=== PATIENT | male | born 1950 | race Caucasian/White ===

== ENCOUNTER 2019-10-03 17:54 | Inpatient (IN) | payer MEDICARE, MEDICAID, SELFPAY ==
[2019-10-03] VITALS (9 sets, daily range): BP systolic 134–141; BP diastolic 84–85; PULSE 88–95; RESP 18–25; TEMP 36.8; O2SAT 98–100; BMI 15.7
--- NOTE | 2019-10-03 18:24 | ED_ITS ---
Entered by Meli Castro, acting as scribe for Ruben Hauser MD, [facility] [place] HPI - Chest Pain General: Chief Complaint: Chest Pain Stated Complaint: DIFFICULTY BREATHING/ CHEST PAIN Time Seen by Provider: 10/03/19 18:24 Source: patient Mode of arrival: ambulatory Limitations: no limitations History of Present Illness: HPI narrative: 69 yo Male presents to ED with c omplaint of chest pain and shortness of breath. Pt states that he was walking his dog and started having pain in his chest and radiating down his right arm. Pt states that this happened 1645 today. Pt states that he has 4 stents in his heart. Pt states that this feels like his previous heart attacks. Pt states that his lungs are killing him. Pt states that he has been couging up yellowish-green sputum. Pt states that he does use 3 liters oxygen at home for his COPD and emphysema. Pt states that he does still smoke. MD complaint: chest pain Onset (ago): week(s) (2) Onset: during exertion Pain location: substernal Pain radiation: right arm Severity: similar to previous episodes Pain scale (0-10): 9 Quality: similar to prior [facility] Relieving factors: nothing Exacerbating factors: nothing Context: recent illness Associated symptoms: Reports dyspnea Treatment prior to arrival: aspirin and nitroglycerin Risk Factors: Coronary artery disease risk factors: diabetes, smoking history, hyperlipidemia and hypertension Review of Systems General: Reports: 10 or more systems reviewed and unremarkable except in HPI and below Card: Reports: chest pain Resp: Reports: shortness of breath, productive cough and change in phlegm color (yellowish-green x 2 weeks) PFSH ED PFSH: Statuses (acute, chronic, etc) shown below reflect problem list status as previously entered and may not be historically accurate Medical History (Updated 10/03/19 @ 22:26 by Ruben Hauser MD, [facility] [place]) Anxiety (Acute) CAD (coronary artery disease) (Acute) CHF (congestive heart failure) (Acute) COPD (chronic obstructive pulmonary disease) (Acute) Diabetes (Acute) Emphysema, unspecified (Acute) GERD (gastroesophageal reflux disease) (Acute) HTN (hypertension) (Acute) Myocardial infarction (Acute) Surgical History (Updated 10/03/19 @ 18:33 by Meli Castro) History of back surgery (Acute) History of cardiac cath (Acute) History of coronary angioplasty (Acute) History of neck surgery (Acute) Social History Smoking and tobacco status: current every day smoker Physical Exam Const: COMMON NORMALS: no apparent distress, average body habitus, oriented x3, no limitations, healthy appearing, alert and well nourished HENMT: COMMON NORMALS: normocephalic, head/scalp atraumatic, hearing grossly normal bilaterally, external ears normal, EAC's normal, TM's normal bilaterally, external nose normal, nasal mucous membranes and turbinates normal, moist oral mucous membranes, oropharynx normal, dentition normal and gingiva normal HEAD & SCALP: normocephalic and atraumatic NOSE: external nose normal and nasal mucous membranes and turbinates normal EXTERNAL EAR: Yes external ears normal EXTERNAL AUDITORY CANAL: EAC's normal TYMPANIC MEMBRANE: TM's normal bilaterally Eye: COMMON NORMALS: PERRL, EOMs intact bilaterally, conjunctivae normal, no scleral icterus, no papilledema, normal visual [place] by confrontation and fundi normal bilaterally CONJUNCTIVA: Yes conjunctivae normal PUPIL: Yes PERRL DIRECT OPHTHALMOSCOPY: Yes no papilledema and Yes fundi normal bilaterally Neck/C-Spine: COMMON NORMALS: full ROM, supple, no meningeal signs, no JVD and no carotid bruits Chest: COMMONS NORMALS: inspection of chest normal and palpation of chest normal Resp: COMMON NORMALS: negative for normal respiratory effort and negative for clear to auscultation bilaterally EFFORT & INSPECTION: Yes tachypneic and Yes respiratory distress AUSCULTATION: not clear to auscultation bilaterally, wheezes throughout and diminished lung sounds bilateral Cardio: COMMON NORMALS: no JVD, regular rate, regular rhythm, S1 normal heart sound, S2 normal heart sound, no gallops, no clicks, no murmurs, no rub and peripheral pulses 2+ throughout RATE: regular rate RHYTHM: regular rhythm HEART SOUNDS: S1 normal and S2 normal PERIPHERAL PULSES: pulses 2+ throughout GI: COMMON NORMALS: normal to inspection, nondistended, normoactive bowel sounds, soft to palpation, non-tender, no hepatosplenomegaly, no masses and no bruits PALPATION: Yes soft and Yes no hepatosplenomegaly : COMMON NORMALS: Yes no CVA tenderness BLADDER/KIDNEY EXAM: Yes no CVA tenderness Back/Pelvis: COMMON NORMALS: no CVA tenderness Extremity: COMMON NORMALS: normal to inspection, full ROM, normal capillary refill, no joint enlargement, no clubbing, cyanosis or edema, no calf tenderness and no pedal edema Neuro: COMMON NORMALS: oriented x3 SENSORIUM/ORIENTATION: Yes alert MENINGEAL SIGNS: Yes no meningeal signs Skin: COMMON NORMALS: no rashes or lesions noted, no wounds, skin turgor normal, no jaundice, no petechiae and no mottling GENERAL SKIN EXAM: no rashes or lesions noted and turgor normal Course Consultations: Consultation #1: Discussed with Dr. hebert, hospitalist and she kindly accepted the patient to her service. Time: 19:20 Vital Signs: Vital signs: Vital Signs Temperature 98.2 F 10/03/19 18:03 Pulse Rate 94 10/03/19 20:21 Respiratory Rate 23 H 10/03/19 21:46 Blood Pressure 141/84 10/03/19 18:03 Pulse Oximetry 99 10/03/19 21:46 MDM - Chest Pain MDM Narrative: Medical decision making narrative: Patient with clinical features consistent with a COPD exacerbation. Patient is hypoxic requiring more oxygen than his baseline. Chest x-ray was negative for infiltrate. He is admitted for pulmonary toilet and further evaluation. Lab Data: Labs: Lab Results 10/03/19 10/03/19 10/03/19 Range/Units 19:00 19:00 19:00 WBC 9.9 (4.0-10.0) 10^3/ uL RBC 3.82 L (4.1-5.3) 10^6/u L Hgb 11.6 L (11.7-16.6) g/dL Hct 36.4 L (42.0-52.0) % MCV 95.3 H (80-94) fL MCH 30.4 (28.0-34.0) pg MCHC 31.9 (30.0-36.0) g/dL RDW 13.7 (12.1-15.1) % Plt Count 240 (130-400) 10^3/c mm MPV 9.6 (7.4-10.4) fL Neut % (Auto) 89.1 % Lymph % (Auto) 7.4 % [place] % (Auto) 2.4 % Eos % (Auto) 0.1 % Baso % (Auto) 0.2 % Neut # (Auto) 8.9 H (1.8-7.7) 10^3/u L Lymph # (Auto) 0.7 L (0.8-4.8) 10^3/u L [place] # (Auto) 0.2 (0.2-0.9) 10^3/u L Eos # (Auto) 0.0 (0.0-0.8) 10^3/u L Baso # (Auto) 0.0 (0.0-0.1) 10^3/u L Nucleated RBC % (a uto) 0 % Nucleated RBCs # 0.0 /100WBC D-Dimer <= 0.27 (0-0.59) ug/mIFE U Sodium 129 L (136-145) mmol/L Potassium 4.1 (3.5-5.1) mmol/L Chloride 91 L (98-107) mmol/L Carbon Dioxide 30 H (22-29) mmol/L Anion Gap 12.1 (5-19) BUN 8 (8-23) mg/dL Creatinine 0.6 L (0.7-1.2) mg/dL GFR Calculation 134.0 H (90-130) mL/min Glucose 88 (74-106) mg/dL Calcium 9.1 (8.8-10.2) mg/Dl Total Bilirubin 0.3 (0.15-1.2) mg/dL AST 12 (0-40) U/L ALT 9 (0-41) U/L Alkaline Phosphata se 88 (40-130) IU/L Troponin T Baselin e (0-15) ng/mL Troponin T 120 Min [place] (0-15) ng/mL Delta Troponin T (0-10) ABS# Total Protein 6.5 L (6.6-8.7) g/dL Albumin 3.9 (3.5-5.2) g/dL Globulin 2.6 (1.3-4.6) g/dL 10/03/19 10/03/19 Range/Units 19:00 20:38 WBC (4.0-10.0) 10^3/ uL RBC (4.1-5.3) 10^6/u L Hgb (11.7-16.6) g/dL Hct (42.0-52.0) % MCV (80-94) fL MCH (28.0-34.0) pg MCHC (30.0-36.0) g/dL RDW (12.1-15.1) % Plt Count (130-400) 10^3/c mm MPV (7.4-10.4) fL Neut % (Auto) % Lymph % (Auto) % [place] % (Auto) % Eos % (Auto) % Baso % (Auto) % Neut # (Auto) (1.8-7.7) 10^3/u L Lymph # (Auto) (0.8-4.8) 10^3/u L [place] # (Auto) (0.2-0.9) 10^3/u L Eos # (Auto) (0.0-0.8) 10^3/u L Baso # (Auto) (0.0-0.1) 10^3/u L Nucleated RBC % (a uto) % Nucleated RBCs # /100WBC D-Dimer (0-0.59) ug/mIFE U Sodium (136-145) mmol/L Potassium (3.5-5.1) mmol/L Chloride (98-107) mmol/L Carbon Dioxide (22-29) mmol/L Anion Gap (5-19) BUN (8-23) mg/dL Creatinine (0.7-1.2) mg/dL GFR Calculation (90-130) mL/min Glucose (74-106) mg/dL Calcium (8.8-10.2) mg/Dl Total Bilirubin (0.15-1.2) mg/dL AST (0-40) U/L ALT (0-41) U/L Alkaline Phosphata se (40-130) IU/L Troponin T Baselin e 18 H (0-15) ng/mL Troponin T 120 Min [place] 20.09 H (0-15) ng/mL Delta Troponin T 2.09 (0-10) ABS# Total Protein (6.6-8.7) g/dL Albumin (3.5-5.2) g/dL Globulin (1.3-4.6) g/dL EKG Data^: EKG 1: EKG interpretation date: 10/03/19 EKG interpretation time: 18:13 Other EKG comments: [address] [address] Electrocardiograph Report Draft Patient: Onel Low EMR#: [id number] : [id number]:[id number] Age/Sex: 69 / MADM Date: 10/03/19 Loc: ER Attending Dr: Ordering Physician: Ruben Hauser MD, [facility] Date of Service: 10/03/19 Procedure(s): ECG 12 lead EKG Accession Number(s): [id number] Report Number: [id number] Measurements Intervals [place] Rate: 89 P: 82 KS: 150 QRS: 39 QRSD: 86 T: 81 QT: 370 QTc: 452 SINUS RHYTHM POSSIBLE LEFT ATRIAL ENLARGEMENT [-0.1mV P WAVE IN V1/V2] Compared to ECG 06/01/2019 19:29:20 Ventricular premature complex(es) no longer present Myocardial infarct finding no longer present [id number] Dictated By:INTERFACE,USER Signed By:Signed Date/Time: EKG 2: EKG interpretation date: 10/03/19 EKG interpretation time: 20:52 Other EKG comments: unchanged Discharge Plan Discharge Patient Disposition: Placed in Observation Clinical Impression: Acute exacerbation of chronic obstructive pulmonary disease Condition: Stable Referrals: Jesse Jacinto MD [Family Provider] - Coding Level of Care Code ED Creative Specialist for Chg Fwd Exam Problem Focused The documentation recorded by the Matthew kimball Carmen, accurately reflects the service I personally performed and the decisions made by Analisa jimenez Adegoke I, MD, [facility] Oct 03, 2019 17:54
--- NOTE | 2019-10-03 18:43 | XR_ITS ---
WS: [id number] CHEST XRAY TECHNIQUE: Portable chest. CLINICAL INFORMATION: SOB COMPARISON: May 31, 2019 FINDINGS: Heart: Normal cardiac silhouette. Lungs: Chronic emphysematous changes. No acute pulmonary infiltrates. Fibrosis in the lung apices. Bones: Normal visualized bony structures. Cholecystectomy clips. XR/XR chest 1V portable [id number] IMPRESSION: No acute chest findings
--- NOTE | 2019-10-03 18:43 | ECG_ITS ---
Measurements Intervals [place] Rate: 89 P: 82 ME: 150 QRS: 39 QRSD: 86 T: 81 QT: 370 QTc: 452 SINUS RHYTHM POSSIBLE LEFT ATRIAL ENLARGEMENT [-0.1mV P WAVE IN V1/V2] Compared to ECG 06/01/2019 19:29:20 Ventricular premature complex(es) no longer present Myocardial infarct finding no longer present Electronically Signed On 10-04-2019 8:07:25 PROJECT MANAGER/DESIGN MANAGER by Nathanael Mcelroy M.D. [id number]
[2019-10-03 19:11] LABS: Basophils % 0.2 %; Eosinophils % 0.1 %; Hematocrit 36.4 % (42.0-52.0); Hemoglobin 11.6 g/dL (11.7-16.6); Lymphocytes # 0.7 10^3/uL (0.8-4.8); Lymphocytes % 7.4 %; Mean Corpuscular HGB Conc 31.9 g/dL (30.0-36.0); Mean Corpuscular Hemoglobin 30.4 pg (28.0-34.0); Mean Corpuscular Volume 95.3 fL (80-94); Mean Platelet Volume 9.6 fL (7.4-10.4); Monocytes # 0.2 10^3/uL (0.2-0.9); Monocytes % 2.4 %; Neutrophils # 8.9 10^3/uL (1.8-7.7); Neutrophils % 89.1 %; Nucleated Red Blood Cells % 0 %; Platelet Count 240 10^3/cmm (130-400); Red Blood Count 3.82 10^6/uL (4.1-5.3); Red Cell Distribution Width 13.7 % (12.1-15.1); White Blood Count 9.9 10^3/uL (4.0-10.0)
[2019-10-03 19:22] LABS: D Dimer <= 0.27 ug/mIFEU (0-0.59)
[2019-10-03] MEDS: morphine 4 mg/mL SDV 1 mL IVP ×5 (19:27→23:36)
[2019-10-03] MEDS: nitroglycerin 1 gm/inch oint Pkt 1 INCH TOPICAL (19:30)
[2019-10-03 19:31] LABS: Alanine Aminotransferase 9 U/L (0-41); Albumin Level 3.9 g/dL (3.5-5.2); Alkaline Phosphatase 88 IU/L (40-130); Anion Gap 12.1 (5-19); Aspartate Amino Transferase 12 U/L (0-40); Blood Urea Nitrogen 8 mg/dL (8-23); Calcium 9.1 mg/Dl (8.8-10.2); Carbon Dioxide 30 mmol/L (22-29); Chloride 91 mmol/L (98-107); Globulin 2.6 g/dL (1.3-4.6); Glucose 88 mg/dL (74-106); Potassium 4.1 mmol/L (3.5-5.1); Sodium 129 mmol/L (136-145); Total Bilirubin 0.3 mg/dL (0.15-1.2); Total Protein 6.5 g/dL (6.6-8.7)
[2019-10-03 19:37] LABS: Troponin(5th) Baseline 18 ng/mL (0-15)
[2019-10-03] MEDS: ipratropium-albuterol 3 mL Neb INHALATION (20:17)
--- NOTE | 2019-10-03 20:43 | ECG_ITS ---
Measurements Intervals [place] Rate: 89 P: 81 SC: 162 QRS: 44 QRSD: 77 T: 81 QT: 373 QTc: 456 SINUS RHYTHM POSSIBLE RIGHT ATRIAL ENLARGEMENT [0.25mV P WAVE] POSSIBLE LEFT ATRIAL ENLARGEMENT [-0.1mV P WAVE IN V1/V2] SEPTAL MYOCARDIAL INFARCTION , PROBABLY OLD [40+ ms Q WAVE IN V1/V2] Compared to ECG 06/01/2019 19:29:20 Ventricular premature complex(es) no longer present Myocardial infarct finding still present Electronically Signed On 10-04-2019 8:09:25 HEALTH SAFETY INSTRUCTOR by Nathanael Mcelroy M.D. [id number] loo
[2019-10-03 20:58] LABS: Troponin 5 2HR 20.09 ng/mL (0-15)
[2019-10-03 20:59] LABS: Troponin 5 2HR Delta 2.09 ABS# (0-10)
[2019-10-03] MEDS: azithromycin 500 MG in sodium chloride 0.9% 250 ML 250 MG IV (22:30)
--- NOTE | 2019-10-03 23:29 | P.HP_ITS ---
Providers/Chief Complaint Admitting Physician: Megan Varela MD Primary Care Provider: Jesse Jacinto Chief Complaint: DIFFICULTY BREATHING/ CHEST PAIN History of Present Illness Onel Low is a 69 year old male who presented to the emergency room with chief complaint of difficulty breathing and some chest discomfort. He has been clinically declining over the last few months. This is including getting progressively weaker, losing weight and noticing increasing dyspnea on exertion. He saw his primary care provider approximately 5 weeks ago. He is lost at least 5 pounds if not more since then. He was seen at the emergency room and [facility] a couple of weeks ago and had a course of steroids and antibiotics. For a brief period of time he felt better but says since he came off of those he is actually felt worse than he was before that. He has not had any other episodes of chest pain but this evening he was getting up and walking when he had sudden onset of chest discomfort in the center of his chest. It was a severe pain that did not radiate anywhere. It was so bad he felt like he was going to pass out. He fell to my knees and was diaphoretic. He managed to get to a chair, sat down and had a breathing treatment. He also took some nitroglycerin and baby aspirin. His symptoms improved after this, but this led to him coming in. On arrival he was very tachypneic. He is normally on 3 L of oxygen but oxygen was bumped up to 5 L. He received steroids and breathing treatments and continues to have significant wheezing. He is being admitted to observation status to monitor with initiation of care. Chest x-ray did not appear to show any opacities. Review of Systems Const: Reports: body aches, change in weight, fatigue and malaise; Denies: fever, chills or night sweats Eyes: Reports: change in vision (Cloudy, developing over the last few months) ENMT: Reports: dry mouth; Denies: throat pain Card: Reports: chest pain (Today only); Denies: swelling of feet/ankles Resp: Reports: shortness of breath, non-productive cough (Occasional) and wheezing (Almost always but gets worse at times); Denies: productive cough, pain on inspiration or coughing up blood GI: Reports: diarrhea (Intermittent, otherwise has has normal bowel movements); Denies: abdominal pain, nausea or vomiting : Reports: difficulty urinating, difficulty starting urination and change in urine stream Musc: Reports: neck pain (Chronic) and back pain (Chronic) Skin/Breast: Reports: sores (On buttocks); Denies: itching Neuro: Reports: weakness in extremities (Left leg primarily, seems to have been slowly developing over the last few months, feels related to chronic back issues) Psych: Reports: anxiety and sleeping less (Due to breathing difficulties) [place]/Lymph: Denies: easy bruising or easy bleeding Medications/Allergies Allergies Allergy/AdvReac Type Severity Reaction Status Date / Time Penicillins Allergy ALGY-Rash Verified 10/04/19 01:07 Additional Medication Information Additional Medication Information: I reviewed medications with patient based on previous medications entered. These included aspirin, Plavix, metoprolol, Lipitor, Aldactone, breathing treatments, a small white pill for his lungs, Soma, hydrocodone 10, Protonix, among others. We need to clarify dosing and strengths. PFSH Acute PFSH: Statuses (acute, chronic, etc) shown below reflect problem list status as previously entered and may not be historically accurate Medical History (Updated 10/04/19 @ 01:05 by Megan Varela MD) Anxiety (Acute) CAD (coronary artery disease) (Acute) Has stent. Last cardiac catheterization in June 2018 showed left main, circumflex, and RCA with 0% stenosis. The proximal LAD had minimal luminal irregularities with JOHN-3 flow. He had 90% restenosis of the first obtuse marginal and underwent balloon angioplasty with restenting at that time. Last echocardiogram May 2019 with ejection fraction 55%, mild hypokinesia of the apical septal segment with grade 1/4 diastolic dysfunction noted. Chronic back pain (Chronic) Related to prior back surgeries and neck surgery, on hydrocodone 10 two tabs q 4hr + soma qid COPD (chronic obstructive pulmonary disease) (Acute) Pulmonary function testing from July 2018 showed severe obstructive ventilatory defect with no significant bronchodilator response and moderately reduced diffusing capacity. GERD (gastroesophageal reflux disease) (Acute) HTN (hypertension) (Acute) Hyperlipidemia (Acute) Nicotine dependence, cigarettes, with other nicotine-induced disorders (Chronic) Surgical History (Updated 10/04/19 @ 00:56 by Megan Varela MD) History of back surgery (Acute) x4 History of neck surgery (Acute) x2 S/P appendectomy (Acute) S/P cholecystectomy (Acute) Family History (Updated 10/04/19 @ 00:25 by Megan Varela MD) Other Hypertension Social History (Updated 10/04/19 @ 01:02 by Megan Varela MD) Smoking and tobacco status: current every day smoker cigarettes Packs smoked per day: 1 Alcohol intake: former 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 Substance/Drug Use: never Household members: spouse and children Vitals/I&O/Wt Last Vital Signs Temp 98.2 F 10/03/19 18:03 Pulse 94 10/03/19 20:21 Resp 23 H 10/03/19 22:24 BP 141/84 10/03/19 18:03 Pulse Ox 99 10/03/19 22:24 Weight last 48 hrs Weight 47.083 kg Physical Exam Const: COMMON NORMALS: oriented x3 and alert GENERAL APPEARANCE: cooperative NUTRITIONAL APPEARANCE: thin OTHER: Chronic ill appearance HENMT: COMMON NORMALS: normocephalic, head/scalp atraumatic and oropharynx normal TEETH & GINGIVA: Yes dentures THROAT: no postnasal drainage Eye: COMMON NORMALS: PERRL Neck/C-Spine: COMMON NORMALS: supple Chest: COMMONS NORMALS: inspection of chest normal Resp: EFFORT & INSPECTION: Yes able to speak in complete sentences, Yes pursed lip breathing, Yes uses accessory muscles (Mild supraclavicular retractions) and Yes prolonged expiratory phase AUSCULTATION: wheezes expiratory wheezes, inspiratory wheezes and throughout Cardio: COMMON NORMALS: regular rate and regular rhythm JUGULAR VENOUS DISTENTION: no JVD GI: COMMON NORMALS: normal to inspection, nondistended, normoactive bowel sounds and soft to palpation PALPATION: Yes tender (Generalized mild, no focal areas of tenderness) RECTAL EXAM: Yes visual inspection normal Back/Pelvis: GENERAL BACK: Yes other (Pain with movement which he states is not outside of baseline) LUMBAR SPINE/LOWER BACK: Yes normal to inspection Extremity: COMMON NORMALS: no pedal edema GENERAL: Yes other findings (Clubbing noted) Neuro: SPEECH: speech normal GAIT: Yes unable to assess gait MOTOR EXAM: strength 5/5 throughout (Despite report of left lower extremity weakness. Strength is equal proximally and distally on brief examination) and No tremor Psych: COMMON NORMALS: mental status grossly normal, thought process normal and cooperative Skin: NARRATIVE SKIN EXAM: In the sacral area patient has some blanching erythema and a central midline area that is more tender to palpation. More distally it looks like the wound has closed but more proximally on this 2 cm wound there is an open area with no drainage. Some dry skin is around it. There is no fluctuance, purulence and it looks like it is healing well but slowly. A&P Assessment and plan (1) Chest pain: Has a known history of coronary artery disease with previous LAD stent requiring restenting in 2018. Initial troponins with no significant delta change. I suspect that the discomfort was probably related to respiratory issues. He reports compliance with his medications. We will need to monitor for recurrence and consider stress testing likely in the outpatient setting when his pulmonary symptoms have improved. Status: Acute Qualifiers: Chest pain type: precordial pain Qualified Code(s): R07.2 - Precordial pain Code(s): R07.9 - Chest pain, unspecified (2) Acute exacerbation of chronic obstructive pulmonary disease: This appears to be the primary presenting problem at this point in time. He does continue to smoke but says he is trying to quit. He was on a short course of steroids and antibiotics a few weeks ago prescribed from another facility. He feels worse since that time. He may need a slower steroid taper. No obvious infiltrates on chest x-ray. Requiring higher oxygen flow rate at the moment. Status: Acute Code(s): J44.1 - Chronic obstructive pulmonary disease with (acute) exacerbation (3) Weight loss: Sounds like a significant amount over the last few months. Reports that he had TSH checked here within the last 2 months but I cannot find a result even in the old system. Could be due to increased metabolic demands in the setting of worsening pulmonary and/or cardiopulmonary status. No obvious indication of malignancy at the moment but he does have risk factors for such. Status: Acute Code(s): R63.4 - Abnormal weight loss (4) Difficulty urinating: Patient reports difficulty initiating and continuing stream of urine. He thinks he has been told his prostate is enlarged in the past. He has not been on any medications for this. Reviewed with him risks and benefits of Flomax and he agreed to initiation during this stay so we can monitor response Status: Acute Code(s): R39.198 - Other difficulties with micturition (5) Chronic back pain: Has had multiple surgeries, on chronic pain medications of hydrocodone and soma Status: Chronic Qualifiers: Back pain location: low back pain Back pain laterality: bilateral Sciatica presence: with sciatica Sciatica laterality: bilateral sciatica Qualified Code(s): M54.42 - Lumbago with sciatica, left side; M54.41 - Lumbago with sciatica, right side; G89.29 - Other chronic pain Code(s): M54.9 - Dorsalgia, unspecified; G89.29 - Other chronic pain (6) Nicotine dependence, cigarettes, with other nicotine-induced disorders: Continues to smoke about a pack a day. I reviewed with him the importance of not smoking when oxygen is on as well as the importance of smoking cessation to his overall pulmonary health. Total time approximately 5 minutes. Status: Chronic Code(s): F17.218 - Nicotine dependence, cigarettes, with other nicotine-induced disorders Additional A&P Information Additional A&P Information: Observation admission for now Prednisone, would probably benefit from a bit slower taper than usual Doxycycline Breathing treatments including inhaled steroids He says he takes a small white pill for his lungs, will need to clarify and re sume Wean oxygen back to home levels as able, of note patient keeps his oxygen in his mouth chronically Continue to monitor for 6-hour troponin and repeat EKG with chest pain Would benefit from stress testing at some point in time when his acute respiratory issues have improved or sooner if clinically indicated Flomax to be started Check TSH secondary to weight loss Resume home aspirin, Plavix, statin, beta-blockade and Aldactone Continue home hydrocodone and Soma I have held PPI currently due to antibiotics Nicotine patch as needed Lovenox for DVT prophylaxis Full code as per my discussion with patient Anticipate discharge back home with his family Attestations Medical Necessity Statement*: Currently anticipated stay less than 2 midnights in a patient with COPD exacerbation he was requiring more oxygen than his baseline. Hope is that once we get some steroids on board and more aggressive p ulmonary toilet that he will improve and be able to be discharged home with continued management. Coding Level of Care Code Acute Dice Table Person for [place] Diagnoses Chest pain R07.2 Chest pain type: precordial pain Acute exacerbation of chronic obstructive pulmonary disease J44.1 Weight loss R63.4 Difficulty urinating R39.198 Chronic back pain M54.42; M54.41; G89.29 Back pain location: low back pain Back pain laterality: bilateral Sciatica presence: with sciatica Sciatica laterality: bilateral sciatica Nicotine dependence, cigarettes, with other nicotine-induced disorders F17.218
--- NOTE | 2019-10-03 23:54 | PC.NURSE ---
REPORT CALLED TO AVIS MARIE, PT ACCEPTED AND CARE TRANSFERED.
[2019-10-04] VITALS (21 sets, daily range): BP systolic 126–175; BP diastolic 78–89; PULSE 60–95; RESP 16–26; TEMP 36.4–37.2; O2SAT 97–100
--- NOTE | 2019-10-04 00:43 | ECG_ITS ---
Measurements Intervals [place] Rate: 95 P: 79 RI: 136 QRS: 73 QRSD: 92 T: 84 QT: 386 QTc: 486 SINUS RHYTHM Compared to ECG 06/01/2019 19:29:20 Ventricular premature complex(es) no longer present Myocardial infarct finding no longer present Electronically Signed On 10-04-2019 8:10:21 ATHLETICS TEACHER by Nathanael Mcelroy M.D. [id number]
[2019-10-04 01:19] LABS: Hematocrit 34.9 % (42.0-52.0); Lymphocytes # 0.3 10^3/uL (0.8-4.8); Lymphocytes % 4.2 %; Mean Corpuscular HGB Conc 31.5 g/dL (30.0-36.0); Mean Corpuscular Hemoglobin 28.9 pg (28.0-34.0); Mean Corpuscular Volume 91.8 fL (80-94); Mean Platelet Volume 10.3 fL (7.4-10.4); Monocytes # 0.1 10^3/uL (0.2-0.9); Monocytes % 0.8 %; Neutrophils # 5.7 10^3/uL (1.8-7.7); Neutrophils % 94.5 %; Nucleated Red Blood Cells % 0 %; Platelet Count 230 10^3/cmm (130-400); Red Cell Distribution Width 13.7 % (12.1-15.1)
[2019-10-04] MEDS: ipratropium-albuterol 3 mL Neb INHALATION ×7 (01:37→23:49)
[2019-10-04 01:39] LABS: Anion Gap 15.2 (5-19); Blood Urea Nitrogen 9 mg/dL (8-23); Calcium 9.3 mg/Dl (8.8-10.2); Carbon Dioxide 28 mmol/L (22-29); Chloride 94 mmol/L (98-107); Glucose 143 mg/dL (74-106); Potassium 4.2 mmol/L (3.5-5.1); Sodium 133 mmol/L (136-145); Troponin 5 6HR 13.63 ng/L (0-15)
[2019-10-04] MEDS: sodium chloride 0.9% 1,000 ML 75 ML IV (01:47)
[2019-10-04] MEDS: HYDROcodone-acetaminophen 10-325 mg Tablet 2 TAB PO ×5 (01:48→20:25)
[2019-10-04] MEDS: enoxaparin 40 mg/0.4 mL Syringe SUBCUT (01:50)
[2019-10-04] MEDS: acetaminophen 325 mg Tablet 650 MG PO (04:22)
[2019-10-04] MEDS: LORazepam 0.5 mg Tablet 0.25 MG PO (04:23)
[2019-10-04 04:47] LABS: Thyroid Stimulating Hormone 0.02 uIU/mL (0.27-4.20)
[2019-10-04 07:02] LABS: Glucose Point of Care 172 mg/dL (70-110)
[2019-10-04 07:51] LABS: Troponin 5 6HR Delta -4.37 ng/L (0-12)
[2019-10-04] MEDS: budesonide 0.5 mg/2 mL Neb INHALATION ×2 (08:19→20:06)
[2019-10-04] MEDS: metoprolol tartrate 25 mg Tablet PO ×2 (08:55→17:28)
[2019-10-04] MEDS: predniSONE 20 mg Tablet 40 MG PO (08:56)
[2019-10-04] MEDS: doxycycline 100 mg Tablet PO ×2 (08:57→17:28)
[2019-10-04] MEDS: clopidogrel 75 mg Tablet PO (08:57)
[2019-10-04] MEDS: aspirin 81 mg EC Tablet PO (08:57)
[2019-10-04 12:19] LABS: Glucose Point of Care 114 mg/dL (70-110)
[2019-10-04] MEDS: spironolactone 25 mg Tablet PO (13:11)
--- NOTE | 2019-10-04 13:33 | PM.PN ---
Subjective Subjective: Interval history: This morning, patient's in bed, saying that he is fairly anxious, his breathing has somewhat improved this morning, no chest pain, no palpitations, no lightheadedness, no dizziness, no nausea, no vomiting, patient states that he did sleep last night as he did not get his trazodone Vitals/I&O/Wt Last Vital Signs Temp 98.9 F 10/04/19 12:00 Pulse 88 10/04/19 12:36 Resp 20 H 10/04/19 12:36 BP 171/82 10/04/19 12:00 Pulse Ox 98 10/04/19 12:36 10/03/19 10/04/19 10/04/19 22:59 06:59 14:59 Intake Total 480 / 480 240 / 240 Output Total 300 / 300 90 / 90 Balance 180 / 180 150 / 150 Weight last 48 hrs Weight 51.619 kg Weight 51.029 kg Weight 48.353 kg Weight 47.083 kg Physical Exam Const: COMMON NORMALS: no apparent distress HENMT: COMMON NORMALS: normocephalic HEAD & SCALP: normocephalic Neck/C-Spine: COMMON NORMALS: no JVD Resp: COMMON NORMALS: normal respiratory effort Cardio: COMMON NORMALS: no JVD, regular rate, regular rhythm, S1 normal heart sound and S2 normal heart sound RATE: regular rate RHYTHM: regular rhythm HEART SOUNDS: S1 normal and S2 normal GI: COMMON NORMALS: normal to inspection, nondistended, normoactive bowel sounds, soft to palpation, non-tender and no hepatosplenomegaly PALPATION: Yes soft and Yes no hepatosplenomegaly A&P Assessment and plan (1) Chest pain: -Has a known history of coronary artery disease with previous LAD stent requiring restenting in 2018. -No clinically significant delta troponins -No active chest pain -Will require outpatient follow-up for possible stress test Status: Acute Qualifiers: Chest pain type: precordial pain Qualified Code(s): R07.2 - Precordial pain Code(s): R07.9 - Chest pain, unspecified (2) Acute exacerbation of chronic obstructive pulmonary disease: -Continue oxygen, Solu-Medrol, doxycycline Status: Acute Code(s): J44.1 - Chronic obstructive pulmonary disease with (acute) exacerbation (3) Weight loss: -Likely secondary to chronic COPD Status: Acute Code(s): R63.4 - Abnormal weight loss (4) Difficulty urinating: -None currently Status: Acute Code(s): R39.198 - Other difficulties with micturition (5) Chronic back pain: Has had multiple surgeries, on chronic pain medications of hydrocodone and soma Status: Chronic Qualifiers: Back pain location: low back pain Back pain laterality: bilateral Sciatica presence: with sciatica Sciatica laterality: bilateral sciatica Qualified Code(s): M54.42 - Lumbago with sciatica, left side; M54.41 - Lumbago with sciatica, right side; G89.29 - Other chronic pain Code(s): M54.9 - Dorsalgia, unspecified; G89.29 - Other chronic pain (6) Nicotine dependence, cigarettes, with other nicotine-induced disorders: Continues to smoke about a pack a day. I reviewed with him the importance of not smoking when oxygen is on as well as the importance of smoking cessation to his overall pulmonary health. Total time approximately 5 minutes. Status: Chronic Code(s): F17.218 - Nicotine dependence, cigarettes, with other nicotine-induced disorders Additional A&P Information Additional A&P Information: Will increase Solu-Medrol to 40 mg IV 3 times daily Add flutter valve, incentive spirometer Add trazodone Add hydroxyzine for anxiety Attestations Medical Necessity Statement*: Patient requires continued hospitalization for COPD exacerbation Coding Level of Care Code Acute Spectacle Truer for [facility] Fwd Diagnoses Chest pain R07.2 Chest pain type: precordial pain Acute exacerbation of chronic obstructive pulmonary disease J44.1 Weight loss R63.4 Difficulty urinating R39.198 Chronic back pain M54.42; M54.41; G89.29 Back pain location: low back pain Back pain laterality: bilateral Sciatica presence: with sciatica Sciatica laterality: bilateral sciatica Nicotine dependence, cigarettes, with other nicotine-induced disorders F17.218
--- NOTE | 2019-10-04 13:44 | PC.RESP ---
Patient given information for Pulmonary Rehab.
--- NOTE | 2019-10-04 13:48 | PC.CHAP ---
Pastoral Care Encounter/Spiritual Assessment Type of Contact [] Declined beverage host visit [] Patient/Family/Request visit [] Outpatient visit [] Follow-up visit [] Physician referral [] Code/Alert [x] Routine visit [] Staff referral [] Actively dying [] Patient sleeping [] Family support [] [] Out of room [] Palliative care [] [] Receiving care in room [] Pre-surgical visit [] Trauma [] Long length of stay [] ICU visit [] Other: Relational/Emotional Strength [] Patient feels connected with others/family/visitors/staff [] Distress [] Loneliness/isolation [] Abandonment Spirituality of Patient [x] Person of Nayeli [x] Attends Scientology of their Nayeli [x] Believes in Prayer [] Reads Bible or Taoism materials [] There are Spiritual issues to be addressed Plate And Weld Inspector Interventions [x] Prayer [x] Active listening x Non-anxious presence [x] Spiritual/emotional support [] Crisis/trauma care [] Spiritual counseling [] Bereavement support [] Provided bereavement packet [] Provided Bible/devotional materials [] Provided toy/stuffed animal, coloring book to patient or family member [x] Completed spiritual assessment [] Provided Communion [] Anointing/[place] [] Salvation [] Other: Impact on Illness or Injury [] Angry [] Fearful [] Anxious [] Often cries [] Exhaustion [] Unable to work [] Unable to attend mosque [] Unable to walk/stand [] Unable to read [] Unable to drive [] Unable to eat/drink [] Unable to sleep [] Unable to be with family [] Other: Summary ramakrishna janee cuadra visited by yandel sher Time spent with patient 6 min
--- NOTE | 2019-10-04 19:00 | PC.NURSE ---
Introduction of staff and report received, aidet.
[2019-10-04] MEDS: atorvastatin 40 mg Tablet PO (20:30)
[2019-10-04] MEDS: trazodone 150 mg Tablet PO (20:30)
[2019-10-05] VITALS (16 sets, daily range): BP systolic 111–166; BP diastolic 66–88; PULSE 76–95; RESP 16–24; TEMP 36.1–36.9; O2SAT 91–99
[2019-10-05] MEDS: HYDROcodone-acetaminophen 10-325 mg Tablet 2 TAB PO ×5 (00:58→21:21)
[2019-10-05] MEDS: LORazepam 0.5 mg Tablet 0.25 MG PO (01:32)
[2019-10-05] MEDS: enoxaparin 40 mg/0.4 mL Syringe SUBCUT (02:25)
[2019-10-05] MEDS: ipratropium-albuterol 3 mL Neb INHALATION ×5 (04:44→19:42)
[2019-10-05 06:08] LABS: Hemoglobin 11.6 g/dL (11.7-16.6); Lymphocytes # 0.3 10^3/uL (0.8-4.8); Lymphocytes % 4.5 %; Mean Corpuscular HGB Conc 31.4 g/dL (30.0-36.0); Mean Corpuscular Hemoglobin 28.6 pg (28.0-34.0); Mean Corpuscular Volume 91.4 fL (80-94); Mean Platelet Volume 10.4 fL (7.4-10.4); Monocytes # 0.2 10^3/uL (0.2-0.9); Monocytes % 3.7 %; Neutrophils # 5.7 10^3/uL (1.8-7.7); Neutrophils % 91.3 %; Nucleated Red Blood Cells % 0 %; Platelet Count 260 10^3/cmm (130-400); Red Blood Count 4.05 10^6/uL (4.1-5.3); Red Cell Distribution Width 13.8 % (12.1-15.1); White Blood Count 6.2 10^3/uL (4.0-10.0)
[2019-10-05 07:01] LABS: Alanine Aminotransferase 8 U/L (0-41); Albumin Level 4.3 g/dL (3.5-5.2); Alkaline Phosphatase 67 IU/L (40-130); Anion Gap 12.3 (5-19); Aspartate Amino Transferase 13 U/L (0-40); Blood Urea Nitrogen 13 mg/dL (8-23); Calcium 9.4 mg/Dl (8.8-10.2); Carbon Dioxide 29 mmol/L (22-29); Chloride 93 mmol/L (98-107); Globulin 1.2 g/dL (1.3-4.6); Glomerular Filtration Rate 165.4 mL/min (90-130); Glucose 162 mg/dL (74-106); Potassium 4.3 mmol/L (3.5-5.1); Sodium 130 mmol/L (136-145); Total Bilirubin 0.2 mg/dL (0.15-1.2); Total Protein 5.5 g/dL (6.6-8.7)
[2019-10-05] MEDS: budesonide 0.5 mg/2 mL Neb INHALATION ×2 (07:22→19:42)
[2019-10-05] MEDS: aspirin 81 mg EC Tablet PO (08:50)
[2019-10-05] MEDS: doxycycline 100 mg Tablet PO ×2 (08:51→17:00)
[2019-10-05] MEDS: roflumilast 500 mcg Tablet PO (08:51)
[2019-10-05] MEDS: spironolactone 25 mg Tablet PO (08:51)
[2019-10-05] MEDS: clopidogrel 75 mg Tablet PO (08:51)
[2019-10-05] MEDS: fluoxetine 20 mg Capsule 40 MG PO (08:52)
[2019-10-05] MEDS: metoprolol tartrate 25 mg Tablet PO ×2 (08:52→17:01)
--- NOTE | 2019-10-05 10:31 | PM.PN ---
Subjective Subjective: Interval history: This morning patient states that his breathing is somewhat improved, still short of breath with exertion, states that he is lost over 60 pounds in the last 6 months, cannot figure out why, is working well with physical therapy, still has some anxiety and back pain Vitals/I&O/Wt Last Vital Signs Temp 98.4 F 10/05/19 07:48 Pulse 94 10/05/19 07:48 Resp 20 H 10/05/19 07:48 BP 111/66 10/05/19 07:48 Pulse Ox 91 10/05/19 07:48 10/04/19 10/05/19 10/05/19 22:59 06:59 14:59 Intake Total 720 / 960 960 / 960 Output Total 300 / 390 Balance 420 / 570 960 / 960 Weight last 48 hrs Weight 49.396 kg Weight 48.251 kg Weight 51.619 kg Weight 51.029 kg Weight 48.353 kg Weight 47.083 kg Physical Exam Const: COMMON NORMALS: no apparent distress Neck/C-Spine: COMMON NORMALS: no JVD Resp: COMMON NORMALS: normal respiratory effort, no retractions and no use of accessory muscles EFFORT & INSPECTION: Yes audible wheezes Cardio: COMMON NORMALS: no JVD, regular rate, regular rhythm, S1 normal heart sound and S2 normal heart sound RATE: regular rate RHYTHM: regular rhythm HEART SOUNDS: S1 normal and S2 normal GI: COMMON NORMALS: normal to inspection, nondistended, normoactive bowel sounds, soft to palpation, non-tender and no hepatosplenomegaly PALPATION: Yes soft and Yes no hepatosplenomegaly Data Micro: Micro: Microbiology 10/04/19 15:26 Gram Stain - Final Sputum - Expector ated Sputum A&P Assessment and plan (1) Chest pain: -Has a known history of coronary artery disease with previous LAD stent requiring restenting in 2018. -No clinically significant delta troponins -No active chest pain -Will require outpatient follow-up for possible stress test Status: Acute Qualifiers: Chest pain type: precordial pain Qualified Code(s): R07.2 - Precordial pain Code(s): R07.9 - Chest pain, unspecified (2) Acute exacerbation of chronic obstructive pulmonary disease: -Continue oxygen, Solu-Medrol, doxycycline Status: Acute Code(s): J44.1 - Chronic obstructive pulmonary disease with (acute) exacerbation (3) Weight loss: -Likely secondary to chronic COPD Status: Acute Code(s): R63.4 - Abnormal weight loss (4) Difficulty urinating: -None currently Status: Acute Code(s): R39.198 - Other difficulties with micturition (5) Chronic back pain: Has had multiple surgeries, on chronic pain medications of hydrocodone and soma Status: Chronic Qualifiers: Back pain location: low back pain Back pain laterality: bilateral Sciatica presence: with sciatica Sciatica laterality: bilateral sciatica Qualified Code(s): M54.42 - Lumbago with sciatica, left side; M54.41 - Lumbago with sciatica, right side; G89.29 - Other chronic pain Code(s): M54.9 - Dorsalgia, unspecified; G89.29 - Other chronic pain (6) Nicotine dependence, cigarettes, with other nicotine-induced disorders: Continues to smoke about a pack a day. I reviewed with him the importance of not smoking when oxygen is on as well as the importance of smoking cessation to his overall pulmonary health. Total time approximately 5 minutes. Status: Chronic Code(s): F17.218 - Nicotine dependence, cigarettes, with other nicotine-induced disorders (7) Hyperthyroidism: -Patient's TSH on this admission was 0.02 -On previous admissions it is been as low as 0.044, 0.046 -Patient had a thyroid scan which showed Homogeneous symmetric distribution throughout the thyroid gland. No area of focal photopenia or increased uptake to suggest a hypo or hyperfunctioning nodule. Gland measures approximate 5 cm in length which is normal. Thyroid uptake at 24 hours: 33%. (Normal uptake at 24 hours 10-30%). IMPRESSION: Normal thyroid scan. Thyroid uptake is very minimally increased suggesting early hyperthyroidism. Plan: -Will obtain a T3, T3-4, thyroid antibodies Status: Acute Code(s): E05.90 - Thyrotoxicosis, unspecified without thyrotoxic crisis or storm Additional A&P Information Additional A&P Information: Will increase Solu-Medrol to 40 mg IV 3 times daily Add flutter valve, incentive spirometer Add trazodone Add hydroxyzine for anxiety Attestations Medical Necessity Statement*: Patient requires continued hospitalization due to COPD exacerbation Coding Level of Care Code Acute Cadd Technician for [facility] Fwd Diagnoses Chest pain R07.2 Chest pain type: precordial pain Acute exacerbation of chronic obstructive pulmonary disease J44.1 Weight loss R63.4 Difficulty urinating R39.198 Chronic back pain M54.42; M54.41; G89.29 Back pain location: low back pain Back pain laterality: bilateral Sciatica presence: with sciatica Sciatica laterality: bilateral sciatica Nicotine dependence, cigarettes, with other nicotine-induced disorders F17.218 Hyperthyroidism E05.90
[2019-10-05 11:28] LABS: Free T4 Free Thyroxine 1.33 ng/dL (0.82-1.77); T3 Free 2.1 PG/ML (2.0-4.4); Thyroid Stimulating Hormone 0.03 uIU/mL (0.27-4.20)
--- NOTE | 2019-10-05 14:41 | PC.CHAP ---
Pastoral Care Encounter/Spiritual Assessment Type of Contact [] Declined footwear sales leader visit [] Patient/Family/Request visit [] Outpatient visit [] Follow-up visit [] Physician referral [] Code/Alert [x] Routine visit [] Staff referral [] Actively dying [] Patient sleeping [] Family support [] [] Out of room [] Palliative care [] [] Receiving care in room [] Pre-surgical visit [] Trauma [] Long length of stay [] ICU visit [] Other: Relational/Emotional Strength [x] Patient feels connected with others/family/visitors/staff [] Distress [] Loneliness/isolation [] Abandonment Spirituality of Patient [x] Person of Nayeli [x] Attends Scientology of their Nayeli [x] Believes in Prayer [x] Reads Bibleor Alevism materials [] There are Spiritual issues to be addressed Tunnel Form Placing Supervisor Interventions [x] Prayer [x] Active listening [x] Non-anxious presence [x] Spiritual/emotional support [] Crisis/trauma care [x] Spiritual counseling [] Bereavement support [] Provided bereavement packet [] Provided Bible/devotional materials [] Provided toy/stuffed animal, coloring book to patient or family member [x] Completed spiritual assessment [] Provided Communion [] Anointing/[place] [] Salvation [] Other: Impact on Illness or Injury [] Angry [] Fearful [] Anxious [] Often cries [] Exhaustion [] Unable to work [] Unable to attend druze [] Unable to walk/stand [] Unable to read [] Unable to drive [] Unable to eat/drink [] Unable to sleep [] Unable to be with family [] Other: Summary patient knows the [employer] patients corporate giving manager came in..patient knows the [facility] footwear sales leader left for patient corporate giving manager to take over. Time spent with patient 15 min.
[2019-10-05] MEDS: atorvastatin 40 mg Tablet PO (21:22)
[2019-10-05] MEDS: trazodone 150 mg Tablet PO (21:22)
[2019-10-06] VITALS (13 sets, daily range): BP systolic 132–159; BP diastolic 71–93; PULSE 75–93; RESP 16–20; TEMP 36.5–37.1; O2SAT 90–99
[2019-10-06] MEDS: enoxaparin 40 mg/0.4 mL Syringe SUBCUT (00:29)
[2019-10-06] MEDS: HYDROcodone-acetaminophen 10-325 mg Tablet 2 TAB PO ×3 (04:31→14:08)
[2019-10-06 05:21] LABS: Basophils % 0.1 %; Hematocrit 36.6 % (42.0-52.0); Hemoglobin 11.6 g/dL (11.7-16.6); Lymphocytes # 0.3 10^3/uL (0.8-4.8); Lymphocytes % 4.1 %; Mean Corpuscular HGB Conc 31.7 g/dL (30.0-36.0); Mean Corpuscular Hemoglobin 28.5 pg (28.0-34.0); Mean Corpuscular Volume 89.9 fL (80-94); Mean Platelet Volume 10.4 fL (7.4-10.4); Monocytes # 0.3 10^3/uL (0.2-0.9); Neutrophils # 7.1 10^3/uL (1.8-7.7); Neutrophils % 91.3 %; Nucleated Red Blood Cells % 0 %; Platelet Count 270 10^3/cmm (130-400); Red Blood Count 4.07 10^6/uL (4.1-5.3); White Blood Count 7.8 10^3/uL (4.0-10.0)
[2019-10-06 05:48] LABS: Alanine Aminotransferase 10 U/L (0-41); Albumin Level 3.9 g/dL (3.5-5.2); Alkaline Phosphatase 63 IU/L (40-130); Anion Gap 11.6 (5-19); Aspartate Amino Transferase 12 U/L (0-40); Blood Urea Nitrogen 15 mg/dL (8-23); Calcium 9.7 mg/Dl (8.8-10.2); Carbon Dioxide 28 mmol/L (22-29); Chloride 98 mmol/L (98-107); Glomerular Filtration Rate 165.4 mL/min (90-130); Glucose 122 mg/dL (74-106); Potassium 4.6 mmol/L (3.5-5.1); Sodium 133 mmol/L (136-145); Total Bilirubin 0.3 mg/dL (0.15-1.2); Total Protein 5.9 g/dL (6.6-8.7)
[2019-10-06] MEDS: ipratropium-albuterol 3 mL Neb INHALATION ×3 (07:26→15:08)
[2019-10-06] MEDS: budesonide 0.5 mg/2 mL Neb INHALATION (07:26)
[2019-10-06] MEDS: doxycycline 100 mg Tablet PO (09:55)
[2019-10-06] MEDS: metoprolol tartrate 25 mg Tablet PO (09:55)
[2019-10-06] MEDS: aspirin 81 mg EC Tablet PO (09:55)
[2019-10-06] MEDS: roflumilast 500 mcg Tablet PO (09:56)
[2019-10-06] MEDS: fluoxetine 20 mg Capsule 40 MG PO (09:56)
[2019-10-06] MEDS: clopidogrel 75 mg Tablet PO (09:56)
[2019-10-06] MEDS: spironolactone 25 mg Tablet PO (09:56)
[2019-10-06] MEDS: nicotine 21 mg Patch 1 PATCH TRANSDERMA (12:48)
--- NOTE | 2019-10-06 12:51 | P.DS_ITS ---
Discharge Providers Date of Admission: 10/04/19 16:10 Date of Discharge: 10/06/19 Attending Provider at Admission: Megan Varela MD Attending Provider at Discharge: Tyrone Ruvalcaba MD Diagnoses at Discharge Discharge Diagnosis (1) Chest pain: Status: Acute Qualifiers: Chest pain type: precordial pain Qualified Code(s): R07.2 - Precordial pain (2) Acute exacerbation of chronic obstructive pulmonary disease: Status: Acute (3) Weight loss: Status: Acute (4) Difficulty urinating: Status: Acute (5) Chronic back pain: Status: Chronic Problem details: Related to prior back surgeries and neck surgery, on hydrocodone 10 two tabs q 4hr + soma qid Qualifiers: Back pain location: low back pain Back pain laterality: bilateral Sciatica presence: with sciatica Sciatica laterality: bilateral sciatica Qualified Code(s): M54.42 - Lumbago with sciatica, left side; M54.41 - Lumbago with sciatica, right side; G89.29 - Other chronic pain (6) Nicotine dependence, cigarettes, with other nicotine-induced disorders: Status: Chronic (7) Hyperthyroidism: Status: Acute Reason for Visit Reason for Visit: Reason For Visit: DIFFICULTY BREATHING/ CHEST PAIN Hospital Course Discharge Summary: This is a 69-year-old male with a past medical history of COPD, who presents to the emergency room due to cough and shortness of breath. Patient was admitted for a COPD exacerbation, received IV hydration, nebulizer treatments, Solu-Medrol, antibiotics, clinically improved. Patient was discharged on steroid taper, doxycycline, nebulizer treatments, and a close follow-up with primary care physician in 1 week. In addition patient had chest pain on admission, he does have history of LAD stent requiring restenting in 2018, he had no significant troponin elevations with no significant delta change, no chest pain throughout admission, patient is to follow-up with his primary care physician as outpatient for consideration of stress testing. Patient was advised that if he had chest pain or shortness of breath come back to the emergency room. Patient was also found to have a TSH of 0.03, free T4 of 1.33, free T3 of 2.1, had a thyroid scan a few months ago which showed very minimal increased suggesting early hyperthyroidism. Thyroid antibodies pending. Patient should follow with primary care physician for following thyroid function. Physical Exam Const: COMMON NORMALS: no apparent distress Neck/C-Spine: COMMON NORMALS: no JVD Resp: COMMON NORMALS: normal respiratory effort, no retractions, no use of accessory muscles and clear to auscultation bilaterally AUSCULTATION: clear to auscultation bilaterally Cardio: COMMON NORMALS: no JVD, regular rate, regular rhythm, S1 normal heart sound and S2 normal heart sound RATE: regular rate RHYTHM: regular rhythm HEART SOUNDS: S1 normal and S2 normal GI: COMMON NORMALS: normal to inspection, nondistended, normoactive bowel sounds, soft to palpation, non-tender and no hepatosplenomegaly PALPATION: Yes soft and Yes no hepatosplenomegaly Discharge Data Data Completed and Pending: Completed Studies During Hospitalization Category Date Time Status XR chest 1V kasey ble [id number] Urgent Exams 10/03/19 18:43 Completed Pending at discharge Category Date Time Status CBC [Complete Blo od Count w/Auto] A M LABS Lab 10/07/19 04:00 Ordered Comprehensive Met abolic Panel AM LA BS Lab 10/07/19 04:00 Ordered Sputum Culture an d Gram Stain Stat Lab 10/03/19 18:51 Results Labs from last 24 hours 10/06/19 10/06/19 04:14 04:14 WBC 7.8 RBC 4.07 L Hgb 11.6 L Hct 36.6 L MCV 89.9 MCH 28.5 MCHC 31.7 RDW 14.0 Plt Count 270 MPV 10.4 Neut % (Auto) 91.3 Lymph % (Auto) 4.1 [place] % (Auto) 4.0 Eos % (Auto) 0.0 Baso % (Auto) 0.1 Neut # (Auto) 7.1 Lymph # (Auto) 0.3 L [place] # (Auto) 0.3 Eos # (Auto) 0.0 Baso # (Auto) 0.0 Nucleated RBC % (a uto) 0 Nucleated RBCs # 0.0 Sodium 133 L Potassium 4.6 Chloride 98 Carbon Dioxide 28 Anion Gap 11.6 BUN 15 Creatinine 0.5 L GFR Calculation 165.4 H Glucose 122 H Calcium 9.7 Total Bilirubin 0.3 AST 12 ALT 10 Alkaline Phosphata se 63 Total Protein 5.9 L Albumin 3.9 Globulin 2.0 Vitals: Last Vital Signs Temp 98.7 F 10/06/19 11:00 Pulse 89 10/06/19 11:01 Resp 18 10/06/19 11:01 BP 145/83 10/06/19 11:00 Pulse Ox 98 10/06/19 11:01 Discharge Plan Discharge Patient Disposition: Home, Self-Care Condition: Stable Prescriptions: New doxycycline monohydrate 100 mg Tablet 100 mg PO BID 7 Days Qty: 14 RF: 0 prednisone 10 mg tablet 10 mg PO DIRECTED 25 Days Qty: 53 RF: 0 Continued Daliresp 500 mcg Tablet 500 mcg PO DAILY RF: 0 Soma 350 mg Tablet 350 mg PO QID RF: 0 fluoxetine 40 mg Capsule 40 mg PO DAILY RF: 0 atorvastatin 40 mg Tablet 40 mg PO QPM RF: 0 clopidogrel 75 mg Tablet 75 mg PO DAILY RF: 0 spironolactone 25 mg Tablet 25 mg PO DAILY RF: 0 pantoprazole 40 mg Tablet,Delayed Release (Dr/Ec) 40 mg PO DAILY RF: 0 metoprolol tartrate 50 mg Tablet 50 mg PO BID RF: 0 hydrocodone-acetaminophen 10-325 mg Tablet 1 tab PO Q6H PRN (Reason: Insomnia) RF: 0 trazodone 150 mg Tablet 150 mg PO BEDTIME RF: 0 Discharge Orders: Discharge Order (Routine); Ordered 10/06/19 Ordered By: Tyrone Ruvalcaba Referrals: Jesse Jacinto MD [Family Provider] - Discharge Diet: Regular Discharge Activity: Resume usual activity Activity Restrictions/Additional Instructions: -If you have chest pain or worsening shortness of breath please come back to the emergency room -Take doxycycline steroid as prescribed -For your hyperthyroidism, follow-up with primary care Discharge Attestations Time Spent in Discharge Care*: less than 30 min Quality Metrics Clinical Quality Measures During this hospital stay, did patient experience: None Coding Level of Care Code Acute [employer] for g Fwd Diagnoses Chest pain R07.2 Chest pain type: precordial pain Acute exacerbation of chronic obstructive pulmonary disease J44.1 Weight loss R63.4 Difficulty urinating R39.198 Chronic back pain M54.42; M54.41; G89.29 Back pain location: low back pain Back pain laterality: bilateral Sciatica presence: with sciatica Sciatica laterality: bilateral sciatica Nicotine dependence, cigarettes, with other nicotine-induced disorders F17.218 Hyperthyroidism E05.90
--- NOTE | 2019-10-06 13:43 | PC.PT ---
PT goals achieved ;Discharge PT
== END 2019-10-06 17:40 | disposition home or self-care (01) | DRG 192 ==
LOC: ER 22:26 → MEDSURG 22:43
PROVIDERS: Admitting Provider Hospitalist; Emergency Provider Family Medicine; Family Provider Family Medicine; Visit Provider Family Medicine
DX: J44.1 Chronic obstructive pulmonary disease with (acute) exacerbation (principal); I25.10 Atherosclerotic heart disease of native coronary artery without angina pectoris; F41.9 Anxiety disorder, unspecified; G89.29 Other chronic pain; M54.9 Dorsalgia, unspecified; F17.210 Nicotine dependence, cigarettes, uncomplicated; K21.9 Gastro-esophageal reflux disease without esophagitis; I10 Essential (primary) hypertension; E78.5 Hyperlipidemia, unspecified; R63.4 Abnormal weight loss
CPT/HCPCS: 36415; 36416; 71045; 80048; 80053; 82962; 84439; 84443; 84481; 84484; 85025; 85378; 87070; 87077; 87186; 87205; 93005; 94640; 94664; 96372; 96374; 96375; 97116; 97161; 97530; 99282; G0378; J0456; J1650; J2270; J2920; J2930; J3490; J7030; J7050; J7512; J7626

== ENCOUNTER → 2020-02-26 14:22 | Outpatient (BNVA) | payer MEDICARE, MEDICAID, SELFPAY | PROVIDERS: Family Provider Family Medicine; PCP Family Medicine; Visit Provider Family Medicine | DX: E05.90 Thyrotoxicosis, unspecified without thyrotoxic crisis or storm (principal) | CPT/HCPCS: 84439; 84443 ==

== ENCOUNTER 2020-04-07 21:44 | Emergency (ER) | payer MEDICARE, MEDICAID, SELFPAY ==
[2020-04-07 22:11] VITALS: BP 174/99; PULSE 98; RESP 20; TEMP 36.8; O2SAT 98; BMI 18.8
--- NOTE | 2020-04-07 22:22 | XR_ITS ---
WS: [id number] Portable AP upright chest, 04/07/2020 Clinical Data: chest pain Comparison: Portable chest, 10/03/2019. Findings: No nodules, masses or effusions are seen. The heart is normal. The pulmonary vascularity is not increased. No pneumonia or pneumothorax is seen. The diaphragms are flattened. Minimal atelectas is is seen at the left costophrenic angle. The aortic arch shows minimal calcification. XR/XR chest 1V portable [id number] Impression: Hyperinflation.
[2020-04-07 22:43] LABS: Basophils # 0.1 10^3/uL (0.0-0.1); Basophils % 0.6 %; Eosinophils % 0.4 %; Hematocrit 39.5 % (42.0-52.0); Hemoglobin 12.5 g/dL (11.7-16.6); Lymphocytes # 0.9 10^3/uL (0.8-4.8); Lymphocytes % 8.7 %; Mean Corpuscular HGB Conc 31.6 g/dL (30.0-36.0); Mean Corpuscular Hemoglobin 29.8 pg (28.0-34.0); Mean Corpuscular Volume 94.3 fL (80-94); Mean Platelet Volume 10.3 fL (7.4-10.4); Monocytes # 0.7 10^3/uL (0.2-0.9); Monocytes % 6.4 %; Neutrophils # 8.59 10^3/uL (1.8-7.7); Neutrophils % 83.5 %; Nucleated Red Blood Cells % 0 %; Platelet Count 277 10^3/cmm (130-400); Red Blood Count 4.19 10^6/uL (4.1-5.3); Red Cell Distribution Width 13.5 % (12.1-15.1); White Blood Count 10.3 10^3/uL (4.0-10.0)
[2020-04-07 23:03] LABS: Lactic Sepsis W/Reflex 1.4 mmol/L (0.5-2.2)
[2020-04-07 23:04] LABS: Troponin(5th) Baseline 16 ng/L (0-15)
[2020-04-07 23:18] LABS: Alanine Aminotransferase 14 U/L (0-41); Albumin Level 4.4 g/dL (3.5-5.2); Alkaline Phosphatase 92 IU/L (40-130); Anion Gap 14.8 (5-19); Aspartate Amino Transferase 16 U/L (0-40); Blood Urea Nitrogen 11 mg/dL (8-23); Calcium 9.5 mg/dL (8.5-10.5); Carbon Dioxide 30 mmol/L (22-29); Chloride 93 mmol/L (98-107); Glomerular Filtration Rate 165.4 mL/min (90-130); Glucose 85 mg/dL (65-115); NT Pro B Type Natriuretic Pept 1604 pg/mL (0-125); Osmolality Calculated 271 mOsm/kg (285-295); Potassium 4.8 mmol/L (3.5-5.1); Sodium 133 mmol/L (136-145); Total Bilirubin 0.5 mg/dL (0.15-1.2); Total Protein 7.4 g/dL (6.6-8.7)
[2020-04-07 23:23] LABS: ABG PCO2 45.8 mmHg (35-45); Arterial Blood Gas Hematocrit 39.8 % (42-52); Base Excess ABG 2.7 mmol/L (-2.0-2.0); Blood Gas Allen Test Pos; Blood Gas Sample Site Radial, left; Blood Gas Sample Type Arterial; Carboxyhemoglobin 2.4 %THgb (0.4-20.1); HCO3 ABG 28.2 mmol/L (22-26); HGB O2 Sat 94.2 % (95-100); Ionized Calcium Level - ABG 1.2 mmol/L (1.1-1.4); Methemoglobin 1.2 % (0.4-1.5); Oxygen Device NC; Oxygen Saturation ABG 97.7; Potassium Level - ABG 4.2 mmol/L (3.5-5.0)
[2020-04-07] MEDS: nitroglycerin 0.4 mg sublingual Tablet SUBLINGUAL (23:39)
--- NOTE | 2020-04-07 23:45 | W.ED.SOB ---
HPI - SOB/Dyspnea General: Chief Complaint: Shortness of Breath/Dyspnea Stated Complaint: multiple complaints Time Seen by Provider: 04/07/20 23:32 Source: patient Mode of arrival: ambulatory Limitations: no limitations History of Present Illness: HPI Narrative: Patient is a 69-year-old male with a history of COPD/emphysema, CAD, chronic neck and back pain, and hyperlipidemia here for complaints of shortness of breath. Patient tells me shortness of breath has been present over the past few days. Patient normally wears 3L O2 continuously but states today he had an O2 reading of 83% so he bumped his oxygen up to 15L for a short time. Patient tells me he is also having some chest pain that began today as well. He has known coronary artery disease requiring stenting. Patient tells me he will normally take albuterol and combivent for his COPD. Last stress test/echocardiogram is unknown. He has not had any recent travel or known covert exposure. He has not been running fevers. MD elicited complaint: shortness of breath and anxiety Associated symptoms: Reports chest pain; Deny abdominal pain, chest congestion, fever(s), hemoptysis, lightheadedness, nausea, palpitations, syncope or vomiting Review of Systems Const: Denies: fever(s), chills or body aches Eyes: Denies: change in vision, blurry vision, photophobia, floaters or seeing flashes ENMT: Denies: odynophagia Card: Reports: chest pain and dyspnea on exertion; Denies: palpitations, irregular heart rhythm, edema, swelling of feet/ankles, lightheadedness, syncope or pre-syncope Resp: Reports: dyspnea; Denies: productive cough, non-productive cough, pain on inspiration, change in phlegm color, hemoptysis or chest congestion GI: Denies: abdominal pain, nausea, vomiting, heartburn or diarrhea : Denies: flank pain, difficulty urinating, dysuria, urinary frequency, urinary urgency or urinary hesitancy Musc: Denies: neck pain, back pain or joint pain Skin/Breast: Denies: rash Neuro: Denies: headache(s), numbness in extremities, weakness in extremities or sensory changes PFS ED PFSH: Medical History (Updated 04/08/20 @ 02:10 by YAKOV Branham) Anxiety CAD (coronary artery disease) Has stent. Last cardiac catheterization in June 2018 showed left main, circumflex, and RCA with 0% stenosis. The proximal LAD had minimal luminal irregularities with JOHN-3 flow. He had 90% restenosis of the first obtuse marginal and underwent balloon angioplasty with restenting at that time. Last echocardiogram May 2019 with ejection fraction 55%, mild hypokinesia of the apical septal segment with grade 1/4 diastolic dysfunction noted. Chronic back pain Related to prior back surgeries and neck surgery, on hydrocodone 10 two tabs q 4hr + soma qid COPD (chronic obstructive pulmonary disease) Pulmonary function testing from July 2018 showed severe obstructive ventilatory defect with no significant bronchodilator response and moderately reduced diffusing capacity. 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 Household members: spouse and children Physical Exam Const: COMMON NORMALS: patient oriented x3, no limitations and alert GENERAL APPEARANCE: frail appearing NUTRITIONAL APPEARANCE: cachectic HENMT: COMMON NORMALS: normocephalic and atraumatic HEAD & SCALP: normocephalic and atraumatic Chest: COMMONS NORMALS: normal inspection of the chest OTHER: reports pain to L side of chest with palpation Resp: EFFORT & INSPECTION: Yes uses accessory muscles (mild-this appears fairly normal for patient) AUSCULTATION: diminished lung sounds (throughout) OTHER: pt is satting at 94% on his normal 3L during my examination Cardio: COMMON NORMALS: regular rate and regular rhythm RATE: regular rate RHYTHM: regular rhythm Extremity: COMMON NORMALS: no clubbing, cyanosis or edema, no calf tenderness and no pedal edema Neuro: COMMON NORMALS: patient oriented x3 SENSORIUM/ORIENTATION: Yes alert Skin: COMMON NORMALS: no rashes or lesions noted GENERAL SKIN EXAM: no rashes or lesions noted Course Vital Signs: Vital signs: Vital Signs Temperature 97.6 F 04/08/20 02:47 Pulse Rate 114 H 04/08/20 02:47 Respiratory Rate 20 H 04/08/20 02:47 Blood Pressure 120/84 04/08/20 02:47 Pulse Oximetry 96 04/08/20 02:47 MDM - SOB/Dyspnea MDM Narrative: Medical decision making narrative: Patient continues to sat at 94% on his normal 3L O2. We have not had to increase this at all throughout his stay. ABG is non-concerning/chronic. Patient CXR showing chronic emphysema without acute abnormalities. He has a mild white count at 10.3. Baseline troponin is 16 with a delta of 0.41. EKG shows no ischemic changes. Patient is completely pain-free currently. BNP is elevated at 1604. He does not complain of lower extremity swelling, abdominal distention, orthopnea, or PND. I spoke with patient regarding possible hospitalization however patient tells me he feels better and like to go home with steroids and antibiotics. Towards the end of his stay he did complain of feeling anxious and having a panic attack. Patient has a longstanding history of panic attacks and has been treated with several SSRIs and Klonopin for these previously. He was given IV Ativan which alleviated his symptoms. Lab Data: Labs: Lab Results 04/07/20 04/07/20 04/07/20 Range/Units 22:36 22:36 22:36 WBC 10.3 H (4.0-10.0) 10^3/ uL RBC 4.19 (4.1-5.3) 10^6/u L Hgb 12.5 (11.7-16.6) g/dL Hct 39.5 L (42.0-52.0) % MCV 94.3 H (80-94) fL MCH 29.8 (28.0-34.0) pg MCHC 31.6 (30.0-36.0) g/dL RDW 13.5 (12.1-15.1) % Plt Count 277 (130-400) 10^3/c mm MPV 10.3 (7.4-10.4) fL Neut % (Auto) 83.5 % Lymph % (Auto) 8.7 % [place] % (Auto) 6.4 % Eos % (Auto) 0.4 % Baso % (Auto) 0.6 % Neut # (Auto) 8.59 H (1.8-7.7) 10^3/u L Lymph # (Auto) 0.9 (0.8-4.8) 10^3/u L [place] # (Auto) 0.7 (0.2-0.9) 10^3/u L Eos # (Auto) 0.0 (0.0-0.8) 10^3/u L Baso # (Auto) 0.1 (0.0-0.1) 10^3/u L Nucleated RBC % (a uto) 0 % Nucleated RBCs # 0.0 /100WBC Specimen Type Sample Site ABG pH (7.35-7.45) ABG pCO2 (35-45) mmHg ABG pO2 (80.0-100.0) mmH g ABG HCO3 (22-26) mmol/L ABG O2 Saturation ABG Base Excess (-2.0-2.0) mmol/ L [place] Test Hematocrit (42-52) % Hgb O2 Saturation (95-100) % Carboxyhemoglobin (0.4-20.1) %THgb Methemoglobin (0.4-1.5) % Total Hemoglobin (14-18) g/dL Ionized Calcium (1.1-1.4) mmol/L O2 Delivery Device O2 Liters/Min % Education Reporter ID Sodium 133 L (136-145) mmol/L Potassium 4.8 (3.5-5.1) mmol/L Chloride 93 L (98-107) mmol/L Carbon Dioxide 30 H (22-29) mmol/L Anion Gap 14.8 (5-19) BUN 11 (8-23) mg/dL Creatinine 0.5 L (0.7-1.2) mg/dL GFR Calculation 165.4 H (90-130) mL/min Glucose 85 (65-115) mg/dL Calculated Osmolal ity 271 L (285-295) mOsm/k g Lactic Acid 1.4 (0.5-2.2) mmol/L Calcium 9.5 (8.5-10.5) mg/dL Total Bilirubin 0.5 (0.15-1.2) mg/dL AST 16 (0-40) U/L ALT 14 (0-41) U/L Alkaline Phosphata se 92 (40-130) IU/L Troponin T Baselin e (0-15) ng/L Troponin T 120 Min [place] (0-15) ng/L Delta Troponin T (0-10) ABS# NT-Pro-B Natriuret Pep 1604 H (0-125) pg/mL Total Protein 7.4 (6.6-8.7) g/dL Albumin 4.4 (3.5-5.2) g/dL Globulin 3.0 (1.3-4.6) g/dL Urine Color (Yellow) Urine Appearance (CLEAR) Urine pH (5-7) Ur Specific Gravit y (1.005-1.030) Urine Protein (Negative) Urine Glucose (UA) (Normal) Urine Ketones (Negative) Urine Blood (Negative) Urine Nitrate (Negative) Urine Bilirubin (NEGATIVE) Urine Urobilinogen (Negative) mg/dL Ur Leukocyte Concetta ase (Negative) Urine RBC (0-2) /hpf Urine WBC (0-5) /hpf Ur Squamous Epith Cells (0-5) Amorphous Sediment Urine Bacteria (NONE) Urine Mucus 04/07/20 04/07/20 04/08/20 Range/Units 22:36 23:10 00:27 WBC (4.0-10.0) 10^3/ uL RBC (4.1-5.3) 10^6/u L Hgb (11.7-16.6) g/dL Hct (42.0-52.0) % MCV (80-94) fL MCH (28.0-34.0) pg MCHC (30.0-36.0) g/dL RDW (12.1-15.1) % Plt Count (130-400) 10^3/c mm MPV (7.4-10.4) fL Neut % (Auto) % Lymph % (Auto) % [place] % (Auto) % Eos % (Auto) % Baso % (Auto) % Neut # (Auto) (1.8-7.7) 10^3/u L Lymph # (Auto) (0.8-4.8) 10^3/u L [place] # (Auto) (0.2-0.9) 10^3/u L Eos # (Auto) (0.0-0.8) 10^3/u L Baso # (Auto) (0.0-0.1) 10^3/u L Nucleated RBC % (a uto) % Nucleated RBCs # /100WBC Specimen Type Arterial Sample Site Radial, left ABG pH 7.40 (7.35-7.45) ABG pCO2 45.8 H (35-45) mmHg ABG pO2 104.0 H (80.0-100.0) mmH g ABG HCO3 28.2 H (22-26) mmol/L ABG O2 Saturation 97.7 ABG Base Excess 2.7 H (-2.0-2.0) mmol/ L [place] Test Pos Hematocrit 39.8 L (42-52) % Hgb O2 Saturation 94.2 L (95-100) % Carboxyhemoglobin 2.4 (0.4-20.1) %THgb Methemoglobin 1.2 (0.4-1.5) % Total Hemoglobin 13.0 L (14-18) g/dL Ionized Calcium 1.2 (1.1-1.4) mmol/L O2 Delivery Device Nc O2 Liters/Min 3.0 % Education Reporter ID [email or web address] Sodium 131.0 (136-145) mmol/L Potassium 4.2 (3.5-5.1) mmol/L Chloride (98-107) mmol/L Carbon Dioxide (22-29) mmol/L Anion Gap (5-19) BUN (8-23) mg/dL Creatinine (0.7-1.2) mg/dL GFR Calculation (90-130) mL/min Glucose 107.0 (65-115) mg/dL Calculated Osmolal ity (285-295) mOsm/k g Lactic Acid (0.5-2.2) mmol/L Calcium (8.5-10.5) mg/dL Total Bilirubin (0.15-1.2) mg/dL AST (0-40) U/L ALT (0-41) U/L Alkaline Phosphata se (40-130) IU/L Troponin T Baselin e 16 H (0-15) ng/L Troponin T 120 Min [place] 16.41 H (0-15) ng/L Delta Troponin T 0.41 (0-10) ABS# NT-Pro-B Natriuret Pep (0-125) pg/mL Total Protein (6.6-8.7) g/dL Albumin (3.5-5.2) g/dL Globulin (1.3-4.6) g/dL Urine Color (Yellow) Urine Appearance (CLEAR) Urine pH (5-7) Ur Specific Gravit y (1.005-1.030) Urine Protein (Negative) Urine Glucose (UA) (Normal) Urine Ketones (Negative) Urine Blood (Negative) Urine Nitrate (Negative) Urine Bilirubin (NEGATIVE) Urine Urobilinogen (Negative) mg/dL Ur Leukocyte Concetta ase (Negative) Urine RBC (0-2) /hpf Urine WBC (0-5) /hpf Ur Squamous Epith Cells (0-5) Amorphous Sediment Urine Bacteria (NONE) Urine Mucus 04/08/20 Range/Units 01:20 WBC (4.0-10.0) 10^3/ uL RBC (4.1-5.3) 10^6/u L Hgb (11.7-16.6) g/dL Hct (42.0-52.0) % MCV (80-94) fL MCH (28.0-34.0) pg MCHC (30.0-36.0) g/dL RDW (12.1-15.1) % Plt Count (130-400) 10^3/c mm MPV (7.4-10.4) fL Neut % (Auto) % Lymph % (Auto) % [place] % (Auto) % Eos % (Auto) % Baso % (Auto) % Neut # (Auto) (1.8-7.7) 10^3/u L Lymph # (Auto) (0.8-4.8) 10^3/u L [place] # (Auto) (0.2-0.9) 10^3/u L Eos # (Auto) (0.0-0.8) 10^3/u L Baso # (Auto) (0.0-0.1) 10^3/u L Nucleated RBC % (a uto) % Nucleated RBCs # /100WBC Specimen Type Sample Site ABG pH (7.35-7.45) ABG pCO2 (35-45) mmHg ABG pO2 (80.0-100.0) mmH g ABG HCO3 (22-26) mmol/L ABG O2 Saturation ABG Base Excess (-2.0-2.0) mmol/ L [place] Test Hematocrit (42-52) % Hgb O2 Saturation (95-100) % Carboxyhemoglobin (0.4-20.1) %THgb Methemoglobin (0.4-1.5) % Total Hemoglobin (14-18) g/dL Ionized Calcium (1.1-1.4) mmol/L O2 Delivery Device O2 Liters/Min % Education Reporter ID Sodium (136-145) mmol/L Potassium (3.5-5.1) mmol/L Chloride (98-107) mmol/L Carbon Dioxide (22-29) mmol/L Anion Gap (5-19) BUN (8-23) mg/dL Creatinine (0.7-1.2) mg/dL GFR Calculation (90-130) mL/min Glucose (65-115) mg/dL Calculated Osmolal ity (285-295) mOsm/k g Lactic Acid (0.5-2.2) mmol/L Calcium (8.5-10.5) mg/dL Total Bilirubin (0.15-1.2) mg/dL AST (0-40) U/L ALT (0-41) U/L Alkaline Phosphata se (40-130) IU/L Troponin T Baselin e (0-15) ng/L Troponin T 120 Min [place] (0-15) ng/L Delta Troponin T (0-10) ABS# NT-Pro-B Natriuret Pep (0-125) pg/mL Total Protein (6.6-8.7) g/dL Albumin (3.5-5.2) g/dL Globulin (1.3-4.6) g/dL Urine Color Yellow (Yellow) Urine Appearance Clear (CLEAR) Urine pH 7 (5-7) Ur Specific Gravit y 1.010 (1.005-1.030) Urine Protein Neg (Negative) Urine Glucose (UA) Norm (Normal) Urine Ketones Negative (Negative) Urine Blood 3+ H (Negative) Urine Nitrate Negative (Negative) Urine Bilirubin Neg (NEGATIVE) Urine Urobilinogen Norm (Negative) mg/dL Ur Leukocyte Concetta ase 1+ H (Negative) Urine RBC 15-25 H (0-2) /hpf Urine WBC 5-10 H (0-5) /hpf Ur Squamous Epith Cells 0-4 H (0-5) Amorphous Sediment Not Reportable Urine Bacteria Trace (NONE) Urine Mucus Trace Imaging Data^: CXR: My impression: chronic emphysema; no acute abnormalities noted: no acute changes when compared to previous films Discharge Plan Discharge Patient Disposition: Home, Self-Care Clinical Impression: COPD with acute exacerbation Condition: Stable Prescriptions: New Levaquin 500 mg tablet 500 mg PO DAILY 5 Days Qty: 5 RF: 0 prednisone 10 mg tablet 10 mg PO DAILY 7 Days Qty: 27 RF: 0 No Action aspirin 81 mg tablet,delayed release (DR/EC) 81 mg PO DAILY RF: 0 metoprolol tartrate 50 mg tablet 50 mg PO BID RF: 0 albuterol sulfate [ProAir HFA] 90 mcg/actuation HFA aerosol inhaler 2 puff INHALATION Q6H PRNRF: 0 loratadine [Claritin] 10 mg tablet 10 mg PO DAILY RF: 0 Symbicort 160-4.5 mcg/actuation HFA aerosol inhaler 2 puff INHALATION BID Qty: 10.2 RF: 1 sertraline [Zoloft] 100 mg tablet 100 mg PO DAILY Qty: 30 RF: 1 buspirone 5 mg tablet 5 mg PO TID PRN (Reason: anxiety) 30 Days Qty: 90 RF: 1 Combivent Respimat 20-100 mcg/actuation mist 1 puff INHALATION Q6H Qty: 4 RF: 1 Daliresp 500 mcg Tablet 500 mcg PO DAILY RF: 0 Soma 350 mg Tablet 350 mg PO QID RF: 0 atorvastatin 40 mg Tablet 40 mg PO QPM RF: 0 clopidogrel 75 mg Tablet 75 mg PO DAILY RF: 0 spironolactone 25 mg Tablet 25 mg PO DAILY RF: 0 pantoprazole 40 mg Tablet,Delayed Release (Dr/Ec) 40 mg PO DAILY RF: 0 hydrocodone-acetaminophen 10-325 mg Tablet 1 tab PO Q6H PRN (Reason: Insomnia) RF: 0 trazodone 150 mg Tablet 150 mg PO BEDTIME RF: 0 Discharge Orders: Discharge Order (Routine); Ordered 04/08/20 Ordered By: Nichol Amaya Referrals: Hiwot Yeung DO [Primary Care Provider] - Activity Restrictions/Additional Instructions: Please follow-up with primary care as soon as possible for reevaluation. Keep your appointment with Dr. Singh for next month. Please return to the emergency department for worsening shortness of breath, chest pain, difficulty breathing, fevers, any other concerns you may have. Discharge Date/Time: 04/08/20 02:50 Coding Level of Care Code ED Marketing Analyst for Chg Fwd Exam Detailed
[2020-04-08 00:59] VITALS: RESP 16
[2020-04-08 00:59] LABS: Troponin 5 2HR 16.41 ng/L (0-15); Troponin 5 2HR Delta 0.41 ABS# (0-10)
[2020-04-08] MEDS: morphine 4 mg/mL SDV 1 mL IVP (00:59)
[2020-04-08] MEDS: ipratropium-albuterol 3 mL Neb INHALATION (01:24)
[2020-04-08 01:25] VITALS: PULSE 99; RESP 18; O2SAT 99
[2020-04-08 01:54] LABS: Add Urine Microscopic? YES; Bilirubin Urine Neg (NEGATIVE); Blood Urine 3+ (Negative); Glucose Urine UA Norm (Normal); Ketones Urine Negative (Negative); Leukocyte Esterase Urine 1+ (Negative); Nitrate Urine Negative (Negative); Protein Urine Neg (Negative); Urine Appearance Clear (CLEAR); Urine Color Yellow (Yellow); Urobilinogen Urine Norm (Negative); pH Urine 7 (5-7)
[2020-04-08 01:55] LABS: Bacteria Urine TRACE; Mucus Urine TRACE; RBC Urine 15-25 /hpf (0-2); Squamous Epithelial Cell Urine 0-4 (0-5)
[2020-04-08 01:56] LABS: Add Urine Culture? Yes
[2020-04-08] MEDS: LORazepam 2 mg/mL INJ 1 mL 1 MG IVP (02:30)
--- NOTE | 2020-04-08 02:42 | PC.NURSE ---
i agree with this assessment
[2020-04-08 02:47] VITALS: BP 120/84; PULSE 114; RESP 20; TEMP 36.4; O2SAT 96
== END 2020-04-08 02:50 | disposition home or self-care (01) ==
PROVIDERS: Emergency Provider Physician Assistant; PCP Family Medicine
DX: J44.1 Chronic obstructive pulmonary disease with (acute) exacerbation (principal); Z79.82 Long term (current) use of aspirin; Z79.02 Long term (current) use of antithrombotics/antiplatelets; I25.10 Atherosclerotic heart disease of native coronary artery without angina pectoris; I10 Essential (primary) hypertension; E78.5 Hyperlipidemia, unspecified; F17.210 Nicotine dependence, cigarettes, uncomplicated; Z79.899 Other long term (current) drug therapy
CPT/HCPCS: 12345; 36600; 71045; 80051; 80053; 81001; 81003; 82810; 83605; 83880; 83986; 84484; 85025; 87086; 94640; 96374; 96375; 99282; 99284; J2060; J2270; J2930

== ENCOUNTER 2020-06-11 22:01 | Emergency (ER) | payer MEDICARE, MEDICAID, SELFPAY ==
[2020-06-11] VITALS (7 sets, daily range): BP systolic 114–138; BP diastolic 81–86; PULSE 73–96; RESP 16–24; TEMP 36.6; O2SAT 96–99; BMI 16.1
--- NOTE | 2020-06-11 22:08 | XR_ITS ---
WS: [id number] EXAM: AP CHEST: PORTABLE UPRIGHT DATE OF EXAM: 06/11/2020, 2230 hours COMPARISON: Chest x-ray from 10/03/2019 and 04/07/2020 HISTORY: Patient is 69 years old with shortness of breath, atraumatic chest pain, left arm rash. FINDINGS: The cardiac silhouette is normal in size. The mediastinal contours are similar. Calcified plaque i n aorta.. The pulmonary vascularity is normal. Chronic lung changes are demonstrated. Lungs are hy perinflated. Apical capping right greater than left noted. There is a small area of infiltrate within the right lung apex which has progressed over time. Most likely postinflammatory. Small area of infe ction this region not excluded. There is no effusion or pneumothorax. No acute bony abnormality is s een. On a CT of the chest from 06/01/2019 there is a large area of bleb formation this region. I quest ion if there is an acute pneumonitis associated with this area of disease lung. XR/XR chest 1V portable [id number] IMPRESSION: COPD changes with hyperinflation. Increasing soft tissue density in the right l maddison apex suggesting a possible acute pneumonitis in this region versus progress ion of chronic lung disease. Treating for a pneumonitis with follow-up imaging recommended.
--- NOTE | 2020-06-11 22:09 | ECG_ITS ---
[facility] Test Date: 2020-06-11 Pat Name: Onel Low Department: Room: Gender: Male Test Consultant: : 1950 Requested By: Christy Goel Order Number: [id number] Zach MD: Joseline Colon M.D. Measurements Intervals [place] Rate: 82 P: 83 IA: 177 QRS: 73 QRSD: 77 T: 84 QT: 378 QTc: 443 Interpretive Statements SINUS RHYTHM POSSIBLE LEFT ATRIAL ENLARGEMENT [-0.1mV P WAVE IN V1/V2] ANTEROSEPTAL MYOCARDIAL INFARCTION , OF INDETERMINATE AGE [40+ ms Q WAVE IN V1-V4] Compared to ECG 10/04/2019 02:20:58 Myocardial infarct finding now present Electronically Signed On 06-11-2020 22:32:44 CDT by Joseline Colon M.D. [id number]
--- NOTE | 2020-06-11 22:16 | ED_ITS ---
HPI - SOB/Dyspnea General: Chief Complaint: Shortness of Breath/Dyspnea Stated Complaint: SOB and rash Time Seen by Provider: 06/11/20 22:02 Source: patient Mode of arrival: ambulatory Limitations: no limitations History of Present Illness: HPI Narrative: 69-year-old male is a longtime smoker and has a history of COPD. He states that increased shortness of breath and wheezing over the last 3 to 5 days. Patient is on 3 L of oxygen at home and is currently 98% here on 3 L. He denies any fever or cough. Denies any chest pain. Patient states he also has erythema to his left arm after his kitten scratched him and bit him 3 days ago. MD elicited complaint: shortness of breath Pertinent past history: asthma Associated symptoms: Deny abdominal pain, chest pain, fever(s), nausea or vomiting Review of Systems Const: Denies: fever(s), chills, body aches or change in appetite Eyes: Denies: blurry vision or eye discomfort ENMT: Denies: throat pain or dental pain Card: Denies: chest pain Resp: Reports: dyspnea and wheezing GI: Denies: abdominal pain, nausea, vomiting or diarrhea : Denies: dysuria Musc: Denies: neck pain or back pain Skin/Breast: Denies: rash Neuro: Denies: headache(s) Psych: Denies: depression Christiano/Lymph: Denies: easy bruising All/Imm: Denies: urticaria PFSH ED PFSH: Medical History Anxiety CAD (coronary artery disease) Has stent. Last cardiac catheterization in June 2018 showed left main, circumflex, and RCA with 0% stenosis. The proximal LAD had minimal luminal irregularities with JOHN-3 flow. He had 90% restenosis of the first obtuse marginal and underwent balloon angioplasty with restenting at that time. Last echocardiogram May 2019 with ejection fraction 55%, mild hypokinesia of the apical septal segment with grade 1/4 diastolic dysfunction noted. Chronic back pain Related to prior back surgeries and neck surgery, on hydrocodone 10 two tabs q 4hr + soma qid COPD (chronic obstructive pulmonary disease) Pulmonary function testing from July 2018 showed severe obstructive ventilatory defect with no significant bronchodilator response and moderately reduced diffusing capacity. 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 Lives independently: Yes Household members: spouse and children Marital status: service: Yes Current occupational status: disabled History of recent travel: No Current gender identity: Male Physical Exam Const: COMMON NORMALS: no acute distress, patient oriented x3 and healthy appearing HENMT: COMMON NORMALS: normocephalic and atraumatic HEAD & SCALP: normocephalic and atraumatic Eye: COMMON NORMALS: Equal, round and reactive pupils present and EOMs intact bilaterally PUPIL: Yes Equal, round and reactive pupils present Neck/C-Spine: COMMON NORMALS: full ROM and supple Chest: COMMONS NORMALS: normal inspection of the chest and normal palpation of entire chest wall Resp: COMMON NORMALS: normal respiratory effort, No retractions, No use of accessory muscles and clear to auscultation bilaterally AUSCULTATION: clear to auscultation bilaterally and wheezes Cardio: COMMON NORMALS: regular rate, regular rhythm and No murmurs present (Cardio) RATE: regular rate RHYTHM: regular rhythm GI: COMMON NORMALS: Normal to inspection, nondistended, normoactive bowel sounds present, Soft to palpation, non-tender and no masses PALPATION: Yes Soft to palpation Extremity: COMMON NORMALS: normal to inspection and full ROM NARRATIVE EXTREMITY EXAM: Cat scratch noted to left forearm with erythema and warmth around the cat scratch and bite Neuro: COMMON NORMALS: patient oriented x3, moves all extremities and no focal motor deficits Psych: COMMON NORMALS: mental status grossly normal, Normal thought process present and cooperative THOUGHT PROCESS: Normal thought process present Skin: COMMON NORMALS: no rashes or lesions noted and no wounds GENERAL SKIN EXAM: no rashes or lesions noted Course Vital Signs: Vital signs: Vital Signs Temperature 97.9 F 06/11/20 22:10 Pulse Rate 96 06/11/20 23:28 Respiratory Rate 24 H 06/11/20 23:28 Blood Pressure 135/81 06/11/20 23:28 Pulse Oximetry 96 06/11/20 23:28 MDM - SOB/Dyspnea MDM Narrative: Medical decision making narrative: Patient presents here with COPD exacerbation. Patient is well-appearing here with no acute respiratory distress. Patient does not require any increased oxygen. We will place him on steroids. He does have a cellulitis to his arm and will place him on doxycycline. He is to follow-up with PCP and return if worsening. Lab Data: Labs: Lab Results 06/11/20 06/11/20 Range/Units 22:23 22:23 WBC 9.0 (4.0-10.0) 10^3/ uL RBC 4.24 (4.1-5.3) 10^6/u L Hgb 12.3 (11.7-16.6) g/dL Hct 39.0 L (42.0-52.0) % MCV 92.0 (80-94) fL MCH 29.0 (28.0-34.0) pg MCHC 31.5 (30.0-36.0) g/dL RDW 13.3 (12.1-15.1) % Plt Count 248 (130-400) 10^3/c mm MPV 9.9 (7.4-10.4) fL Neut % (Auto) 80.1 % Lymph % (Auto) 10.6 % [place] % (Auto) 7.0 % Eos % (Auto) 1.3 % Baso % (Auto) 0.7 % Neut # (Auto) 7.18 (1.8-7.7) 10^3/u L Lymph # (Auto) 1.0 (0.8-4.8) 10^3/u L [place] # (Auto) 0.6 (0.2-0.9) 10^3/u L Eos # (Auto) 0.1 (0.0-0.8) 10^3/u L Baso # (Auto) 0.1 (0.0-0.1) 10^3/u L Nucleated RBC % (a uto) 0 % Nucleated RBCs # 0.0 /100WBC Sodium 136 (136-145) mmol/L Potassium 4.1 (3.5-5.1) mmol/L Chloride 97 L (98-107) mmol/L Carbon Dioxide 29 (22-29) mmol/L Anion Gap 14.1 (5-19) BUN 7 L (8-23) mg/dL Creatinine 0.5 L (0.7-1.2) mg/dL GFR Calculation 165.4 H (90-130) mL/min Glucose 94 (65-115) mg/dL Calculated Osmolal ity 278 L (285-295) mOsm/k g Calcium 9.2 (8.5-10.5) mg/dL Total Bilirubin 0.2 (0.15-1.2) mg/dL AST 16 (0-40) U/L ALT 11 (0-41) U/L Alkaline Phosphata se 107 (40-130) IU/L NT-Pro-B Natriuret Pep 709 H (0-125) pg/mL Total Protein 7.0 (6.6-8.7) g/dL Albumin 4.2 (3.5-5.2) g/dL Globulin 2.8 (1.3-4.6) g/dL Imaging Data^: CXR: Attestation: I personally reviewed and interpreted this imaging study as follows: My impression: no acute abnormality EKG Data^: EKG 1: Attestation: I personally reviewed and interpreted this EKG as follows: EKG Interpretation Date: 06/11/20 EKG interpretation time: 22:33 Interpretation: nsr hr [address] or t wave abnormalities qrs 77 qtc 417 Discharge Plan Discharge Patient Disposition: Home Clinical Impression: Cellulitis COPD (chronic obstructive pulmonary disease) Qualifiers: COPD type: COPD with acute exacerbation Qualified Code(s): J44.1 - Chronic obstructive pulmonary disease with (acute) exacerbation Condition: Stable Prescriptions: New doxycycline hyclate 100 mg tablet 100 mg PO BID 10 Days Qty: 20 RF: 0 prednisone 50 mg tablet 50 mg PO DAILY Qty: 5 RF: 0 No Action aspirin 81 mg tablet,delayed release (DR/EC) 81 mg PO DAILY RF: 0 metoprolol tartrate 50 mg tablet 50 mg PO BID RF: 0 sertraline [Zoloft] 100 mg tablet 100 mg PO DAILY Qty: 30 RF: 0 sertraline [Zoloft] 50 mg tablet 50 mg PO DAILY Qty: 30 RF: 0 nicotine [Nicoderm CQ] 14 mg/24 hr patch 24 hour 1 patch TRANSDERMA Q24H Qty: 28 RF: 0 albuterol sulfate 2.5 mg /3 mL (0.083 %) solution for nebulization 2.5 mg INHALATION DAILY Qty: 90 RF: 3 budesonide [Pulmicort] 0.5 mg/2 mL suspension for nebulization 0.5 mg INHALATION BID 30 Days Qty: 120 RF: 3 revefenacin 175 mcg/3 mL solution for nebulization 175 mcg INHALATION DAILY 30 Days Qty: 90 RF: 3 Perforomist 20 mcg/2 mL solution for nebulization 2 ml INHALATION Q12H 30 Days Qty: 120 RF: 3 loratadine [Claritin] 10 mg tablet 10 mg PO DAILY RF: 0 clopidogrel 75 mg tablet 75 mg PO DAILY Qty: 90 RF: 0 Daliresp 500 mcg tablet 500 mcg PO DAILY Qty: 90 RF: 0 buspirone 5 mg tablet 5 mg PO TID PRN (Reason: anxiety) 30 Days Qty: 90 RF: 0 albuterol sulfate [ProAir HFA] 90 mcg/actuation HFA aerosol inhaler 2 puff INHALATION Q6H PRN (Reason: shortness of breath or wheezing) Qty: 8.5 RF: 2 Combivent Respimat 20-100 mcg/actuation mist 1 puff INHALATION Q6H Qty: 4 RF: 1 Soma 350 mg Tablet 350 mg PO QID RF: 0 atorvastatin 40 mg Tablet 40 mg PO QPM RF: 0 spironolactone 25 mg Tablet 25 mg PO DAILY RF: 0 pantoprazole 40 mg Tablet,Delayed Release (Dr/Ec) 40 mg PO DAILY RF: 0 hydrocodone-acetaminophen 10-325 mg Tablet 1 tab PO Q6H PRN (Reason: Insomnia) RF: 0 trazodone 150 mg Tablet 150 mg PO BEDTIME RF: 0 Discharge Orders: Discharge Order (Routine); Ordered 06/11/20 Ordered By: Christy Goel Referrals: Hiwot Yeung DO [Primary Care Provider] - 1-3 days Discharge Diet: Advance as tolerated Discharge Activity: Resume usual activity Patient Instructions: Cellulitis (ED), Chronic Obstructive Pulmonary Disease (ED) Discharge Date/Time: 06/11/20 23:29 Coding Level of Care Code ED Packing Shed Supervisor for Chg Fwd Exam Comprehensive
[2020-06-11] MEDS: morphine 4 mg/mL SDV 1 mL IVP (22:30)
[2020-06-11 22:36] LABS: Basophils # 0.1 10^3/uL (0.0-0.1); Basophils % 0.7 %; Eosinophils # 0.1 10^3/uL (0.0-0.8); Eosinophils % 1.3 %; Hemoglobin 12.3 g/dL (11.7-16.6); Lymphocytes % 10.6 %; Mean Corpuscular HGB Conc 31.5 g/dL (30.0-36.0); Mean Platelet Volume 9.9 fL (7.4-10.4); Monocytes # 0.6 10^3/uL (0.2-0.9); Neutrophils # 7.18 10^3/uL (1.8-7.7); Neutrophils % 80.1 %; Nucleated Red Blood Cells % 0 %; Platelet Count 248 10^3/cmm (130-400); Red Blood Count 4.24 10^6/uL (4.1-5.3); Red Cell Distribution Width 13.3 % (12.1-15.1)
[2020-06-11] MEDS: ipratropium-albuterol 3 mL Neb INHALATION (22:43)
[2020-06-11 22:58] LABS: Alanine Aminotransferase 11 U/L (0-41); Albumin Level 4.2 g/dL (3.5-5.2); Alkaline Phosphatase 107 IU/L (40-130); Anion Gap 14.1 (5-19); Aspartate Amino Transferase 16 U/L (0-40); Blood Urea Nitrogen 7 mg/dL (8-23); Calcium 9.2 mg/dL (8.5-10.5); Carbon Dioxide 29 mmol/L (22-29); Chloride 97 mmol/L (98-107); Globulin 2.8 g/dL (1.3-4.6); Glomerular Filtration Rate 165.4 mL/min (90-130); Glucose 94 mg/dL (65-115); NT Pro B Type Natriuretic Pept 709 pg/mL (0-125); Osmolality Calculated 278 mOsm/kg (285-295); Potassium 4.1 mmol/L (3.5-5.1); Sodium 136 mmol/L (136-145); Total Bilirubin 0.2 mg/dL (0.15-1.2)
== END 2020-06-11 23:29 | disposition home or self-care (01) ==
PROVIDERS: Emergency Provider Emergency Medicine; PCP Family Medicine
DX: J44.9 Chronic obstructive pulmonary disease, unspecified (principal); L03.114 Cellulitis of left upper limb; Z79.82 Long term (current) use of aspirin; Z79.02 Long term (current) use of antithrombotics/antiplatelets; I25.10 Atherosclerotic heart disease of native coronary artery without angina pectoris; I10 Essential (primary) hypertension; E78.5 Hyperlipidemia, unspecified; F17.210 Nicotine dependence, cigarettes, uncomplicated
CPT/HCPCS: 12345; 71045; 80053; 83880; 85025; 93005; 94640; 96374; 96375; 99283; 99284; J2270; J2930; J7611

== ENCOUNTER 2020-06-17 14:58 | Outpatient (CLI) | payer MEDICARE, MEDICAID, SELFPAY ==
--- NOTE | 2020-06-17 15:12 | XR_ITS ---
WS: [id number] LEFT HAND: 2 VIEW(S) TECHNIQUE: PA and lateral. HISTORY: left hand pain COMPARISON: 01/13/2017 No acute fracture or dislocation. Moderate interphalangeal joint space narrowing. No erosions or subluxation. No osteopenia. Healed fif th metacarpal fracture. XR/XR hand LT 2V [id number] IMPRESSION: Mild diffuse osteoarthritis.
--- NOTE | 2020-06-17 15:12 | XR_ITS ---
WS: [id number] RIGHT HAND: 2 VIEW(S) TECHNIQUE: PA and lateral. HISTORY: right hand pain COMPARISON: 09/13/2019 No acute fracture or dislocation. Mild diffuse interphalangeal joint space narrowing. No fractures. No subluxation. XR/XR hand RT 2V [id number] IMPRESSION: Mild osteoarthritis.
== END 2020-06-17 14:59 | disposition home or self-care (01) ==
LOC: RADWPI 15:03
PROVIDERS: PCP Family Medicine; Visit Provider Family Medicine
DX: M19.042 Primary osteoarthritis, left hand (principal); M19.041 Primary osteoarthritis, right hand
CPT/HCPCS: 73120

== ENCOUNTER 2020-07-16 19:03 | Inpatient (IN) | payer MEDICARE, MEDICAID, SELFPAY ==
[2020-07-16] VITALS (11 sets, daily range): BP systolic 116–131; BP diastolic 59–85; PULSE 93–128; RESP 17–32; TEMP 36.4–36.7; O2SAT 95–100; BMI 16.0
--- NOTE | 2020-07-16 19:16 | XRR_ITS ---
PROCEDURE INFORMATION: Exam: XR Chest, 1 View Exam date and time: 07/16/2020 8:23 PM Age: 69 years old Clinical indication: Condition or disease; Lung condition and disease; Copd; Dyspnea TECHNIQUE: Imaging protocol: XR of the chest Views: Frontal portable upright view of the chest. COMPARISON: CR XR chest 1V portable [id number] 06/11/2020 10:25 PM FINDINGS: Tubes, catheters and devices: EKG leads are present overlying the chest. Lungs: The pulmonary vasculature is normal. The lungs are otherwise peripherally clear bilaterally. Pleural space: No pleural effusion. No pneumothorax. Heart/Mediastinum: The heart is normal in size and contour. Vasculature: Moderate aortic arch atherosclerotic calcification without ectasia. Bones/joints: Stable. Other findings: Moderate, increased pulmonary hyperexpansion. XR/XR chest 1V portable [id number] IMPRESSION: Moderate, increased pulmonary hyperexpansion.
--- NOTE | 2020-07-16 19:18 | ECG_ITS ---
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 Measurements Intervals [place] Rate: 114 P: 82 [place]: 179 QRS: 43 QRSD: 88 T: 80 QT: 314 QTc: 433 Interpretive Statements SINUS TACHYCARDIA ANTEROSEPTAL MYOCARDIAL INFARCTION , OF INDETERMINATE AGE [40+ ms Q WAVE IN V1-V4] Compared to ECG 06/11/2020 22:33:34 Sinus rhythm no longer present Myocardial infarct finding still present Electronically Signed On 07-16-2020 21:09:31 CDT by Joseline Colon M.D. [email or web address]
[2020-07-16] MEDS: LORazepam 2 mg/mL INJ 1 mL 1 MG IVP (19:21)
[2020-07-16] MEDS: ipratropium-albuterol 3 mL Neb INHALATION (19:30)
[2020-07-16 19:42] LABS: ABG PCO2 53.9 mmHg (35-45); ABG PH Result 7.31 (7.35-7.45); Arterial Blood Gas Hematocrit 35.8 % (42-52); Blood Gas Allen Test Pos; Blood Gas Sample Site Radial, left; Blood Gas Sample Type Arterial; Oxygen Device BIPAP
[2020-07-16 19:47] LABS: Basophils # 0.1 10^3/uL (0.0-0.1); Basophils % 0.6 %; Eosinophils # 0.1 10^3/uL (0.0-0.8); Eosinophils % 0.6 %; Hematocrit 35.8 % (42.0-52.0); Hemoglobin 11.2 g/dL (11.7-16.6); Lymphocytes # 1.1 10^3/uL (0.8-4.8); Mean Corpuscular HGB Conc 31.3 g/dL (30.0-36.0); Mean Corpuscular Hemoglobin 29.1 pg (28.0-34.0); Mean Platelet Volume 10.1 fL (7.4-10.4); Monocytes # 0.8 10^3/uL (0.2-0.9); Monocytes % 5.9 %; Neutrophils # 12.07 10^3/uL (1.8-7.7); Neutrophils % 84.3 %; Nucleated Red Blood Cells % 0 %; Platelet Count 304 10^3/cmm (130-400); Red Blood Count 3.85 10^6/uL (4.1-5.3); Red Cell Distribution Width 13.2 % (12.1-15.1); White Blood Count 14.3 10^3/uL (4.0-10.0)
[2020-07-16] MEDS: ondansetron 2 mg/ML SDV 2 mL 4 MG IVP (19:57)
[2020-07-16] MEDS: morphine 4 mg/mL SDV 1 mL IVP ×2 (19:57→22:42)
[2020-07-16 20:17] LABS: Troponin(5th) Baseline 36 ng/L (0-15)
--- NOTE | 2020-07-16 20:28 | W.ED.SOB ---
HPI - SOB/Dyspnea General: Chief Complaint: Shortness of Breath/Dyspnea Stated Complaint: SOB/COPD Time Seen by Provider: 07/16/20 19:09 History of Present Illness: HPI Narrative: This patient is a 69-year-old male who comes in in severe respiratory distress. He has a history of COPD and heart disease. He said he has had shortness of breath for a long time but it got just this bad today. He refused CPAP in the ambulance but said he would let us do BiPAP here. He asked for something to help his nerves. He denies fever. He has a chronic cough. He has had chest pain. MD elicited complaint: shortness of breath Pertinent past history: COPD, congestive heart failure and other (Ischemic cardiomyopathy) Onset (ago): day(s) (1) Timing: constant and progressively worsening Severity: severe Exacerbating factors: lying flat, exertion, movement, coughing and inspiration Associated symptoms: Reports chest pain and cough; Deny abdominal pain, fever(s), nausea or vomiting Review of Systems General: Reports: 10 or more systems reviewed and unremarkable except in HPI and below Const: Reports: fatigue and malaise; Denies: fever(s) or chills Eyes: Denies: change in vision ENMT: Denies: odynophagia Card: Reports: chest pain; Denies: swelling of feet/ankles Resp: Reports: dyspnea, productive cough and wheezing; Denies: non-productive cough GI: Denies: abdominal pain, nausea or vomiting : Denies: flank pain Musc: Denies: neck pain or back pain Skin/Breast: Denies: rash Neuro: Denies: headache(s), numbness in extremities or weakness in extremities Christiano/Lymph: Denies: easy bruising or easy bleeding [facility] ED PFSH: Medical History Anxiety CAD (coronary artery disease) Has stent. Last cardiac catheterization in June 2018 showed left main, circumflex, and RCA with 0% stenosis. The proximal LAD had minimal luminal irregularities with JOHN-3 flow. He had 90% restenosis of the first obtuse marginal and underwent balloon angioplasty with restenting at that time. Last echocardiogram May 2019 with ejection fraction 55%, mild hypokinesia of the apical septal segment with grade 1/4 diastolic dysfunction noted. Chronic back pain Related to prior back surgeries and neck surgery, on hydrocodone 10 two tabs q 4hr + soma qid COPD (chronic obstructive pulmonary disease) Pulmonary function testing from July 2018 showed severe obstructive ventilatory defect with no significant bronchodilator response and moderately reduced diffusing capacity. 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 Lives independently: Yes Household members: spouse and children Marital status: service: Yes Current occupational status: disabled History of recent travel: No Current gender identity: Male Physical Exam Const: COMMON NORMALS: patient oriented x3 and alert GENERAL APPEARANCE: cooperative, in distress, anxious and frail appearing NUTRITIONAL APPEARANCE: underweight HENMT: HEAD & SCALP: normal to inspection FACE & SINUS: normal facial exam Eye: GENERAL EYE: appearance normal, both eyes and all related structures Neck/C-Spine: COMMON NORMALS: supple, no meningeal signs and no JVD Chest: COMMONS NORMALS: normal inspection of the chest Resp: EFFORT & INSPECTION: Yes tachypneic, Yes respiratory distress, Yes labored, Yes retractions and Yes uses accessory muscles AUSCULTATION: rhonchi and wheezes Cardio: COMMON NORMALS: no JVD, regular rhythm and No murmurs present (Cardio) RATE: tachycardic RHYTHM: regular rhythm GI: COMMON NORMALS: Normal to inspection, nondistended, normoactive bowel sounds present, Soft to palpation and non-tender INSPECTION: Yes normal to inspection AUSCULTATION: Yes normoactive bowel sounds PALPATION: Yes Soft to palpation Back/Pelvis: COMMON NORMALS: thoracic and lumbar spine normal to inspection Extremity: COMMON NORMALS: normal to inspection Neuro: COMMON NORMALS: patient oriented x3, moves all extremities, no focal motor deficits and no sensory deficits noted SENSORIUM/ORIENTATION: Yes alert MENINGEAL SIGNS: Yes no meningeal signs Psych: COMMON NORMALS: mental status grossly normal, cooperative and normal affect Skin: COMMON NORMALS: no rashes or lesions noted and turgor normal GENERAL SKIN EXAM: no rashes or lesions noted and turgor normal Course ED course: Patient was started on BiPAP. He was given Ativan and morphine and Zofran. He was able to tolerate the BiPAP and did quite well on it. On 35% with 16/8 he is now 97%. He remained tachycardic but felt much better. Vital Signs: Vital signs: Vital Signs Temperature 97.5 F L 07/16/20 19:12 Pulse Rate 105 H 07/16/20 21:09 Respiratory Rate 17 07/16/20 21:09 Blood Pressure 126/81 07/16/20 21:09 Pulse Oximetry 97 07/16/20 21:09 MDM - SOB/Dyspnea Lab Data: Labs: Lab Results 07/16/20 07/16/20 07/16/20 Range/Units 19:25 19:35 19:35 WBC 14.3 H (4.0-10.0) 10^3/ uL RBC 3.85 L (4.1-5.3) 10^6/u L Hgb 11.2 L (11.7-16.6) g/dL Hct 35.8 L (42.0-52.0) % MCV 93.0 (80-94) fL MCH 29.1 (28.0-34.0) pg MCHC 31.3 (30.0-36.0) g/dL RDW 13.2 (12.1-15.1) % Plt Count 304 (130-400) 10^3/c mm MPV 10.1 (7.4-10.4) fL Neut % (Auto) 84.3 % Lymph % (Auto) 8.0 % [place] % (Auto) 5.9 % Eos % (Auto) 0.6 % Baso % (Auto) 0.6 % Neut # (Auto) 12.07 H (1.8-7.7) 10^3/u L Lymph # (Auto) 1.1 (0.8-4.8) 10^3/u L [place] # (Auto) 0.8 (0.2-0.9) 10^3/u L Eos # (Auto) 0.1 (0.0-0.8) 10^3/u L Baso # (Auto) 0.1 (0.0-0.1) 10^3/u L Nucleated RBC % (a uto) 0 % Nucleated RBCs # 0.0 /100WBC D-Dimer <= 0.27 (0-0.59) ug/mIFE U Specimen Type Arterial Sample Site Radial, left ABG pH 7.31 L (7.35-7.45) ABG pCO2 53.9 H (35-45) mmHg ABG pO2 140.0 H (80.0-100.0) mmH g ABG HCO3 27.0 H (22-26) mmol/L ABG Base Excess 0.0 (-2.0-2.0) mmol/ L [place] Test Pos Hematocrit 35.8 L (42-52) % O2 Delivery Device Bipap FiO2 40.0 % Doctor Of Dental Surgery ID [email or web address] Sodium (136-145) mmol/L Potassium (3.5-5.1) mmol/L Chloride (98-107) mmol/L Carbon Dioxide (22-29) mmol/L Anion Gap (5-19) BUN (8-23) mg/dL Creatinine (0.7-1.2) mg/dL GFR Calculation (90-130) mL/min Glucose (65-115) mg/dL Calculated Osmolal ity (285-295) mOsm/k g Lactic Acid (0.5-2.2) mmol/L Calcium (8.5-10.5) mg/dL Total Bilirubin (0.15-1.2) mg/dL AST (0-40) U/L ALT (0-41) U/L Alkaline Phosphata se (40-130) IU/L Troponin T Baselin e (0-15) ng/L Troponin T 120 Min [place] (0-15) ng/L Delta Troponin T (0-10) ABS# Total Protein (6.6-8.7) g/dL Albumin (3.5-5.2) g/dL Globulin (1.3-4.6) g/dL Urine Color (Yellow) Urine Appearance (CLEAR) Urine pH (5-7) Ur Specific Gravit y (1.005-1.030) Urine Protein (Negative) Urine Glucose (UA) (Normal) Urine Ketones (Negative) Urine Blood (Negative) Urine Nitrate (Negative) Urine Bilirubin (Negative) Urine Urobilinogen (Negative) mg/dL Ur Leukocyte Concetta ase (Negative) Urine RBC (0-2) /hpf Urine WBC (0-5) /hpf Ur Squamous Epith Cells (0-5) /hpf Amorphous Sediment Urine Bacteria (NONE) /hpf 07/16/20 07/16/20 07/16/20 Range/Units 19:35 19:35 19:50 WBC (4.0-10.0) 10^3/ uL RBC (4.1-5.3) 10^6/u L Hgb (11.7-16.6) g/dL Hct (42.0-52.0) % MCV (80-94) fL MCH (28.0-34.0) pg MCHC (30.0-36.0) g/dL RDW (12.1-15.1) % Plt Count (130-400) 10^3/c mm MPV (7.4-10.4) fL Neut % (Auto) % Lymph % (Auto) % [place] % (Auto) % Eos % (Auto) % Baso % (Auto) % Neut # (Auto) (1.8-7.7) 10^3/u L Lymph # (Auto) (0.8-4.8) 10^3/u L [place] # (Auto) (0.2-0.9) 10^3/u L Eos # (Auto) (0.0-0.8) 10^3/u L Baso # (Auto) (0.0-0.1) 10^3/u L Nucleated RBC % (a uto) % Nucleated RBCs # /100WBC D-Dimer (0-0.59) ug/mIFE U Specimen Type Sample Site ABG pH (7.35-7.45) ABG pCO2 (35-45) mmHg ABG pO2 (80.0-100.0) mmH g ABG HCO3 (22-26) mmol/L ABG Base Excess (-2.0-2.0) mmol/ L [place] Test Hematocrit (42-52) % O2 Delivery Device FiO2 % Doctor Of Dental Surgery ID Sodium 129 L (136-145) mmol/L Potassium 4.6 (3.5-5.1) mmol/L Chloride 92 L (98-107) mmol/L Carbon Dioxide 26 (22-29) mmol/L Anion Gap 15.6 (5-19) BUN 7 L (8-23) mg/dL Creatinine 0.5 L (0.7-1.2) mg/dL GFR Calculation 165.4 H (90-130) mL/min Glucose 113 (65-115) mg/dL Calculated Osmolal ity 267 L (285-295) mOsm/k g Lactic Acid 1.3 (0.5-2.2) mmol/L Calcium 8.4 L (8.5-10.5) mg/dL Total Bilirubin 0.2 (0.15-1.2) mg/dL AST 21 (0-40) U/L ALT 12 (0-41) U/L Alkaline Phosphata se 99 (40-130) IU/L Troponin T Baselin e 36 H (0-15) ng/L Troponin T 120 Min [place] (0-15) ng/L Delta Troponin T (0-10) ABS# Total Protein 6.0 L (6.6-8.7) g/dL Albumin 4.1 (3.5-5.2) g/dL Globulin 1.9 (1.3-4.6) g/dL Urine Color (Yellow) Urine Appearance (CLEAR) Urine pH (5-7) Ur Specific Gravit y (1.005-1.030) Urine Protein (Negative) Urine Glucose (UA) (Normal) Urine Ketones (Negative) Urine Blood (Negative) Urine Nitrate (Negative) Urine Bilirubin (Negative) Urine Urobilinogen (Negative) mg/dL Ur Leukocyte Concetta ase (Negative) Urine RBC (0-2) /hpf Urine WBC (0-5) /hpf Ur Squamous Epith Cells (0-5) /hpf Amorphous Sediment Urine Bacteria (NONE) /hpf 07/16/20 07/16/20 Range/Units 21:28 21:29 WBC (4.0-10.0) 10^3/ uL RBC (4.1-5.3) 10^6/u L Hgb (11.7-16.6) g/dL Hct (42.0-52.0) % MCV (80-94) fL MCH (28.0-34.0) pg MCHC (30.0-36.0) g/dL RDW (12.1-15.1) % Plt Count (130-400) 10^3/c mm MPV (7.4-10.4) fL Neut % (Auto) % Lymph % (Auto) % [place] % (Auto) % Eos % (Auto) % Baso % (Auto) % Neut # (Auto) (1.8-7.7) 10^3/u L Lymph # (Auto) (0.8-4.8) 10^3/u L [place] # (Auto) (0.2-0.9) 10^3/u L Eos # (Auto) (0.0-0.8) 10^3/u L Baso # (Auto) (0.0-0.1) 10^3/u L Nucleated RBC % (a uto) % Nucleated RBCs # /100WBC D-Dimer (0-0.59) ug/mIFE U Specimen Type Sample Site ABG pH (7.35-7.45) ABG pCO2 (35-45) mmHg ABG pO2 (80.0-100.0) mmH g ABG HCO3 (22-26) mmol/L ABG Base Excess (-2.0-2.0) mmol/ L [place] Test Hematocrit (42-52) % O2 Delivery Device FiO2 % Doctor Of Dental Surgery ID Sodium (136-145) mmol/L Potassium (3.5-5.1) mmol/L Chloride (98-107) mmol/L Carbon Dioxide (22-29) mmol/L Anion Gap (5-19) BUN (8-23) mg/dL Creatinine (0.7-1.2) mg/dL GFR Calculation (90-130) mL/min Glucose (65-115) mg/dL Calculated Osmolal ity (285-295) mOsm/k g Lactic Acid (0.5-2.2) mmol/L Calcium (8.5-10.5) mg/dL Total Bilirubin (0.15-1.2) mg/dL AST (0-40) U/L ALT (0-41) U/L Alkaline Phosphata se (40-130) IU/L Troponin T Baselin e (0-15) ng/L Troponin T 120 Min [place] 67.59 H (0-15) ng/L Delta Troponin T 31.59 H* (0-10) ABS# Total Protein (6.6-8.7) g/dL Albumin (3.5-5.2) g/dL Globulin (1.3-4.6) g/dL Urine Color Yellow (Yellow) Urine Appearance Clear (CLEAR) Urine pH 5.0 (5-7) Ur Specific Gravit y 1.020 (1.005-1.030) Urine Protein 1+ H (Negative) Urine Glucose (UA) Norm (Normal) Urine Ketones Negative (Negative) Urine Blood 3+ H (Negative) Urine Nitrate Negative (Negative) Urine Bilirubin Neg (Negative) Urine Urobilinogen Norm (Negative) mg/dL Ur Leukocyte Concetta ase 1+ H (Negative) Urine RBC 5-10 H (0-2) /hpf Urine WBC 10-15 H (0-5) /hpf Ur Squamous Epith Cells 0-4 H (0-5) /hpf Amorphous Sediment Not Reportable Urine Bacteria 1+ H (NONE) /hpf Discharge Plan Discharge Admit Provider: Marlee Garcia Coding Level of Care Code ED Dividend Deposit Entry Clerk for g Fwd Exam Comprehensive
[2020-07-16 20:36] LABS: Lactic Sepsis W/Reflex 1.3 mmol/L (0.5-2.2)
[2020-07-16] MEDS: magnesium sulfate premix 2 GM/50 ML PIGGYBACK IV (20:52)
[2020-07-16 21:10] LABS: Alanine Aminotransferase 12 U/L (0-41); Albumin Level 4.1 g/dL (3.5-5.2); Alkaline Phosphatase 99 IU/L (40-130); Anion Gap 15.6 (5-19); Aspartate Amino Transferase 21 U/L (0-40); Blood Urea Nitrogen 7 mg/dL (8-23); Calcium 8.4 mg/dL (8.5-10.5); Carbon Dioxide 26 mmol/L (22-29); Chloride 92 mmol/L (98-107); Creatinine Clr Calc Pharmacy 59.5338; Globulin 1.9 g/dL (1.3-4.6); Glomerular Filtration Rate 165.4 mL/min (90-130); Glucose 113 mg/dL (65-115); Osmolality Calculated 267 mOsm/kg (285-295); Potassium 4.6 mmol/L (3.5-5.1); Sodium 129 mmol/L (136-145); Total Bilirubin 0.2 mg/dL (0.15-1.2)
--- NOTE | 2020-07-16 21:11 | PC.NURSE ---
during pt rounding, pt requesting additional pain meds. notified. Physician waiting for ECG prior to ordering additional meds
[2020-07-16 21:50] LABS: Bilirubin Urine Neg (Negative); Blood Urine 3+ (Negative); Glucose Urine UA Norm (Normal); Ketones Urine Negative (Negative); Nitrate Urine Negative (Negative); Protein Urine 1+ (Negative); Urine Appearance Clear (CLEAR); Urine Color Yellow (Yellow); Urobilinogen Urine Norm (Negative)
[2020-07-16 21:51] LABS: Add Urine Microscopic? YES; Bacteria Urine 1+ /hpf; Leukocyte Esterase Urine 1+ (Negative); Squamous Epithelial Cell Urine 0-4 /hpf (0-5)
[2020-07-16 21:52] LABS: Add Urine Culture? Yes
--- NOTE | 2020-07-16 21:57 | PM.HP ---
Providers/Chief Complaint Primary Care Provider: Hiwot Yeung DO Chief Complaint: SOB/COPD History of Present Illness Onel Low is a 69 year old male has diagnosis severe COPD, does not want to use CPAP or BiPAP, follows up with Dr. Singh, failed revefenacin, formoterol and budesonide therapy secondary to tachycardia, he was recently started on high-dose Symbicort along Spiriva, came in today for worsening shortness of breath. Patient has chronic hypoxia, hypercarbic respiratory failure, uses 3 to 5 L of oxygen [id number], unfortunately continues to smoke. Patient called his today(after his panic attack) because of his worsening shortness of breath, increased his oxygen requirement to 10 L, by the time saw him he was saturating in 90s(earlier he was in low 80s), patient titrated his oxygen back to 3 L, and came to the hospital. He did not experience any diaphoresis, nausea, vomiting, chest pain. He has been losing weight, he is denying fever, night sweats. Productive cough, bringing white sputum. Diagnosis in the ER revealed acute on chronic hypercarbic hypoxic respiratory failure, he did well on BiPAP, chronic hyponatremia, D-dimer negative, CT was not pursued. Patient is not septic, his tachypnea is due to COPD exacerbation and leukocytosis most likely secondary to steroid use, no active source of infection,. Review of Systems Const: Reports: chills, body aches, change in appetite, change in weight, fatigue and malaise; Denies: fever(s) or night sweats Eyes: Denies: change in vision ENMT: Denies: throat pain Card: Reports: palpitations and dyspnea on exertion; Denies: chest pain or orthopnea Resp: Reports: dyspnea and productive cough; Denies: pain on inspiration or change in phlegm color GI: Denies: abdominal pain : Denies: flank pain Musc: Reports: decrease in muscle mass Skin/Breast: Denies: rash Neuro: Denies: headache(s) Psych: Reports: anxiety Endo: Denies: polyuria Christiano/Lymph: Denies: easy bruising All/Imm: Denies: urticaria Medications/Allergies Home Medications Medication Instructions Recorded Confirmed Last Taken Type Soma 350 mg PO QID 10/04/19 07/15/20 Unknown History atorvastatin 40 mg PO QPM 10/04/19 07/15/20 Unknown History hydrocodone-acetaminophen 1 tab PO Q6H PRN 10/04/19 07/15/20 Unknown History pantoprazole 40 mg PO DAILY 10/04/19 07/15/20 Unknown History spironolactone 25 mg PO DAILY 10/04/19 07/15/20 Unknown History trazodone 150 mg PO BEDTIME 10/04/19 07/15/20 Unknown History aspirin 81 mg tablet,delayed 81 mg PO DAILY 12/11/19 07/15/20 Unknown History release loratadine 10 mg tablet 10 mg PO DAILY 02/26/20 07/15/20 Unknown History clopidogrel 75 mg tablet 75 mg PO DAILY #90 tab 05/20/20 07/15/20 Unknown Rx roflumilast 500 mcg tablet 500 mcg PO DAILY #90 tab 05/20/20 07/15/20 Unknown Rx sertraline 100 mg tablet 100 mg PO DAILY #30 tab 05/27/20 07/15/20 Unknown Rx sertraline 50 mg tablet 50 mg PO DAILY #30 tab 05/27/20 07/15/20 Unknown Rx albuterol sulfate 2.5 mg INHALATION DAILY #90 ml 05/28/20 07/15/20 Unknown Rx ipratropium 20 mcg-albuterol 100 1 puff INHALATION Q6H #4 gm 06/06/20 07/15/20 Unknown Rx mcg/actuation mist for inhalation diclofenac sodium 1 % topical gel 1 gm TOPICAL TID #100 gm 06/19/20 07/15/20 Unknown Rx buspirone 5 mg tablet 5 mg PO TID PRN 30 Days #90 tab 06/21/20 07/15/20 Unknown Rx albuterol sulfate 90 mcg/actuation 2 puff INHALATION Q6H PRN #8.5 gm 07/03/20 07/15/20 Unknown Rx aerosol inhaler nicotine 14 mg/24 hr daily 1 patch TRANSDERMA Q24H #28 each 07/08/20 07/15/20 Unknown Rx transdermal patch sulfamethoxazole 800 1 tab PO BID #14 tab 07/08/20 07/15/20 Unknown Rx mg-trimethoprim 160 mg tablet metoprolol tartrate 50 mg tablet 50 mg PO BID #60 tab 07/12/20 07/15/20 Unknown Rx budesonide-formoterol HFA 160 2 puff INHALATION Q12H 30 Days 07/15/20 07/15/20 Unknown Rx mcg-4.5 mcg/actuation aerosol #10.2 gm inhaler tiotropium bromide 18 mcg capsule 1 cap INHALATION DAILY 30 Days #60 07/15/20 07/15/20 Unknown Rx with inhalation device inh Allergies Allergy/AdvReac Type Severity Reaction Status Date / Time Penicillins Allergy ALGY-Rash Verified 07/15/20 13:36 PFSH Acute PFSH: Medical History Anxiety CAD (coronary artery disease) Has stent. Last cardiac catheterization in June 2018 showed left main, circumflex, and RCA with 0% stenosis. The proximal LAD had minimal luminal irregularities with JOHN-3 flow. He had 90% restenosis of the first obtuse marginal and underwent balloon angioplasty with restenting at that time. Last echocardiogram May 2019 with ejection fraction 55%, mild hypokinesia of the apical septal segment with grade 1/4 diastolic dysfunction noted. Chronic back pain Related to prior back surgeries and neck surgery, on hydrocodone 10 two tabs q 4hr + soma qid COPD (chronic obstructive pulmonary disease) Pulmonary function testing from July 2018 showed severe obstructive ventilatory defect with no significant bronchodilator response and moderately reduced diffusing capacity. 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 Lives independently: Yes Household members: spouse and children Marital status: service: Yes Current occupational status: disabled History of recent travel: No Current gender identity: Male Vitals/I&O/Wt Last Vital Signs Temp 97.5 F L 07/16/20 19:12 Pulse 105 H 07/16/20 21:09 Resp 17 07/16/20 21:09 BP 126/81 07/16/20 21:09 Pulse Ox 97 07/16/20 21:09 Weight last 48 hrs Weight 47.627 kg Physical Exam Narrative: EXAM NARRATIVE: Cachectic elderly male Looks dehydrated and emaciated Work of breathing has decreased with use of BiPAP currently BiPAP setting 12/05, FiO2 30%, saturating well above 90% Patient oxygen level dropped quickly when he took off BiPAP, BiPAP facemask has been changed by the respiratory therapist according to his needs S1, S2 sinus tachycardia Does not look fluid overloaded, Abdomen soft nontender bowel sound present Muscle mass loss, sarcopenia Lower extremity no edema gangrene ulcer Neurologically nonfocal exam Appears anxious and irritable at the bedside Data : 07/16/20 19:35 07/16/20 19:35 A&P Assessment and plan (1) COPD exacerbation: Status: Acute (2) Acute on chronic respiratory failure with hypoxia and hypercapnia: Status: Acute (3) End stage COPD: Status: Acute (4) Cachexia: Status: Acute (5) Nicotine dependence: Status: Acute Additional A&P Information Acute on chronic hypoxic hypercarbic respiratory failure due to active smoking Recently has seen Dr. Singh, patient is currently on Spiriva and Symbicort high doses He does not want to use CPAP or BiPAP, continues to smoke, currently smoking half a pack a day Uses 3 L of oxygen [id number] No active pneumonia on chest x-ray, D-dimer unremarkable, most likely etiology is active smoking with end-stage severe COPD with emaciation and weight loss High risk for intubation, currently doing well on BiPAP I would use a azithromycin for anti-inflammatory effect along DuoNeb treatment, has tendency to go into tachyarrhythmia with treatment Cachexia: Previously TSH was low, however free T4 level normal: Subclinical hyperthyroidism, most likely cachexia is due to increased rectal bleeding from severe COPD BPH: Continue Flomax DVT prophylaxis: Lovenox Full code goals of care discussed with the patient and his , Needs pulmonary rehab and dietary supplementation High risk of morbidity and mortality Would recommend AVAPs to discharge to avoid readmissions and decreased work of breathing Attestations Medical Necessity Statement*: Anticipating discharge in less than 48 hours currently doing well on BiPAP no active pneumonia or PE, I do believe patient will require AVAPs to decrease readmissions Time Spent in Patient Care: (>than 50% of time spent in counselling and/or direct pt care on unit). 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
[2020-07-16 22:11] LABS: Troponin 5 2HR 67.59 ng/L (0-15)
[2020-07-16 22:15] LABS: D Dimer <= 0.27 ug/mIFEU (0-0.59)
[2020-07-16 22:20] LABS: Troponin 5 2HR Delta 31.59 ABS# (0-10)
--- NOTE | 2020-07-16 23:26 | PC.NURSE ---
agree with this assessment
[2020-07-16] MEDS: azithromycin 250 mg Tablet PO (23:31)
[2020-07-16] MEDS: enoxaparin 40 mg/0.4 mL Syringe SUBCUT (23:31)
[2020-07-16] MEDS: BuSPIRONE 5 mg Tablet PO (23:31)
[2020-07-17] VITALS (22 sets, daily range): BP systolic 115–140; BP diastolic 58–79; PULSE 77–102; RESP 12–28; TEMP 36.1–36.7; O2SAT 95–100
[2020-07-17] MEDS: HYDROmorphone 1 mg/mL INJ 1 mL IVP ×6 (00:59→22:34)
--- NOTE | 2020-07-17 02:15 | PC.NURSE ---
Dr. Garcia called. Patient complaint of he is so nervous he is shaking on the inside. . Patient Respiration 14 and oxygen is 98% on bipap. Provider will place orders.
[2020-07-17] MEDS: LORazepam 2 mg/mL INJ 1 mL IVP (02:28)
[2020-07-17] MEDS: ipratropium-albuterol 3 mL Neb INHALATION ×4 (02:39→20:32)
[2020-07-17 05:20] LABS: Hematocrit 34.3 % (42.0-52.0); Hemoglobin 10.7 g/dL (11.7-16.6); Lymphocytes # 0.4 10^3/uL (0.8-4.8); Lymphocytes % 7.9 %; Mean Corpuscular HGB Conc 31.2 g/dL (30.0-36.0); Mean Platelet Volume 10.4 fL (7.4-10.4); Monocytes # 0.1 10^3/uL (0.2-0.9); Monocytes % 1.6 %; Neutrophils # 4.41 10^3/uL (1.8-7.7); Neutrophils % 89.9 %; Nucleated Red Blood Cells % 0 %; Platelet Count 211 10^3/cmm (130-400); Red Blood Count 3.69 10^6/uL (4.1-5.3); Red Cell Distribution Width 13.2 % (12.1-15.1); White Blood Count 4.9 10^3/uL (4.0-10.0)
--- NOTE | 2020-07-17 05:47 | PC.NURSE ---
Patient requesting his home muscle relaxer. Dr. Garcia called about patient request. Will await orders.
[2020-07-17 06:00] LABS: Anion Gap 10.1 (5-19); Blood Urea Nitrogen 8 mg/dL (8-23); Calcium 8.9 mg/dL (8.5-10.5); Carbon Dioxide 29 mmol/L (22-29); Chloride 93 mmol/L (98-107); Creatinine Clr Calc Pharmacy 59.5338; Glomerular Filtration Rate 165.4 mL/min (90-130); Glucose 137 mg/dL (65-115); Osmolality Calculated 264 mOsm/kg (285-295); Potassium 5.1 mmol/L (3.5-5.1); Sodium 127 mmol/L (136-145)
[2020-07-17 08:59] LABS: ABG PCO2 48.4 mmHg (35-45); ABG PH Result 7.39 (7.35-7.45); Arterial Blood Gas Hematocrit 35.3 % (42-52); Base Excess ABG 3.9 mmol/L (-2.0-2.0); Blood Gas Allen Test Pos; Blood Gas Operator Identificat GD; Blood Gas Sample Site Radial, left; Blood Gas Sample Type Arterial; HCO3 ABG 29.6 mmol/L (22-26); Oxygen Device BIPAP
--- NOTE | 2020-07-17 09:14 | PC.RESP ---
SMOKING CESSATION AND PULMONARY REHAB INFORMATION SENT TO PATIENT.
[2020-07-17] MEDS: roflumilast 500 mcg Tablet PO (09:34)
[2020-07-17] MEDS: pantoprazole DR 40 mg Tablet PO (09:34)
[2020-07-17] MEDS: aspirin 81 mg EC Tablet PO (09:34)
[2020-07-17] MEDS: sertraline 100 mg Tablet PO (09:34)
[2020-07-17] MEDS: metoprolol tartrate 50 mg Tablet PO ×2 (09:34→17:34)
[2020-07-17] MEDS: sennosides-docusate Tablet 1 TAB PO (09:34)
--- NOTE | 2020-07-17 10:27 | P.PN_ITS ---
Subjective Subjective: Interval history: Patient is doing well on BiPAP. He was complaining of generalized body pain: He is on Dilaudid. AM ABG: Ph: 7.39, PCO2: 48, PO2: 125, FiO2: 35%. Vitals and labs have been reviewed. Medications: Reviewed: Yes Vitals/I&O/Wt Last Vital Signs Temp 96.9 F L 07/17/20 10:15 Pulse 98 07/17/20 10:15 Resp 16 07/17/20 10:15 BP 135/78 07/17/20 10:15 Pulse Ox 95 07/17/20 10:15 07/16/20 07/17/20 07/17/20 22:59 06:59 14:59 Intake Total 300 / 300 Output Total 675 / 675 Balance -375 / -375 Weight last 48 hrs Weight 47.627 kg Physical Exam Const: COMMON NORMALS: patient oriented x3 HENMT: COMMON NORMALS: normocephalic, atraumatic, hearing grossly normal bilaterally and external ears normal HEAD & SCALP: normocephalic and atraumatic EXTERNAL EAR: Yes external ears normal Eye: COMMON NORMALS: no scleral icterus GENERAL EYE: appearance normal, both eyes and all related structures Chest: COMMONS NORMALS: normal inspection of the chest and normal palpation of entire chest wall CHEST: Yes Symmetrical chest wall rise Resp: EFFORT & INSPECTION: Yes able to speak in complete sentences, Yes symme tric chest movement, Yes respiratory distress, Yes retractions and Yes uses accessory muscles OTHER: Decreased air entry bilaterally, minimal expiratory wheeze, no rhonchi and no rales. Cardio: COMMON NORMALS: regular rate, regular rhythm, S1 normal heart sound present, S2 normal heart sound present, No gallops present (Cardio), No murmurs present (Cardio), No rub (Cardio) and Peripheral pulses 2+ throughout RATE: regular rate RHYTHM: regular rhythm HEART SOUNDS: S1 normal heart sound present and S2 normal heart sound present PERIPHERAL PULSES: Peripheral pulses 2+ throughout GI: COMMON NORMALS: Normal to inspection, nondistended, normoactive bowel sounds present, Soft to palpation, non-tender, No hepatosplenomegaly present and no masses AUSCULTATION: Yes normoactive bowel sounds PALPATION: Yes Soft to palpation and Yes No hepatosplenomegaly present RECTAL EXAM: Yes deferred Extremity: COMMON NORMALS: no clubbing, cyanosis or edema and no pedal edema Neuro: COMMON NORMALS: patient oriented x3 Data : 07/17/20 04:35 07/17/20 04:35 A&P Assessment and plan (1) COPD exacerbation: Status: Acute (2) Acute on chronic respiratory failure with hypoxia and hypercapnia: Status: Acute (3) End stage COPD: Status: Acute (4) Cachexia: Status: Acute (5) Nicotine dependence: Status: Acute Additional A&P Information #Acute on chronic hypercarbic respiratory failure due to COPD exacerbation: Currently on BiPAP support: A.m. ABG:Ph: 7.39, PCO2: 48, PO2: 125, FiO2: 35%. Continue with dual nebs Continue Solu-Medrol 40 twice daily Continue azithromycin 250 mg i.v daily Uses 3 L of oxygen [id number]. Follows Dr. Singh as an outpatient. #COPD exacerbation: Plan as above. #Normocytic anemia: Currently H&H is stable. Continue to monitor CBC. #Hypovolemic Hyponatremia: We will continue to monitor BMP. Will encourage p.o. intake. #Elevated troponin: 2-hour delta troponin: Is: 31.59 (baseline troponin: 36, 2- hour troponin: 67. We will follow 6 hours troponin. EKG:SINUS TACHYCARDIA. Patient is currently not complaining of any chest. On aspirin 81 mg oral daily. On metoprolol tartrate 50 mg every 12h BPH: Continue Flomax DVT prophylaxis: Lovenox Full code goals of care discussed with the patient and his , Needs pulmonary rehab and dietary supplementation High risk of morbidity and mortality Would recommend AVAPs to discharge to avoid readmissions and decreased work of breathing Attestations Medical Necessity Statement*: He needs to be in hospital for management of respiratory failure. 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
[2020-07-17] MEDS: BuSPIRONE 5 mg Tablet PO (12:05)
[2020-07-17 13:22] LABS: Troponin T (5th) Once 35 ng/L (0-15)
[2020-07-17] MEDS: atorvastatin 40 mg Tablet PO (17:33)
--- NOTE | 2020-07-17 20:30 | PC.NURSE ---
Patient requesting a Nicotine Patch and 150mg Trazodone PO to sleep. Dr. Garcia called for orders. Provider to place nicotine patch order and got verbal order for TRazodone 150mg PO. Read back verbal order.
[2020-07-17] MEDS: trazodone 150 mg Tablet PO (21:20)
[2020-07-17] MEDS: nicotine 21 mg Patch 1 PATCH TRANSDERMA (21:46)
[2020-07-17] MEDS: enoxaparin 40 mg/0.4 mL Syringe SUBCUT (22:35)
--- NOTE | 2020-07-17 22:51 | PC.NURSE ---
called Dr. Garcia regarding giving Soma at 2119 and patient requesting his Dilaudid 1mg IVP for pain NOW. Patient in 9 back pain. I had explained to the patient what it can do to his respiratory drive patient stated he has been on soma 15 years and it would be fine. Dr. Garcia was told patients vitals and it would be ok to administer Dilaudid IVP.
--- NOTE | 2020-07-17 23:39 | PC.NURSE ---
Patient had this nurse take off his nicotine patch. He he states he wants a different dose in the morning.
[2020-07-18] VITALS (9 sets, daily range): BP systolic 126–139; BP diastolic 55–78; PULSE 77–94; RESP 17–22; TEMP 36.4–36.5; O2SAT 97–100
[2020-07-18] MEDS: HYDROmorphone 1 mg/mL INJ 1 mL IVP ×2 (02:35→09:25)
[2020-07-18] MEDS: ipratropium-albuterol 3 mL Neb INHALATION (03:59)
--- NOTE | 2020-07-18 06:23 | PC.NURSE ---
End of shift: PAtient has had a uneventful shift. Patient has slept roughly 5hours. Patient was on nasal cannula all shift with saturations 98 to 99%.
[2020-07-18] MEDS: sertraline 100 mg Tablet PO (08:00)
[2020-07-18] MEDS: BuSPIRONE 5 mg Tablet PO (08:00)
[2020-07-18] MEDS: aspirin 81 mg EC Tablet PO (08:00)
[2020-07-18] MEDS: metoprolol tartrate 50 mg Tablet PO (08:00)
[2020-07-18] MEDS: sennosides-docusate Tablet 1 TAB PO (08:00)
[2020-07-18] MEDS: roflumilast 500 mcg Tablet PO (08:00)
[2020-07-18] MEDS: pantoprazole DR 40 mg Tablet PO (08:01)
--- NOTE | 2020-07-18 09:19 | PC.NURSE ---
DR. BROWN ORDERED TO GIVE BENITO AND SOMA TOGETHER.
--- NOTE | 2020-07-18 09:52 | PM.DCS ---
Discharge Providers Date of Admission: 07/17/20 12:52 Date of Discharge: July 18, 2020 Attending Provider at Admission: Marlee Garcia MD Attending Provider at Discharge: Akil Stearns MD Primary Care Provider: Hiwot Yeung DO Diagnoses at Discharge Discharge Diagnosis (1) COPD exacerbation: Status: Resolved (2) Acute on chronic respiratory failure with hypoxia and hypercapnia: Status: Chronic (3) End stage COPD: Status: Chronic (4) Cachexia: Status: Chronic (5) Nicotine dependence: Status: Chronic Reason for Visit Reason for Visit: SOB/COPD Hospital Course Hospital Course: 69-year-old male with past medical history of end stage COPD on on 3-5 l oxgen via nc at home,CAD s/p Stent ( Last cardiac catheterization in June 2018 showed left main, circumflex, and RCA with 0% stenosis. The proximal LAD had minimal luminal irregularities with JOHN-3 flow. He had 90% restenosis of the first obtuse marginal and underwent balloon angioplasty with restenting at that time. Last echocardiogram May 2019 with ejection fraction 55%, mild hypokinesia of the apical septal segment with grade 1/4 diastolic dysfunction noted.) HTN, Chronic back pain, Ischemic cardiomyopathy, came in with c/o worseing SOB and increasing oxygen requirement at home.Patient was managed for COPD exacerbation intially he required BIPAP support,later he was transitioned to nasal canula, currently his suplemental oxygen requirement is at baseline.He also received steroids while inpatient. 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 Physical Exam Narrative: EXAM NARRATIVE: Const COMMON NORMALS: patient oriented x3 [facility] COMMON NORMALS: normocephalic, atraumatic, hearing grossly normal bilaterally and external ears normal HEAD & SCALP: normocephalic and atraumatic EXTERNAL EAR: Yes external ears normal Eye COMMON NORMALS: no scleral icterus GENERAL EYE: appearance normal, both eyes and all related structures Chest COMMONS NORMALS: normal inspection of the chest and normal palpation of entire chest wall CHEST: Yes Symmetrical chest wall rise Resp EFFORT & INSPECTION: Yes able to speak in complete sentences, Yes symmetric chest movement, Yes respiratory distress, Yes retractions and Yes uses accessory muscles OTHER: Decreased air entry bilaterally, minimal expiratory wheeze, no rhonchi and no rales. Cardio COMMON NORMALS: regular rate, regular rhythm, S1 normal heart sound present, S2 normal heart sound present, No gallops present (Cardio), No murmurs present (Cardio), No rub (Cardio) and Peripheral pulses 2+ throughout RATE: regular rate RHYTHM: regular rhythm HEART SOUNDS: S1 normal heart sound present and S2 normal heart sound present PERIPHERAL PULSES: Peripheral pulses 2+ throughout GI COMMON NORMALS: Normal to inspection, nondistended, normoactive bowel sounds present, Soft to palpation, non-tender, No hepatosplenomegaly present and no masses AUSCULTATION: Yes normoactive bowel sounds PALPATION: Yes Soft to palpation and Yes No hepatosplenomegaly present RECTAL EXAM: Yes deferred Extremity COMMON NORMALS: no clubbing, cyanosis or edema and no pedal edema Neuro COMMON NORMALS: patient oriented x3 Discharge Data Data Completed and Pending: Completed Studies During Hospitalization Category Date Time Status XR chest 1V kasey ble [id number] Stat Exams 07/16/20 19:16 Completed Pending at discharge Category Date Time Status Arterial Blood Ga s W/O Coox Routine Lab 07/17/20 07:00 Ordered Urine Culture Sta t Lab 07/16/20 21:28 Received Labs from last 24 hours 07/17/20 12:28 Troponin T Gen 5 n g/L 35 H Vitals: Last Vital Signs Temp 97.7 F 07/18/20 07:43 Pulse 94 07/18/20 08:54 Resp 18 07/18/20 09:25 BP 129/78 07/18/20 07:43 Pulse Ox 100 07/18/20 08:54 Discharge Plan Discharge Patient Disposition: Home Condition: Stable Prescriptions: New Medrol (Daniel) 4 mg tablets,dose pack See Rx Instructions .ROUTE .COMPLEX Qty: 21 RF: 0 Continued aspirin 81 mg tablet,delayed release (DR/EC) 81 mg PO DAILY RF: 0 albuterol sulfate 2.5 mg /3 mL (0.083 %) solution for nebulization 2.5 mg INHALATION DAILY Qty: 90 RF: 3 budesonide-formoterol [Symbicort] 160-4.5 mcg/actuation HFA aerosol inhaler 2 puff INHALATION Q12H 30 Days Qty: 10.2 RF: 3 Spiriva with HandiHaler 18 mcg capsule, w/inhalation device 1 cap INHALATION DAILY 30 Days Qty: 60 RF: 3 loratadine [Claritin] 10 mg tablet 10 mg PO DAILY RF: 0 nicotine [Nicoderm CQ] 14 mg/24 hr patch 24 hour 1 patch TRANSDERMA Q24H Qty: 28 RF: 0 clopidogrel 75 mg tablet 75 mg PO DAILY Qty: 90 RF: 0 Daliresp 500 mcg tablet 500 mcg PO DAILY Qty: 90 RF: 0 Combivent Respimat 20-100 mcg/actuation mist 1 puff INHALATION Q6H Qty: 4 RF: 1 diclofenac sodium [Voltaren] 1 % gel 1 gm TOPICAL TID Qty: 100 RF: 0 buspirone 5 mg tablet 5 mg PO TID PRN (Reason: anxiety) 30 Days Qty: 90 RF: 0 albuterol sulfate [ProAir HFA] 90 mcg/actuation HFA aerosol inhaler 2 puff INHALATION Q6H PRN (Reason: shortness of breath or wheezing) Qty: 8.5 RF: 2 metoprolol tartrate 50 mg tablet 50 mg PO BID Qty: 60 RF: 0 nitroglycerin 0.4 mg tablet, sublingual 0.4 mg sublingual PRN RF: 0 carisoprodol [Soma] 350 mg Tablet 350 mg PO QID RF: 0 atorvastatin 40 mg Tablet 40 mg PO QPM RF: 0 spironolactone 25 mg Tablet 25 mg PO DAILY RF: 0 pantoprazole 40 mg Tablet,Delayed Release (Dr/Ec) 40 mg PO DAILY RF: 0 hydrocodone-acetaminophen 10-325 mg Tablet 1 - 2 tab PO Q4H PRN (Reason: Pain) RF: 0 trazodone 150 mg Tablet 150 mg PO BEDTIME RF: 0 Discharge Orders: Discharge Order (Routine); Ordered 07/18/20 Ordered By: Akil Stearns Referrals: Star Pacheco M.D [Physician] - 08/12/20 4:00 pm (You have a followup with Dr. Pacheco on 08/12/20 at 4:00pm) Hiwot Yeung DO [Primary Care Provider] - 09/09/20 3:00 pm (You have a followup with Dr. Yeung on 09/09/20 at 3:00pm) Haider Singh MD [Physician] - 10/14/20 2:00 pm (You have a pulmonology followup with Dr. Singh on 10/14/20 at 2:00pm) Discharge Diet: Regular Patient Instructions: COPD, Methylprednisolone (By mouth) Discharge Attestations Time Spent in Discharge Care*: greater than 30 min Specific Discharge Activities: Specific discharge activities: educating patient, educating and/or supporting family/caregiver, discussing with pcp/other providers, discussing with comp field case manager/social workers/dc planners, documenting/other paperwork and evaluating patient/reviewing data Status at Discharge: Cognitive status at discharge: cognitively intact, Behavioral status at discharge: cooperative, Functional status at discharge: independent ambulation Overall status at discharge: patient is back to baseline Quality Metrics Clinical Quality Measures During this hospital stay, did patient experience: None Coding Level of Care Code Acute 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
== END 2020-07-18 12:45 | disposition home or self-care (01) | DRG 189 ==
LOC: ER 19:31 → CSU 23:19
PROVIDERS: Emergency Medicine; Admitting Provider Internal Medicine; PCP Family Medicine; Visit Provider Internal Medicine
DX: J96.21 Acute and chronic respiratory failure with hypoxia (principal); J44.1 Chronic obstructive pulmonary disease with (acute) exacerbation; E87.1 Hypo-osmolality and hyponatremia; R64 Cachexia; Z68.1 Body mass index [BMI] 19.9 or less, adult; J96.22 Acute and chronic respiratory failure with hypercapnia; Z99.81 Dependence on supplemental oxygen; F17.210 Nicotine dependence, cigarettes, uncomplicated; F41.0 Panic disorder [episodic paroxysmal anxiety]; I25.10 Atherosclerotic heart disease of native coronary artery without angina pectoris; Z95.5 Presence of coronary angioplasty implant and graft; G89.29 Other chronic pain; M54.9 Dorsalgia, unspecified; K21.9 Gastro-esophageal reflux disease without esophagitis; I10 Essential (primary) hypertension; E78.5 Hyperlipidemia, unspecified; I25.5 Ischemic cardiomyopathy; Z79.891 Long term (current) use of opiate analgesic; Z79.51 Long term (current) use of inhaled steroids; Z79.82 Long term (current) use of aspirin; D64.9 Anemia, unspecified; E05.90 Thyrotoxicosis, unspecified without thyrotoxic crisis or storm
CPT/HCPCS: 12345; 36415; 36600; 71045; 80048; 80053; 81001; 82803; 83605; 84484; 85025; 85378; 87086; 90686; 93005; 94640; 94660; 96372; 96375; 99283; G0378; J1170; J1650; J2060; J2270; J2405; J2920; J2930; J3475; Q0144

== ENCOUNTER 2020-08-26 21:13 | Emergency (ER) | payer MEDICARE, MEDICAID, SELFPAY ==
[2020-08-26 21:20] VITALS: BP 164/104; PULSE 95; RESP 28; TEMP 36.9; O2SAT 97; BMI 16.4
--- NOTE | 2020-08-26 21:36 | XRR_ITS ---
PROCEDURE INFORMATION: Exam: XR Chest, 1 View Exam date and time: 08/26/2020 9:44 PM Age: 70 years old Clinical indication: Dyspnea TECHNIQUE: Imaging protocol: XR of the chest Views: 1 view. COMPARISON: CR XR chest 1V portable [id number] 07/16/2020 8:11 PM FINDINGS: Lungs: The lungs are hyperinflated and hyperlucent compatible with COPD. Chronic appearing biapical pleuroparenchymal scarring. No pulmonary vascular congestion, pulmonary edema, or pneumonia. Pleural space: No pleural effusion or pneumothorax. No pleural effusion or pneumothorax. Heart/Mediastinum: The heart is not enlarged. Vasculature: Prior coronary artery stenting. Bones/joints: No acute osseous abnormality. XR/XR chest 1V portable [id number] IMPRESSION: COPD.
[2020-08-26] MEDS: magnesium sulfate premix 2 GM/50 ML PIGGYBACK IV (21:42)
[2020-08-26 21:52] LABS: Basophils # 0.1 10^3/uL (0.0-0.1); Basophils % 0.5 %; Eosinophils % 0.1 %; Hematocrit 36.7 % (42.0-52.0); Hemoglobin 11.4 g/dL (11.7-16.6); Lymphocytes # 1.2 10^3/uL (0.8-4.8); Lymphocytes % 7.7 %; Mean Corpuscular HGB Conc 31.1 g/dL (30.0-36.0); Mean Corpuscular Hemoglobin 28.4 pg (28.0-34.0); Mean Corpuscular Volume 91.3 fL (80-94); Mean Platelet Volume 9.6 fL (7.4-10.4); Monocytes # 0.9 10^3/uL (0.2-0.9); Monocytes % 5.4 %; Neutrophils # 13.65 10^3/uL (1.8-7.7); Neutrophils % 85.9 %; Nucleated Red Blood Cells % 0 %; Platelet Count 377 10^3/cmm (130-400); Red Blood Count 4.02 10^6/uL (4.1-5.3); Red Cell Distribution Width 12.9 % (12.1-15.1); White Blood Count 15.9 10^3/uL (4.0-10.0)
[2020-08-26 22:10] LABS: Lactic Sepsis W/Reflex 0.7 mmol/L (0.5-2.2)
[2020-08-26 22:15] LABS: Alanine Aminotransferase 13 U/L (0-41); Albumin Level 4.3 g/dL (3.5-5.2); Alkaline Phosphatase 103 IU/L (40-130); Aspartate Amino Transferase 17 U/L (0-40); Blood Urea Nitrogen 6 mg/dL (8-23); Calcium 9.5 mg/dL (8.5-10.5); Carbon Dioxide 30 mmol/L (22-29); Chloride 90 mmol/L (98-107); Globulin 2.7 g/dL (1.3-4.6); Glomerular Filtration Rate 213.3 mL/min (90-130); Glucose 92 mg/dL (65-115); Magnesium 1.9 mg/dL (1.7-2.3); NT Pro B Type Natriuretic Pept 744 pg/mL (0-125); Osmolality Calculated 265 mOsm/kg (285-295); Sodium 129 mmol/L (136-145); Total Bilirubin 0.3 mg/dL (0.15-1.2)
[2020-08-26 22:21] VITALS: RESP 28; O2SAT 97
[2020-08-26] MEDS: morphine 4 mg/mL SDV 1 mL IVP (22:21)
[2020-08-26] MEDS: LORazepam 2 mg/mL INJ 1 mL 1 MG IVP (22:21)
[2020-08-26] MEDS: ondansetron 2 mg/ML SDV 2 mL 4 MG IVP (22:22)
[2020-08-26 22:28] VITALS: BP 128/89; PULSE 91; RESP 20; O2SAT 97
[2020-08-26 22:29] VITALS: PULSE 88; RESP 20; O2SAT 95
[2020-08-26] MEDS: ipratropium-albuterol 3 mL Neb INHALATION (22:29)
[2020-08-26 22:34] VITALS: PULSE 85
--- NOTE | 2020-08-26 22:34 | ED_ITS ---
HPI - SOB/Dyspnea General: Chief Complaint: Shortness of Breath/Dyspnea Stated Complaint: SOB Time Seen by Provider: 08/26/20 21:24 History of Present Illness: HPI Narrative: This patient is a 70-year-old gentleman who presents today with shortness of breath. He has a history of end- stage COPD. He uses oxygen at home. He also has panic attacks. He said this is been progressively getting worse over the past 6 months. He also has a cardiac history but denies chest pain with this. He has been using his normal inhalers at home. He called the ambulance because he felt like they were not helping. He is complaining of pain in his back where he has metal rods. He tells me he has not been on steroids recently but was admitted to the hospital in June and discharged on them. Same with antibiotics. MD elicited complaint: shortness of breath, cough and anxiety Pertinent past history: COPD and pneumonia Onset (ago): month(s) Context: anxiety Timing: constant and progressively worsening Severity: severe Exacerbating factors: exertion and talking Relieving factors: nothing Known history of: COPD and recurrent pneumonia Associated symptoms: Reports chest congestion and cough; Deny abdominal pain, chest pain, fever(s), myalgias, nausea or vomiting Review of Systems General: Reports: 10 or more systems reviewed and unremarkable except in HPI and below Const: Denies: fever(s) Eyes: Denies: change in vision ENMT: Denies: odynophagia Card: Denies: chest pain or swelling of feet/ankles Resp: Reports: chest congestion GI: Denies: abdominal pain, nausea or vomiting : Denies: flank pain Musc: Denies: neck pain or back pain Skin/Breast: Denies: rash Neuro: Denies: headache(s), numbness in extremities or weakness in extremities Christiano/Lymph: Denies: easy bruising or easy bleeding PFS ED PFSH: Medical History Acute on chronic respiratory failure with hypoxia and hypercapnia Anxiety Cachexia CAD (coronary artery disease) Has stent. Last cardiac catheterization in June 2018 showed left main, circumflex, and RCA with 0% stenosis. The proximal LAD had minimal luminal irregularities with JOHN-3 flow. He had 90% restenosis of the first obtuse marginal and underwent balloon angioplasty with restenting at that time. Last echocardiogram May 2019 with ejection fraction 55%, mild hypokinesia of the apical septal segment with grade 1/4 diastolic dysfunction noted. Chronic back pain Related to prior back surgeries and neck surgery, on hydrocodone 10 two tabs q 4hr + soma qid COPD (chronic obstructive pulmonary disease) Pulmonary function testing from July 2018 showed severe obstructive ventilatory defect with no significant bronchodilator response and moderately reduced diffusing capacity. 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 Lives independently: Yes Household members: spouse and children Marital status: service: Yes Current occupational status: disabled History of recent travel: No Current gender identity: Male Physical Exam Const: COMMON NORMALS: patient oriented x3, no limitations and alert NUTRITIONAL APPEARANCE: cachectic HENMT: HEAD & SCALP: normal to inspection FACE & SINUS: normal facial exam Eye: GENERAL EYE: appearance normal, both eyes and all related structures Neck/C-Spine: COMMON NORMALS: supple, no meningeal signs and no JVD Chest: COMMONS NORMALS: normal inspection of the chest Resp: COMMON NORMALS: normal respiratory effort EFFORT & INSPECTION: Yes tachypneic and Yes respiratory distress AUSCULTATION: wheezes (severe) Cardio: COMMON NORMALS: no JVD, regular rate, regular rhythm and No murmurs present (Cardio) RATE: regular rate RHYTHM: regular rhythm GI: COMMON NORMALS: Normal to inspection, nondistended, normoactive bowel sounds present, Soft to palpation and non-tender INSPECTION: Yes normal to inspection AUSCULTATION: Yes normoactive bowel sounds PALPATION: Yes Soft to palpation Back/Pelvis: COMMON NORMALS: thoracic and lumbar spine normal to inspection Extremity: COMMON NORMALS: normal to inspection Neuro: COMMON NORMALS: patient oriented x3, moves all extremities, no focal m otor deficits and no sensory deficits noted SENSORIUM/ORIENTATION: Yes alert MENINGEAL SIGNS: Yes no meningeal signs Psych: COMMON NORMALS: mental status grossly normal, cooperative and normal affect Skin: COMMON NORMALS: no rashes or lesions noted and turgor normal GENERAL SKIN EXAM: no rashes or lesions noted and turgor normal Course ED course: This patient is at his baseline with his COPD. His PaCO2 on his ABG was at baseline. His saturations are good on oxygen. He has no findings on his chest x-ray. His labs are similar to prior evaluations. I think a lot of this is anxiety and he agrees with that assessment. After some Ativan and pain medication he is feeling better and will be discharged home. He has excellent follow-up in place with his multiple specialists. Vital Signs: Vital signs: Vital Signs Temperature 98.4 F 08/26/20 21:20 Pulse Rate 85 08/26/20 22:34 Respiratory Rate 20 H 08/26/20 22:29 Blood Pressure 128/89 08/26/20 22:28 Pulse Oximetry 95 08/26/20 22:29 MDM - SOB/Dyspnea Lab Data: Labs: Lab Results 08/26/20 08/26/20 08/26/20 Range/Units 20:44 20:44 21:50 WBC 15.9 H (4.0-10.0) 10^3/ uL RBC 4.02 L (4.1-5.3) 10^6/u L Hgb 11.4 L (11.7-16.6) g/dL Hct 36.7 L (42.0-52.0) % MCV 91.3 (80-94) fL MCH 28.4 (28.0-34.0) pg MCHC 31.1 (30.0-36.0) g/dL RDW 12.9 (12.1-15.1) % Plt Count 377 (130-400) 10^3/c mm MPV 9.6 (7.4-10.4) fL Neut % (Auto) 85.9 % Lymph % (Auto) 7.7 % Cascade % (Auto) 5.4 % Eos % (Auto) 0.1 % Baso % (Auto) 0.5 % Neut # (Auto) 13.65 H (1.8-7.7) 10^3/u L Lymph # (Auto) 1.2 (0.8-4.8) 10^3/u L Cascade # (Auto) 0.9 (0.2-0.9) 10^3/u L Eos # (Auto) 0.0 (0.0-0.8) 10^3/u L Baso # (Auto) 0.1 (0.0-0.1) 10^3/u L Nucleated RBC % (a uto) 0 % Nucleated RBCs # 0.0 /100WBC Specimen Type Sample Site ABG pH (7.35-7.45) ABG pCO2 (35-45) mmHg ABG pO2 (80.0-100.0) mmH g ABG HCO3 (22-26) mmol/L ABG Base Excess (-2.0-2.0) mmol/ L [place] Test Hematocrit (42-52) % O2 Delivery Device O2 Liters/Min % Change Of Address Clerk ID Sodium 129 L (136-145) mmol/L Potassium 5.0 (3.5-5.1) mmol/L Chloride 90 L (98-107) mmol/L Carbon Dioxide 30 H (22-29) mmol/L Anion Gap 14.0 (5-19) BUN 6 L (8-23) mg/dL Creatinine 0.4 L (0.7-1.2) mg/dL GFR Calculation 213.3 H (90-130) mL/min Glucose 92 (65-115) mg/dL Calculated Osmolal ity 265 L (285-295) mOsm/k g Lactic Acid 0.7 (0.5-2.2) mmol/L Calcium 9.5 (8.5-10.5) mg/dL Magnesium 1.9 (1.7-2.3) mg/dL Total Bilirubin 0.3 (0.15-1.2) mg/dL AST 17 (0-40) U/L ALT 13 (0-41) U/L Alkaline Phosphata se 103 (40-130) IU/L NT-Pro-B Natriuret Pep 744 H (0-125) pg/mL Total Protein 7.0 (6.6-8.7) g/dL Albumin 4.3 (3.5-5.2) g/dL Globulin 2.7 (1.3-4.6) g/dL 08/26/ Range/Units 23:15 WBC (4.0-10.0) 10^3/ uL RBC (4.1-5.3) 10^6/u L Hgb (11.7-16.6) g/dL Hct (42.0-52.0) % MCV (80-94) fL MCH (28.0-34.0) pg MCHC (30.0-36.0) g/dL RDW (12.1-15.1) % Plt Count (130-400) 10^3/c mm MPV (7.4-10.4) fL Neut % (Auto) % Lymph % (Auto) % Cascade % (Auto) % Eos % (Auto) % Baso % (Auto) % Neut # (Auto) (1.8-7.7) 10^3/u L Lymph # (Auto) (0.8-4.8) 10^3/u L Cascade # (Auto) (0.2-0.9) 10^3/u L Eos # (Auto) (0.0-0.8) 10^3/u L Baso # (Auto) (0.0-0.1) 10^3/u L Nucleated RBC % (a uto) % Nucleated RBCs # /100WBC Specimen Type Arterial Sample Site Radial, left ABG pH 7.37 (7.35-7.45) ABG pCO2 49.7 H (35-45) mmHg ABG pO2 93.9 (80.0-100.0) mmH g ABG HCO3 28.5 H (22-26) mmol/L ABG Base Excess 2.4 H (-2.0-2.0) mmol/ L [facility] Test Pos Hematocrit 37.3 L (42-52) % O2 Delivery Device Nc O2 Liters/Min 4.0 % Change Of Address Clerk ID [email or web address] Sodium (136-145) mmol/L Potassium (3.5-5.1) mmol/L Chloride (98-107) mmol/L Carbon Dioxide (22-29) mmol/L Anion Gap (5-19) BUN (8-23) mg/dL Creatinine (0.7-1.2) mg/dL GFR Calculation (90-130) mL/min Glucose (65-115) mg/dL Calculated Osmolal ity (285-295) mOsm/k g Lactic Acid (0.5-2.2) mmol/L Calcium (8.5-10.5) mg/dL Magnesium (1.7-2.3) mg/dL Total Bilirubin (0.15-1.2) mg/dL AST (0-40) U/L ALT (0-41) U/L Alkaline Phosphata se (40-130) IU/L NT-Pro-B Natriuret Pep (0-125) pg/mL Total Protein (6.6-8.7) g/dL Albumin (3.5-5.2) g/dL Globulin (1.3-4.6) g/dL Discharge Plan Discharge Patient Disposition: Home Clinical Impression: Anxiety, COPD (chronic obstructive pulmonary disease) Condition: Stable Prescriptions: No Action aspirin 81 mg tablet,delayed release (DR/EC) 81 mg PO DAILY RF: 0 albuterol sulfate 2.5 mg /3 mL (0.083 %) solution for nebulization 2.5 mg INHALATION DAILY Qty: 90 RF: 3 budesonide-formoterol [Symbicort] 160-4.5 mcg/actuation HFA aerosol inhaler 2 puff INHALATION Q12H 30 Days Qty: 10.2 RF: 3 Spiriva with HandiHaler 18 mcg capsule, w/inhalation device 1 cap INHALATION DAILY 30 Days Qty: 60 RF: 3 loratadine [Claritin] 10 mg tablet 10 mg PO DAILY RF: 0 nicotine [Nicoderm CQ] 14 mg/24 hr patch 24 hour 1 patch TRANSDERMA Q24H Qty: 28 RF: 0 diclofenac sodium [Voltaren] 1 % gel 1 gm TOPICAL TID Qty: 100 RF: 0 pantoprazole 40 mg tablet,delayed release (DR/EC) 40 mg PO DAILY Qty: 90 RF: 0 sertraline [Zoloft] 100 mg tablet 100 mg PO DAILY Qty: 30 RF: 0 sertraline [Zoloft] 50 mg tablet 50 mg PO DAILY Qty: 30 RF: 0 Combivent Respimat 20-100 mcg/actuation mist 1 puff INHALATION Q6H Qty: 4 RF: 1 atorvastatin 40 mg tablet 40 mg PO QPM Qty: 30 RF: 0 metoprolol tartrate 50 mg tablet 50 mg PO BID Qty: 60 RF: 0 albuterol sulfate [ProAir HFA] 90 mcg/actuation HFA aerosol inhaler 2 puff INHALATION Q6H PRN (Reason: shortness of breath or wheezing) Qty: 8.5 RF: 0 buspirone 5 mg tablet 5 mg PO TID PRN (Reason: anxiety) 30 Days Qty: 90 RF: 0 clopidogrel 75 mg tablet 75 mg PO DAILY Qty: 30 RF: 0 Daliresp 500 mcg tablet 500 mcg PO DAILY Qty: 30 RF: 0 nitroglycerin 0.4 mg tablet, sublingual 0.4 mg sublingual PRN RF: 0 Medrol (Daniel) 4 mg tablets,dose pack See Rx Instructions .ROUTE .COMPLEX Qty: 21 RF: 0 carisoprodol [Soma] 350 mg Tablet 350 mg PO QID RF: 0 spironolactone 25 mg Tablet 25 mg PO DAILY RF: 0 hydrocodone-acetaminophen 10-325 mg Tablet 1 - 2 tab PO Q4H PRN (Reason: Pain) RF: 0 trazodone 150 mg Tablet 150 mg PO BEDTIME RF: 0 Discharge Orders: Discharge Order (Routine); Ordered 08/26/20 Ordered By: Jesi Starkey Referrals: Hiwot Yeung DO [Primary Care Provider] - Discharge Diet: Advance as tolerated Discharge Activity: Resume usual activity Patient Instructions: Chronic Obstructive Pulmonary Disease (ED), Anxiety (ED) Activity Restrictions/Additional Instructions: Continue to take your regular medications at home. Your test results today are all good. Continue follow-up with your cigarette filter inspector to try to help get better control of your COPD. Coding Level of Care Code ED Dielectric Press Operator for Sanchez Fwd Exam Comprehensive
[2020-08-26 23:24] LABS: ABG PCO2 49.7 mmHg (35-45); ABG PH Result 7.37 (7.35-7.45); Arterial Blood Gas Hematocrit 37.3 % (42-52); Base Excess ABG 2.4 mmol/L (-2.0-2.0); Blood Gas Allen Test Pos; Blood Gas Sample Site Radial, left; Blood Gas Sample Type Arterial; HCO3 ABG 28.5 mmol/L (22-26); Oxygen Device NC; PO2 ABG 93.9 mmHg (80.0-100.0)
[2020-08-27] VITALS: BP 121/59; PULSE 96; RESP 19; O2SAT 98
[2020-08-27 00:43] VITALS: BP 130/86; PULSE 106; RESP 20; O2SAT 100
== END 2020-08-27 00:43 | disposition home or self-care (01) ==
PROVIDERS: Emergency Provider Emergency Medicine; PCP Family Medicine
DX: J44.9 Chronic obstructive pulmonary disease, unspecified (principal); F41.9 Anxiety disorder, unspecified; Z79.82 Long term (current) use of aspirin; I25.10 Atherosclerotic heart disease of native coronary artery without angina pectoris; I10 Essential (primary) hypertension; E78.5 Hyperlipidemia, unspecified; F17.210 Nicotine dependence, cigarettes, uncomplicated
CPT/HCPCS: 12345; 36600; 71045; 80053; 82803; 83605; 83735; 83880; 85025; 94640; 96365; 96375; 99283; 99284; J2060; J2270; J2405; J2930; J3475

== ENCOUNTER 2020-09-11 05:03 | Emergency (ER) | payer MEDICARE, MEDICAID, SELFPAY ==
[2020-09-11] VITALS (15 sets, daily range): BP systolic 102–153; BP diastolic 68–113; PULSE 92–130; RESP 14–26; TEMP 36.7; O2SAT 96–100; BMI 16.4
--- NOTE | 2020-09-11 05:00 | XR_ITS ---
WS: [id number] XR chest 1V portable [id number] REASON FOR EXAM: Dyspnea FINDINGS: The chest is unchanged compared to 08/26/2020. Calcification in the thoracic aorta without aneurysmal dilatation. Coronary artery stents. Flattening of the hemidiaphragms and increased lucency of the lungs with coarse reticular interstitia l pattern and cystic change. This is most prominent in the right upper lobe and in the right midlung. Calcified granulomatous changes in the hilar regions and in the right lung apex. No definite active pulmonary parenchymal or pleural disease is noted. Bony thorax is intact. XR/XR chest 1V portable [id number] IMPRESSION: Findings of severe obstructive lung disease. No acute lung abnormality identifi ed.
--- NOTE | 2020-09-11 05:01 | ECG_ITS ---
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 Measurements Intervals [place] Rate: 99 P: 75 MO: 176 QRS: 60 QRSD: 74 T: 85 QT: 335 QTc: 430 Interpretive Statements SINUS RHYTHM SEPTAL MYOCARDIAL INFARCTION [40+ ms Q WAVE IN V1/V2], PROBABLY OLD Compared to ECG 07/16/2020 20:55:40 Sinus tachycardia no longer present Myocardial infarct finding still present Electronically Signed On 09-11-2020 9:41:57 HEAD STOCK OPERATOR by Johnathan Mccarthy M.D. [email or web address]
--- NOTE | 2020-09-11 05:01 | W.ED.CHESTPA ---
Documented by User: Dina Gallardo 09/11/20 05:39 HPI - Chest Pain General: Chief Complaint: Chest Pain Stated Complaint: CP, SOB Time Seen by Provider: 09/11/20 06:14 Source: patient and EMS Mode of arrival: EMS Limitations: physical limitation (Respiratory distress) History of Present Illness: HPI narrative: Onel is a 70-year-old male who arrives here via EMS in respiratory distress. Patient has relate that he has been short of breath and having chest pain for the past 2 days. Patient is only able to verbalize 1 or 2 word answers to questions. EMS reports that the patient was 80% on 2 L nasal cannula oxygen at home. Patient also wears oxygen in his mouth. Patient was given 5 mg of morphine, aspirin, sublingual and Nitropaste as well as a DuoNeb and 0.4 mg of terbutaline by EMS in route. Patient states he is moderately improved. Patient is then cachectic but still has signs of respiratory distress. Review of Systems General: Reports: ROS unobtainable due to medical condition PFSH ED PFSH: Medical History Acute on chronic respiratory failure with hypoxia and hypercapnia Anxiety Cachexia CAD (coronary artery disease) Has stent. Last cardiac catheterization in June 2018 showed left main, circumflex, and RCA with 0% stenosis. The proximal LAD had minimal luminal irregularities with JOHN-3 flow. He had 90% restenosis of the first obtuse marginal and underwent balloon angioplasty with restenting at that time. Last echocardiogram May 2019 with ejection fraction 55%, mild hypokinesia of the apical septal segment with grade 1/4 diastolic dysfunction noted. Chronic back pain Related to prior back surgeries and neck surgery, on hydrocodone 10 two tabs q 4hr + soma qid COPD (chronic obstructive pulmonary disease) Pulmonary function testing from July 2018 showed severe obstructive ventilatory defect with no significant bronchodilator response and moderately reduced diffusing capacity. 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 Lives independently: Yes Household members: spouse and children Marital status: service: Yes Current occupational status: disabled History of recent travel: No Current gender identity: Male Physical Exam Const: COMMON NORMALS: no acute distress, patient oriented x3, no limitations and alert GENERAL APPEARANCE: cooperative, in distress, anxious, ill appearing and frail appearing HENMT: COMMON NORMALS: normocephalic, atraumatic, external ears normal, EAC's normal and Normal external nose present HEAD & SCALP: normal to inspection, normocephalic and atraumatic FACE & SINUS: normal facial exam and face symmetric NOSE: Normal external nose present and Normal nares present EXTERNAL EAR: Yes external ears normal EXTERNAL AUDITORY CANAL: EAC's normal MOUTH: Normal oral and palatal mucosa present, lip normal and tongue normal Eye: COMMON NORMALS: Equal, round and reactive pupils present and conjunctivae normal GENERAL EYE: appearance normal, both eyes and all related structures ALIGNMENT: Yes alignment normal PERIORBITAL: periorbital findings normal EYELID: eyelids normal CONJUNCTIVA: Yes conjunctivae normal SCLERA: sclerae normal PUPIL: Yes Equal, round and reactive pupils present Neck/C-Spine: COMMON NORMALS: full ROM, no lymphadenopathy, supple, no meningeal signs and no JVD GENERAL: Yes normal visual inspection and Yes trachea midline Chest: COMMONS NORMALS: normal inspection of the chest and normal palpation of entire chest wall Resp: EFFORT & INSPECTION: Yes tachypneic, Yes labored, Yes Actively coughing and Yes retractions AUSCULTATION: rhonchi and wheezes Cardio: COMMON NORMALS: no JVD, regular rhythm, S1 normal heart sound present and S2 normal heart sound present RATE: tachycardic RHYTHM: regular rhythm HEART SOUNDS: S1 normal heart sound present, S2 normal heart sound present, no click, no gallops, no murmurs and no rubs GI: COMMON NORMALS: Soft to palpation and No hepatosplenomegaly present PALPATION: Yes Soft to palpation, No Tenderness to palpation present (GI), No Guarding due to palpation present (GI), No Rigid due to palpation, Yes No hepatosplenomegaly present, No Hernia present, No Palpable mass present and No Pulsatile mass present : COMMON NORMALS: Yes no CVA tenderness BLADDER/KIDNEY EXAM: Yes no CVA tenderness Back/Pelvis: COMMON NORMALS: no CVA tenderness, thoracic and lumbar spine normal to inspection, no thoracic nor lumbar tenderness and thoraco-lumbar ROM normal Extremity: COMMON NORMALS: normal to inspection, full ROM, capillary refill normal, no joint enlargement, no clubbing, cyanosis or edema and no calf tenderness Neuro: COMMON NORMALS: patient oriented x3, CN's II-XII intact bilaterally, moves all extremities, no focal motor deficits and no sensory deficits noted SENSORIUM/ORIENTATION: Yes alert MENINGEAL SIGNS: Yes no meningeal signs SPEECH: speech normal Psych: COMMON NORMALS: mental status grossly normal, Normal thought process present, cooperative, normal affect, speech normal and activity/motor behavior normal SPEECH: Yes normal speech THOUGHT PROCESS: Normal thought process present Skin: COMMON NORMALS: no rashes or lesions noted, turgor normal, no jaundice, no petechiae and no mottling GENERAL SKIN EXAM: no rashes or lesions noted and turgor normal Course Vital Signs: Vital signs: Vital Signs Temperature 98.1 F 09/11/20 05:00 Pulse Rate 121 H 09/11/20 10:29 Respiratory Rate 19 H 09/11/20 10:29 Blood Pressure 144/101 09/11/20 10:29 Pulse Oximetry 96 09/11/20 10:29 MDM - Chest Pain Lab Data: Labs: Lab Results 09/11/20 09/11/20 09/11/20 Range/Units 04:55 05:05 05:05 WBC 11.5 H (4.0-10.0) 10^3/ uL RBC 4.08 L (4.1-5.3) 10^6/u L Hgb 11.6 L (11.7-16.6) g/dL Hct 37.4 L (42.0-52.0) % MCV 91.7 (80-94) fL MCH 28.4 (28.0-34.0) pg MCHC 31.0 (30.0-36.0) g/dL RDW 13.5 (12.1-15.1) % Plt Count 312 (130-400) 10^3/c mm MPV 10.0 (7.4-10.4) fL Neut % (Auto) 80.9 % Lymph % (Auto) 10.4 % [place] % (Auto) 6.9 % Eos % (Auto) 1.0 % Baso % (Auto) 0.4 % Neut # (Auto) 9.30 H (1.8-7.7) 10^3/u L Lymph # (Auto) 1.2 (0.8-4.8) 10^3/u L [place] # (Auto) 0.8 (0.2-0.9) 10^3/u L Eos # (Auto) 0.1 (0.0-0.8) 10^3/u L Baso # (Auto) 0.1 (0.0-0.1) 10^3/u L Nucleated RBC % (a uto) 0 % Nucleated RBCs # 0.0 /100WBC PT 13.20 (12.1-14.9) SECO NDS INR 0.97 (0.8-1.2) Specimen Type Arterial Sample Site Brachial, right ABG pH 7.36 (7.35-7.45) ABG pCO2 49.7 H (35-45) mmHg ABG pO2 177.0 H (80.0-100.0) mmH g ABG HCO3 28.3 H (22-26) mmol/L ABG Base Excess 2.2 H (-2.0-2.0) mmol/ L [place] Test N/a Hematocrit 36.0 L (42-52) % O2 Delivery Device Nc O2 Liters/Min 6.0 % Architect Internship ID [id number] Sodium (136-145) mmol/L Potassium (3.5-5.1) mmol/L Chloride (98-107) mmol/L Carbon Dioxide (22-29) mmol/L Anion Gap (5-19) BUN (8-23) mg/dL Creatinine (0.7-1.2) mg/dL GFR Calculation (90-130) mL/min Glucose (65-115) mg/dL Calculated Osmolal ity (285-295) mOsm/k g Lactic Acid (0.5-2.2) mmol/L Calcium (8.5-10.5) mg/dL Magnesium (1.7-2.3) mg/dL Total Bilirubin (0.15-1.2) mg/dL AST (0-40) U/L ALT (0-41) U/L Alkaline Phosphata se (40-130) IU/L Troponin T Baselin e (0-15) ng/L Troponin T 120 Min [place] (0-15) ng/L Delta Troponin T (0-10) ABS# NT-Pro-B Natriuret Pep (0-125) pg/mL Total Protein (6.6-8.7) g/dL Albumin (3.5-5.2) g/dL Globulin (1.3-4.6) g/dL Influenza Type A A g (Negative) Influenza Type B A g (Negative) SARS-CoV-2 Ag (Rap id) (Negative) 09/11/20 09/11/20 09/11/20 Range/Units 05:05 05:05 05:05 WBC (4.0-10.0) 10^3/ uL RBC (4.1-5.3) 10^6/u L Hgb (11.7-16.6) g/dL Hct (42.0-52.0) % MCV (80-94) fL MCH (28.0-34.0) pg MCHC (30.0-36.0) g/dL RDW (12.1-15.1) % Plt Count (130-400) 10^3/c mm MPV (7.4-10.4) fL Neut % (Auto) % Lymph % (Auto) % [place] % (Auto) % Eos % (Auto) % Baso % (Auto) % Neut # (Auto) (1.8-7.7) 10^3/u L Lymph # (Auto) (0.8-4.8) 10^3/u L [place] # (Auto) (0.2-0.9) 10^3/u L Eos # (Auto) (0.0-0.8) 10^3/u L Baso # (Auto) (0.0-0.1) 10^3/u L Nucleated RBC % (a uto) % Nucleated RBCs # /100WBC PT (12.1-14.9) SECO NDS INR (0.8-1.2) Specimen Type Sample Site ABG pH (7.35-7.45) ABG pCO2 (35-45) mmHg ABG pO2 (80.0-100.0) mmH g ABG HCO3 (22-26) mmol/L ABG Base Excess (-2.0-2.0) mmol/ L [place] Test Hematocrit (42-52) % O2 Delivery Device O2 Liters/Min % Architect Internship ID Sodium 133 L (136-145) mmol/L Potassium 3.6 (3.5-5.1) mmol/L Chloride 94 L (98-107) mmol/L Carbon Dioxide 28 (22-29) mmol/L Anion Gap 14.6 (5-19) BUN 8 (8-23) mg/dL Creatinine 0.4 L (0.7-1.2) mg/dL GFR Calculation 213.3 H (90-130) mL/min Glucose 102 (65-115) mg/dL Calculated Osmolal ity 275 L (285-295) mOsm/k g Lactic Acid 1.9 (0.5-2.2) mmol/L Calcium 9.3 (8.5-10.5) mg/dL Magnesium 2.0 (1.7-2.3) mg/dL Total Bilirubin 0.2 (0.15-1.2) mg/dL AST 15 (0-40) U/L ALT 11 (0-41) U/L Alkaline Phosphata se 105 (40-130) IU/L Troponin T Baselin e 11 (0-15) ng/L Troponin T 120 Min [place] (0-15) ng/L Delta Troponin T (0-10) ABS# NT-Pro-B Natriuret Pep 484 H (0-125) pg/mL Total Protein 7.0 (6.6-8.7) g/dL Albumin 4.2 (3.5-5.2) g/dL Globulin 2.8 (1.3-4.6) g/dL Influenza Type A A g (Negative) Influenza Type B A g (Negative) SARS-CoV-2 Ag (Rap id) (Negative) 09/11/20 09/11/20 09/11/20 Range/Units 05:17 05:17 08:44 WBC (4.0-10.0) 10^3/ uL RBC (4.1-5.3) 10^6/u L Hgb (11.7-16.6) g/dL Hct (42.0-52.0) % MCV (80-94) fL MCH (28.0-34.0) pg MCHC (30.0-36.0) g/dL RDW (12.1-15.1) % Plt Count (130-400) 10^3/c mm MPV (7.4-10.4) fL Neut % (Auto) % Lymph % (Auto) % [place] % (Auto) % Eos % (Auto) % Baso % (Auto) % Neut # (Auto) (1.8-7.7) 10^3/u L Lymph # (Auto) (0.8-4.8) 10^3/u L [place] # (Auto) (0.2-0.9) 10^3/u L Eos # (Auto) (0.0-0.8) 10^3/u L Baso # (Auto) (0.0-0.1) 10^3/u L Nucleated RBC % (a uto) % Nucleated RBCs # /100WBC PT (12.1-14.9) SECO NDS INR (0.8-1.2) Specimen Type Sample Site ABG pH (7.35-7.45) ABG pCO2 (35-45) mmHg ABG pO2 (80.0-100.0) mmH g ABG HCO3 (22-26) mmol/L ABG Base Excess (-2.0-2.0) mmol/ L [place] Test Hematocrit (42-52) % O2 Delivery Device O2 Liters/Min % Architect Internship ID Sodium (136-145) mmol/L Potassium (3.5-5.1) mmol/L Chloride (98-107) mmol/L Carbon Dioxide (22-29) mmol/L Anion Gap (5-19) BUN (8-23) mg/dL Creatinine (0.7-1.2) mg/dL GFR Calculation (90-130) mL/min Glucose (65-115) mg/dL Calculated Osmolal ity (285-295) mOsm/k g Lactic Acid (0.5-2.2) mmol/L Calcium (8.5-10.5) mg/dL Magnesium (1.7-2.3) mg/dL Total Bilirubin (0.15-1.2) mg/dL AST (0-40) U/L ALT (0-41) U/L Alkaline Phosphata se (40-130) IU/L Troponin T Baselin e (0-15) ng/L Troponin T 120 Min [place] 11.11 (0-15) ng/L Delta Troponin T 0.11 (0-10) ABS# NT-Pro-B Natriuret Pep (0-125) pg/mL Total Protein (6.6-8.7) g/dL Albumin (3.5-5.2) g/dL Globulin (1.3-4.6) g/dL Influenza Type A A g Negative (Negative) Influenza Type B A g Negative (Negative) SARS-CoV-2 Ag (Rap id) Negative (Negative) Imaging Data^: CXR: Attestation: I personally reviewed and interpreted this imaging study as follows: My impression: No acute cardiopulmonary findings. Findings consistent with COPD and emphysema changes. EKG Data^: EKG 1: Attestation: I personally reviewed and interpreted this EKG as follows: EKG interpretation date: 09/11/20 EKG interpretation time: 05:06 Interpretation: Sinus tachycardia at 127 beats a minute, short MT interval, normal QTC, normal axis, nonspecific ST and T wave changes. Discharge Plan Discharge Patient Disposition: Home Clinical Impression: Acute exacerbation of chronic obstructive pulmonary disease Condition: Stable Prescriptions: New Medrol (Daniel) 4 mg tablets,dose pack See Rx Instructions .ROUTE .COMPLEX Qty: 21 RF: 0 albuterol sulfate 90 mcg/actuation HFA aerosol inhaler 2 inh INHALATION Q4H PRN (Reason: shortness of breath or wheezing) Qty: 18 RF: 0 doxycycline hyclate 100 mg capsule 100 mg PO BID 10 Days Qty: 20 RF: 0 No Action aspirin 81 mg tablet,delayed release (DR/EC) 81 mg PO DAILY RF: 0 albuterol sulfate 2.5 mg /3 mL (0.083 %) solution for nebulization 2.5 mg INHALATION DAILY Qty: 90 RF: 3 budesonide-formoterol [Symbicort] 160-4.5 mcg/actuation HFA aerosol inhaler 2 puff INHALATION Q12H 30 Days Qty: 10.2 RF: 3 Spiriva with HandiHaler 18 mcg capsule, w/inhalation device 1 cap INHALATION DAILY 30 Days Qty: 60 RF: 3 loratadine [Claritin] 10 mg tablet 10 mg PO DAILY RF: 0 nicotine [Nicoderm CQ] 14 mg/24 hr patch 24 hour 1 patch TRANSDERMA Q24H Qty: 28 RF: 0 diclofenac sodium [Voltaren] 1 % gel 1 gm TOPICAL TID Qty: 100 RF: 0 pantoprazole 40 mg tablet,delayed release (DR/EC) 40 mg PO DAILY Qty: 90 RF: 0 sertraline [Zoloft] 100 mg tablet 100 mg PO DAILY Qty: 30 RF: 0 sertraline [Zoloft] 50 mg tablet 50 mg PO DAILY Qty: 30 RF: 0 Combivent Respimat 20-100 mcg/actuation mist 1 puff INHALATION Q6H Qty: 4 RF: 1 metoprolol tartrate 50 mg tablet 50 mg PO BID Qty: 60 RF: 0 buspirone 5 mg tablet 5 mg PO TID PRN (Reason: anxiety) 30 Days Qty: 90 RF: 0 clopidogrel 75 mg tablet 75 mg PO DAILY Qty: 30 RF: 0 Daliresp 500 mcg tablet 500 mcg PO DAILY Qty: 30 RF: 0 atorvastatin 40 mg tablet 40 mg PO QPM Qty: 30 RF: 0 albuterol sulfate [ProAir HFA] 90 mcg/actuation HFA aerosol inhaler 2 puff INHALATION Q6H PRN (Reason: shortness of breath or wheezing) Qty: 8.5 RF: 3 nitroglycerin 0.4 mg tablet, sublingual 0.4 mg sublingual PRN RF: 0 Medrol (Daniel) 4 mg tablets,dose pack See Rx Instructions .ROUTE .COMPLEX Qty: 21 RF: 0 carisoprodol [Soma] 350 mg Tablet 350 mg PO QID RF: 0 spironolactone 25 mg Tablet 25 mg PO DAILY RF: 0 hydrocodone-acetaminophen 10-325 mg Tablet 1 - 2 tab PO Q4H PRN (Reason: Pain) RF: 0 trazodone 150 mg Tablet 150 mg PO BEDTIME RF: 0 Discharge Orders: Discharge ED (Routine); Ordered 09/11/20 Ordered By: Oj Figueroa Referrals: Hiwot Yeung DO [Primary Care Provider] - Sign Out Sign Out Data: Patient Sign Out occurred on 09/11/20 at 06:14. Patient's care was discussed, and care was transferred from to Oj Figueroa DO. Coding Level of Care Code ED Fisheries Inspector for Chg Fwd Exam Comprehensive Documented by User: Oj Figueroa DO 09/11/20 12:35 HPI - Chest Pain General: Chief Complaint: Chest Pain Stated Complaint: CP, SOB Time Seen by Provider: 09/11/20 06:14 PFSH ED PFSH: Medical History Acute on chronic respiratory failure with hypoxia and hypercapnia Anxiety Cachexia CAD (coronary artery disease) Has stent. Last cardiac catheterization in June 2018 showed left main, circumflex, and RCA with 0% stenosis. The proximal LAD had minimal luminal irregularities with JOHN-3 flow. He had 90% restenosis of the first obtuse marginal and underwent balloon angioplasty with restenting at that time. Last echocardiogram May 2019 with ejection fraction 55%, mild hypokinesia of the apical septal segment with grade 1/4 diastolic dysfunction noted. Chronic back pain Related to prior back surgeries and neck surgery, on hydrocodone 10 two tabs q 4hr + soma qid COPD (chronic obstructive pulmonary disease) Pulmonary function testing from July 2018 showed severe obstructive ventilatory defect with no significant bronchodilator response and moderately reduced diffusing capacity. 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 Swift at change of shift. Second troponin essentially unchanged. He is only requiring 1 to 2 L oxygen by nasal cannula will discharge home on doxycycline steroid taper and albuterol as needed follow-up with his primary care doctor within the week. He can return if has further problems. Lab Data: Labs: Lab Results 09/11/20 09/11/20 09/11/20 Range/Units 04:55 05:05 05:05 WBC 11.5 H (4.0-10.0) 10^3/ uL RBC 4.08 L (4.1-5.3) 10^6/u L Hgb 11.6 L (11.7-16.6) g/dL Hct 37.4 L (42.0-52.0) % MCV 91.7 (80-94) fL MCH 28.4 (28.0-34.0) pg MCHC 31.0 (30.0-36.0) g/dL RDW 13.5 (12.1-15.1) % Plt Count 312 (130-400) 10^3/c mm MPV 10.0 (7.4-10.4) fL Neut % (Auto) 80.9 % Lymph % (Auto) 10.4 % [place] % (Auto) 6.9 % Eos % (Auto) 1.0 % Baso % (Auto) 0.4 % Neut # (Auto) 9.30 H (1.8-7.7) 10^3/u L Lymph # (Auto) 1.2 (0.8-4.8) 10^3/u L [place] # (Auto) 0.8 (0.2-0.9) 10^3/u L Eos # (Auto) 0.1 (0.0-0.8) 10^3/u L Baso # (Auto) 0.1 (0.0-0.1) 10^3/u L Nucleated RBC % (a uto) 0 % Nucleated RBCs # 0.0 /100WBC PT 13.20 (12.1-14.9) SECO NDS INR 0.97 (0.8-1.2) Specimen Type Arterial Sample Site Brachial, right ABG pH 7.36 (7.35-7.45) ABG pCO2 49.7 H (35-45) mmHg ABG pO2 177.0 H (80.0-100.0) mmH g ABG HCO3 28.3 H (22-26) mmol/L ABG Base Excess 2.2 H (-2.0-2.0) mmol/ L [place] Test N/a Hematocrit 36.0 L (42-52) % O2 Delivery Device Nc O2 Liters/Min 6.0 % Architect Internship ID [id number] Sodium (136-145) mmol/L Potassium (3.5-5.1) mmol/L Chloride (98-107) mmol/L Carbon Dioxide (22-29) mmol/L Anion Gap (5-19) BUN (8-23) mg/dL Creatinine (0.7-1.2) mg/dL GFR Calculation (90-130) mL/min Glucose (65-115) mg/dL Calculated Osmolal ity (285-295) mOsm/k g Lactic Acid (0.5-2.2) mmol/L Calcium (8.5-10.5) mg/dL Magnesium (1.7-2.3) mg/dL Total Bilirubin (0.15-1.2) mg/dL AST (0-40) U/L ALT (0-41) U/L Alkaline Phosphata se (40-130) IU/L Troponin T Baselin e (0-15) ng/L Troponin T 120 Min [place] (0-15) ng/L Delta Troponin T (0-10) ABS# NT-Pro-B Natriuret Pep (0-125) pg/mL Total Protein (6.6-8.7) g/dL Albumin (3.5-5.2) g/dL Globulin (1.3-4.6) g/dL Influenza Type A A g (Negative) Influenza Type B A g (Negative) SARS-CoV-2 Ag (Rap id) (Negative) 09/11/20 09/11/20 09/11/20 Range/Units 05:05 05:05 05:05 WBC (4.0-10.0) 10^3/ uL RBC (4.1-5.3) 10^6/u L Hgb (11.7-16.6) g/dL Hct (42.0-52.0) % MCV (80-94) fL MCH (28.0-34.0) pg MCHC (30.0-36.0) g/dL RDW (12.1-15.1) % Plt Count (130-400) 10^3/c mm MPV (7.4-10.4) fL Neut % (Auto) % Lymph % (Auto) % [place] % (Auto) % Eos % (Auto) % Baso % (Auto) % Neut # (Auto) (1.8-7.7) 10^3/u L Lymph # (Auto) (0.8-4.8) 10^3/u L [place] # (Auto) (0.2-0.9) 10^3/u L Eos # (Auto) (0.0-0.8) 10^3/u L Baso # (Auto) (0.0-0.1) 10^3/u L Nucleated RBC % (a uto) % Nucleated RBCs # /100WBC PT (12.1-14.9) SECO NDS INR (0.8-1.2) Specimen Type Sample Site ABG pH (7.35-7.45) ABG pCO2 (35-45) mmHg ABG pO2 (80.0-100.0) mmH g ABG HCO3 (22-26) mmol/L ABG Base Excess (-2.0-2.0) mmol/ L [place] Test Hematocrit (42-52) % O2 Delivery Device O2 Liters/Min % Architect Internship ID Sodium 133 L (136-145) mmol/L Potassium 3.6 (3.5-5.1) mmol/L Chloride 94 L (98-107) mmol/L Carbon Dioxide 28 (22-29) mmol/L Anion Gap 14.6 (5-19) BUN 8 (8-23) mg/dL Creatinine 0.4 L (0.7-1.2) mg/dL GFR Calculation 213.3 H (90-130) mL/min Glucose 102 (65-115) mg/dL Calculated Osmolal ity 275 L (285-295) mOsm/k g Lactic Acid 1.9 (0.5-2.2) mmol/L Calcium 9.3 (8.5-10.5) mg/dL Magnesium 2.0 (1.7-2.3) mg/dL Total Bilirubin 0.2 (0.15-1.2) mg/dL AST 15 (0-40) U/L ALT 11 (0-41) U/L Alkaline Phosphata se 105 (40-130) IU/L Troponin T Baselin e 11 (0-15) ng/L Troponin T 120 Min [place] (0-15) ng/L Delta Troponin T (0-10) ABS# NT-Pro-B Natriuret Pep 484 H (0-125) pg/mL Total Protein 7.0 (6.6-8.7) g/dL Albumin 4.2 (3.5-5.2) g/dL Globulin 2.8 (1.3-4.6) g/dL Influenza Type A A g (Negative) Influenza Type B A g (Negative) SARS-CoV-2 Ag (Rap id) (Negative) 09/11/20 09/11/20 09/11/20 Range/Units 05:17 05:17 08:44 WBC (4.0-10.0) 10^3/ uL RBC (4.1-5.3) 10^6/u L Hgb (11.7-16.6) g/dL Hct (42.0-52.0) % MCV (80-94) fL MCH (28.0-34.0) pg MCHC (30.0-36.0) g/dL RDW (12.1-15.1) % Plt Count (130-400) 10^3/c mm MPV (7.4-10.4) fL Neut % (Auto) % Lymph % (Auto) % [place] % (Auto) % Eos % (Auto) % Baso % (Auto) % Neut # (Auto) (1.8-7.7) 10^3/u L Lymph # (Auto) (0.8-4.8) 10^3/u L [place] # (Auto) (0.2-0.9) 10^3/u L Eos # (Auto) (0.0-0.8) 10^3/u L Baso # (Auto) (0.0-0.1) 10^3/u L Nucleated RBC % (a uto) % Nucleated RBCs # /100WBC PT (12.1-14.9) SECO NDS INR (0.8-1.2) Specimen Type Sample Site ABG pH (7.35-7.45) ABG pCO2 (35-45) mmHg ABG pO2 (80.0-100.0) mmH g ABG HCO3 (22-26) mmol/L ABG Base Excess (-2.0-2.0) mmol/ L [place] Test Hematocrit (42-52) % O2 Delivery Device O2 Liters/Min % Architect Internship ID Sodium (136-145) mmol/L Potassium (3.5-5.1) mmol/L Chloride (98-107) mmol/L Carbon Dioxide (22-29) mmol/L Anion Gap (5-19) BUN (8-23) mg/dL Creatinine (0.7-1.2) mg/dL GFR Calculation (90-130) mL/min Glucose (65-115) mg/dL Calculated Osmolal ity (285-295) mOsm/k g Lactic Acid (0.5-2.2) mmol/L Calcium (8.5-10.5) mg/dL Magnesium (1.7-2.3) mg/dL Total Bilirubin (0.15-1.2) mg/dL AST (0-40) U/L ALT (0-41) U/L Alkaline Phosphata se (40-130) IU/L Troponin T Baselin e (0-15) ng/L Troponin T 120 Min [place] 11.11 (0-15) ng/L Delta Troponin T 0.11 (0-10) ABS# NT-Pro-B Natriuret Pep (0-125) pg/mL Total Protein (6.6-8.7) g/dL Albumin (3.5-5.2) g/dL Globulin (1.3-4.6) g/dL Influenza Type A A g Negative (Negative) Influenza Type B A g Negative (Negative) SARS-CoV-2 Ag (Rap id) Negative (Negative) Discharge Plan Discharge Patient Disposition: Home Clinical Impression: Acute exacerbation of chronic obstructive pulmonary disease Condition: Stable Prescriptions: New Medrol (Daniel) 4 mg tablets,dose pack See Rx Instructions .ROUTE .COMPLEX Qty: 21 RF: 0 albuterol sulfate 90 mcg/actuation HFA aerosol inhaler 2 inh INHALATION Q4H PRN (Reason: shortness of breath or wheezing) Qty: 18 RF: 0 doxycycline hyclate 100 mg capsule 100 mg PO BID 10 Days Qty: 20 RF: 0 No Action aspirin 81 mg tablet,delayed release (DR/EC) 81 mg PO DAILY RF: 0 albuterol sulfate 2.5 mg /3 mL (0.083 %) solution for nebulization 2.5 mg INHALATION DAILY Qty: 90 RF: 3 budesonide-formoterol [Symbicort] 160-4.5 mcg/actuation HFA aerosol inhaler 2 puff INHALATION Q12H 30 Days Qty: 10.2 RF: 3 Spiriva with HandiHaler 18 mcg capsule, w/inhalation device 1 cap INHALATION DAILY 30 Days Qty: 60 RF: 3 loratadine [Claritin] 10 mg tablet 10 mg PO DAILY RF: 0 nicotine [Nicoderm CQ] 14 mg/24 hr patch 24 hour 1 patch TRANSDERMA Q24H Qty: 28 RF: 0 diclofenac sodium [Voltaren] 1 % gel 1 gm TOPICAL TID Qty: 100 RF: 0 pantoprazole 40 mg tablet,delayed release (DR/EC) 40 mg PO DAILY Qty: 90 RF: 0 sertraline [Zoloft] 100 mg tablet 100 mg PO DAILY Qty: 30 RF: 0 sertraline [Zoloft] 50 mg tablet 50 mg PO DAILY Qty: 30 RF: 0 Combivent Respimat 20-100 mcg/actuation mist 1 puff INHALATION Q6H Qty: 4 RF: 1 metoprolol tartrate 50 mg tablet 50 mg PO BID Qty: 60 RF: 0 buspirone 5 mg tablet 5 mg PO TID PRN (Reason: anxiety) 30 Days Qty: 90 RF: 0 clopidogrel 75 mg tablet 75 mg PO DAILY Qty: 30 RF: 0 Daliresp 500 mcg tablet 500 mcg PO DAILY Qty: 30 RF: 0 atorvastatin 40 mg tablet 40 mg PO QPM Qty: 30 RF: 0 albuterol sulfate [ProAir HFA] 90 mcg/actuation HFA aerosol inhaler 2 puff INHALATION Q6H PRN (Reason: shortness of breath or wheezing) Qty: 8.5 RF: 3 nitroglycerin 0.4 mg tablet, sublingual 0.4 mg sublingual PRN RF: 0 Medrol (Daniel) 4 mg tablets,dose pack See Rx Instructions .ROUTE .COMPLEX Qty: 21 RF: 0 carisoprodol [Soma] 350 mg Tablet 350 mg PO QID RF: 0 spironolactone 25 mg Tablet 25 mg PO DAILY RF: 0 hydrocodone-acetaminophen 10-325 mg Tablet 1 - 2 tab PO Q4H PRN (Reason: Pain) RF: 0 trazodone 150 mg Tablet 150 mg PO BEDTIME RF: 0 Discharge Orders: Discharge ED (Routine); Ordered 09/11/20 Ordered By: Oj Figueroa Referrals: Hiwot Yeung DO [Primary Care Provider] - Sign Out Sign Out Data: Patient Sign Out occurred on 09/11/20 at 06:14. Patient's care was discussed, and care was transferred from to Oj Figueroa DO. Coding Level of Care Code ED [employer] for [employer] Fwd Exam Comprehensive
[2020-09-11 05:07] LABS: ABG PCO2 49.7 mmHg (35-45); ABG PH Result 7.36 (7.35-7.45); Base Excess ABG 2.2 mmol/L (-2.0-2.0); Blood Gas Sample Site Brachial, right; Blood Gas Sample Type Arterial; HCO3 ABG 28.3 mmol/L (22-26); Oxygen Device NC
[2020-09-11 05:18] LABS: Basophils # 0.1 10^3/uL (0.0-0.1); Basophils % 0.4 %; Eosinophils # 0.1 10^3/uL (0.0-0.8); Hematocrit 37.4 % (42.0-52.0); Hemoglobin 11.6 g/dL (11.7-16.6); Lymphocytes # 1.2 10^3/uL (0.8-4.8); Lymphocytes % 10.4 %; Mean Corpuscular Hemoglobin 28.4 pg (28.0-34.0); Mean Corpuscular Volume 91.7 fL (80-94); Monocytes # 0.8 10^3/uL (0.2-0.9); Monocytes % 6.9 %; Neutrophils % 80.9 %; Nucleated Red Blood Cells % 0 %; Platelet Count 312 10^3/cmm (130-400); Red Blood Count 4.08 10^6/uL (4.1-5.3); Red Cell Distribution Width 13.5 % (12.1-15.1); White Blood Count 11.5 10^3/uL (4.0-10.0)
[2020-09-11] MEDS: ondansetron 2 mg/ML SDV 2 mL 4 MG IVP (05:22)
[2020-09-11] MEDS: dexamethasone 4 mg/mL INJ 10 MG IVP (05:22)
[2020-09-11] MEDS: morphine 4 mg/mL SDV 1 mL IVP (05:26)
[2020-09-11 05:35] LABS: Lactic Sepsis W/Reflex 1.9 mmol/L (0.5-2.2)
[2020-09-11 05:39] LABS: Troponin(5th) Baseline 11 ng/L (0-15)
[2020-09-11 05:39] LABS: Influenza A by IFA Negative (Negative); Influenza B by IFA Negative (Negative); SARS Covid-2 Antigen Negative (Negative)
[2020-09-11 05:44] LABS: INR 0.97 (0.8-1.2)
[2020-09-11 05:47] LABS: Alanine Aminotransferase 11 U/L (0-41); Albumin Level 4.2 g/dL (3.5-5.2); Alkaline Phosphatase 105 IU/L (40-130); Anion Gap 14.6 (5-19); Aspartate Amino Transferase 15 U/L (0-40); Blood Urea Nitrogen 8 mg/dL (8-23); Calcium 9.3 mg/dL (8.5-10.5); Carbon Dioxide 28 mmol/L (22-29); Chloride 94 mmol/L (98-107); Globulin 2.8 g/dL (1.3-4.6); Glomerular Filtration Rate 213.3 mL/min (90-130); Glucose 102 mg/dL (65-115); NT Pro B Type Natriuretic Pept 484 pg/mL (0-125); Osmolality Calculated 275 mOsm/kg (285-295); Potassium 3.6 mmol/L (3.5-5.1); Sodium 133 mmol/L (136-145); Total Bilirubin 0.2 mg/dL (0.15-1.2)
[2020-09-11] MEDS: ipratropium-albuterol 3 mL Neb 6 ML INHALATION (06:14)
[2020-09-11] MEDS: albuterol 8 gm MDI 2 PUFF INHALATION (06:45)
--- NOTE | 2020-09-11 07:01 | ECG_ITS ---
[facility] Test Date: 2020-09-11 Pat Name: Onel Low Department: Room: Gender: Male [employer]: : [id number] Requested By: Dina Lopez Order Number: [id number] Zach MD: Johnathan Mccarthy M.D. Measurements Intervals [place] Rate: 99 P: 76 MI: 175 QRS: 61 QRSD: 74 T: 86 QT: 338 QTc: 435 Interpretive Statements SINUS RHYTHM WITH OCCASIONAL VENTRICULAR PREMATURE COMPLEXES SEPTAL MYOCARDIAL INFARCTION [40+ ms Q WAVE IN V1/V2], PROBABLY OLD Compared to ECG 07/16/2020 20:55:40 Ventricular premature complex(es) now present Sinus tachycardia no longer present Myocardial infarct finding still present Electronically Signed On 09-11-2020 9:56:53 [employer] by Johnathan Mccarthy M.D. [id number]
--- NOTE | 2020-09-11 07:15 | PC.NURSE ---
Patient is resting in bed asleep with respirations. No distress noted at this time. Will continue to monitor patient.
[2020-09-11 09:10] LABS: Troponin 5 2HR 11.11 ng/L (0-15); Troponin 5 2HR Delta 0.11 ABS# (0-10)
--- NOTE | 2020-09-11 09:40 | PC.NURSE ---
RT at bedside to ambulate patient and see how the patients oxygen saturation does while walking.
--- NOTE | 2020-09-11 10:00 | PC.NURSE ---
Waiting on PT to come and evaluate the patient for possible need for a walker.
== END 2020-09-11 10:29 | disposition home or self-care (01) ==
PROVIDERS: Emergency Medicine; Emergency Provider Family Medicine; PCP Family Medicine
DX: J44.1 Chronic obstructive pulmonary disease with (acute) exacerbation (principal); Z79.82 Long term (current) use of aspirin; Z79.02 Long term (current) use of antithrombotics/antiplatelets; I25.10 Atherosclerotic heart disease of native coronary artery without angina pectoris; I10 Essential (primary) hypertension; E78.5 Hyperlipidemia, unspecified; F17.210 Nicotine dependence, cigarettes, uncomplicated
CPT/HCPCS: 12345; 36600; 71045; 80053; 82803; 83605; 83735; 83880; 84484; 85025; 85610; 87040; 87205; 87426; 87804; 93005; 94640; 94660; 96374; 96375; 99283; 99284; J1100; J2270; J2405; J3535

== ENCOUNTER 2020-11-25 13:52 | Outpatient (CLI) | payer MEDICARE, MEDICAID, SELFPAY ==
--- NOTE | 2020-11-25 14:06 | CT_ITS ---
WS: [id number] LDCT LUNG CANCER SCREENING HISTORY: NICOTINE DEPENDENCE, CIGARETTES TECHNIQUE: Axial imaging performed from the apices to 1 cm below the costophrenic angles. Coronal and sagittal reformats are submitted with axial MIP series. All CT scans at [facility] use at least one of these dose optimization techniques: automated exposure control; mA and/or kV adjustment per patient size (includes targeted exams where dose is matched to clinical indication); or iterativ e reconstruction. DLP: 62.5 mGy.cm DIvol: 1.58 mGy COMPARISON: 06/01/2019, 06/15/2018 Diagnostic quality: Satisfactory Lung Nodules: Biapical fibrosis and pleural thickening similar to prior study dating 06/15/2018. LEFT apical nodule measures 7 mm without increase in size. Smaller 4 mm nodule at the RIGHT apex. Subsolid 15 mm nodule, RIGHT upper lobe, image 47 of series 3. Lungs: Severe chronic emphysema. No endobronchial lesions. Heart: Moderate cardiomegaly. Extensive coronary artery calcifications. Other findings: Moderate atherosclerosis aorta. Pulmonary hypertension. CT/CT lung screening [id number] IMPRESSION: LUNG-RADS: 4A-Probably Suspicious FOLLOW UP: 3 Month LDCT OTHER FINDINGS (S MODIFIER): None.
== END 2020-11-25 13:53 | disposition home or self-care (01) ==
LOC: CT 13:58
PROVIDERS: PCP Family Medicine; Visit Provider Internal Medicine Critical Care Medicine
DX: Z12.2 Encounter for screening for malignant neoplasm of respiratory organs (principal); F17.210 Nicotine dependence, cigarettes, uncomplicated; I70.0 Atherosclerosis of aorta; I27.20 Pulmonary hypertension, unspecified
CPT/HCPCS: 71271

== ENCOUNTER → 2021-02-03 15:25 | Outpatient (BNVA) | payer MEDICARE, MEDICAID, SELFPAY | PROVIDERS: PCP Family Medicine; Visit Provider Family Medicine | DX: R39.11 Hesitancy of micturition (principal); Z12.5 Encounter for screening for malignant neoplasm of prostate | CPT/HCPCS: 81000; 87086; 87106; G0103 ==

== ENCOUNTER 2021-02-26 15:09 | Outpatient (CLI) | payer MEDICARE, MEDICAID, SELFPAY ==
--- NOTE | 2021-02-26 15:30 | CT_ITS ---
WS: [id number] CT CHEST WITHOUT INTRAVENOUS CONTRAST HISTORY: Lung Nodule TECHNIQUE: Contiguous 5 mm axial imaging performed on the thorax. Coronal and sagittal reformats are submitted. All CT scans at [facility] use at least one of these dose optimization techniq ues: automated exposure control; mA and/or kV adjustment per patient size (includes targeted exams wh ere dose is matched to clinical indication); or iterative reconstruction. CONTRAST: None DLP: 596.18 mGycm COMPARISON: 11/25/2020 and 06/01/2019 Lungs and central airway: Severe chronic emphysema. Spiculated nodule measuring 9 mm at the LEFT apex is stable. The nodule seen at the RIGHT apex is not evident. There is a moderate amount of fibrosis at the lung apices. Again noted is the mixed solid nodule measuring 12 x 10 mm in the RIGHT upper lob e, image 12 of series 3 which is unchanged. Pleura: Normal. No pleural effusion. Heart and pericardium: Normal size heart with no pericardial effusion. Mediastinum and smith: No mediastinum or hilar adenopathy. Vessels: Extensive atherosclerosis aorta with no aneurysm. Coronary artery calcification and stents. Pulmonary artery size is not significantly enlarged. Chest wall and lower neck: No soft tissue masses. Upper abdomen: Prior cholecystectomy. Nonobstructing 3 mm calcification in the LEFT renal pelvis is s imilar to the prior study. Suprarenal aortic calcifications. Osseous structures: No destructive process. CT/CT chest wo con [id number] IMPRESSION: 1. No change in size or appearance of the subsolid nodule in the RIGHT upper l obe measuring 12 x 10 mm since 11/25/2020. 2. Spiculated nodule at the LEFT apex is stable at 9 mm. 3. Severe chronic emphysema. 4. Recommendation: Follow-up chest CT 6 months.
== END 2021-02-26 15:10 | disposition home or self-care (01) ==
LOC: RADWPI 15:17
PROVIDERS: PCP Family Medicine; Visit Provider Internal Medicine Critical Care Medicine
DX: R91.1 Solitary pulmonary nodule (principal); J43.9 Emphysema, unspecified
CPT/HCPCS: 71250

== ENCOUNTER 2021-07-26 21:57 | Inpatient (IN) | payer MEDICARE, MEDICAID, SELFPAY ==
--- NOTE | 2021-07-26 21:55 | ED_ITS ---
Documented by User: Tyree Clark MD 07/30/21 20:32 HPI - Chest Pain General: Chief Complaint: Chest Pain Stated Complaint: sob/cp Time Seen by Provider: 07/27/21 00:33 History of Present Illness: HPI narrative: Mr. Sweet is a 71-year-old gentleman with a challenging past medical history including COPD with chronic hypoxic respiratory failure at 2 to 3 L at baseline who presents emergency department due to chest discomfort and shortness of breath. Symptom onset were gradual within the past few days. Symptoms have been progressively worsening. He notes productive cough which is worse than baseline. And chronic chest dis comfort which is pressure throughout his chest and significant not significantly changed. Intensity is now moderate to severe. Symptoms are worse with exertion. No other specific exacerbating relieving factors identified. He reports compliance with his home medication regimen without significant relief of symptoms. Review of Systems General: Reports: 10 or more systems reviewed and unremarkable except in HPI and below PFSH ED PFSH: Medical History (Updated 07/27/21 @ 07:35 by Megan Varela MD) Anxiety Cachexia CAD (coronary artery disease) Has stent. Last cardiac catheterization in June 2018 showed left main, circumflex, and RCA with 0% stenosis. The proximal LAD had minimal luminal irregularities with JOHN-3 flow. He had 90% restenosis of the first obtuse marginal and underwent balloon angioplasty with restenting at that time. Last echocardiogram May 2019 with ejection fraction 55%, mild hypokinesia of the apical septal segment with grade 1/4 diastolic dysfunction noted. Chronic back pain Chronic respiratory failure with hypoxia and hypercapnia COPD (chronic obstructive pulmonary disease) COVID-19 vaccine administered GERD (gastroesophageal reflux disease) History of PFTs July 2018, FEV1/FVC ratio 45% with FEV1 1.96 L (30% predicted), forced vital capacity of 2.13 L (50% predicted). DLCO was moderately reduced at 60%. 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 Temporal wasting, cachectic. Increased respiratory effort with tachycardia. Eyes - PERRL, no conjunctival injection ENMT - Atraumatic external nose and ears. Dry mucous membranes NECK - supple. trachea midline CARDIOVASCULAR -tachycardic rate and regular rhythm. RESPIRATORY -diminished to auscultation bilaterally. Increased respiratory effort with accessory muscle use ABDOMEN/GI - Nontender/Nondistended. MSK - Extremities without obvious deformity or tenderness to palpation SKIN - Warm, Dry NEURO - alert and appropriately oriented. Moves all extremities equally. Course ED course: - Patient was seen and evaluated by me at bedside - Patient placed on cardiac monitors, IV access obtained - Initial evaluation notable for ill appearance as noted above, respiratory distress - COPD exacerbation treatment ordered. Given patient's increased respiratory effort BiPAP ordered after interpretation of ABG. - Labs notable for minimal leukocytosis, near baseline macrocytic anemia. Metabolic panel without significant abnormality to explain patient's symptoms. CRP elevated with negative procalcitonin. - Imaging notable for no lobar consolidation. - Upon serial reexamination after treatment the patient was mildly improved with BiPAP and inhalers - Patient care handoff to overnight physician Dr. Luu pending reassessment of blood gas and patient condition. Plan to admit. Vital Signs: Vital signs: Vital Signs Temperature 98.0 F 07/30/21 16:00 Pulse Rate 88 07/30/21 20:08 Respiratory Rate 18 07/30/21 20:04 Blood Pressure 156/76 07/30/21 16:00 Pulse Oximetry 92 07/30/21 20:04 MDM - Chest Pain Medical Records: Attestation: I reviewed the patient's medical records. Lab Data: Attestation: I reviewed the patient's lab results. Labs: Lab Results 07/26/21 07/26/21 07/26/21 21:30 21:30 21:30 WBC 11.1 10^3/uL H 10 ^3/uL (4.0-10.0) RBC 3.64 10^6/uL L 10 ^6/uL (4.1-5.3) Hgb 10.9 g/dL L g/dL (11.7-16.6) Hct 36.6 % L % (42.0-52.0) MCV 100.5 fl H fl (80-94) MCH 29.9 pg pg (28.0-34.0) MCHC 29.8 g/dL L g/dL (30.0-36.0) RDW 12.8 % % (12.1-15.1) Plt Count 238 10^3/cmm 10^3 /cmm (130-400) MPV 10.7 fL H fL (7.4-10.4) Neut % (Auto) 86.0 % % Lymph % (Auto) 5.5 % % [place] % (Auto) 7.8 % % Eos % (Auto) 0.1 % % Baso % (Auto) 0.3 % % Neut # (Auto) 9.54 10^3/uL H 10 ^3/uL (1.8-7.7) Lymph # (Auto) 0.6 10^3/uL L 10^ 3/uL (0.8-4.8) [place] # (Auto) 0.9 10^3/uL 10^3/ uL (0.2-0.9) Eos # (Auto) 0.0 10^3/uL 10^3/ uL (0.0-0.8) Baso # (Auto) 0.0 10^3/uL 10^3/ uL (0.0-0.1) Nucleated RBC % (a uto) 0 % % Nucleated RBCs # 0.0 /100WBC /100W BC Specimen Type Sample Site ABG pH ABG pCO2 ABG pO2 ABG HCO3 ABG Base Excess [place] Test Hematocrit Hgb O2 Saturation Carboxyhemoglobin Methemoglobin Total Hemoglobin O2 Delivery Device O2 Liters/Min FiO2 Dial Mounter ID Sodium 135 mmol/L L mmol /L (136-145) Potassium 4.0 mmol/L mmol/L (3.5-5.1) Chloride 92 mmol/L L mmol/ L (98-107) Carbon Dioxide 33 mmol/L H mmol/ L (22-29) Anion Gap 14.0 (5-19) BUN 9 mg/dL mg/dL (8-23) Creatinine 0.3 mg/dL L mg/dL (0.7-1.2) GFR Calculation 296.4 mL/min H mL /min (90-130) Glucose 118 mg/dL H mg/dL (65-115) Calculated Osmolal ity 280 mOsm/kg L mOs m/kg (285-295) Lactic Acid Calcium 9.1 mg/dL mg/dL (8.5-10.5) Phosphorus Magnesium 1.7 mg/dL mg/dL (1.7-2.3) Total Bilirubin 0.2 mg/dL mg/dL (0.15-1.2) AST 12 U/L U/L (0-40) ALT 10 U/L U/L (0-41) Alkaline Phosphata se 76 IU/L IU/L (40-130) Troponin T Baselin e 13 ng/L ng/L (0-15) Troponin T 120 Min pala Delta Troponin T Troponin T Hi Sens 6Hr Troponin T Hi Sens 6Hr Delta C-Reactive Protein 123.4 mg/L H mg/L (0.0-4.9) NT-Pro-B Natriuret Pep 304 pg/mL H pg/mL (0-125) Total Protein 5.8 g/dL L g/dL (6.6-8.7) Albumin 3.9 g/dL g/dL (3.5-5.2) Globulin 1.9 g/dL g/dL (1.3-4.6) Vitamin B12 Folate Procalcitonin 0.03 ng/mL ng/mL (0-0.5) TSH Free T4 Thyroxine (T4) Free T3 Total T3 07/26/21 07/26/21 07/26/21 22:12 22:29 23:46 WBC RBC Hgb Hct MCV MCH MCHC RDW Plt Count MPV Neut % (Auto) Lymph % (Auto) [place] % (Auto) Eos % (Auto) Baso % (Auto) Neut # (Auto) Lymph # (Auto) [place] # (Auto) Eos # (Auto) Baso # (Auto) Nucleated RBC % (a uto) Nucleated RBCs # Specimen Type Arterial Arterial Sample Site Radial, left Radial, left ABG pH 7.38 7.38 (7.35-7.45) (7.35-7.45) ABG pCO2 62.2 mmHg H* mmHg 59.9 mmHg H mmHg (35-45) (35-45) ABG pO2 113.0 mmHg H mmHg 80.9 mmHg mmHg (80.0-100.0) (80.0-100.0) ABG HCO3 36.9 mmol/L H mmo l/L 35.1 mmol/L H mmo l/L (22-26) (22-26) ABG Base Excess 9.9 mmol/L H mmol /L 8.3 mmol/L H mmol /L (-2.0-2.0) (-2.0-2.0) [place] Test Pos Pos Hematocrit 32.9 % L % 32.0 % L % (42-52) (42-52) Hgb O2 Saturation 95.6 % % (95-100) Carboxyhemoglobin 3.1 %THgb %THgb (0.4-20.1) Methemoglobin 0.6 % % (0.4-1.5) Total Hemoglobin 10.7 g/dL L g/dL (14-18) O2 Delivery Device Nc Bipap O2 Liters/Min 3.0 % % FiO2 32.0 % % Dial Mounter ID Buttr Buttr Sodium Potassium Chloride Carbon Dioxide Anion Gap BUN Creatinine GFR Calculation Glucose Calculated Osmolal ity Lactic Acid 1.6 mmol/L mmol/L (0.5-2.2) Calcium Phosphorus Magnesium Total Bilirubin AST ALT Alkaline Phosphata se Troponin T Baselin e Troponin T 120 Min pala Delta Troponin T Troponin T Hi Sens 6Hr Troponin T Hi Sens 6Hr Delta C-Reactive Protein NT-Pro-B Natriuret Pep Total Protein Albumin Globulin Vitamin B12 Folate Procalcitonin TSH Free T4 Thyroxine (T4) Free T3 Total T3 07/27/21 07/27/21 07/27/21 00:12 06:53 06:53 WBC RBC Hgb Hct MCV MCH MCHC RDW Plt Count MPV Neut % (Auto) Lymph % (Auto) [place] % (Auto) Eos % (Auto) Baso % (Auto) Neut # (Auto) Lymph # (Auto) [place] # (Auto) Eos # (Auto) Baso # (Auto) Nucleated RBC % (a uto) Nucleated RBCs # Specimen Type Sample Site ABG pH ABG pCO2 ABG pO2 ABG HCO3 ABG Base Excess [place] Test Hematocrit Hgb O2 Saturation Carboxyhemoglobin Methemoglobin Total Hemoglobin O2 Delivery Device O2 Liters/Min FiO2 Dial Mounter ID Sodium Potassium Chloride Carbon Dioxide Anion Gap BUN Creatinine GFR Calculation Glucose Calculated Osmolal ity Lactic Acid Calcium Phosphorus Magnesium Total Bilirubin AST ALT Alkaline Phosphata se Troponin T Baselin e Troponin T 120 Min pala 14.47 ng/L ng/L (0-15) Delta Troponin T 1.47 ABS# ABS# (0-10) Troponin T Hi Sens 6Hr 14.29 ng/L ng/L (0-15) Troponin T Hi Sens 6Hr Delta TNP C-Reactive Protein NT-Pro-B Natriuret Pep Total Protein Albumin Globulin Vitamin B12 Folate Procalcitonin TSH 0.02 uIU/mL L uIU /mL (0.27-4.20) Free T4 Thyroxine (T4) Free T3 Total T3 07/28/21 07/28/21 07/28/21 05:18 05:18 05:18 WBC 12.7 10^3/uL H 10 ^3/uL (4.0-10.0) RBC 3.87 10^6/uL L 10 ^6/uL (4.1-5.3) Hgb 11.5 g/dL L g/dL (11.7-16.6) Hct 37.2 % L % (42.0-52.0) MCV 96.1 fl H fl (80-94) MCH 29.7 pg pg (28.0-34.0) MCHC 30.9 g/dL g/dL (30.0-36.0) RDW 13.0 % % (12.1-15.1) Plt Count 280 10^3/cmm 10^3 /cmm (130-400) MPV 10.4 fL fL (7.4-10.4) Neut % (Auto) 92.6 % % Lymph % (Auto) 2.4 % % [place] % (Auto) 4.3 % % Eos % (Auto) 0.0 % % Baso % (Auto) 0.1 % % Neut # (Auto) 11.76 10^3/uL H 1 0^3/uL (1.8-7.7) Lymph # (Auto) 0.3 10^3/uL L 10^ 3/uL (0.8-4.8) [place] # (Auto) 0.5 10^3/uL 10^3/ uL (0.2-0.9) Eos # (Auto) 0.0 10^3/uL 10^3/ uL (0.0-0.8) Baso # (Auto) 0.0 10^3/uL 10^3/ uL (0.0-0.1) Nucleated RBC % (a uto) 0 % % Nucleated RBCs # 0.0 /100WBC /100W BC Specimen Type Sample Site ABG pH ABG pCO2 ABG pO2 ABG HCO3 ABG Base Excess [place] Test Hematocrit Hgb O2 Saturation Carboxyhemoglobin Methemoglobin Total Hemoglobin O2 Delivery Device O2 Liters/Min FiO2 Dial Mounter ID Sodium 138 mmol/L mmol/L (136-145) Potassium 4.2 mmol/L mmol/L (3.5-5.1) Chloride 98 mmol/L mmol/L (98-107) Carbon Dioxide 36 mmol/L H mmol/ L (22-29) Anion Gap 8.2 (5-19) BUN 14 mg/dL mg/dL (8-23) Creatinine 0.3 mg/dL L mg/dL (0.7-1.2) GFR Calculation 296.4 mL/min H mL /min (90-130) Glucose 111 mg/dL mg/dL (65-115) Calculated Osmolal ity 287 mOsm/kg mOsm/ kg (285-295) Lactic Acid Calcium 9.1 mg/dL mg/dL (8.5-10.5) Phosphorus 2.8 mg/dL mg/dL (2.5-4.5) Magnesium 1.9 mg/dL mg/dL (1.7-2.3) Total Bilirubin AST ALT Alkaline Phosphata se Troponin T Baselin e Troponin T 120 Min pala Delta Troponin T Troponin T Hi Sens 6Hr Troponin T Hi Sens 6Hr Delta C-Reactive Protein NT-Pro-B Natriuret Pep Total Protein Albumin Globulin Vitamin B12 Folate 8.5 ng/mL ng/mL (4.5-32.2) Procalcitonin TSH Free T4 Thyroxine (T4) Free T3 Total T3 07/28/21 07/28/21 07/28/21 05:18 05:18 05:18 WBC RBC Hgb Hct MCV MCH MCHC RDW Plt Count MPV Neut % (Auto) Lymph % (Auto) [place] % (Auto) Eos % (Auto) Baso % (Auto) Neut # (Auto) Lymph # (Auto) [place] # (Auto) Eos # (Auto) Baso # (Auto) Nucleated RBC % (a uto) Nucleated RBCs # Specimen Type Sample Site ABG pH ABG pCO2 ABG pO2 ABG HCO3 ABG Base Excess [place] Test Hematocrit Hgb O2 Saturation Carboxyhemoglobin Methemoglobin Total Hemoglobin O2 Delivery Device O2 Liters/Min FiO2 Dial Mounter ID Sodium Potassium Chloride Carbon Dioxide Anion Gap BUN Creatinine GFR Calculation Glucose Calculated Osmolal ity Lactic Acid Calcium Phosphorus Magnesium Total Bilirubin AST ALT Alkaline Phosphata se Troponin T Baselin e Troponin T 120 Min pala Delta Troponin T Troponin T Hi Sens 6Hr Troponin T Hi Sens 6Hr Delta C-Reactive Protein NT-Pro-B Natriuret Pep Total Protein Albumin Globulin Vitamin B12 509 pg/mL pg/mL (232-1245) Folate Procalcitonin TSH 0.02 uIU/mL L uIU /mL (0.27-4.20) Free T4 1.63 ng/dL ng/dL 1.60 ng/dL ng/dL (0.82-1.77) (0.82-1.77) Thyroxine (T4) Free T3 2.0 PG/ML PG/ML (2.0-4.4) Total T3 96 ng/dL ng/dL (76-181) 07/28/21 05:18 WBC RBC Hgb Hct MCV MCH MCHC RDW Plt Count MPV Neut % (Auto) Lymph % (Auto) [place] % (Auto) Eos % (Auto) Baso % (Auto) Neut # (Auto) Lymph # (Auto) [place] # (Auto) Eos # (Auto) Baso # (Auto) Nucleated RBC % (a uto) Nucleated RBCs # Specimen Type Sample Site ABG pH ABG pCO2 ABG pO2 ABG HCO3 ABG Base Excess [place] Test Hematocrit Hgb O2 Saturation Carboxyhemoglobin Methemoglobin Total Hemoglobin O2 Delivery Device O2 Liters/Min FiO2 Dial Mounter ID Sodium Potassium Chloride Carbon Dioxide Anion Gap BUN Creatinine GFR Calculation Glucose Calculated Osmolal ity Lactic Acid Calcium Phosphorus Magnesium Total Bilirubin AST ALT Alkaline Phosphata se Troponin T Baselin e Troponin T 120 Min pala Delta Troponin T Troponin T Hi Sens 6Hr Troponin T Hi Sens 6Hr Delta C-Reactive Protein NT-Pro-B Natriuret Pep Total Protein Albumin Globulin Vitamin B12 Folate Procalcitonin TSH Free T4 Thyroxine (T4) 8.1 mcg/dL mcg/dL (4.9-10.5) Free T3 Total T3 EKG Data^: EKG 1: Attestation: I personally reviewed and interpreted this EKG as follows: EKG interpretation date: 07/26/21 EKG interpretation time: 22:10 Interpretation: Twelve-lead EKG shows a regular rhythm at a rate of 133. IA interval 146, QRS duration 86, QTc 375. Normal axis. Interpretation: Sinus tachycardia. Critical Care Time Critical Care Time: Critical Care Time: Yes Total Critical Care Time: 35 Attestation: This case had a high probability of a clinically significant, sudden, or life threatening deterioration of this patient's condition which required my full and direct attention, intervention and personal management. Discharge Plan Discharge Patient Disposition: Placed in Observation Admit Provider: Megan Varela Clinical Impression: Acute exacerbation of chronic obstructive pulmonary disease Coding Level of Care Code ED Program Arranger for Chg Fwd Documented by User: Robert Luu DO 07/27/21 03:44 HPI - Chest Pain General: Chief Complaint: Chest Pain Stated Complaint: sob/cp Time Seen by Provider: 07/27/21 00:33 [facility] ED PFSH: Medical History (Updated 07/27/21 @ 07:35 by Megan Varela MD) Anxiety Cachexia CAD (coronary artery disease) Has stent. Last cardiac catheterization in June 2018 showed left main, circumflex, and RCA with 0% stenosis. The proximal LAD had minimal luminal irregularities with JOHN-3 flow. He had 90% restenosis of the first obtuse marginal and underwent balloon angioplasty with restenting at that time. Last echocardiogram May 2019 with ejection fraction 55%, mild hypokinesia of the apical septal segment with grade 1/4 diastolic dysfunction noted. Chronic back pain Chronic respiratory failure with hypoxia and hypercapnia COPD (chronic obstructive pulmonary disease) COVID-19 vaccine administered GERD (gastroesophageal reflux disease) History of PFTs July 2018, FEV1/FVC ratio 45% with FEV1 1.96 L (30% predicted), forced vital capacity of 2.13 L (50% predicted). DLCO was moderately reduced at 60%. 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 He has a white blood cell count of 11.1, hemoglobin of 11. Blood gas was mildly improved after 1.5 hours of BiPAP. The patient demanded it be removed. Currently saturations are 95% on 4 to 5 L of nasal cannula O2. His baseline is 3 to 4 L. His heart rate is 100, blood pressure 113/66. He is not in respiratory distress anymore CTA shows no pulmonary embolism and no distinct infiltrate or consolidation, but does show bronchiectasis and severe emphysema. He will be observed, treated as a COPD exacerbation. Lab Data: Labs: Lab Results 07/26/21 07/26/21 07/26/21 21:30 21:30 21:30 WBC 11.1 10^3/uL H 10 ^3/uL (4.0-10.0) RBC 3.64 10^6/uL L 10 ^6/uL (4.1-5.3) Hgb 10.9 g/dL L g/dL (11.7-16.6) Hct 36.6 % L % (42.0-52.0) MCV 100.5 fl H fl (80-94) MCH 29.9 pg pg (28.0-34.0) MCHC 29.8 g/dL L g/dL (30.0-36.0) RDW 12.8 % % (12.1-15.1) Plt Count 238 10^3/cmm 10^3 /cmm (130-400) MPV 10.7 fL H fL (7.4-10.4) Neut % (Auto) 86.0 % % Lymph % (Auto) 5.5 % % [place] % (Auto) 7.8 % % Eos % (Auto) 0.1 % % Baso % (Auto) 0.3 % % Neut # (Auto) 9.54 10^3/uL H 10 ^3/uL (1.8-7.7) Lymph # (Auto) 0.6 10^3/uL L 10^ 3/uL (0.8-4.8) [place] # (Auto) 0.9 10^3/uL 10^3/ uL (0.2-0.9) Eos # (Auto) 0.0 10^3/uL 10^3/ uL (0.0-0.8) Baso # (Auto) 0.0 10^3/uL 10^3/ uL (0.0-0.1) Nucleated RBC % (a uto) 0 % % Nucleated RBCs # 0.0 /100WBC /100W BC Specimen Type Sample Site ABG pH ABG pCO2 ABG pO2 ABG HCO3 ABG Base Excess [place] Test Hematocrit Hgb O2 Saturation Carboxyhemoglobin Methemoglobin Total Hemoglobin O2 Delivery Device O2 Liters/Min FiO2 Dial Mounter ID Sodium 135 mmol/L L mmol /L (136-145) Potassium 4.0 mmol/L mmol/L (3.5-5.1) Chloride 92 mmol/L L mmol/ L (98-107) Carbon Dioxide 33 mmol/L H mmol/ L (22-29) Anion Gap 14.0 (5-19) BUN 9 mg/dL mg/dL (8-23) Creatinine 0.3 mg/dL L mg/dL (0.7-1.2) GFR Calculation 296.4 mL/min H mL /min (90-130) Glucose 118 mg/dL H mg/dL (65-115) Calculated Osmolal ity 280 mOsm/kg L mOs m/kg (285-295) Lactic Acid Calcium 9.1 mg/dL mg/dL (8.5-10.5) Phosphorus Magnesium 1.7 mg/dL mg/dL (1.7-2.3) Total Bilirubin 0.2 mg/dL mg/dL (0.15-1.2) AST 12 U/L U/L (0-40) ALT 10 U/L U/L (0-41) Alkaline Phosphata se 76 IU/L IU/L (40-130) Troponin T Baselin e 13 ng/L ng/L (0-15) Troponin T 120 Min pala Delta Troponin T Troponin T Hi Sens 6Hr Troponin T Hi Sens 6Hr Delta C-Reactive Protein 123.4 mg/L H mg/L (0.0-4.9) NT-Pro-B Natriuret Pep 304 pg/mL H pg/mL (0-125) Total Protein 5.8 g/dL L g/dL (6.6-8.7) Albumin 3.9 g/dL g/dL (3.5-5.2) Globulin 1.9 g/dL g/dL (1.3-4.6) Vitamin B12 Folate Procalcitonin 0.03 ng/mL ng/mL (0-0.5) TSH Free T4 Thyroxine (T4) Free T3 Total T3 07/26/21 07/26/21 07/26/21 22:12 22:29 23:46 WBC RBC Hgb Hct MCV MCH MCHC RDW Plt Count MPV Neut % (Auto) Lymph % (Auto) [place] % (Auto) Eos % (Auto) Baso % (Auto) Neut # (Auto) Lymph # (Auto) [place] # (Auto) Eos # (Auto) Baso # (Auto) Nucleated RBC % (a uto) Nucleated RBCs # Specimen Type Arterial Arterial Sample Site Radial, left Radial, left ABG pH 7.38 7.38 (7.35-7.45) (7.35-7.45) ABG pCO2 62.2 mmHg H* mmHg 59.9 mmHg H mmHg (35-45) (35-45) ABG pO2 113.0 mmHg H mmHg 80.9 mmHg mmHg (80.0-100.0) (80.0-100.0) ABG HCO3 36.9 mmol/L H mmo l/L 35.1 mmol/L H mmo l/L (22-26) (22-26) ABG Base Excess 9.9 mmol/L H mmol /L 8.3 mmol/L H mmol /L (-2.0-2.0) (-2.0-2.0) Skeou Test Pos Pos Hematocrit 32.9 % L % 32.0 % L % (42-52) (42-52) Hgb O2 Saturation 95.6 % % (95-100) Carboxyhemoglobin 3.1 %THgb %THgb (0.4-20.1) Methemoglobin 0.6 % % (0.4-1.5) Total Hemoglobin 10.7 g/dL L g/dL (14-18) O2 Delivery Device Nc Bipap O2 Liters/Min 3.0 % % FiO2 32.0 % % Dial Mounter ID Buttr Buttr Sodium Potassium Chloride Carbon Dioxide Anion Gap BUN Creatinine GFR Calculation Glucose Calculated Osmolal ity Lactic Acid 1.6 mmol/L mmol/L (0.5-2.2) Calcium Phosphorus Magnesium Total Bilirubin AST ALT Alkaline Phosphata se Troponin T Baselin e Troponin T 120 Min pala Delta Troponin T Troponin T Hi Sens 6Hr Troponin T Hi Sens 6Hr Delta C-Reactive Protein NT-Pro-B Natriuret Pep Total Protein Albumin Globulin Vitamin B12 Folate Procalcitonin TSH Free T4 Thyroxine (T4) Free T3 Total T3 07/27/21 07/27/21 07/27/21 00:12 06:53 06:53 WBC RBC Hgb Hct MCV MCH MCHC RDW Plt Count MPV Neut % (Auto) Lymph % (Auto) [place] % (Auto) Eos % (Auto) Baso % (Auto) Neut # (Auto) Lymph # (Auto) [place] # (Auto) Eos # (Auto) Baso # (Auto) Nucleated RBC % (a uto) Nucleated RBCs # Specimen Type Sample Site ABG pH ABG pCO2 ABG pO2 ABG HCO3 ABG Base Excess [place] Test Hematocrit Hgb O2 Saturation Carboxyhemoglobin Methemoglobin Total Hemoglobin O2 Delivery Device O2 Liters/Min FiO2 Dial Mounter ID Sodium Potassium Chloride Carbon Dioxide Anion Gap BUN Creatinine GFR Calculation Glucose Calculated Osmolal ity Lactic Acid Calcium Phosphorus Magnesium Total Bilirubin AST ALT Alkaline Phosphata se Troponin T Baselin e Troponin T 120 Min pala 14.47 ng/L ng/L (0-15) Delta Troponin T 1.47 ABS# ABS# (0-10) Troponin T Hi Sens 6Hr 14.29 ng/L ng/L (0-15) Troponin T Hi Sens 6Hr Delta TNP C-Reactive Protein NT-Pro-B Natriuret Pep Total Protein Albumin Globulin Vitamin B12 Folate Procalcitonin TSH 0.02 uIU/mL L uIU /mL (0.27-4.20) Free T4 Thyroxine (T4) Free T3 Total T3 07/28/21 07/28/21 07/28/21 05:18 05:18 05:18 WBC 12.7 10^3/uL H 10 ^3/uL (4.0-10.0) RBC 3.87 10^6/uL L 10 ^6/uL (4.1-5.3) Hgb 11.5 g/dL L g/dL (11.7-16.6) Hct 37.2 % L % (42.0-52.0) MCV 96.1 fl H fl (80-94) MCH 29.7 pg pg (28.0-34.0) MCHC 30.9 g/dL g/dL (30.0-36.0) RDW 13.0 % % (12.1-15.1) Plt Count 280 10^3/cmm 10^3 /cmm (130-400) MPV 10.4 fL fL (7.4-10.4) Neut % (Auto) 92.6 % % Lymph % (Auto) 2.4 % % [place] % (Auto) 4.3 % % Eos % (Auto) 0.0 % % Baso % (Auto) 0.1 % % Neut # (Auto) 11.76 10^3/uL H 1 0^3/uL (1.8-7.7) Lymph # (Auto) 0.3 10^3/uL L 10^ 3/uL (0.8-4.8) [place] # (Auto) 0.5 10^3/uL 10^3/ uL (0.2-0.9) Eos # (Auto) 0.0 10^3/uL 10^3/ uL (0.0-0.8) Baso # (Auto) 0.0 10^3/uL 10^3/ uL (0.0-0.1) Nucleated RBC % (a uto) 0 % % Nucleated RBCs # 0.0 /100WBC /100W BC Specimen Type Sample Site ABG pH ABG pCO2 ABG pO2 ABG HCO3 ABG Base Excess [place] Test Hematocrit Hgb O2 Saturation Carboxyhemoglobin Methemoglobin Total Hemoglobin O2 Delivery Device O2 Liters/Min FiO2 Dial Mounter ID Sodium 138 mmol/L mmol/L (136-145) Potassium 4.2 mmol/L mmol/L (3.5-5.1) Chloride 98 mmol/L mmol/L (98-107) Carbon Dioxide 36 mmol/L H mmol/ L (22-29) Anion Gap 8.2 (5-19) BUN 14 mg/dL mg/dL (8-23) Creatinine 0.3 mg/dL L mg/dL (0.7-1.2) GFR Calculation 296.4 mL/min H mL /min (90-130) Glucose 111 mg/dL mg/dL (65-115) Calculated Osmolal ity 287 mOsm/kg mOsm/ kg (285-295) Lactic Acid Calcium 9.1 mg/dL mg/dL (8.5-10.5) Phosphorus 2.8 mg/dL mg/dL (2.5-4.5) Magnesium 1.9 mg/dL mg/dL (1.7-2.3) Total Bilirubin AST ALT Alkaline Phosphata se Troponin T Baselin e Troponin T 120 Min [place] Delta Troponin T Troponin T Hi Sens 6Hr Troponin T Hi Sens 6Hr Delta C-Reactive Protein NT-Pro-B Natriuret Pep Total Protein Albumin Globulin Vitamin B12 Folate 8.5 ng/mL ng/mL (4.5-32.2) Procalcitonin TSH Free T4 Thyroxine (T4) Free T3 Total T3 07/28/21 07/28/21 07/28/21 05:18 05:18 05:18 WBC RBC Hgb Hct MCV MCH MCHC RDW Plt Count MPV Neut % (Auto) Lymph % (Auto) [place] % (Auto) Eos % (Auto) Baso % (Auto) Neut # (Auto) Lymph # (Auto) [place] # (Auto) Eos # (Auto) Baso # (Auto) Nucleated RBC % (a uto) Nucleated RBCs # Specimen Type Sample Site ABG pH ABG pCO2 ABG pO2 ABG HCO3 ABG Base Excess [place] Test Hematocrit Hgb O2 Saturation Carboxyhemoglobin Methemoglobin Total Hemoglobin O2 Delivery Device O2 Liters/Min FiO2 Dial Mounter ID Sodium Potassium Chloride Carbon Dioxide Anion Gap BUN Creatinine GFR Calculation Glucose Calculated Osmolal ity Lactic Acid Calcium Phosphorus Magnesium Total Bilirubin AST ALT Alkaline Phosphata se Troponin T Baselin e Troponin T 120 Min [place] Delta Troponin T Troponin T Hi Sens 6Hr Troponin T Hi Sens 6Hr Delta C-Reactive Protein NT-Pro-B Natriuret Pep Total Protein Albumin Globulin Vitamin B12 509 pg/mL pg/mL (232-1245) Folate Procalcitonin TSH 0.02 uIU/mL L uIU /mL (0.27-4.20) Free T4 1.63 ng/dL ng/dL 1.60 ng/dL ng/dL (0.82-1.77) (0.82-1.77) Thyroxine (T4) Free T3 2.0 PG/ML PG/ML (2.0-4.4) Total T3 96 ng/dL ng/dL (76-181) 07/28/21 05:18 WBC RBC Hgb Hct MCV MCH MCHC RDW Plt Count MPV Neut % (Auto) Lymph % (Auto) [place] % (Auto) Eos % (Auto) Baso % (Auto) Neut # (Auto) Lymph # (Auto) [place] # (Auto) Eos # (Auto) Baso # (Auto) Nucleated RBC % (a uto) Nucleated RBCs # Specimen Type Sample Site ABG pH ABG pCO2 ABG pO2 ABG HCO3 ABG Base Excess [place] Test Hematocrit Hgb O2 Saturation Carboxyhemoglobin Methemoglobin Total Hemoglobin O2 Delivery Device O2 Liters/Min FiO2 Dial Mounter ID Sodium Potassium Chloride Carbon Dioxide Anion Gap BUN Creatinine GFR Calculation Glucose Calculated Osmolal ity Lactic Acid Calcium Phosphorus Magnesium Total Bilirubin AST ALT Alkaline Phosphata se Troponin T Baselin e Troponin T 120 Min pala Delta Troponin T Troponin T Hi Sens 6Hr Troponin T Hi Sens 6Hr Delta C-Reactive Protein NT-Pro-B Natriuret Pep Total Protein Albumin Globulin Vitamin B12 Folate Procalcitonin TSH Free T4 Thyroxine (T4) 8.1 mcg/dL mcg/dL (4.9-10.5) Free T3 Total T3 Discharge Plan Discharge Patient Disposition: Placed in Observation Admit Provider: Megan Varela Clinical Impression: Acute exacerbation of chronic obstructive pulmonary disease Coding Level of Care Code ED Program Arranger for [place] Rios
[2021-07-26 22:01] VITALS: BP 125/65; PULSE 137; RESP 26; TEMP 37; O2SAT 98; BMI 16.1
--- NOTE | 2021-07-26 22:04 | XRR_ITS ---
PROCEDURE INFORMATION: Exam: XR Chest Exam date and time: 07/26/2021 10:04 PM Age: 71 years old Clinical indication: Dyspnea; Additional info: SOB TECHNIQUE: Imaging protocol: XR of the chest. Views: 1 view. Total images: 1 COMPARISON: CT chest wo con [id number] 02/26/2021 3:27 PM FINDINGS: Lungs: No visible active interstitial or alveolar airspace disease. Severe centrilobular emphysema with advanced COPD/chronic bronchitis Pleural spaces: Unremarkable. No pleural effusion. No pneumothorax. Heart/Mediastinum: Cardiac structures and configuration with arteriosclerosis, coronary artery disease, and microcardia. Bones/joints: Unremarkable. XR/XR chest 1V portable [id number] IMPRESSION: Nonacute. Radiation Dose CTDIVOL = (mGy): DLP = (mGy-cm)
--- NOTE | 2021-07-26 22:05 | ECG_ITS ---
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1950 Requested By: Tyree Clark Order Number: [id number] Zach MD: JHOAN LOPES Measurements Intervals [place] Rate: 133 P: 84 KS: 146 QRS: 64 QRSD: 86 T: 83 QT: 297 QTc: 443 Interpretive Statements SINUS TACHYCARDIA ABNORMAL RHYTHM ECG INTERPRETATION BASED ON A DEFAULT AGE OF 40 YEARS Compared to ECG 09/11/2020 07:31:35 Sinus rhythm no longer present Ventricular premature complex(es) no longer present Myocardial infarct finding no longer present Electronically Signed On 07-28-2021 0:11:12 CDT by JHOAN LOPES [id number] f
[2021-07-26 22:15] VITALS: RESP 20; O2SAT 94
[2021-07-26] MEDS: fentaNYL 50 mcg/mL INJ 2mL IVP (22:15)
[2021-07-26] MEDS: sodium chloride 0.9% 500 ML 999 ML IV (22:15)
[2021-07-26 22:23] LABS: Basophils % 0.3 %; Eosinophils % 0.1 %; Hematocrit 36.6 % (42.0-52.0); Hemoglobin 10.9 g/dL (11.7-16.6); Lymphocytes # 0.6 10^3/uL (0.8-4.8); Lymphocytes % 5.5 %; Mean Corpuscular HGB Conc 29.8 g/dL (30.0-36.0); Mean Corpuscular Hemoglobin 29.9 pg (28.0-34.0); Mean Corpuscular Volume 100.5 fl (80-94); Mean Platelet Volume 10.7 fL (7.4-10.4); Monocytes # 0.9 10^3/uL (0.2-0.9); Monocytes % 7.8 %; Neutrophils # 9.54 10^3/uL (1.8-7.7); Nucleated Red Blood Cells % 0 %; Platelet Count 238 10^3/cmm (130-400); Red Blood Count 3.64 10^6/uL (4.1-5.3); Red Cell Distribution Width 12.8 % (12.1-15.1); White Blood Count 11.1 10^3/uL (4.0-10.0)
[2021-07-26 22:24] LABS: ABG PH Result 7.38 (7.35-7.45); Arterial Blood Gas Hematocrit 32.9 % (42-52); Base Excess ABG 9.9 mmol/L (-2.0-2.0); Blood Gas Allen Test Pos; Blood Gas Sample Site Radial, left; Blood Gas Sample Type Arterial; Carboxyhemoglobin 3.1 %THgb (0.4-20.1); HCO3 ABG 36.9 mmol/L (22-26); HGB O2 Sat 95.6 % (95-100); Methemoglobin 0.6 % (0.4-1.5); Oxygen Device NC; Total Hemoglobin 10.7 g/dL (14-18)
[2021-07-26 22:26] LABS: ABG PCO2 62.2 mmHg (35-45)
--- NOTE | 2021-07-26 22:31 | PC.NURSE ---
pt refused COVID swab due to being vaccinated with both Moderna doses in December. Dr notified
[2021-07-26 22:40] VITALS: PULSE 115; RESP 16; O2SAT 100
[2021-07-26 22:40] LABS: Troponin(5th) Baseline 13 ng/L (0-15)
[2021-07-26] MEDS: ipratropium-albuterol 3 mL Neb INHALATION (22:40)
[2021-07-26 22:43] VITALS: PULSE 112
[2021-07-26 22:49] LABS: Lactic Sepsis W/Reflex 1.6 mmol/L (0.5-2.2)
[2021-07-26 22:50] LABS: NT Pro B Type Natriuretic Pept 304 pg/mL (0-125); Procalcitonin 0.03 ng/mL (0-0.5)
[2021-07-26 22:54] VITALS: PULSE 113; RESP 15; O2SAT 98
[2021-07-26 23:02] LABS: Alanine Aminotransferase 10 U/L (0-41); Albumin Level 3.9 g/dL (3.5-5.2); Alkaline Phosphatase 76 IU/L (40-130); Aspartate Amino Transferase 12 U/L (0-40); Blood Urea Nitrogen 9 mg/dL (8-23); C Reactive Protein 123.4 mg/L (0.0-4.9); Calcium 9.1 mg/dL (8.5-10.5); Carbon Dioxide 33 mmol/L (22-29); Chloride 92 mmol/L (98-107); Globulin 1.9 g/dL (1.3-4.6); Glomerular Filtration Rate 296.4 mL/min (90-130); Glucose 118 mg/dL (65-115); Magnesium 1.7 mg/dL (1.7-2.3); Osmolality Calculated 280 mOsm/kg (285-295); Sodium 135 mmol/L (136-145); Total Bilirubin 0.2 mg/dL (0.15-1.2); Total Protein 5.8 g/dL (6.6-8.7)
[2021-07-26] MEDS: doxycycline 100 MG in sodium chloride 0.9% (plus) 100 ML IV (23:05)
[2021-07-26 23:58] LABS: ABG PCO2 59.9 mmHg (35-45); ABG PH Result 7.38 (7.35-7.45); Base Excess ABG 8.3 mmol/L (-2.0-2.0); Blood Gas Allen Test Pos; Blood Gas Sample Site Radial, left; Blood Gas Sample Type Arterial; HCO3 ABG 35.1 mmol/L (22-26); Oxygen Device BIPAP; PO2 ABG 80.9 mmHg (80.0-100.0)
[2021-07-27] VITALS (18 sets, daily range): BP systolic 97–143; BP diastolic 51–75; PULSE 22–125; RESP 18–104; TEMP 36.6–37.1; O2SAT 88–100
--- NOTE | 2021-07-27 00:05 | ECG_ITS ---
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1950 Requested By: Tyree Clark Order Number: [id number] Zach MD: JHOAN LOPES Measurements Intervals [place] Rate: 133 P: 84 UT: 146 QRS: 64 QRSD: 86 T: 83 QT: 297 QTc: 443 Interpretive Statements SINUS TACHYCARDIA ABNORMAL RHYTHM ECG INTERPRETATION BASED ON A DEFAULT AGE OF 40 YEARS Compared to ECG 09/11/2020 07:31:35 Sinus rhythm no longer present Ventricular premature complex(es) no longer present Myocardial infarct finding no longer present Electronically Signed On 07-28-2021 0:17:25 CDT by JHOAN LOPES [email or web address]/store/NU/[id number] f
--- NOTE | 2021-07-27 00:23 | CTR_ITS ---
PROCEDURE INFORMATION: Exam: CTA Chest With Contrast Exam date and time: 07/27/2021 12:23 AM Age: 71 years old Clinical indication: Cough and shortness of breath; Patient HX: C/O cp cough and SOB; Additional info: Chest pain TECHNIQUE: Imaging protocol: Computed tomographic angiography of the chest with contrast. 3D rendering (Not supervised by radiologist): MIP and/or 3D reconstructed images were created by the technologist. Radiation optimization: All CT scans at this facility use at least one of these dose optimization techniques: automated exposure control; mA and/or kV adjustment per patient size (includes targeted exams where dose is matched to clinical indication); or iterative reconstruction. Contrast material: OMNI 350; Contrast volume: 63 ml; Contrast route: INTRAVENOUS (IV); COMPARISON: CTA Chest-Pulmonary Emb [id number] 06/01/2019 9:37 AM RADIATION DOSE METRICS: Total DLP (mGy-cm): 492.31 FINDINGS: Pulmonary arteries: Normal. No pulmonary emboli. Aorta: Unremarkable. No aortic aneurysm. No aortic dissection. Lungs: There is a background of severe centrilobular emphysema, bronchiectasis and pulmonary fibrosis. There is a irregular mildly spiculated nodularity seen in the left apical region appearing stable compared with 06/01/2019. A stable 5 x 11 mm nodularity is again seen in the right upper lobe laterally. A stable 7 x 9 mm nodularity is seen in the right lateral hemithorax as well. Pleural spaces: Unremarkable. No pneumothorax. No pleural effusion. Heart: Unremarkable. No cardiomegaly. No pericardial effusion. Lymph nodes: Unremarkable. No enlarged lymph nodes. Bones/joints: Unremarkable. No acute fracture. Soft tissues: Unremarkable. CT/CT angio chest PE protcl [id number] IMPRESSION: 1. There is no evidence for pulmonary emboli. 2. Severe centrilobular emphysema, bronchiectasis and pulmonary fibrosis. 3. Stable irregular pulmonary nodularity seen bilaterally likely representing nodular parenchymal scarring. These remain stable compared with 06/01/2019. Radiation Dose CTDIVOL = (mGy): DLP = 492.31 (mGy-cm)
[2021-07-27] MEDS: LORazepam 2 mg/mL INJ 1 mL 0.5 MG IVP (00:35)
[2021-07-27 00:41] LABS: Troponin 5 2HR 14.47 ng/L (0-15); Troponin 5 2HR Delta 1.47 ABS# (0-10)
[2021-07-27] MEDS: iohexol 350 mg/mL 100 mL Btl IV (01:10)
[2021-07-27] MEDS: morphine 4 mg/mL SDV 1 mL IVP ×2 (01:56→04:50)
[2021-07-27] MEDS: ondansetron 2 mg/ML SDV 2 mL 4 MG IVP (02:05)
--- NOTE | 2021-07-27 04:05 | ECG_ITS ---
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
[2021-07-27] MEDS: HYDROcodone-acetaminophen 7.5-325 mg Tablet 1 TAB PO (06:25)
--- NOTE | 2021-07-27 06:36 | P.HP_ITS ---
Providers/Chief Complaint Admitting Physician: Megan Varela MD Primary Care Provider: Hiwot Yeung DO Chief Complaint: sob/cp History of Present Illness Onel Low is a 71 year old male with a history of COPD and chronic respiratory failure with hypercapnia and hypoxia who presents with approximately 1 month history of progressively worsening respiratory symptoms. He is normally on approximately 3 L of oxygen by nasal cannula that he wears in his mouth but has had to turn it up recently. He has had a cough productive of very thick dark-colored sputum. No bright red blood has been noted. He has not been able to get sputum up and has had significant paroxysms of coughing and increased wheezing. He has been able to do even less than baseline. In the emergency room he was tachycardic, tachypneic but maintaining saturations on higher amounts of oxygen. He had a couple of episodes of significant distress and was treated with BiPAP therapy for short period of time. He received Ativan, morphine, Solu-Medrol, fentanyl, breathing treatment and fluids. He continued to have significant difficulty breathing. He is being admitted for further treatment and evaluation as indicated. He has had some chest discomfort primarily with episodes of coughing. Denies any edema. Reports some weight loss. He denies any fever. He has received a Covid vaccine. He declines to be Covid tested. No known sick contacts. Review of Systems Const: Reports: chills, change in appetite (Decreased), change in weight (Unable to quantify), fatigue and malaise; Denies: fever(s) ENMT: Reports: dry mouth and nasal congestion; Denies: throat pain Card: Reports: chest pain (Sometimes with coughing), palpitations, lightheadedness, dyspnea on exertion and orthopnea; Denies: edema or syncope Resp: Reports: dyspnea, productive cough, non-productive cough, wheezing, change in phlegm color and chest congestion; Denies: pain on inspiration or hemoptysis GI: Reports: abdominal pain, nausea and constipation; Denies: vomiting or diarrhea : Reports: urinary frequency, urinary hesitancy and difficulty starting urination Musc: Reports: back pain (From a sore on his back) Skin/Breast: Reports: sores (On his lower back) Neuro: Reports: headache(s) and weakness in extremities; Denies: numbness in extremities Psych: Reports: anxiety; Denies: depression [place]/Lymph: Reports: easy bleeding Medications/Allergies Home Medications Medication Instructions Recorded Confirmed Last Taken Type carisoprodol [Soma] 350 mg PO QID 10/04/19 06/16/21 Unknown History hydrocodone-acetaminophen 1 - 2 tab PO Q4H PRN 10/04/19 06/16/21 Unknown History aspirin 81 mg tablet,delayed 81 mg PO DAILY 12/11/19 06/16/21 Unknown History release loratadine 10 mg tablet 10 mg PO DAILY 02/26/20 06/16/21 Unknown History diclofenac sodium 1 % topical gel 1 gm TOPICAL TID #100 gm 06/19/20 06/16/21 Unknown Rx nitroglycerin 0.4 mg SUBLINGUAL PRN 07/17/20 06/16/21 Unknown History azithromycin 500 mg tablet See Rx Instructions .ROUTE 05/05/21 06/16/21 Unknown Rx .COMPLEX #45 tab prednisone 5 mg tablet See Rx Instructions .ROUTE 05/27/21 06/16/21 Unknown Rx .COMPLEX #30 tab trazodone 150 mg tablet 150 mg PO BEDTIME #30 tab 05/27/21 06/16/21 Unknown Rx diazepam 5 mg tablet 5 mg PO Q6H PRN 30 Days #120 tab 06/10/21 06/16/21 Unknown Rx albuterol sulfate 2.5 mg INHALATION Q6H PRN 30 Days 06/16/21 06/16/21 Unknown Rx #360 ml budesonide-formoterol HFA 160 See Rx Instructions .ROUTE 06/16/21 06/16/21 Unknown Rx mcg-4.5 mcg/actuation aerosol .COMPLEX #10.2 g inhaler ipratropium 20 mcg-albuterol 100 See Rx Instructions .ROUTE 06/16/21 06/16/21 U nknown Rx mcg/actuation mist for inhalation .COMPLEX #4 g levofloxacin 750 mg tablet 750 mg PO DAILY 5 Days #5 tab 06/16/21 06/16/21 Unknown Rx prednisone 20 mg tablet 40 mg PO DAILY 5 Days #10 tab 06/16/21 06/16/21 Unknown Rx tiotropium bromide 18 mcg capsule 1 cap INHALATION DAILY #30 inh 06/16/21 06/16/21 Unknown Rx with inhalation device atorvastatin 40 mg tablet See Rx Instructions .ROUTE 10/07/21 Unknown Rx .COMPLEX #30 tab metoprolol tartrate 50 mg tablet 50 mg PO BID #60 tab 07/08/21 Unknown Rx pantoprazole 40 mg tablet,delayed 40 mg PO DAILY #30 tab 07/08/21 Unknown Rx release spironolactone 25 mg tablet 25 mg PO DAILY #30 tab 07/08/21 Unknown Rx tamsulosin 0.4 mg capsule 0.4 mg PO DAILY #30 cap 07/08/21 Unknown Rx ProAir HFA 90 mcg/actuation 2 inh INHALATION Q2H PRN #25.5 g NS 07/10/21 Unknown Rx aerosol inhaler clopidogrel 75 mg tablet See Rx Instructions .ROUTE 07/22/21 Unknown Rx .COMPLEX #30 tab roflumilast 500 mcg tablet See Rx Instructions .ROUTE 07/22/21 Unknown Rx .COMPLEX #30 tab Allergies Allergy/AdvReac Type Severity Reaction Status Date / Time Penicillins Allergy ALGY-Rash Verified 06/16/21 14:38 PFSH Acute PFSH: Medical History (Updated 07/27/21 @ 07:35 by Megan Varela MD) Anxiety Cachexia CAD (coronary artery disease) Has stent. Last cardiac catheterization in June 2018 showed left main, circumflex, and RCA with 0% stenosis. The proximal LAD had minimal luminal irregularities with JOHN-3 flow. He had 90% restenosis of the first obtuse marginal and underwent balloon angioplasty with restenting at that time. Last echocardiogram May 2019 with ejection fraction 55%, mild hypokinesia of the apical septal segment with grade 1/4 diastolic dysfunction noted. Chronic back pain Chronic respiratory failure with hypoxia and hypercapnia COPD (chronic obstructive pulmonary disease) COVID-19 vaccine administered GERD (gastroesophageal reflux disease) History of PFTs July 2018, FEV1/FVC ratio 45% with FEV1 1.96 L (30% predicted), forced vital capacity of 2.13 L (50% predicted). DLCO was moderately reduced at 60%. 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 Lives independently: Yes Household members: spouse and children Marital status: service: Yes Current occupational status: disabled Current gender identity: Male Vitals/I&O/Wt Last Vital Signs Temp 98.6 F 07/26/21 22:01 Pulse 97 07/27/21 06:10 Resp 99 H 07/27/21 06:10 BP 109/56 07/27/21 06:10 Pulse Ox 100 07/27/21 06:10 07/26/21 07/26/21 07/27/21 14:59 22:59 06:59 Intake Total 600 / 600 Balance 600 / 600 Weight last 48 hrs Weight 48.081 kg Physical Exam Narrative: EXAM NARRATIVE: Constitutional: Asleep, arousable, chronically ill-appearing, cachectic appearing, cooperative HEENT: Bitemporal wasting otherwise normocephalic, extraocular movements are intact, nasopharynx is clear, oropharynx with dry mucous membranes, keeping oxygen tubing in his mouth Neck: Supple Respiratory: Prolonged expiratory phase, scattered wheezes, currently without accessory muscle use Cardiovascular: Tachycardic, regular rhythm Abdomen: Soft, not tender, positive bowel sounds Extremities: No pitting edema, muscle wasting Skin: Dry, has half centimeter diameter scab at sacral area with some surrounding erythema that appears more from recently lying down on it then directly associated with the wound, no areas of fluctuance or drainage, Neuro: Speech clear, face symmetric, moves all extremities but generally weak, proximal weakness is quite apparent Psych: Anxious Data : 07/26/21 21:30 07/26/21 21:30 Other Labs: Laboratory Results WBC 11.1 10^3/uL (4.0-10.0) H 07/26/21 21:30 RBC 3.64 10^6/uL (4.1-5.3) L 07/26/21 21:30 Hgb 10.9 g/dL (11.7-16.6) L 07/26/21 21:30 Hct 36.6 % (42.0-52.0) L 07/26/21 21:30 MCV 100.5 fl (80-94) H 07/26/21 21:30 MCH 29.9 pg (28.0-34.0) 07/26/21 21:30 MCHC 29.8 g/dL (30.0-36.0) L 07/26/21 21:30 RDW 12.8 % (12.1-15.1) 07/26/21 21:30 Plt Count 238 10^3/cmm (130-400) 07/26/21 21:30 MPV 10.7 fL (7.4-10.4) H 07/26/21 21:30 Neut % (Auto) 86.0 % 07/26/21 21:30 Lymph % (Auto) 5.5 % 07/26/21 21:30 [place] % (Auto) 7.8 % 07/26/21 21:30 Eos % (Auto) 0.1 % 07/26/21 21:30 Baso % (Auto) 0.3 % 07/26/21 21:30 Neut # (Auto) 9.54 10^3/uL (1.8-7.7) H 07/26/21 21:30 Lymph # (Auto) 0.6 10^3/uL (0.8-4.8) L 07/26/21 21:30 [place] # (Auto) 0.9 10^3/uL (0.2-0.9) 07/26/21 21:30 Eos # (Auto) 0.0 10^3/uL (0.0-0.8) 07/26/21 21:30 Baso # (Auto) 0.0 10^3/uL (0.0-0.1) 07/26/21 21:30 Nucleated RBC % (auto) 0 % 07/26/21 21:30 Nucleated RBCs # 0.0 /100WBC 07/26/21 21:30 Specimen Type Arterial 07/26/21 23:46 Sample Site Radial, left 07/26/21 23:46 ABG pH 7.38 (7.35-7.45) 07/26/21 23:46 ABG pCO2 59.9 mmHg (35-45) H 07/26/21 23:46 ABG pO2 80.9 mmHg (80.0-100.0) 07/26/21 23:46 ABG HCO3 35.1 mmol/L (22-26) H 07/26/21 23:46 ABG Base Excess 8.3 mmol/L (-2.0-2.0) H 07/26/21 23:46 [place] Test Pos 07/26/21 23:46 Hematocrit 32.0 % (42-52) L 07/26/21 23:46 Hgb O2 Saturation 95.6 % (95-100) 07/26/21 22:12 Carboxyhemoglobin 3.1 %THgb (0.4-20.1) 07/26/21 22:12 Methemoglobin 0.6 % (0.4-1.5) 07/26/21 22:12 Total Hemoglobin 10.7 g/dL (14-18) L 07/26/21 22:12 O2 Delivery Device Bipap 07/26/21 23:46 O2 Liters/Min 3.0 % 07/26/21 22:12 FiO2 32.0 % 07/26/21 23:46 Ct Tech ID Buttr 07/26/21 23:46 Sodium 135 mmol/L (136-145) L 07/26/21 21:30 Potassium 4.0 mmol/L (3.5-5.1) 07/26/21 21:30 Chloride 92 mmol/L (98-107) L 07/26/21 21:30 Carbon Dioxide 33 mmol/L (22-29) H 07/26/21 21:30 Anion Gap 14.0 (5-19) 07/26/21 21:30 BUN 9 mg/dL (8-23) 07/26/21 21:30 Creatinine 0.3 mg/dL (0.7-1.2) L 07/26/21 21:30 GFR Calculation 296.4 mL/min (90-130) H 07/26/21 21:30 Glucose 118 mg/dL (65-115) H 07/26/21 21:30 Calculated Osmolality 280 mOsm/kg (285-295) L 07/26/21 21:30 Lactic Acid 1.6 mmol/L (0.5-2.2) 07/26/21 22:29 Calcium 9.1 mg/dL (8.5-10.5) 07/26/21 21:30 Magnesium 1.7 mg/dL (1.7-2.3) 07/26/21 21:30 Total Bilirubin 0.2 mg/dL (0.15-1.2) 07/26/21 21:30 AST 12 U/L (0-40) 07/26/21 21:30 ALT 10 U/L (0-41) 07/26/21 21:30 Alkaline Phosphatase 76 IU/L (40-130) 07/26/21 21:30 Troponin T Baseline 13 ng/L (0-15) 07/26/21 21:30 Troponin T 120 Minute 14.47 ng/L (0-15) 07/27/21 00:12 Delta Troponin T 1.47 ABS# (0-10) 07/27/21 00:12 C-Reactive Protein 123.4 mg/L (0.0-4.9) H 07/26/21 21:30 NT-Pro-B Natriuret Pep 304 pg/mL (0-125) H 07/26/21 21:30 Total Protein 5.8 g/dL (6.6-8.7) L 07/26/21 21:30 Albumin 3.9 g/dL (3.5-5.2) 07/26/21 21:30 Globulin 1.9 g/dL (1.3-4.6) 07/26/21 21:30 Procalcitonin 0.03 ng/mL (0-0.5) 07/26/21 21:30 Impressions Chest X-Ray 07/26/21 22:04 IMPRESSION: Nonacute. Radiation Dose CTDIVOL = (mGy): DLP = (mGy-cm) Chest CTA 07/27/21 00:23 IMPRESSION: 1. There is no evidence for pulmonary emboli. 2. Severe centrilobular emphysema, bronchiectasis and pulmonary fibrosis. 3. Stable irregular pulmonary nodularity seen bilaterally likely representing nodular parenchymal scarring. These remain stable compared with 06/01/2019. Radiation Dose CTDIVOL = (mGy): DLP = 492.31 (mGy-cm) Micro: Microbiology 07/26/21 22:29 Blood Culture - Preliminary Blood SPECIMEN COLLECTED 07/26/21 22:29 Blood Culture - Preliminary Blood SPECIMEN COLLECTED A&P Assessment and plan (1) Acute exacerbation of chronic obstructive pulmonary disease: With hypercapnia and hypoxemia, he quit smoking earlier this year. Has been following with Dr. Singh. Despite using medications as prescribed by Dr. Sa domínguez including Spiriva, Daliresp, albuterol inhaler and duo nebs along with Symbicort he has continued to have decline. He does report this time of year is when his breathing is typically the worst. Status: Acute (2) HTN (hypertension): Normally on metoprolol and Aldactone Status: Chronic Qualifiers: Hypertension type: other secondary hypertension Qualified Code(s): I15.8 - Other secondary hypertension (3) Hyperlipidemia: Chronically on statin therapy Status: Chronic Qualifiers: Hyperlipidemia type: mixed hyperlipidemia Qualified Code(s): E78.2 - Mixed hyperlipidemia (4) CAD (coronary artery disease): With a history of prior stent on chronic aspirin and Plavix Status: Acute Qualifiers: Coronary Disease-Associated Artery/Lesion type: [place] artery [place] vs. transplanted heart: [place] heart Associated angina: angina presence unspecified Qualified Code(s): I25.10 - Atherosclerotic heart disease of [place] coronary artery without angina pectoris (5) Hyperthyroidism: Low TSH noted on multiple occasions but usually with normal free T3 and free T4 Status: Chronic (6) Macrocytic anemia: With gradual decline in hemoglobin, no reported bleeding Status: Acute (7) Sacral decubitus ulcer: Present on admission, stage II versus previous stage III healing Status: Acute Qualifiers: Pressure injury stage: stage 2 Qualified Code(s): L89.152 - Pressure ulcer of sacral region, stage 2 (8) Anxiety: Chronically on as needed Valium despite hypercapnia Status: Chronic (9) Chronic back pain: Normally on hydrocodone and Soma Status: Chronic Qualifiers: Back pain location: low back pain Back pain laterality: bilateral Sciatica presence: with sciatica Sciatica laterality: bilateral sciatica Qualified Code(s): M54.42 - Lumbago with sciatica, left side; M54.41 - Lumbago with sciatica, right side; G89.29 - Other chronic pain Additional A&P Information Urinary changes suggestive of prostatic hypertrophy Observation admission for now Steroids, both systemic and inhaled Scheduled and as needed breathing treatments Continue oxygen therapy weaning back to home amount as able Doxycycline BiPAP if needed Follow-up pending blood cultures Need to get home medications clarified but anticipate continuation of potentially a lower dose of metoprolol, spironolactone, aspirin, statin and Plavix Check TSH, B12 and folate Monitor H&H Continue home pain medications Home benzodiazepines at a lower dose presently Flomax Lovenox for DVT prophylaxis PPI for GI prophylaxis Supportive care otherwise Currently anticipate disposition home on usual oxygen Plans were discussed with patient and he was given an opportunity to ask questions CODE STATUS was discussed with Mr. Sweet and he would want resuscitation, full CODE STATUS has been ordered Attestations Medical Necessity Statement*: Currently anticipate a stay less than 2 midnights in a gentleman chronic respiratory failure secondary to COPD presenting with acute exacerbation. Plans are as noted above. Currently requiring an increase from baseline oxygen, steroid treatment and aggressive pulmonary toilet Coding Level of Care Code Acute Wire Inserter for Chg Fwd Diagnoses Acute exacerbation of chronic obstructive pulmonary disease J44.1 HTN (hypertension) I15.8 Hypertension type: other secondary hypertension Hyperlipidemia E78.2 Hyperlipidemia type: mixed hyperlipidemia CAD (coronary artery disease) I25.10 Coronary Disease-Associated Artery/Lesion type: [place] artery [place] vs. transplanted heart: [place] heart Associated angina: angina presence unspecified Hyperthyroidism E05.90 Macrocytic anemia D53.9 Sacral decubitus ulcer L89.152 Pressure injury stage: stage 2 Anxiety F41.9 Chronic back pain M54.42; M54.41; G89.29 Back pain location: low back pain Back pain laterality: bilateral Sciatica presence: with sciatica Sciatica laterality: bilateral sciatica
[2021-07-27 07:53] LABS: Troponin 5 6HR 14.29 ng/L (0-15)
[2021-07-27] MEDS: budesonide 0.5 mg/2 mL Neb INHALATION ×2 (08:25→20:16)
[2021-07-27] MEDS: ipratropium-albuterol 3 mL Neb INHALATION ×3 (08:25→20:16)
[2021-07-27] MEDS: docusate sodium 100 mg Capsule PO ×2 (08:33→16:20)
[2021-07-27] MEDS: enoxaparin 30 mg/0.3 mL Syringe SUBCUT (08:33)
[2021-07-27] MEDS: doxycycline 100 mg Tablet PO (08:33)
[2021-07-27] MEDS: aspirin 81 mg EC Tablet PO (08:33)
[2021-07-27] MEDS: loratadine 10 mg Tablet PO (08:33)
[2021-07-27] MEDS: clopidogrel 75 mg Tablet PO (08:33)
[2021-07-27] MEDS: HYDROcodone-acetaminophen 5-325 mg Tablet 1 TAB PO ×4 (08:33→17:50)
[2021-07-27] MEDS: pantoprazole DR 40 mg Tablet PO (08:33)
[2021-07-27] MEDS: fluticasone nasal spray 16gm Btl 2 SPRAY NASAL ×2 (08:33→16:20)
[2021-07-27] MEDS: tamsulosin 0.4 mg Capsule PO (08:34)
[2021-07-27 08:44] LABS: Thyroid Stimulating Hormone 0.02 uIU/mL (0.27-4.20)
[2021-07-27] MEDS: azithromycin 500 MG in sodium chloride 0.9% 250 ML 250 MG IV (15:06)
[2021-07-27] MEDS: diazePAM 2 mg Tablet PO (15:29)
--- NOTE | 2021-07-27 19:24 | PM.PN ---
Subjective Subjective: Interval history: Patient was seen and examined this morning continued to complain of shortness of breath, he was also complaining of generalized body pain, predominantly back pain as well as chest pain. Continue to have significant wheezing. Medications: Reviewed: Yes Vitals/I&O/Wt Last Vital Signs Temp 97.8 F 07/27/21 16:00 Pulse 125 H 07/27/21 16:00 Resp 18 07/27/21 16:00 BP 132/70 07/27/21 16:00 Pulse Ox 88 L 07/27/21 16:00 07/27/21 07/27/21 07/27/21 06:59 14:59 22:59 Intake Total 600 / 600 240 / 240 490 / 730 Output Total 200 / 200 Balance 600 / 600 40 / 40 490 / 530 Weight last 48 hrs Weight 48.081 kg Physical Exam Const: COMMON NORMALS: patient oriented x3 HENMT: COMMON NORMALS: normocephalic and atraumatic HEAD & SCALP: normocephalic and atraumatic Resp: OTHER: B/L Wheezing in both lungs [place]. Diminished air entry B/L Cardio: COMMON NORMALS: regular rate, regular rhythm, S1 normal heart sound present, S2 normal heart sound present, No gallops present (Cardio), No murmurs present (Cardio), No rub (Cardio) and Peripheral pulses 2+ throughout RATE: regular rate RHYTHM: regular rhythm HEART SOUNDS: S1 normal heart sound present and S2 normal heart sound present PERIPHERAL PULSES: Peripheral pulses 2+ throughout GI: COMMON NORMALS: Normal to inspection, nondistended, normoactive bowel sounds present, Soft to palpation, non-tender, No hepatosplenomegaly present and no masses AUSCULTATION: Yes normoactive bowel sounds PALPATION: Yes Soft to palpation and Yes No hepatosplenomegaly present RECTAL EXAM: Yes deferred Extremity: COMMON NORMALS: no clubbing, cyanosis or edema and no pedal edema Neuro: COMMON NORMALS: patient oriented x3 Data : 07/26/21 21:30 07/26/21 21:30 Micro: Microbiology 07/26/21 22:29 Blood Culture - Preliminary Blood 07/26/21 22:29 Blood Culture - Preliminary Blood SPECIMEN COLLECTED A&P Assessment and plan (1) Acute exacerbation of chronic obstructive pulmonary disease: Acute on chronic exacerbation of COPD. Continue Solu-Medrol 60 IV every 8 hours Azithromycin 500 mg IV daily Duo nebs Supplemental oxygen as needed Status: Acute (2) HTN (hypertension): Blood pressure currently well controlled. Will resume home medication. Status: Chronic Qualifiers: Hypertension type: other secondary hypertension Qualified Code(s): I15.8 - Other secondary hypertension (3) Hyperlipidemia: Chronically on statin therapy Status: Chronic Qualifiers: Hyperlipidemia type: mixed hyperlipidemia Qualified Code(s): E78.2 - Mixed hyperlipidemia (4) CAD (coronary artery disease): Continue aspirin and Plavix Status: Acute Qualifiers: Coronary Disease-Associated Artery/Lesion type: [place] artery [place] vs. transplanted heart: [place] heart Associated angina: angina presence unspecified Qualified Code(s): I25.10 - Atherosclerotic heart disease of [place] coronary artery without angina pectoris (5) Hyperthyroidism: Low TSH noted on multiple occasions. Follow repeat Am thyroid function test. Free T3 and free T4 in the past has been normal. Status: Chronic (6) Macrocytic anemia: With gradual decline in hemoglobin, no reported bleeding Status: Acute (7) Sacral decubitus ulcer: Present on admission, stage II versus previous stage III healing Status: Acute Qualifiers: Pressure injury stage: stage 2 Qualified Code(s): L89.152 - Pressure ulcer of sacral region, stage 2 (8) Anxiety: Chronically on as needed Valium despite hypercapnia Status: Chronic (9) Chronic back pain: Normally on hydrocodone and Soma Status: Chronic Qualifiers: Back pain location: low back pain Back pain laterality: bilateral Sciatica presence: with sciatica Sciatica laterality: bilateral sciatica Qualified Code(s): M54.42 - Lumbago with sciatica, left side; M54.41 - Lumbago with sciatica, right side; G89.29 - Other chronic pain Additional A&P Information Urinary changes suggestive of prostatic hypertrophy Observation admission for now Steroids, both systemic and inhaled Scheduled and as needed breathing treatments Continue oxygen therapy weaning back to home amount as able Doxycycline BiPAP if needed Follow-up pending blood cultures Need to get home medications clarified but anticipate continuation of potentially a lower dose of metoprolol, spironolactone, aspirin, statin and Plavix Check TSH, B12 and folate Monitor H&H Continue home pain medications Home benzodiazepines at a lower dose presently Flomax Lovenox for DVT prophylaxis PPI for GI prophylaxis Supportive care otherwise Currently anticipate disposition home on usual oxygen Plans were discussed with patient and he was given an opportunity to ask questions CODE STATUS was discussed with Mr. 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 transplanted heart: [place] heart Associated angina: angina presence unspecified Hyperthyroidism E05.90 Macrocytic anemia D53.9 Sacral decubitus ulcer L89.152 Pressure injury stage: stage 2 Anxiety F41.9 Chronic back pain M54.42; M54.41; G89.29 Back pain location: low back pain Back pain laterality: bilateral Sciatica presence: with sciatica Sciatica laterality: bilateral sciatica
[2021-07-27] MEDS: atorvastatin 40 mg Tablet PO (22:11)
[2021-07-28] VITALS (11 sets, daily range): BP systolic 149–177; BP diastolic 72–97; PULSE 72–121; RESP 16–20; TEMP 36.5–36.8; O2SAT 95–100
[2021-07-28] MEDS: HYDROcodone-acetaminophen 5-325 mg Tablet 1 TAB PO ×2 (00:14→06:31)
[2021-07-28] MEDS: diazePAM 2 mg Tablet PO ×3 (00:15→14:57)
[2021-07-28] MEDS: guaiFENesin 100 mg/5 mL UDC 10 mL 400 MG PO (01:05)
[2021-07-28 05:50] LABS: Basophils % 0.1 %; Hematocrit 37.2 % (42.0-52.0); Hemoglobin 11.5 g/dL (11.7-16.6); Lymphocytes # 0.3 10^3/uL (0.8-4.8); Lymphocytes % 2.4 %; Mean Corpuscular HGB Conc 30.9 g/dL (30.0-36.0); Mean Corpuscular Hemoglobin 29.7 pg (28.0-34.0); Mean Corpuscular Volume 96.1 fl (80-94); Mean Platelet Volume 10.4 fL (7.4-10.4); Monocytes # 0.5 10^3/uL (0.2-0.9); Monocytes % 4.3 %; Neutrophils # 11.76 10^3/uL (1.8-7.7); Neutrophils % 92.6 %; Nucleated Red Blood Cells % 0 %; Platelet Count 280 10^3/cmm (130-400); Red Blood Count 3.87 10^6/uL (4.1-5.3); White Blood Count 12.7 10^3/uL (4.0-10.0)
--- NOTE | 2021-07-28 05:55 | PC.NURSE ---
SHIFT SUMMARY Did not rest well first half of shift. Had c/o back and chest pain that was worsened by coughing and SOB. Has a prod cough. Declined offer of med for cough then decided to take it. Did help with the cough and has rested better after it. Has received Hydrocodone & Soma for pain and Valium for anxiety. Becomes quite SOB with any exertion and then says he has panic attacks
[2021-07-28 06:11] LABS: Anion Gap 8.2 (5-19); Blood Urea Nitrogen 14 mg/dL (8-23); Calcium 9.1 mg/dL (8.5-10.5); Carbon Dioxide 36 mmol/L (22-29); Chloride 98 mmol/L (98-107); Glomerular Filtration Rate 296.4 mL/min (90-130); Glucose 111 mg/dL (65-115); Magnesium 1.9 mg/dL (1.7-2.3); Osmolality Calculated 287 mOsm/kg (285-295); Phosphorus 2.8 mg/dL (2.5-4.5); Potassium 4.2 mmol/L (3.5-5.1); Sodium 138 mmol/L (136-145)
[2021-07-28 06:30] LABS: Thyroid Stimulating Hormone 0.02 uIU/mL (0.27-4.20); Vitamin B12 509 pg/mL (232-1245)
[2021-07-28] MEDS: enoxaparin 30 mg/0.3 mL Syringe SUBCUT (06:31)
[2021-07-28 06:41] LABS: Folate Level 8.5 ng/mL (4.5-32.2)
[2021-07-28 06:50] LABS: Free T4 Free Thyroxine 1.63 ng/dL (0.82-1.77)
[2021-07-28] MEDS: pantoprazole DR 40 mg Tablet PO (08:50)
[2021-07-28] MEDS: tamsulosin 0.4 mg Capsule PO (08:50)
[2021-07-28] MEDS: fluticasone nasal spray 16gm Btl 2 SPRAY NASAL ×2 (08:50→17:26)
[2021-07-28] MEDS: aspirin 81 mg EC Tablet PO (08:50)
[2021-07-28] MEDS: clopidogrel 75 mg Tablet PO (08:50)
[2021-07-28] MEDS: loratadine 10 mg Tablet PO (08:50)
--- NOTE | 2021-07-28 09:34 | PC.CHAP ---
Pastoral Care Encounter/Spiritual Assessment Type of Contact [] Declined audio visual collections coordinator visit [] Patient/Family/Request visit [] Outpatient visit [] Follow-up visit [] Physician referral [] Code/Alert x[x] Routine visit [] Staff referral [] Actively dying [] Patient sleeping [] Family support [] [] Out of room [] Palliative care [] [] Receiving care in room [] Pre-surgical visit [] Trauma [] Long length of stay [] ICU visit [] Other: Relational/Emotional Strength [] Patient feels connected with others/family/visitors/staff [x] Distress [x] Loneliness/isolation [] Abandonment Spirituality of Patient [x] Person of Nayeli [] Attends Orthodox of their [place] [x] Believes in Prayer [] Reads Bible or Moravian materials [] There are 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 [x] Active listening [x] Non-anxious presence [x] Spiritual/emotional support [] Crisis/trauma care [] Spiritual counseling [] Bereavement support [] Provided bereavement packet [] Provided Bible/devotional materials [] Provided toy/stuffed animal, coloring book to patient or family member [] Provided Communion [] Anointing/[place] [] Salvation [] Completed spiritual assessment [] Other: Impact on Illness or Injury [] Angry [] Fearful [] Anxious [] Often cries [] Exhaustion [] Unable to work [x] Unable to attend adventism [] Unable to walk/stand [] Unable to read [] Unable to drive [] Unable to eat/drink [] Unable to sleep [] Unable to be with family [] Patient intubated [] Other: Summary Time spent with patient 15 min
[2021-07-28] MEDS: budesonide 0.5 mg/2 mL Neb INHALATION ×2 (10:06→21:00)
[2021-07-28] MEDS: ipratropium-albuterol 3 mL Neb INHALATION ×3 (10:06→21:00)
[2021-07-28] MEDS: HYDROcodone-acetaminophen 10-325 mg Tablet PO ×3 (12:18→20:08)
[2021-07-28] MEDS: metoprolol tartrate 50 mg Tablet PO ×2 (12:18→17:27)
[2021-07-28] MEDS: spironolactone 25 mg Tablet PO (12:18)
[2021-07-28] MEDS: azithromycin 500 MG in sodium chloride 0.9% 250 ML 250 MG IV (14:57)
--- NOTE | 2021-07-28 16:49 | PM.PN ---
Subjective Subjective: Interval history: Patient was seen this morning, no fevers, no chills, no nausea, vomiting, is a bit upset as he is not getting his home hydrocodone dose, he continues to have complaints of wheezing, and shortness of breath, Vitals/I&O/Wt Last Vital Signs Temp 97.9 F 07/28/21 16:00 Pulse 88 07/28/21 16:00 Resp 17 07/28/21 16:00 BP 154/79 07/28/21 16:00 Pulse Ox 100 07/28/21 16:00 07/28/21 07/28/21 07/28/21 06:59 14:59 22:59 Intake Total 150 / 1180 120 / 120 250 / 370 Output Total 450 / 900 Balance -300 / 280 120 / 120 250 / 370 Weight last 48 hrs Weight 48.081 kg Physical Exam Const: COMMON NORMALS: no acute distress and patient oriented x3 Resp: COMMON NORMALS: normal respiratory effort, No retractions and No use of accessory muscles AUSCULTATION: wheezes Cardio: COMMON NORMALS: regular rate, regular rhythm, S1 normal heart sound present and S2 normal heart sound present RATE: regular rate RHYTHM: regular rhythm HEART SOUNDS: S1 normal heart sound present and S2 normal heart sound present GI: COMMON NORMALS: Normal to inspection, nondistended, normoactive bowel sounds present, Soft to palpation and non-tender PALPATION: Yes Soft to palpation Extremity: COMMON NORMALS: no pedal edema Neuro: COMMON NORMALS: patient oriented x3 Psych: COMMON NORMALS: mental status grossly normal Data : 07/28/21 05:18 07/28/21 05:18 Micro: Microbiology 07/26/21 22:29 Blood Culture - Preliminary Blood NEGATIVE TO DATE 07/26/21 22:29 Blood Culture - Preliminary Blood A&P Assessment and plan (1) Acute exacerbation of chronic obstructive pulmonary disease: Acute on chronic exacerbation of COPD. Continue Solu-Medrol 60 IV every 8 hours We will change to doxycycline 100 twice daily Duo nebs Supplemental oxygen as needed Status: Acute (2) HTN (hypertension): Blood pressure currently well controlled. Will resume home medication. Status: Chronic Qualifiers: Hypertension type: other secondary hypertension Qualified Code(s): I15.8 - Other secondary hypertension (3) Hyperlipidemia: Chronically on statin therapy Status: Chronic Qualifiers: Hyperlipidemia type: mixed hyperlipidemia Qualified Code(s): E78.2 - Mixed hyperlipidemia (4) CAD (coronary artery disease): Continue aspirin and Plavix Status: Acute Qualifiers: Coronary Disease-Associated Artery/Lesion type: [place] artery [place] vs. transplanted heart: [place] heart Associated angina: angina presence unspecified Qualified Code(s): I25.10 - Atherosclerotic heart disease of [place] coronary artery without angina pectoris (5) Hyperthyroidism: Low TSH noted on multiple occasions. Follow repeat Am thyroid function test. Free T3 and free T4 in the past has been normal. Status: Chronic (6) Macrocytic anemia: With gradual decline in hemoglobin, no reported bleeding Status: Acute (7) Sacral decubitus ulcer: Present on admission, stage II versus previous stage III healing Status: Acute Qualifiers: Pressure injury stage: stage 2 Qualified Code(s): L89.152 - Pressure ulcer of sacral region, stage 2 (8) Anxiety: Chronically on as needed Valium despite hypercapnia Status: Chronic (9) Chronic back pain: Normally on hydrocodone and Soma Status: Chronic Qualifiers: Back pain location: low back pain Back pain laterality: bilateral Sciatica presence: with sciatica Sciatica laterality: bilateral sciatica Qualified Code(s): M54.42 - Lumbago with sciatica, left side; M54.41 - Lumbago with sciatica, right side; G89.29 - Other chronic pain Additional A&P Information Urinary changes suggestive of prostatic hypertrophy Requires inpatient mission Steroids, both systemic and inhaled Scheduled and as needed breathing treatments Continue oxygen therapy weaning back to home amount as able Doxycycline BiPAP if needed Follow-up pending blood cultures Need to get home medications clarified but anticipate continuation of potentially a lower dose of metoprolol, spironolactone, aspirin, statin and Plavix Decreased TSH, check free T3, T4 Monitor H&H Continue home pain medications Home benzodiazepines at a lower dose presently Flomax Lovenox for DVT prophylaxis PPI for GI prophylaxis Supportive care otherwise Currently anticipate disposition home on usual oxygen Plans were discussed with patient and he was given an opportunity to ask questions CODE STATUS was discussed with Mr. 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 transplanted heart: [place] heart Associated angina: angina presence unspecified Hyperthyroidism E05.90 Macrocytic anemia D53.9 Sacral decubitus ulcer L89.152 Pressure injury stage: stage 2 Anxiety F41.9 Chronic back pain M54.42; M54.41; G89.29 Back pain location: low back pain Back pain laterality: bilateral Sciatica presence: with sciatica Sciatica laterality: bilateral sciatica
--- NOTE | 2021-07-28 16:52 | PC.RESP ---
PULMONARY REHAB INFORMATION SENT TO PATIENT.
[2021-07-28] MEDS: doxycycline 100 mg Tablet PO (17:27)
[2021-07-28] MEDS: docusate sodium 100 mg Capsule PO (17:27)
[2021-07-28] MEDS: trazodone 150 mg Tablet PO (20:07)
[2021-07-28] MEDS: atorvastatin 40 mg Tablet PO (20:08)
[2021-07-29] VITALS (14 sets, daily range): BP systolic 131–156; BP diastolic 63–81; PULSE 80–106; RESP 16–22; TEMP 36.5–37; O2SAT 90–99
--- NOTE | 2021-07-29 01:12 | PC.NURSE ---
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
[2021-07-29] MEDS: diazePAM 2 mg Tablet PO ×4 (01:51→22:35)
[2021-07-29] MEDS: ipratropium-albuterol 3 mL Neb INHALATION ×4 (03:23→20:16)
[2021-07-29 06:18] LABS: Basophils % 0.1 %; Hematocrit 35.4 % (42.0-52.0); Hemoglobin 10.8 g/dL (11.7-16.6); Lymphocytes # 0.3 10^3/uL (0.8-4.8); Lymphocytes % 2.5 %; Mean Corpuscular HGB Conc 30.5 g/dL (30.0-36.0); Mean Corpuscular Hemoglobin 29.7 pg (28.0-34.0); Mean Corpuscular Volume 97.3 fl (80-94); Mean Platelet Volume 10.3 fL (7.4-10.4); Monocytes # 0.7 10^3/uL (0.2-0.9); Monocytes % 6.5 %; Neutrophils # 10.06 10^3/uL (1.8-7.7); Neutrophils % 90.5 %; Nucleated Red Blood Cells % 0 %; Platelet Count 248 10^3/cmm (130-400); Red Blood Count 3.64 10^6/uL (4.1-5.3); Red Cell Distribution Width 13.1 % (12.1-15.1); White Blood Count 11.1 10^3/uL (4.0-10.0)
[2021-07-29 06:44] LABS: Alanine Aminotransferase 9 U/L (0-41); Albumin Level 3.2 g/dL (3.5-5.2); Alkaline Phosphatase 50 IU/L (40-130); Anion Gap 6.4 (5-19); Aspartate Amino Transferase 12 U/L (0-40); Blood Urea Nitrogen 15 mg/dL (8-23); Calcium 8.8 mg/dL (8.5-10.5); Carbon Dioxide 36 mmol/L (22-29); Chloride 101 mmol/L (98-107); Globulin 2.1 g/dL (1.3-4.6); Glomerular Filtration Rate 473.3 mL/min (90-130); Glucose 109 mg/dL (65-115); Magnesium 1.9 mg/dL (1.7-2.3); Osmolality Calculated 289 mOsm/kg (285-295); Phosphorus 2.5 mg/dL (2.5-4.5); Potassium 4.4 mmol/L (3.5-5.1); Sodium 139 mmol/L (136-145); Total Bilirubin 0.2 mg/dL (0.15-1.2); Total Protein 5.3 g/dL (6.6-8.7)
[2021-07-29] MEDS: enoxaparin 30 mg/0.3 mL Syringe SUBCUT (07:58)
[2021-07-29] MEDS: doxycycline 100 mg Tablet PO ×2 (07:58→17:57)
[2021-07-29] MEDS: fluticasone nasal spray 16gm Btl 2 SPRAY NASAL ×2 (07:58→17:58)
[2021-07-29] MEDS: HYDROcodone-acetaminophen 10-325 mg Tablet PO ×4 (07:59→20:17)
[2021-07-29] MEDS: loratadine 10 mg Tablet PO (07:59)
[2021-07-29] MEDS: aspirin 81 mg EC Tablet PO (07:59)
[2021-07-29] MEDS: spironolactone 25 mg Tablet PO (07:59)
[2021-07-29] MEDS: tamsulosin 0.4 mg Capsule PO (07:59)
[2021-07-29] MEDS: clopidogrel 75 mg Tablet PO (07:59)
[2021-07-29] MEDS: docusate sodium 100 mg Capsule PO (07:59)
[2021-07-29] MEDS: metoprolol tartrate 50 mg Tablet PO ×2 (08:00→17:58)
[2021-07-29] MEDS: pantoprazole DR 40 mg Tablet PO (08:01)
[2021-07-29] MEDS: budesonide 0.5 mg/2 mL Neb INHALATION ×2 (08:53→20:16)
[2021-07-29 10:57] LABS: T3 Total 96 ng/dL (76-181)
--- NOTE | 2021-07-29 16:59 | PM.PN ---
Subjective Subjective: Interval history: Patient was seen this morning, he continues to complain of wheezing, no fevers, chills, nausea, no vomiting, he tells me that he is not getting his hydrocodone and Soma as he takes at home he would like that corrected, he feels that he is already to go home today Vitals/I&O/Wt Last Vital Signs Temp 98.1 F 07/29/21 15:46 Pulse 101 H 07/29/21 15:46 Resp 16 07/29/21 15:46 BP 148/74 07/29/21 15:46 Pulse Ox 96 07/29/21 15:46 07/29/21 07/29/21 07/29/21 06:59 14:59 22:59 Intake Total 400 / 400 Output Total 250 / 660 375 / 375 Balance -250 / -290 Physical Exam Const: COMMON NORMALS: no acute distress and patient oriented x3 Resp: COMMON NORMALS: normal respiratory effort, No retractions, No use of accessory muscles and clear to auscultation bilaterally AUSCULTATION: clear to auscultation bilaterally Cardio: COMMON NORMALS: regular rate, regular rhythm, S1 normal heart sound present and S2 normal heart sound present RATE: regular rate RHYTHM: regular rhythm HEART SOUNDS: S1 normal heart sound present and S2 normal heart sound present GI: COMMON NORMALS: Normal to inspection, nondistended, normoactive bowel sounds present, Soft to palpation and non-tender PALPATION: Yes Soft to palpation Extremity: COMMON NORMALS: no pedal edema Neuro: COMMON NORMALS: patient oriented x3 Psych: COMMON NORMALS: mental status grossly normal Data : 07/29/21 05:40 07/29/21 05:40 Micro: Microbiology 07/26/21 22:29 Blood Culture - Preliminary Blood NEGATIVE TO DATE 07/26/21 22:29 Blood Culture - Preliminary Blood A&P Assessment and plan (1) Acute exacerbation of chronic obstructive pulmonary disease: Acute on chronic exacerbation of COPD. Continue Solu-Medrol 60 IV every 8 hours Continue doxycycline 100 mg twice a day Duo nebs Supplemental oxygen as needed Status: Acute (2) HTN (hypertension): Blood pressure currently well controlled. Will resume home medication. Status: Chronic Qualifiers: Hypertension type: other secondary hypertension Qualified Code(s): I15.8 - Other secondary hypertension (3) Hyperlipidemia: Chronically on statin therapy Status: Chronic Qualifiers: Hyperlipidemia type: mixed hyperlipidemia Qualified Code(s): E78.2 - Mixed hyperlipidemia (4) CAD (coronary artery disease): Continue aspirin and Plavix Status: Acute Qualifiers: Coronary Disease-Associated Artery/Lesion type: [place] artery [place] vs. transplanted heart: [place] heart Associated angina: angina presence unspecified Qualified Code(s): I25.10 - Atherosclerotic heart disease of [place] coronary artery without angina pectoris (5) Hyperthyroidism: Low TSH noted on multiple occasions. Follow repeat Am thyroid function test. Free T3 and free T4 in the past has been normal. Status: Chronic (6) Macrocytic anemia: With gradual decline in hemoglobin, no reported bleeding Status: Acute (7) Sacral decubitus ulcer: Present on admission, stage II versus previous stage III healing Status: Acute Qualifiers: Pressure injury stage: stage 2 Qualified Code(s): L89.152 - Pressure ulcer of sacral region, stage 2 (8) Anxiety: Chronically on as needed Valium despite hypercapnia Status: Chronic (9) Chronic back pain: Normally on hydrocodone and Soma Status: Chronic Qualifiers: Back pain location: low back pain Back pain laterality: bilateral Sciatica presence: with sciatica Sciatica laterality: bilateral sciatica Qualified Code(s): M54.42 - Lumbago with sciatica, left side; M54.41 - Lumbago with sciatica, right side; G89.29 - Other chronic pain Additional A&P Information Urinary changes suggestive of prostatic hypertrophy Requires inpatient mission Steroids, both systemic and inhaled Scheduled and as needed breathing treatments Continue oxygen therapy weaning back to home amount as able Doxycycline BiPAP if needed Follow-up pending blood cultures Need to get home medications clarified but anticipate continuation of potentially a lower dose of metoprolol, spironolactone, aspirin, statin and Plavix Decreased TSH, normal free T3, normal free T4 Monitor H&H Continue home pain medications Flomax Lovenox for DVT prophylaxis PPI for GI prophylaxis Supportive care otherwise Currently anticipate disposition home on usual oxygen Plans were discussed with patient and he was given an opportunity to ask questions CODE STATUS was discussed with Mr. 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 transplanted heart: [place] heart Associated angina: angina presence unspecified Hyperthyroidism E05.90 Macrocytic anemia D53.9 Sacral decubitus ulcer L89.152 Pressure injury stage: stage 2 Anxiety F41.9 Chronic back pain M54.42; M54.41; G89.29 Back pain location: low back pain Back pain laterality: bilateral Sciatica presence: with sciatica Sciatica laterality: bilateral sciatica
[2021-07-29] MEDS: atorvastatin 40 mg Tablet PO (20:17)
[2021-07-29] MEDS: trazodone 150 mg Tablet PO (20:17)
[2021-07-30] VITALS (10 sets, daily range): BP systolic 115–156; BP diastolic 64–77; PULSE 63–120; RESP 16–19; TEMP 36.4–36.8; O2SAT 92–100
[2021-07-30] MEDS: HYDROcodone-acetaminophen 10-325 mg Tablet PO ×5 (00:15→19:50)
[2021-07-30] MEDS: ipratropium-albuterol 3 mL Neb INHALATION ×4 (02:05→20:03)
[2021-07-30 03:58] LABS: T4 Total 8.1 mcg/dL (4.9-10.5)
[2021-07-30] MEDS: diazePAM 2 mg Tablet PO ×2 (05:27→15:13)
[2021-07-30 06:07] LABS: Basophils % 0.2 %; Hematocrit 34.8 % (42.0-52.0); Hemoglobin 10.7 g/dL (11.7-16.6); Lymphocytes # 0.2 10^3/uL (0.8-4.8); Lymphocytes % 1.9 %; Mean Corpuscular HGB Conc 30.7 g/dL (30.0-36.0); Mean Corpuscular Hemoglobin 29.7 pg (28.0-34.0); Mean Corpuscular Volume 96.7 fl (80-94); Mean Platelet Volume 10.4 fL (7.4-10.4); Monocytes # 0.7 10^3/uL (0.2-0.9); Monocytes % 5.7 %; Neutrophils # 10.93 10^3/uL (1.8-7.7); Neutrophils % 91.9 %; Nucleated Red Blood Cells % 0 %; Platelet Count 218 10^3/cmm (130-400); Red Cell Distribution Width 12.9 % (12.1-15.1); White Blood Count 11.9 10^3/uL (4.0-10.0)
[2021-07-30 06:31] LABS: Alanine Aminotransferase 10 U/L (0-41); Albumin Level 3.1 g/dL (3.5-5.2); Alkaline Phosphatase 49 IU/L (40-130); Aspartate Amino Transferase 11 U/L (0-40); Blood Urea Nitrogen 14 mg/dL (8-23); Calcium 8.9 mg/dL (8.5-10.5); Chloride 99 mmol/L (98-107); Globulin 2.3 g/dL (1.3-4.6); Glomerular Filtration Rate 296.4 mL/min (90-130); Glucose 128 mg/dL (65-115); Magnesium 1.9 mg/dL (1.7-2.3); Osmolality Calculated 288 mOsm/kg (285-295); Phosphorus 2.4 mg/dL (2.5-4.5); Potassium 4.8 mmol/L (3.5-5.1); Sodium 138 mmol/L (136-145); Total Bilirubin 0.3 mg/dL (0.15-1.2); Total Protein 5.4 g/dL (6.6-8.7)
[2021-07-30] MEDS: fluticasone nasal spray 16gm Btl 2 SPRAY NASAL ×2 (08:01→17:05)
[2021-07-30] MEDS: metoprolol tartrate 50 mg Tablet PO ×2 (08:02→17:06)
[2021-07-30] MEDS: aspirin 81 mg EC Tablet PO (08:02)
[2021-07-30] MEDS: pantoprazole DR 40 mg Tablet PO (08:02)
[2021-07-30] MEDS: clopidogrel 75 mg Tablet PO (08:02)
[2021-07-30] MEDS: loratadine 10 mg Tablet PO (08:02)
[2021-07-30] MEDS: doxycycline 100 mg Tablet PO (08:02)
[2021-07-30] MEDS: spironolactone 25 mg Tablet PO (08:02)
[2021-07-30] MEDS: tamsulosin 0.4 mg Capsule PO (08:02)
[2021-07-30] MEDS: enoxaparin 30 mg/0.3 mL Syringe SUBCUT (08:02)
[2021-07-30] MEDS: docusate sodium 100 mg Capsule PO (08:02)
[2021-07-30] MEDS: budesonide 0.5 mg/2 mL Neb INHALATION ×2 (08:11→20:02)
--- NOTE | 2021-07-30 14:45 | PM.PN ---
Subjective Subjective: Interval history: Patient was seen this morning, continues to complain of a productive cough, he is quite upset this morning, he tells me that he normally takes the Soma every 4 hours with his hydrocodone 2 tablets, I confirmed with our pharmacy that he is prescribed 4 times daily, I also had nurses reach out to Dr. Howard's office, its prescribed 4 times daily, I advised patient that for now we will prescribe the soma 4 times daily, he was not too pleased with this, he tells me that he will have his family bring up his bottles and show me that its every 4 hours, continues to complain of wheezing Vitals/I&O/Wt Last Vital Signs Temp 98.2 F 07/30/21 12:00 Pulse 63 07/30/21 12:00 Resp 17 07/30/21 12:00 BP 115/64 07/30/21 12:00 Pulse Ox 94 07/30/21 12:00 07/29/21 07/30/21 07/30/21 22:59 06:59 14:59 Intake Total 280 / 680 320 / 320 Output Total 100 / 475 820 / 1295 200 / 200 Balance -100 / -75 -540 / -615 120 / 120 Physical Exam Const: COMMON NORMALS: no acute distress and patient oriented x3 Resp: COMMON NORMALS: normal respiratory effort and No retractions AUSCULTATION: wheezes scattered wheezes Cardio: COMMON NORMALS: regular rate, regular rhythm, S1 normal heart sound present and S2 normal heart sound present RATE: regular rate RHYTHM: regular rhythm HEART SOUNDS: S1 normal heart sound present and S2 normal heart sound present GI: COMMON NORMALS: Normal to inspection, nondistended, normoactive bowel sounds present, Soft to palpation and non-tender PALPATION: Yes Soft to palpation Neuro: COMMON NORMALS: patient oriented x3 Psych: COMMON NORMALS: mental status grossly normal Data : 07/30/21 05:14 07/30/21 05:14 Micro: Microbiology 07/26/21 22:29 Blood Culture - Preliminary Blood NEGATIVE TO DATE 07/26/21 22:29 Blood Culture - Preliminary Blood A&P Assessment and plan (1) Acute exacerbation of chronic obstructive pulmonary disease: Acute on chronic exacerbation of COPD. Continue Solu-Medrol 60 IV every 8 hours Given sputum culture positive in the past for Pseudomonas, stop doxycycline switch to primaxin Duo nebs Supplemental oxygen as needed Continue his home hydrocodone 10-325 1 to 2 tablets every 4 hours as needed, Soma 350 mg 4 times daily as needed, diazepam 2 mg tablet every 6 hours as needed Monitor respiratory status closely Plan for today stop doxycycline switch to Primaxin monitor respiratory status Status: Acute (2) HTN (hypertension): Blood pressure currently well controlled. Will resume home medication. Status: Chronic Qualifiers: Hypertension type: other secondary hypertension Qualified Code(s): I15.8 - Other secondary hypertension (3) Hyperlipidemia: Chronically on statin therapy Status: Chronic Qualifiers: Hyperlipidemia type: mixed hyperlipidemia Qualified Code(s): E78.2 - Mixed hyperlipidemia (4) CAD (coronary artery disease): Continue aspirin and Plavix Status: Acute Qualifiers: Coronary Disease-Associated Artery/Lesion type: [place] artery [place] vs. transplanted heart: [place] heart Associated angina: angina presence unspecified Qualified Code(s): I25.10 - Atherosclerotic heart disease of [place] coronary artery without angina pectoris (5) Hyperthyroidism: Low TSH noted on multiple occasions. Follow repeat Am thyroid function test. Free T3 and free T4 in the past has been normal. Status: Chronic (6) Macrocytic anemia: With gradual decline in hemoglobin, no reported bleeding Status: Acute (7) Sacral decubitus ulcer: Present on admission, stage II versus previous stage III healing Status: Acute Qualifiers: Pressure injury stage: stage 2 Qualified Code(s): L89.152 - Pressure ulcer of sacral region, stage 2 (8) Anxiety: Chronically on as needed Valium despite hypercapnia Status: Chronic (9) Chronic back pain: Normally on hydrocodone and Soma Status: Chronic Qualifiers: Back pain location: low back pain Back pain laterality: bilateral Sciatica presence: with sciatica Sciatica laterality: bilateral sciatica Qualified Code(s): M54.42 - Lumbago with sciatica, left side; M54.41 - Lumbago with sciatica, right side; G89.29 - Other chronic pain Additional A&P Information Urinary changes suggestive of prostatic hypertrophy Requires inpatient admission Steroids, both systemic and inhaled Scheduled and as needed breathing treatments Continue oxygen therapy weaning back to home amount as able Doxycycline BiPAP if needed Follow-up pending blood cultures Need to get home medications clarified but anticipate continuation of potentially a lower dose of metoprolol, spironolactone, aspirin, statin and Plavix Decreased TSH, normal free T3, normal free T4 Monitor H&H Continue home pain medications Flomax Lovenox for DVT prophylaxis PPI for GI prophylaxis Supportive care otherwise Currently anticipate disposition home on usual oxygen Plans were discussed with patient and he was given an opportunity to ask questions CODE STATUS was discussed with Mr. 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 transplanted heart: [place] heart Associated angina: angina presence unspecified Hyperthyroidism E05.90 Macrocytic anemia D53.9 Sacral decubitus ulcer L89.152 Pressure injury stage: stage 2 Anxiety F41.9 Chronic back pain M54.42; M54.41; G89.29 Back pain location: low back pain Back pain laterality: bilateral Sciatica presence: with sciatica Sciatica laterality: bilateral sciatica
[2021-07-30] MEDS: trazodone 150 mg Tablet PO (20:29)
[2021-07-30] MEDS: atorvastatin 40 mg Tablet PO (20:29)
[2021-07-30 20:58] LABS: Anion Gap 9.8 (5-19); Carbon Dioxide 34 mmol/L (22-29)
[2021-07-31] VITALS (10 sets, daily range): BP systolic 142–171; BP diastolic 72–84; PULSE 73–112; RESP 16–20; TEMP 36.3–36.9; O2SAT 94–99
[2021-07-31] MEDS: HYDROcodone-acetaminophen 10-325 mg Tablet PO ×4 (05:14→18:20)
[2021-07-31 06:11] LABS: Basophils % 0.1 %; Hematocrit 33.7 % (42.0-52.0); Hemoglobin 10.5 g/dL (11.7-16.6); Lymphocytes # 0.2 10^3/uL (0.8-4.8); Lymphocytes % 1.6 %; Mean Corpuscular HGB Conc 31.2 g/dL (30.0-36.0); Mean Corpuscular Hemoglobin 29.9 pg (28.0-34.0); Mean Platelet Volume 10.3 fL (7.4-10.4); Monocytes # 0.8 10^3/uL (0.2-0.9); Monocytes % 5.7 %; Neutrophils # 13.37 10^3/uL (1.8-7.7); Neutrophils % 92.3 %; Nucleated Red Blood Cells % 0 %; Platelet Count 214 10^3/cmm (130-400); Red Blood Count 3.51 10^6/uL (4.1-5.3); Red Cell Distribution Width 13.1 % (12.1-15.1); White Blood Count 14.5 10^3/uL (4.0-10.0)
[2021-07-31 06:35] LABS: Alanine Aminotransferase 14 U/L (0-41); Alkaline Phosphatase 45 IU/L (40-130); Anion Gap 8.3 (5-19); Aspartate Amino Transferase 10 U/L (0-40); Blood Urea Nitrogen 17 mg/dL (8-23); Calcium 8.9 mg/dL (8.5-10.5); Carbon Dioxide 36 mmol/L (22-29); Chloride 99 mmol/L (98-107); Globulin 2.1 g/dL (1.3-4.6); Glomerular Filtration Rate 296.4 mL/min (90-130); Glucose 118 mg/dL (65-115); Magnesium 1.8 mg/dL (1.7-2.3); Osmolality Calculated 291 mOsm/kg (285-295); Phosphorus 2.2 mg/dL (2.5-4.5); Potassium 4.3 mmol/L (3.5-5.1); Sodium 139 mmol/L (136-145); Total Bilirubin 0.2 mg/dL (0.15-1.2); Total Protein 5.1 g/dL (6.6-8.7)
[2021-07-31] MEDS: pantoprazole DR 40 mg Tablet PO (08:28)
[2021-07-31] MEDS: tamsulosin 0.4 mg Capsule PO (08:28)
[2021-07-31] MEDS: clopidogrel 75 mg Tablet PO (08:28)
[2021-07-31] MEDS: docusate sodium 100 mg Capsule PO ×2 (08:28→18:22)
[2021-07-31] MEDS: diazePAM 2 mg Tablet PO ×2 (08:28→16:01)
[2021-07-31] MEDS: loratadine 10 mg Tablet PO (08:28)
[2021-07-31] MEDS: spironolactone 25 mg Tablet PO (08:28)
[2021-07-31] MEDS: enoxaparin 30 mg/0.3 mL Syringe SUBCUT (08:28)
[2021-07-31] MEDS: fluticasone nasal spray 16gm Btl 2 SPRAY NASAL ×2 (08:28→18:21)
[2021-07-31] MEDS: metoprolol tartrate 50 mg Tablet PO ×2 (08:29→18:22)
[2021-07-31] MEDS: aspirin 81 mg EC Tablet PO (08:29)
[2021-07-31] MEDS: budesonide 0.5 mg/2 mL Neb INHALATION ×2 (08:37→20:24)
[2021-07-31] MEDS: ipratropium-albuterol 3 mL Neb INHALATION ×3 (08:37→20:24)
--- NOTE | 2021-07-31 11:49 | ECG_ITS ---
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
[2021-07-31 13:07] LABS: Troponin(5th) Baseline 110 ng/L (0-15)
--- NOTE | 2021-07-31 13:16 | USCV_ITS ---
Onel Low Age: 71 Gender: M : 1950 Exam Date: 07/31/2021 13:51 Ordering Phys: Tyrone Ruvalcaba MD Technologist: Israel Blackmon Exam Location: [facility] [place] Indication: ELEVATED TROPONIN BP: / HR: 100 Rhythm: Sinus Technical Quality: Very technically difficult study MEASUREMENTS (Male / Female) Normal Values 2D ECHO LV Diastolic Diameter PLAX 3.4 cm 4.2 - 5.9 / 3.9 - 5.3 cm LV Systolic Diameter PLAX 2.2 cm IVS Diastolic Thickness 0.9 cm 0.6 - 1.0 / 0.6 - 0.9 cm IVS Systolic Thickness 1.2 cm LVPW Diastolic Thickness 2.3 cm 0.6 - 1.0 / 0.6 - 0.9 cm LVPW Systolic Thickness 2.6 cm LVOT Diameter 2.0 cm LV Ejection Fraction 2D Teich 64.4 % LV Ejection Fraction MOD 2C 45.4 % LV Ejection Fraction 2C AL 44.4 % LA Diameter 3.1 cm LA Width 3.8 cm LA Height 4.2 cm RA Width 3.7 cm RA Height 3.7 cm Aorta at Sinotubular Diameter 1.9 cm DOPPLER AV Peak Velocity 143.0 cm/s LVOT Peak Velocity 110.3 cm/s AV Area Cont Eq vti 3.0 cm squared AV Area Cont Eq pk 2.5 cm squared MV Area PHT 5.0 cm squared Mitral E to A Ratio 1.0 MV E' Velocity 49.0 cm/s Mitral E to MV E' Ratio 1.7 Mitral E to LV E' Lateral Ratio 6.1 Mitral E to LV E' Septal Ratio 1.0 Right Atrial Pressure 3.0 mmHg FINDINGS Left Ventricle Normal left ventricular cavity size. Normal left ventricular systolic function. Left ventricular ejection fraction is estimated at 55 %. Grade I/IV diastolic dysfunction (abnormal relaxation filling pattern), normal to mildly elevated filling pressures. Right Ventricle The right ventricle is normal in size and function. RVSP could not be calculated due to incomplete tricuspid regurgitation velocity profile. Right Atrium The right atrium is normal in size. Left Atrium The left atrium is normal in size. Mitral Valve Structurally normal mitral valve without significant stenosis or prolapse. There is no mitral regurgitation. Aortic Valve Moderate aortic valve calcification. There appeared to be thickening of the aortic valve possible calcification no obvious vegetation noted, it is not well visualized clinical correlation advised Tricuspid Valve Trace tricuspid valve regurgitation. Pulmonic Valve Structurally normal pulmonic valve without significant stenosis. There is no pulmonic regurgitation. Pericardium Normal pericardium without effusion. Aorta Normal ascending aorta dimension. CONCLUSIONS 1-Normal left ventricular cavity size. Normal left ventricular systolic function. Left ventricular ejection fraction is estimated at 55 %. Grade I/IV diastolic dysfunction (abnormal relaxation filling pattern), normal to mildly elevated filling pressures. 2-Moderate aortic valve calcification. There appeared to be thickening of the aortic valve possible calcification no obvious vegetation noted, it is not well visualized clinical correlation advised. 3-There is no pericardial effusion. 4-The right ventricle is normal in size and function. RVSP could not be calculated due to incomplete tricuspid regurgitation velocity profile. 5-No significant change since the prior echocardiogram study of 07/02/2019. Marlee Simpson MD (Electronically Signed) Final Date: 03 August 2021 16:18 S
--- NOTE | 2021-07-31 13:49 | ECG_ITS ---
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 Measurements Intervals [place] Rate: 96 P: 80 NE: 155 QRS: 69 QRSD: 82 T: 81 QT: 336 QTc: 426 Interpretive Statements SINUS RHYTHM Compared to ECG 07/27/2021 06:49:06 No significant changes Electronically Signed On 07-31-2021 17:13:34 CDT by Star Pacheco M.D. [id number]
--- NOTE | 2021-07-31 15:13 | PC.SOCIAL ---
IMM Update pg 2 of IMM updated and reviewed w/ patient. Copy provided.
--- NOTE | 2021-07-31 15:31 | PM.PN ---
Subjective Subjective: Interval history: This morning patient was examined, he tells me that he had episode of substernal chest pain overnight, associate with shortness of breath, currently no chest pain, however the pain chest pain was quite severe, no lightheadedness, dizziness, no nausea, no vomiting, he does have a history of stent placement continues to have a productive cough Vitals/I&O/Wt Last Vital Signs Temp 98.1 F 07/31/21 12:00 Pulse 91 07/31/21 12:00 Resp 17 07/31/21 12:00 BP 142/76 07/31/21 12:00 Pulse Ox 96 07/31/21 12:00 07/31/21 07/31/21 07/31/21 06:59 14:59 22:59 Intake Total 100 / 620 340 / 340 Output Total 500 / 1150 Balance -400 / -530 340 / 340 Physical Exam Const: COMMON NORMALS: no acute distress and patient oriented x3 HENMT: COMMON NORMALS: normocephalic HEAD & SCALP: normocephalic Resp: COMMON NORMALS: normal respiratory effort, No retractions, No use of accessory muscles and clear to auscultation bilaterally AUSCULTATION: clear to auscultation bilaterally Cardio: COMMON NORMALS: regular rate, regular rhythm, S1 normal heart sound present and S2 normal heart sound present RATE: regular rate RHYTHM: regular rhythm HEART SOUNDS: S1 normal heart sound present and S2 normal heart sound present GI: COMMON NORMALS: Normal to inspection, nondistended, normoactive bowel sounds present, Soft to palpation and non-tender PALPATION: Yes Soft to palpation Extremity: COMMON NORMALS: no pedal edema Neuro: COMMON NORMALS: patient oriented x3 Psych: COMMON NORMALS: mental status grossly normal Data : 07/31/21 05:20 07/31/21 05:20 Micro: Microbiology 07/26/21 22:29 Blood Culture - Final Blood Staphylococcus Auricularis 07/26/21 22:29 Blood Culture - Final Blood Enterococcus durans hirae Streptococcus bovis 07/30/21 15:15 Gram Stain - Final Sputum - Expectorated Sputum Sputum Culture - Preliminary Gram Negative Rods A&P Assessment and plan (1) Chest pain: -Has stent. Last cardiac catheterization in June 2018 showed left main, circumflex, and RCA with 0% stenosis. The proximal LAD had minimal luminal irregularities with JOHN-3 flow. He had 90% restenosis of the first obtuse marginal and underwent balloon angioplasty with restenting at that time. Last echocardiogram May 2019 with ejection fraction 55%, mild hypokinesia of the apical septal segment with grade 1/4 diastolic dysfunction noted -chest pain -baseline troponin 110, 120-minute, 144, delta of 34, -EKG no acute ST-T wave changes -patient is taking aspirin, plavix, and atorvastatin and beta-dara -will start therapeutic Lovenox -We will consult cardiology -Cardiac echocardiogram ordered Status: Acute (2) Acute exacerbation of chronic obstructive pulmonary disease: Acute on chronic exacerbation of COPD. Continue Solu-Medrol 60 IV every 24 hours Given sputum culture positive in the past for Pseudomonas, currently on Primaxin Duo nebs Supplemental oxygen as needed Continue his home hydrocodone 10-325 1 to 2 tablets every 4 hours as needed, Soma 350 mg 4 times daily as needed, diazepam 2 mg tablet every 6 hours as needed Monitor respiratory status closely Status: Acute (3) HTN (hypertension): Blood pressure currently well controlled. Will resume home medication. Status: Chronic Qualifiers: Hypertension type: other secondary hypertension Qualified Code(s): I15.8 - Other secondary hypertension (4) Hyperlipidemia: Chronically on statin therapy Status: Chronic Qualifiers: Hyperlipidemia type: mixed hyperlipidemia Qualified Code(s): E78.2 - Mixed hyperlipidemia (5) CAD (coronary artery disease): Continue aspirin and Plavix Status: Acute Qualifiers: Coronary Disease-Associated Artery/Lesion type: [place] artery [place] vs. transplanted heart: [place] heart Associated angina: angina presence unspecified Qualified Code(s): I25.10 - Atherosclerotic heart disease of [place] coronary artery without angina pectoris (6) Hyperthyroidism: Low TSH noted on multiple occasions. Follow repeat Am thyroid function test. Free T3 and free T4 in the past has been normal. Status: Chronic (7) Macrocytic anemia: With gradual decline in hemoglobin, no reported bleeding Status: Acute (8) Sacral decubitus ulcer: Present on admission, stage II versus previous stage III healing Status: Acute Qualifiers: Pressure injury stage: stage 2 Qualified Code(s): L89.152 - Pressure ulcer of sacral region, stage 2 (9) Anxiety: Chronically on as needed Valium despite hypercapnia Status: Chronic (10) Chronic back pain: Normally on hydrocodone and Soma Status: Chronic Qualifiers: Back pain location: low back pain Back pain laterality: bilateral Sciatica presence: with sciatica Sciatica laterality: bilateral sciatica Qualified Code(s): M54.42 - Lumbago with sciatica, left side; M54.41 - Lumbago with sciatica, right side; G89.29 - Other chronic pain Additional A&P Information Urinary changes suggestive of prostatic hypertrophy Requires inpatient admission Steroids, both systemic and inhaled Scheduled and as needed breathing treatments Continue oxygen therapy weaning back to home amount as able BiPAP if needed Follow-up pending blood cultures Need to get home medications clarified but anticipate continuation of potentially a lower dose of metoprolol, spironolactone, aspirin, statin and Plavix Decreased TSH, normal free T3, normal free T4 Monitor H&H Continue home pain medications Flomax Lovenox for DVT prophylaxis PPI for GI prophylaxis Supportive care otherwise Currently anticipate disposition home on usual oxygen Plans were discussed with patient and he was given an opportunity to ask questions CODE STATUS was discussed with Mr. 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 transplanted heart: [place] heart Associated angina: angina presence unspecified Hyperthyroidism E05.90 Macrocytic anemia D53.9 Sacral decubitus ulcer L89.152 Pressure injury stage: stage 2 Anxiety F41.9 Chronic back pain M54.42; M54.41; G89.29 Back pain location: low back pain Back pain laterality: bilateral Sciatica presence: with sciatica Sciatica laterality: bilateral sciatica
--- NOTE | 2021-07-31 17:49 | ECG_ITS ---
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 Measurements Intervals [place] Rate: 105 P: 80 MD: 146 QRS: 45 QRSD: 90 T: 73 QT: 323 QTc: 427 Interpretive Statements SINUS TACHYCARDIA POSSIBLE RIGHT ATRIAL ENLARGEMENT [0.25mV P-WAVE] MODERATE VOLTAGE CRITERIA FOR LVH, CONSIDER NORMAL VARIANT [MEETS CRITERIA IN ONE OF: R(aVL), S(V1), R(V5), R(V5/V6)+S(V1)] ABNORMAL RHYTHM ECG Compared to ECG 07/31/2021 13:32:21 Sinus rhythm no longer present Electronically Signed On 07-31-2021 17:13:24 CDT by Star Pacheco M.D. [id number]
[2021-07-31] MEDS: enoxaparin 60 mg/0.6 mL Syringe 50 MG SUBCUT (18:22)
[2021-07-31 18:46] LABS: Troponin 5 6HR 159.6 ng/L (0-15); Troponin 5 6HR Delta 49.6 ng/L (0-12)
--- NOTE | 2021-07-31 19:19 | P.CONIM_ITS ---
Providers/Reason For Consult Consulting Physician/Specialty*: Cardiology Reason for Consult*: Non-ST ovation MA. Attending Physician: Tyrone Ruvalcaba MD Primary Care Provider: Hiwot Yeung DO History of Present Illness History of Present Illness Onel Low is a 71 year old male past medical history significant for tobacco abuse emphysema coronary artery disease high anxiety being frail history of respiratory failure with hypercapnia hypothyroidism GERD chronic back pain who cannot lay flat much was admitted with respiratory failure COPD exacerbation he is in the hospital for the last couple of days he developed chest pain radiating to left arm today, cardiac markers went up with delta troponin of 49 qualifying him for non-ST elevation MA. It is the reason I been asked to assess the patient. When I saw the patient patient is sitting by the edge of the bed with typical prolonged expiration and coughing tenacious sputum. Currently is not having of any chest pain but told me that this chest pain actually felt like as when he had his heart attack. While talking to me he break into tears he appeared to be panicky, he told me that he would not like to be in pain during the procedure if I have to do and he would not like to be lay flat in the bed for long time. I have explained the patient that most likely he will be needing left heart cath since he has a pain and non-ST elevation MA but since he is stable we can first work on his breathing as if he is able to lay flat in the bed for at least 4 to 5 hours then that would be the ideal time to perform coronary angiogram otherwise we can also treat him medically. In 2018 patient underwent left heart cath noted to have significant disease of obtuse marginal which was treated with drug-eluting stent by Dr. Natahnael Mcelroy. He says he takes medicine regularly. He denies any bleeding per rectum. He does not appear to be in heart failure now. Meds/Allergies Home Medications and Allergies Home Medications Medication Instructions Recorded Confirmed Last Taken Type carisoprodol [Soma] 350 mg PO QID 10/04/19 07/27/21 Unknown History hydrocodone-acetaminophen 1 - 2 tab PO Q4H PRN 10/04/19 07/27/21 Unknown History aspirin 81 mg tablet,delayed 81 mg PO DAILY 12/11/19 07/27/21 Unknown History release loratadine 10 mg tablet 10 mg PO DAILY 02/26/20 07/27/21 Unknown History diclofenac sodium 1 % topical gel 1 gm TOPICAL TID #100 gm 06/19/20 07/27/21 Unknown Rx nitroglycerin 0.4 mg SUBLINGUAL PRN 07/17/20 07/27/21 Unknown History azithromycin 500 mg tablet See Rx Instructions .ROUTE 05/05/21 07/27/21 Unknown Rx .COMPLEX #45 tab trazodone 150 mg tablet 150 mg PO BEDTIME #30 tab 05/27/21 07/27/21 Unknown Rx albuterol sulfate 2.5 mg INHALATION Q6H PRN 30 Days 06/16/21 07/27/21 Unknown Rx #360 ml tiotropium bromide 18 mcg capsule 1 cap INHALATION DAILY #30 inh 06/16/21 07/27/21 Unknown Rx with inhalation device metoprolol tartrate 50 mg tablet 50 mg PO BID #60 tab 07/08/21 07/27/21 Unknown Rx pantoprazole 40 mg tablet,delayed 40 mg PO DAILY #30 tab 07/08/21 07/27/21 Unknown Rx release spironolactone 25 mg tablet 25 mg PO DAILY #30 tab 07/08/21 07/27/21 Unknown Rx tamsulosin 0.4 mg capsule 0.4 mg PO DAILY #30 cap 07/08/21 07/27/21 Unknown Rx ProAir HFA 90 mcg/actuation 2 inh INHALATION Q2H PRN #25.5 g NS 07/10/21 07/27/21 Unknown Rx aerosol inhaler Symbicort 2 puff INHALATION BID 07/27/21 07/27/21 Unknown History atorvastatin 40 mg PO DAILY 07/27/21 07/27/21 Unknown History clopidogrel 75 mg PO DAILY 07/27/21 07/27/21 Unknown History ipratropium-albuterol [Combivent 1 puff INHALATION Q6H PRN 07/27/21 07/27/21 Unknown History Respimat] prednisone 5 mg PO DAILY 07/27/21 07/27/21 Unknown History roflumilast [Daliresp] 500 mcg PO DAILY 07/27/21 07/27/21 Unknown History diazepam 5 mg tablet 5 mg PO .every 12 hours PRN #90 tab 08/01/21 Unknown Rx Allergies Allergy/AdvReac Type Severity Reaction Status Date / Time Penicillins Allergy ALGY-Rash Verified 06/16/21 14:38 Current Medications Current Medications Generic Name Dose Route Start Last Admin Trade Name Freq PRN Reason Stop Dose Admin Hydrocodone Bitart/Acetaminophen 1 - 2 tab 07/28/21 11:09 07/31/21 18:20 Hydrocodone-Acetaminophen 10-325 Mg Tablet PO 2 tab Q4H PRN Administration Pain Albuterol/Ipratropium 3 ml 07/27/21 09:00 07/31/21 15:42 Ipratropium-Albuterol 3 Ml Neb INHALATION 3 ml Q6H.RESPIRATORY RAYNE Administration Aspirin 81 mg 07/27/21 09:00 07/31/21 08:29 Aspirin 81 Mg Ec Tablet PO 81 mg DAILY RAYNE Administration Atorvastatin Calcium 40 mg 07/27/21 21:00 07/30/21 20:29 Atorvastatin 40 Mg Tablet PO 40 mg BEDTIME RAYNE Administration Budesonide 0.5 mg 07/27/21 08:00 07/31/21 08:37 Budesonide 0.5 Mg/2 Ml Neb INHALATION 0.5 mg BID.RESPIRATORY RAYNE Administration Carisoprodol 350 mg 07/30/21 11:01 07/31/21 13:37 Carisoprodol 350 Mg Tablet PO 350 mg QID PRN Administration PAIN Clopidogrel Bisulfate 75 mg 07/27/21 09:00 07/31/21 08:28 Clopidogrel 75 Mg Tablet PO 75 mg DAILY RAYNE Administration Diazepam 2 mg 07/27/21 07:34 07/31/21 16:01 Diazepam 2 Mg Tablet PO 2 mg Q6H PRN Administration ANXIETY Docusate Sodium 100 mg 07/27/21 09:00 07/31/21 18:22 Docusate Sodium 100 Mg Capsule PO 100 mg BID RAYNE Administration Enoxaparin Sodium 50 mg 07/31/21 18:00 07/31/21 18:22 Enoxaparin 60 Mg/0.6 Ml Syringe SUBCUT 50 mg Q12H RAYNE Administration Fluticasone Propionate 2 spray 07/27/21 09:00 07/31/21 18:21 Fluticasone Nasal [place]yer 16gm Btl NASAL 2 spray BID RAYNE Administration Guaifenesin 400 mg 07/27/21 07:34 07/28/21 01:05 Guaifenesin 100 Mg/5 Ml Udc 10 Ml PO 400 mg Q4H PRN Administration COUGH Imipenem/Cilastatin Sodium 250 100 mls @ 200 mls/hr 07/30/21 15:00 07/31/21 15:31 mg/ Sodium Chloride IV Infused Q6H RAYNE Infusion Protocol Loratadine 10 mg 07/27/21 09:00 07/31/21 08:28 Loratadine 10 Mg Tablet PO 10 mg DAILY RAYNE Administration Methylprednisolone Sodium Succinate 60 mg 07/31/21 09:30 07/31/21 09:30 Methylprednisolone Sod Succ 125 Mg/2 Ml Inj IVP Not Given Q24H [facility] Metoprolol Tartrate 50 mg 07/28/21 11:10 07/31/21 18:22 Metoprolol Tartrate 50 Mg Tablet PO 50 mg BID RAYNE Administration Multivitamins/Minerals 1 tab 07/27/21 09:00 07/31/21 08:59 Multivitamin W/Minerals Tablet PO 1 tab DAILY RAYNE Administration Pantoprazole Sodium 40 mg 07/27/21 09:00 07/31/21 08:[address] 40 Mg Tablet PO 40 mg DAILY RAYNE Administration Spironolactone 25 mg 07/28/21 11:10 07/31/21 08:28 Spironolactone 25 Mg Tablet PO 25 mg DAILY RAYNE Administration Tamsulosin HCl 0.4 mg 07/27/21 09:00 07/31/21 08:28 Tamsulosin 0.4 Mg Capsule PO 0.4 mg DAILY RAYNE Administration Trazodone HCl 150 mg 07/28/21 21:00 07/30/21 20:29 Trazodone 150 Mg Tablet PO 150 mg BEDTIME RAYNE Administration PFSH Acute PFSH: Medical History (Updated 08/01/21 @ 19:05 by Tyrone Ruvalcaba MD) Anxiety Cachexia CAD (coronary artery disease) Has stent. Last cardiac catheterization in June 2018 showed left main, circumflex, and RCA with 0% stenosis. The proximal LAD had minimal luminal irregularities with JOHN-3 flow. He had 90% restenosis of the first obtuse marginal and underwent balloon angioplasty with restenting at that time. Last echocardiogram May 2019 with ejection fraction 55%, mild hypokinesia of the apical septal segment with grade 1/4 diastolic dysfunction noted. Chronic back pain Chronic respiratory failure with hypoxia and hypercapnia COPD (chronic obstructive pulmonary disease) COVID-19 vaccine administered GERD (gastroesophageal reflux disease) History of PFTs July 2018, FEV1/FVC ratio 45% with FEV1 1.96 L (30% predicted), forced vital capacity of 2.13 L (50% predicted). DLCO was moderately reduced at 60%. 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 Lives independently: Yes Household members: spouse and children Marital status: service: Yes Current occupational status: disabled Current gender identity: Male Vitals/I&O/Wt Last Vital Signs Temp 98.5 F 07/31/21 15:37 Pulse 110 H 07/31/21 15:42 Resp 20 H 07/31/21 15:42 BP 163/72 07/31/21 15:37 Pulse Ox 96 07/31/21 15:42 07/31/21 07/31/21 07/31/21 06:59 14:59 22:59 Intake Total 100 / 620 340 / 340 340 / 680 Output Total 500 / 1150 Balance -400 / -530 340 / 340 340 / 680 Physical Exam Narrative: EXAM NARRATIVE: GENERAL: Patient is short of breath sitting by the bedside with prolonged expiration thin lean with cachexia NECK: No jugular vein distension. HEENT: No cyanosis. No icterus. No pallor. HEART: Regular S1 and S2. No murmur, rub or gallop. LUNGS: Decreased breath sounds bilaterally. ABDOMEN: Soft, nontender and nondistended. Positive bowel sounds. No guarding, rebound or tenderness. CENTRAL NERVOUS SYSTEM: Grossly nonfocal. EXTREMITIES: Lower extremities without edema bilaterally. Data Micro: Micro: Microbiology 07/26/21 22:29 Blood Culture - Fi nal Blood Staphylococcus Auricularis 07/26/21 22:29 Blood Culture - Fi nal Blood Enterococcus du rans hirae Streptococcus b ovis 07/30/21 15:15 Gram Stain - Final Sputum - Expector ated Sputum Sputum Culture - P reliminary Gram Negative R ods A&P Assessment and plan (1) NSTEMI (non-ST elevated myocardial infarction): Patient has history of stent to obtuse marginal, he has multiple com orbidities including advanced COPD/emphysema respiratory failure with hypercapnia. I am not sure whether he will be able to lay flat and tolerate conscious sedation since he is high anxiety and keep on telling me that I have to put him under anesthesia. He is not a good candidate to intubate or use anesthesia. I would like him to be for stable from a respiratory perspective. He may will be needing coronary angiogram but if not improved from respiratory point of view I may will treat him medically since he may not be laying still on the table. Continue aspirin statin Plavix and anticoagulation. Add isosorbide mononitrate to the regimen. I will ask for echocardiogram. For now I will schedule him for left heart cath in the morning however depending upon patient's stability we may will postpone it. Status: Acute (2) Anxiety: Patient is high anxiety and in a panic mode may suggest Xanax for now hold Robert since we will be giving Xanax Status: Chronic (3) Acute exacerbation of chronic obstructive pulmonary disease: As per medicine. Status: Acute Consult Attestations Medical Necessity Statement: Patient will be continuing his stay for above defined care. Coding Level of Care Code New Pt Acute Supervisor [employer] Patient Type New Medical Decision Making Moderate Complexity Diagnoses NSTEMI (non-ST elevated myocardial infarction) I21.4 Anxiety F41.9 Acute exacerbation of chronic obstructive pulmonary disease J44.1
[2021-07-31] MEDS: ALPRAZolam 0.5 mg Tablet 0.25 MG PO (19:39)
[2021-07-31] MEDS: trazodone 150 mg Tablet PO (21:05)
[2021-07-31] MEDS: atorvastatin 40 mg Tablet PO (21:05)
[2021-08-01] VITALS (28 sets, daily range): BP systolic 100–167; BP diastolic 66–98; PULSE 71–133; RESP 18–22; TEMP 36.8–36.9; O2SAT 82–100
[2021-08-01] MEDS: HYDROcodone-acetaminophen 10-325 mg Tablet PO ×2 (03:58→19:55)
[2021-08-01 05:44] LABS: Basophils % 0.1 %; Hematocrit 33.1 % (42.0-52.0); Hemoglobin 10.2 g/dL (11.7-16.6); Lymphocytes # 0.6 10^3/uL (0.8-4.8); Lymphocytes % 5.8 %; Mean Corpuscular HGB Conc 30.8 g/dL (30.0-36.0); Mean Corpuscular Hemoglobin 29.8 pg (28.0-34.0); Mean Corpuscular Volume 96.8 fl (80-94); Monocytes # 0.8 10^3/uL (0.2-0.9); Monocytes % 7.4 %; Neutrophils # 9.47 10^3/uL (1.8-7.7); Neutrophils % 86.4 %; Nucleated Red Blood Cells % 0 %; Platelet Count 208 10^3/cmm (130-400); Red Blood Count 3.42 10^6/uL (4.1-5.3); Red Cell Distribution Width 13.2 % (12.1-15.1)
[2021-08-01 06:02] LABS: Alanine Aminotransferase 22 U/L (0-41); Albumin Level 2.7 g/dL (3.5-5.2); Alkaline Phosphatase 48 IU/L (40-130); Anion Gap 5.8 (5-19); Aspartate Amino Transferase 23 U/L (0-40); Blood Urea Nitrogen 17 mg/dL (8-23); Calcium 8.8 mg/dL (8.5-10.5); Carbon Dioxide 37 mmol/L (22-29); Chloride 101 mmol/L (98-107); Globulin 2.3 g/dL (1.3-4.6); Glomerular Filtration Rate 212.7 mL/min (90-130); Glucose 75 mg/dL (65-115); Magnesium 1.8 mg/dL (1.7-2.3); Osmolality Calculated 290 mOsm/kg (285-295); Phosphorus 2.4 mg/dL (2.5-4.5); Potassium 3.8 mmol/L (3.5-5.1); Sodium 140 mmol/L (136-145); Total Bilirubin 0.3 mg/dL (0.15-1.2)
[2021-08-01] MEDS: enoxaparin 60 mg/0.6 mL Syringe 50 MG SUBCUT ×2 (06:28→18:15)
[2021-08-01] MEDS: sodium chloride 0.9% 1,000 ML 50 ML IV (06:28)
[2021-08-01] MEDS: diazePAM 2 mg Tablet PO ×2 (08:11→10:29)
--- NOTE | 2021-08-01 08:31 | ECG_ITS ---
[facility] Test Date: 2021-08-01 Pat Name: Onel Low Department: Room: 277 Gender: Male Mobile Nurse: : 1950 Requested By: Tyrone Ruvalcaba Order Number: [id number] Reading MD: JHOAN LOPES Measurements Intervals [place] Rate: 126 P: 83 MA: 116 QRS: 59 QRSD: 86 T: 89 QT: 286 QTc: 414 Interpretive Statements SINUS TACHYCARDIA WITH SHORT MA INTERVAL POSSIBLE ANTERIOR MYOCARDIAL INFARCTION , OF INDETERMINATE AGE [30 ms Q WAVE IN V3/V4, OR R < 0.2 mV IN V4] Compared to ECG 07/31/2021 14:58:14 Short MA interval now present Myocardial infarct finding now present Electronically Signed On 08-02-2021 0:01:18 CDT by JHOAN LOPES [id number]
[2021-08-01] MEDS: ipratropium-albuterol 3 mL Neb INHALATION ×3 (08:42→20:52)
[2021-08-01] MEDS: budesonide 0.5 mg/2 mL Neb INHALATION ×2 (08:42→20:52)
[2021-08-01] MEDS: nitroglycerin 0.4 mg sublingual Tablet SUBLINGUAL ×2 (08:56→09:50)
[2021-08-01] MEDS: loratadine 10 mg Tablet PO (09:50)
[2021-08-01] MEDS: tamsulosin 0.4 mg Capsule PO (09:50)
[2021-08-01] MEDS: metoprolol tartrate 50 mg Tablet PO ×2 (09:50→18:15)
[2021-08-01] MEDS: clopidogrel 75 mg Tablet PO (09:50)
[2021-08-01] MEDS: aspirin 81 mg EC Tablet PO (09:51)
[2021-08-01] MEDS: pantoprazole DR 40 mg Tablet PO (09:51)
[2021-08-01] MEDS: spironolactone 25 mg Tablet PO (09:51)
[2021-08-01] MEDS: fluticasone nasal spray 16gm Btl 2 SPRAY NASAL ×2 (10:01→18:15)
--- NOTE | 2021-08-01 10:11 | XACV_ITS ---
Exam Room: [facility] Ht: 168 cm Wt: 48 kg BSA: 1.48 m2 Gender: Male : 1950 Any Known Allergies: Penicillins Exam Priority: Routine Procedure(s): Procedure Description: Diagnostic procedure Procedure Description: PCI procedure Procedure Description: Drug Eluting Coronary Stent Procedure Description: PTCA Procedure Description: Coronary Angiography Calvin GARRETT; Diagnostic Findings * Left Main has no disease. * Left Anterior Descending has no disease. * Right Coronary Artery has no disease. * Mid Circumflex to Distal Circumflex: severe 90% stenosis, JOHN: 3 flow. * Mid Circumflex: obstructive 70% stenosis, JOHN: 0 flow. * Coronary angiography shows right dominance. PCI Status: Urgent PCI Indication: NSTE - ACS Interventional Findings * We were able to cross circumflex proximal and mid in-stent restenotic lesions. Multiple balloon angioplasty using compliant and noncompliant balloons were used, 80 to 90% in-stent restenosis was reduced to 40%. Proximal lesion was ballooned with multiple balloon angioplasty however due to high calcified nature of the blood vessel stent was not delivered. We accepted the balloon angioplasty result. Distal vessel has highly calcified subtotally occluded small caliber tapering segment which was thought to be managed medically managed.Indication for PCI: Non-ST elevation OR and continuous chest pain. * Mid Circumflex: 70% stenosis treated with a AB TREK 2.50X15 RX BALLOON, MDT DWIGHT EUPHORA RX 2.95M10YM BALLOON, and AB MINI TREK 2.00X12 RX BALLOON. 40% residual stenosis, JOHN: 3 flow. Conclusions 1. 1-Left main is normal2-LAD has patent previously placed mid stent, there appeared to be 30% stenosis just before otherwise no significant diagnosis3-left circumflex is nondominant highly calcified vessel with mid stent it has severe in-stent restenosis distal to the stent vessel is highly calcified subtotally occluded. Proximal to the stent in the circumflex there is high-grade stenosis.4-RCA is a dominant vessel without significant stenosis.. 2. There is severe coronary artery disease with one vessel disease. 3. Mid Circumflex was treated with a Balloon, Balloon, and Balloon. Recommendations * 1-Return to inpatient for close monitoring and routine cath care 2-Risk factor modification for secondary prevention 3-Statin and aspirin 81 mg life--long, if tolerated 4-Patient was pre-loaded with 600 mg of Plavix, continue Plavix 75mg p.o. daily for at least one year. We will assess at the end of one year again to continue if further or not 5-Continue optimal medical management 6-Follow up with Dr. Simpson in four weeks and your primary care in 10 days. Interventional RX Recommendation: PCI w/o planned CABG Diagnostic RX Recommendation: PCI w/o planned CABG Pressures Phase:Rest AO : -12 / -15 ( -13 ) @ 9:04:00 AM 83 / 34 ( 57 ) @ 9:13:00 AM 118 / 97 ( 88 ) @ 9:15:00 AM -11 / -14 ( -13 ) @ 9:18:00 AM 91 / 68 ( 80 ) @ 9:23:00 AM 78 / 54 ( 66 ) @ 9:42:00 AM Clinical Evaluation EBL: 5mL-10mL Procedural Details Procedure Consent Obtained. Pre-Procedure Time Out. Identified patient by full name and date of as verbalized by the patient/guarantor. Does the consent match the physician's order: Yes. Accurate & Complete Informed Consent: Yes. Inpatient/Outpatient History & Physical on Chart: Yes. If H&P is completed, is and addenduem needed: N/A; If yes, is the addendum complete: N/A. Visualize and Verify Site with Patient/Guarantor: N/A. Relevant Radiology Images available: Yes. Pre-op teaching completed and patient verbalized understanding. The risks, benefits, and alternatives of sedation and/or procedure were discussed by physician. The patient agrees to continue. Procedure started. PERRLA. Strong, equal hand imaging nurse bilaterally. Lungs clear x 5 lobes. Oxygen started at 2liters/min via nasal canula. right radial was prepped with chloroprep then draped in the usual sterile fashion. right groin was prepped with chloroprep then draped in the usual sterile fashion. Physician notified. Equipment: 6F - Radial. Cardiac Cath Pack. ACIST Manifold Kit Model BT 2000. Heparinized Saline (2 units/mL), 1000 mL bag. Jaret Pillai CCP OFFSET PRINTER. Physician arrived. [facility] Clinical Fraility Score: 6: Moderately Frail. Utility Engineer Indications: ACS > 24 hours. Chest Pain Symptom Assessment: Typical Angina Symptoms. Correct patient, site and procedure confirmed by cath team. Current diagnosis: NSTEMI. IV Site on Arrival: 20 gauge in the left anticubital. IV Fluids: 0.9% NaCl at KVO. 0 mL infused prior to slab off mill tender. Anesthesia here to maintain sedation. Pre Procedural Pulses: right radial was 2+. Physician arrived. Physician scrubbed in. Immediate Pre-Procedure Time Out. Correct Patient: Yes; Correct Procedure: Yes; Correct Site: Yes; Correct Patient Position: Yes; Correct Supplies: Yes; Dried Flammable Prep: Yes; Blood Products Available: No;. Baseline sample Acquired. HR: 106 BPM. Lidocaine 1% infiltrated to the right radial. An attempt to gain access to the right radial artery was unsuccessful. Manual pressure was held as needed to stop the bleeding. Lidocaine 1% infiltrated to the right groin. Lidocaine 1% infiltrated to the right groin. Arterial access obtained with micropuncture set. Wrist reminders placed bilaterally on patient. A 5 brazilian JL4 catheter in over wire. Multiple views taken of left coronary artery. Catheter removed over the exchange wire. A 5 brazilian JR4 catheter in over wire. Multiple views taken of right coronary artery. Inventory is CRD 6FR XB 3 GUIDE. 6 brazilian XB 3 guide catheter was inserted over the wire. ACT drawn. Results 189 seconds. Therapeutic limits - pre-heparin administration 90-150 seconds and monitoring heparin during a vascular procedure >250 seconds. Inflation number : 1 A AB TREK 2.50X15 RX BALLOON was prepped and advanced across the Mid CX , then inflated to 14 HELEN for 0:25 seconds. Inflation number: 2 The AB TREK 2.50X15 RX BALLOON was reinflated across the Mid CX, to 18 HELEN for 0:24 seconds. Inflation number: 3 The AB TREK 2.50X15 RX BALLOON was reinflated across the Mid CX, to 8 HELEN for 0:17 seconds. Inflation number: 4 The AB TREK 2.50X15 RX BALLOON was reinflated across the Mid CX, to 6 HELEN for 0:09 seconds. Balloon out. Results checked. Inflation number : 5 A MDT NC EUPHORA RX 2.57N47PO BALLOON was prepped and advanced across the Mid CX , then inflated to 16 HELEN for 0:30 seconds. Inflation number: 6 The MDT NC EUPHORA RX 2.13P21DD BALLOON was reinflated across the Mid CX, to 12 HELEN for 0:15 seconds. Inflation number: 7 The MDT NC EUPHORA RX 2.36J79WA BALLOON was reinflated across the Mid CX, to 16 HELEN for 0:18 seconds. Balloon out. Inflation number : 8 A AB MINI TREK 2.00X12 RX BALLOON was prepped and advanced across the Mid CX , then inflated to 14 HELEN for 0:12 seconds. Inflation number: 9 The AB MINI TREK 2.00X12 RX BALLOON was reinflated across the Mid CX, to 8 HELEN for 0:13 seconds. Inflation number: 10 The AB MINI TREK 2.00X12 RX BALLOON was reinflated across the Mid CX, to 12 HELEN for 0:21 seconds. Inflation number: 11 The AB MINI TREK 2.00X12 RX BALLOON was reinflated across the Mid CX, to 14 HELEN for 0:41 seconds. Balloon out. stent inserted but not deployed.will not cross. removed intact. Results checked. Guide catheter out. Perclose placed without complications. No signs or symptoms of hematoma noted. Sterile dressing applied per usual sterile fashion. Post Procedure: Pulses reassessed and unchanged. PERRLA. Strong, equal hand imaging nurse bilaterally. No VTE prophylaxis required. Fluoro: 10:05. Sheath(s) sutured into position with 2-0 silk and sterile 4x4's and Op-site applied over the site. No oozing or signs and symptoms of hematoma noted. A Suture was successful obtaining hemostatsis at the Right Femoral artery insertion site. Medication's Wasted: Lidocaine 1% = 9 mL. Medication's Wasted: Heparin = 1000 units. Medication's Wasted: Nitro = 49.6 mcg. Total IV fluids: 650 mL. Contrast type used: Visipaque 320 mgI/mL, 500 mL bottle. Complications: None. Vital chart was stopped. Estimated blood loss: 5mL-10mL. Procedure completed. Patient transferred by bed to 1st floor. Access Site Site: Right Femoral artery Sheath Size: 6 Fr Hemostasis Method: Suture Hemostasis Success: Successful Procedure Medications Start: 11:25 AM Stop: 11:25 AM Medication: Heparin Amount: 6000 units Route: I.V. Start: 11:32 AM Stop: 11:32 AM Medication: Heparin Amount: 2000 units Route: I.V. Start: 11:37 AM Stop: 11:37 AM Medication: Nitrogylcerin Amount: 200 mcg Route: I.A. Start: 11:56 AM Stop: 11:56 AM Medication: Nitrogylcerin Amount: 200 mcg Route: I.A. I, the attending physician, have reviewed and verified all procedure medications. Yes, all medications given per verbal order History/Risk Factors Hypertension: Yes Dyslipidemia: Yes Peripheral Arterial Disease (PAD): No Myocardial Infarction (OR): No Obesity: No Renal Disease: No Tobacco Use: Former Prior Interventions PCI: Yes CABG: No Valve Surgery: No Report Signatures Finalized by Marlee Simpson MD on 08/18/2021 11:49 AM
--- NOTE | 2021-08-01 10:32 | ANES.PREANE2 ---
Pre-Anesthetic Assessment Pre-Anesthetic Assessment: Height/Weight: Height 1.68 m Weight 48.081 kg Temp Pulse Resp BP Pulse Ox 98.2 F 106 H 22 H 163/83 89 L 08/01/21 08:00 08/01/21 08:42 08/01/21 08:42 08/01/21 08:00 08/01/21 08:42 Preop Diagnosis: NSTEMI Proposed Procedure: cath Familial anesthetic complications: none Was Beta Elaina taken within 24 hours: N/A Was Clonidine taken within 24 hours: N/A Last intake: > 8 hrs Social: Social History: Tobacco and No alcohol Exam: Pre-Anes Outpt Exam: alert, oriented x 3 and regular rate & rhythm Additional Exam Findings (including area of procedure): b/l wheezes Airway: Cervical ROM: WNL MP: 1 Dentition: False Pulmonary: Pulmonary: COPD (on O2) Comments: COPD exacerbation, frail, states unable to lay flat , anxious CV/HEM: CV/HEM: CAD (stents) and HTN Comments: NSTEMI GI: GI: GERD Metabolic: Metabolic: Thyroid Anesthetic Plan: ASA status: 4 Anesthesia: MAC Risk of > 500 ml blood loss (7ml/kg in children): No Meds/Allergies Current Medications: Current Medications Generic Name Dose Route Start Last Admin Trade Name Freq PRN Reason Stop Dose Admin Hydrocodone Bitart /Acetaminophen 1 - 2 tab 07/28/21 11:09 08/01/21 03:58 Hydrocodone-Acet aminophen 10-325 M g Tablet PO 2 tab Q4H PRN Administration Pain Albuterol/Ipratrop ium 3 ml 07/27/21 07:34 08/01/21 08:42 Ipratropium-Albu terol 3 Ml Neb INHALATION 3 ml Q6H PRN Administration SHORTNESS OF SB TH Albuterol/Ipratrop ium 3 ml 07/27/21 09:00 08/01/21 08:27 Ipratropium-Albu terol 3 Ml Neb INHALATION Not Given Q6H.RESPIRATORY S CH Aspirin 81 mg 07/27/21 09:00 08/01/21 09:51 Aspirin 81 Mg Ec Tablet PO 81 mg DAILY RAYNE Administration Atorvastatin Calci um 40 mg 07/27/21 21:00 07/31/21 21:05 Atorvastatin 40 Mg Tablet PO 40 mg BEDTIME RAYNE Administration Budesonide 0.5 mg 07/27/21 08:00 08/01/21 08:42 Budesonide 0.5 M g/2 Ml Neb INHALATION 0.5 mg BID.RESPIRATORY S CH Administration Carisoprodol 350 mg 07/30/21 11:01 08/01/21 06:32 Carisoprodol 350 Mg Tablet PO 350 mg QID PRN Administration PAIN Clopidogrel Bisulf ate 75 mg 07/27/21 09:00 08/01/21 09:50 Clopidogrel 75 M g Tablet PO 75 mg DAILY RAYNE Administration Diazepam 2 mg 07/27/21 07:34 08/01/21 10:29 Diazepam 2 Mg Ta blet PO 2 mg Q6H PRN Administration ANXIETY Docusate Sodium 100 mg 07/27/21 09:00 07/31/21 18:22 Docusate Sodium 100 Mg Capsule PO 100 mg BID RAYNE Administration Enoxaparin Sodium 50 mg 07/31/21 18:00 08/01/21 06:28 Enoxaparin 60 Mg /0.6 Ml Syringe SUBCUT 50 mg Q12H RAYNE Administration Fluticasone Propio august 2 spray 07/27/21 09:00 08/01/21 10:01 Fluticasone [place] 16gm Btl NASAL 2 spray BID RAYNE Administration Guaifenesin 400 mg 07/27/21 07:34 07/28/21 01:05 Guaifenesin 100 Mg/5 Ml Udc 10 Ml PO 400 mg Q4H PRN Administration COUGH Imipenem/Cilastati n Sodium 250 100 mls @ 200 mls /hr 07/30/21 15:00 08/01/21 09:52 mg/ Sodium Chlor pat IV 200 mls/hr Q6H RAYNE Administration Protocol Sodium Chloride 1,000 mls @ 50 ml s/hr 07/31/21 19:38 08/01/21 06:28 Sodium Chloride 0.9% IV 08/01/21 15:37 50 mls/hr .Q20H ONE Administration Loratadine 10 mg 07/27/21 09:00 08/01/21 09:50 Loratadine 10 Mg Tablet PO 10 mg DAILY RAYNE Administration Methylprednisolone Sodium Succinate 60 mg 07/31/21 09:30 08/01/21 09:54 Methylprednisolo ne Sod Succ 125 Mg /2 Ml Inj IVP 60 mg Q24H RAYNE Administration Metoprolol Tartrat e 50 mg 07/28/21 11:10 08/01/21 09:50 Metoprolol Tartr ate 50 Mg Tablet PO 50 mg BID RAYNE Administration Multivitamins/Mine rals 1 tab 07/27/21 09:00 07/31/21 08:59 Multivitamin W/M inerals Tablet PO 1 tab DAILY RAYNE Administration Nitroglycerin 0.4 mg 08/01/21 08:30 08/01/21 09:50 Nitroglycerin 0. 4 Mg Sublingual Ta blet SUBLINGUAL 1 tab Q5M PRN Administration CHEST PAIN Pantoprazole Sodiu m 40 mg 07/27/21 09:00 08/01/21 09:[address] 40 Mg Tablet PO 40 mg DAILY RAYNE Administration Spironolactone 25 mg 07/28/21 11:10 08/01/21 09:51 Spironolactone 2 5 Mg Tablet PO 25 mg DAILY RAYNE Administration Tamsulosin HCl 0.4 mg 07/27/21 09:00 08/01/21 09:50 Tamsulosin 0.4 M g Capsule PO 0.4 mg DAILY RAYNE Administration Trazodone HCl 150 mg 07/28/21 21:00 07/31/21 21:05 Trazodone 150 Mg Tablet PO 150 mg BEDTIME RAYNE Administration PFSH Anesthesia PFSH: Medical History (Updated 07/31/21 @ 19:34 by Marlee Simpson MD) Anxiety Cachexia CAD (coronary artery disease) Has stent. Last cardiac catheterization in June 2018 showed left main, circumflex, and RCA with 0% stenosis. The proximal LAD had minimal luminal irregularities with JOHN-3 flow. He had 90% restenosis of the first obtuse marginal and underwent balloon angioplasty with restenting at that time. Last echocardiogram May 2019 with ejection fraction 55%, mild hypokinesia of the apical septal segment with grade 1/4 diastolic dysfunction noted. Chronic back pain Chronic respiratory failure with hypoxia and hypercapnia COPD (chronic obstructive pulmonary disease) COVID-19 vaccine administered GERD (gastroesophageal reflux disease) History of PFTs July 2018, FEV1/FVC ratio 45% with FEV1 1.96 L (30% predicted), forced vital capacity of 2.13 L (50% predicted). DLCO was moderately reduced at 60%. 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 Lives independently: Yes Household members: spouse and children Marital status: service: Yes Current occupational status: disabled Current gender identity: Male Data Anesthesia CBC & Chem 7: 08/01/21 05:19 08/01/21 05:19 Other Labs: Laboratory Results - last 48 hr 07/30/21 07/31/21 07/31/21 05:14 05:20 05:20 WBC 14.5 H RBC 3.51 L Hgb 10.5 L Hct 33.7 L MCV 96.0 H MCH 29.9 MCHC 31.2 RDW 13.1 Plt Count 214 MPV 10.3 Neut % (Auto) 92.3 Lymph % (Auto) 1.6 [place] % (Auto) 5.7 Eos % (Auto) 0.0 Baso % (Auto) 0.1 Neut # (Auto) 13.37 H Lymph # (Auto) 0.2 L [place] # (Auto) 0.8 Eos # (Auto) 0.0 Baso # (Auto) 0.0 Nucleated RBC % (auto) 0 Nucleated RBCs # 0.0 Sodium 139 Potassium 4.3 Chloride 99 Carbon Dioxide 34 H 36 H Anion Gap 9.8 8.3 BUN 17 Creatinine 0.3 L GFR Calculation 296.4 H Glucose 118 H Calculated Osmolality 291 Calcium 8.9 Phosphorus 2.2 L Magnesium 1.8 Total Bilirubin 0.2 AST 10 ALT 14 Alkaline Phosphatase 45 Troponin T Baseline Troponin T 120 Minute Delta Troponin T Troponin T Hi Sens 6Hr Troponin T Hi Sens 6Hr Delta Total Protein 5.1 L Albumin 3.0 L Globulin 2.1 07/31/21 07/31/21 07/31/21 12:10 13:40 18:05 WBC RBC Hgb Hct MCV MCH MCHC RDW Plt Count MPV Neut % (Auto) Lymph % (Auto) [place] % (Auto) Eos % (Auto) Baso % (Auto) Neut # (Auto) Lymph # (Auto) [place] # (Auto) Eos # (Auto) Baso # (Auto) Nucleated RBC % (auto) Nucleated RBCs # Sodium Potassium Chloride Carbon Dioxide Anion Gap BUN Creatinine GFR Calculation Glucose Calculated Osmolality Calcium Phosphorus Magnesium Total Bilirubin AST ALT Alkaline Phosphatase Troponin T Baseline 110 H* Troponin T 120 Minute 144.0 H Delta Troponin T 34.0 H* Troponin T Hi Sens 6Hr 159.6 H Troponin T Hi Sens 6Hr Delta 49.6 H* Total Protein Albumin Globulin 08/01/21 08/01/21 05:19 05:19 WBC 11.0 H RBC 3.42 L Hgb 10.2 L Hct 33.1 L MCV 96.8 H MCH 29.8 MCHC 30.8 RDW 13.2 Plt Count 208 MPV 10.0 Neut % (Auto) 86.4 Lymph % (Auto) 5.8 [place] % (Auto) 7.4 Eos % (Auto) 0.0 Baso % (Auto) 0.1 Neut # (Auto) 9.47 H Lymph # (Auto) 0.6 L [place] # (Auto) 0.8 Eos # (Auto) 0.0 Baso # (Auto) 0.0 Nucleated RBC % (auto) 0 Nucleated RBCs # 0.0 Sodium 140 Potassium 3.8 Chloride 101 Carbon Dioxide 37 H Anion Gap 5.8 BUN 17 Creatinine 0.4 L GFR Calculation 212.7 H Glucose 75 Calculated Osmolality 290 Calcium 8.8 Phosphorus 2.4 L Magnesium 1.8 Total Bilirubin 0.3 AST 23 ALT 22 Alkaline Phosphatase 48 Troponin T Baseline Troponin T 120 Minute Delta Troponin T Troponin T Hi Sens 6Hr Troponin T Hi Sens 6Hr Delta Total Protein 5.0 L Albumin 2.7 L Globulin 2.3 Micro: Microbiology 07/26/21 22:29 Blood Culture - Final Blood Staphylococcus Auricularis 07/26/21 22:29 Blood Culture - Final Blood Enterococcus durans hirae Streptococcus bovis 07/30/21 15:15 Gram Stain - Final Sputum - Expectorated Sputum Sputum Culture - Preliminary Gram Negative Rods Cardiac Studies: No Data to Display
--- NOTE | 2021-08-01 10:38 | PC.NURSE ---
to chemistry laboratory technician.
--- NOTE | 2021-08-01 10:38 | PC.NURSE ---
to optical laboratory mechanic.
--- NOTE | 2021-08-01 10:39 | PC.NURSE ---
1015: recd from [facility]. per bed. on 02 at 3l n.c. pt. anxious, asking for something to calm him down. had to get up to bedside to void. shortness of breath noted..
--- NOTE | 2021-08-01 10:49 | W.PM.OPSUD ---
Surgery/Procedure H&P Update DATE OF PROCEDURE: August 01, 2021 DATE H&P PERFORMED: 07/31/21 H&P UPDATE INFORMATION: I have reviewed H&P completed within last 30 days and I have examined patient prior to procedure PREOP DIAGNOSIS: NSTEMI PLANNED PROCEDURE: Patient has been explained all risk benefit alternative for the procedure personally by myself. He has been explained the risk of , stroke, contrast-induced nephropathy, intubation, vascular injury, urgent emergent bypass or vascular surgery. He says he is hurt most of the time so mild that he cannot do anything and would like to proceed with it.
--- NOTE | 2021-08-01 12:18 | P.PN_ITS ---
Subjective Subjective: Interval history: Patient underwent angiogram today for worsening of chest pain radiating to arms. He was noted to have subtotally occluded in- stent restenosis distal to the stent is atretic very thin blood vessel which has subtotal occlusion. Balloon angioplasty was performed it was highly calcified vessel somewhat it improved flow. It is not a big vessel therefore we excepted the result with reasonable improved flow, proximal to the stent highly calcified eccentric lesion which we try to balloon followed by placement of stent but not able to cross since this is a small caliber nondominant vessel and most likely causing his chest pain and because of the fact we are able to improve the flow we decided to further treat medically and not to put the stent as it may not pass through and may can shut down the flow. Post PCI patient did fine. His sheath was pulled out he denies any complaint overall feeling better. Medications: Reviewed: Yes Vitals/I&O/Wt Last Vital Signs Temp 98.2 F 08/01/21 08:00 Pulse 108 H 08/01/21 10:30 Resp 22 H 08/01/21 08:42 BP 151/85 08/01/21 10:45 Pulse Ox 95 08/01/21 10:30 07/31/21 08/01/21 08/01/21 22:59 06:59 14:59 Intake Total 440 / 780 220 / 1000 Output Total 550 / 550 550 / 550 Balance 440 / 780 -330 / 450 -550 / -550 Physical Exam Narrative: EXAM NARRATIVE: GENERAL: Patient is alert, awake and oriented x3. Laying in the bed as usual patient has episodes of panic attack and crying spell which is not new he appeared to be and scared. Denies any suicidal or homicidal ideation. He is thin lean frail NECK: No jugular vein distension. HEENT: No cyanosis. No icterus. No pallor. HEART: Regular S1 and S2. No murmur, rub or gallop. LUNGS: Decreased breath sound bilaterally. ABDOMEN: Soft, nontender and nondistended. Positive bowel sounds. No guarding, rebound or tenderness. CENTRAL NERVOUS SYSTEM: Grossly nonfocal. EXTREMITIES: Lower extremities without edema bilaterally. Pulses are dopplerable. Both feet and legs of normal color for him as well as temperature. He is able to move legs and feet. He has underlying PAD though. Data : 08/02/21 03:49 08/02/21 03:49 Micro: Microbiology 07/26/21 22:29 Blood Culture - Final Blood Staphylococcus Auricularis 07/26/21 22:29 Blood Culture - Final Blood Enterococcus durans hirae Streptococcus bovis 07/30/21 15:15 Gram Stain - Final Sputum - Expectorated Sputum Sputum Culture - Preliminary Gram Negative Rods A&P Assessment and plan (1) NSTEMI (non-ST elevated myocardial infarction): As defined above patient underwent balloon angioplasty of the in stent restenosis in obtuse marginal area. Reasonable nondenominational of flow under those circumstances defined above was noted. Post [employer] patient is doing fine denies any complaint continue to treat him medically. No significant other disease and left main LAD or RCA was noted. Status: Acute (2) Anxiety: As per medicine Status: Chronic (3) Acute exacerbation of chronic obstructive pulmonary disease: As per medicine. Status: Acute Attestations Medical Necessity Statement*: Patient require continuation hospitalization for post [employer] care Coding Level of Care Code Established Pt Acute Lab Technician for [facility] Fwd Patient Type Established History Detailed Exam Detailed Medical Decision Making Moderate Complexity Diagnoses NSTEMI (non-ST elevated myocardial infarction) I21.4 Anxiety F41.9 Acute exacerbation of chronic obstructive pulmonary disease J44.1
--- NOTE | 2021-08-01 14:37 | PC.NURSE ---
1220: recd. from laboratory associate with sheath sewn in right groin. no oozing or hematoma at site. right d.p. pulse found with doppler. no c/o
--- NOTE | 2021-08-01 14:39 | PC.NURSE ---
1230: no change in right groin site. Or d.p. pulse.
--- NOTE | 2021-08-01 14:50 | PC.NURSE ---
134 imipeneum-cilastatin scanned upstairs and brought down. wasnt hung until 1344.
--- NOTE | 2021-08-01 14:56 | PC.NURSE ---
1245: no changes in right groin site or right d.p. pulse.
--- NOTE | 2021-08-01 14:57 | PC.NURSE ---
1300:no changes in right groin or d.p. pulse.
--- NOTE | 2021-08-01 15:01 | PC.NURSE ---
1315 no changes in right groin site or d.p. pulse
--- NOTE | 2021-08-01 15:03 | PC.NURSE ---
1330: no changes in right groin site and d.p. pulses.
--- NOTE | 2021-08-01 15:04 | PC.NURSE ---
1400:no changes in cath site to right groin and d.p. pulse found with doppler
--- NOTE | 2021-08-01 15:05 | PC.NURSE ---
1430: no changes in right groin site. continue to have to use doppler for lower ext. d.p. pulse.
--- NOTE | 2021-08-01 15:07 | PC.NURSE ---
1500 : no changes in right groin site or d.p. pulses.
[2021-08-01 16:21] LABS: Partial Thromboplastin Time 31.4 SECONDS (23.9-36.7)
[2021-08-01] MEDS: fentaNYL 50 mcg/mL INJ 2mL IVP (16:43)
--- NOTE | 2021-08-01 16:44 | PC.NURSE ---
ptt done. dr. gonzalez in unit, he pulled sheath and holding pressure. fentanyl given.
--- NOTE | 2021-08-01 17:00 | PC.NURSE ---
continue holdng pressure. doppler pulses to lower ext.
[2021-08-01] MEDS: docusate sodium 100 mg Capsule PO (18:15)
--- NOTE | 2021-08-01 18:23 | PC.NURSE ---
1715:dressing applied to right groin site. no oozing. continue to doppler right d.p. pulse.
--- NOTE | 2021-08-01 18:25 | PC.NURSE ---
1730: no changes to right groin site and d.p. pulses. appetite poor for dinner.
--- NOTE | 2021-08-01 18:26 | PC.NURSE ---
1745: no changes in right groin or d.p. pulses.
--- NOTE | 2021-08-01 18:27 | PC.NURSE ---
1800: no changes in right groin site or d.p. pulses. resting quietly.
--- NOTE | 2021-08-01 18:59 | P.PN_ITS ---
Subjective Subjective: Interval history: Patient was seen this morning, he has a planned cardiac catheterization this morning, he continued to have chest pain on the general medical floors, he was given nitroglycerin, EKG showed no acute ST-T wave changes, continue to have chest pain, was moved down to the ICU for a nitroglycerin drip, I saw patient down in the ICU, currently reporting substern al chest pain, severe chest pain, Dr. Simmons is at bedside, all options were discussed with patient, including medical management versus proceeding with coronary angiogram, patient continue to complain of substernal chest pain, risks and benefits of coronary angiogram were discussed, he voiced understanding, all questions answered, patient agreed to proceed with coronary angiogram Patient tells me that he continues to feel short of breath, continues to have chest pain, Vitals/I&O/Wt Last Vital Signs Temp 98.2 F 08/01/21 08:00 Pulse 97 08/01/21 15:30 Resp 20 H 08/01/21 14:13 BP 147/73 08/01/21 15:30 Pulse Ox 96 08/01/21 15:30 08/01/21 08/01/21 08/01/21 06:59 14:59 22:59 Intake Total 220 / 1000 200 / 200 480 / 680 Output Total 550 / 550 550 / 550 600 / 1150 Balance -330 / 450 -350 / -350 -120 / -470 Physical Exam Const: COMMON NORMALS: no acute distress and patient oriented x3 Resp: COMMON NORMALS: normal respiratory effort, No retractions and No use of accessory muscles AUSCULTATION: wheezes Cardio: COMMON NORMALS: regular rate, regular rhythm, S1 normal heart sound present and S2 normal heart sound present RATE: regular rate RHYTHM: regular rhythm HEART SOUNDS: S1 normal heart sound present and S2 normal heart sound present GI: COMMON NORMALS: Normal to inspection, nondistended, normoactive bowel sounds present, Soft to palpation and non-tender PALPATION: Yes Soft to palpation Extremity: COMMON NORMALS: no pedal edema Neuro: COMMON NORMALS: patient oriented x3 Psych: COMMON NORMALS: mental status grossly normal Urinary Catheter Management^: Mcbride: Cath Placed During This Visit: yes Reason for Continuing Indwelling Catheter: Accurate Measurement of Urinary Output in Critically Ill Patients Urinary Catheter Date of Insertion: 08/01/21 Urinary Catheter Time of Insertion: 13:20 Data : 08/01/21 05:19 08/01/21 05:19 Micro: Microbiology 08/01/21 13:25 Bacterial Antigens - Final Urine,Clean Catch A&P Assessment and plan (1) Chest pain: -Has stent. Last cardiac catheterization in June 2018 showed left main, circumflex, and RCA with 0% stenosis. The proximal LAD had minimal luminal irregularities with JOHN-3 flow. He had 90% restenosis of the first obtuse marginal and underwent balloon angioplasty with restenting at that time. Last echocardiogram May 2019 with ejection fraction 55%, mild hypokinesia of the apical septal segment with grade 1/4 diastolic dysfunction noted -chest pain -baseline troponin 110, 120-minute, 144, delta of 34, 6-hour 159.3, delta 49.6 -EKG no acute ST-T wave changes -patient is taking aspirin, plavix, and atorvastatin and beta-dara -On therapeutic Lovenox therapeutic Lovenox -Cardiology on consult -Proceeding with coronary angiogram Status: Acute (2) Acute exacerbation of chronic obstructive pulmonary disease: Acute on chronic exacerbation of COPD. Continue Solu-Medrol 60 IV every 24 hours Given sputum culture positive in the past for Pseudomonas, currently on Primaxin Sputum cultures on this admission show gram-negative rods Duo nebs Supplemental oxygen as needed Continue his home hydrocodone 10-325 1 to 2 tablets every 4 hours as needed, Soma 350 mg 4 times daily as needed, diazepam 2 mg tablet every 6 hours as needed Monitor respiratory status closely Status: Acute (3) HTN (hypertension): Blood pressure currently well controlled. Will resume home medication. Status: Chronic Qualifiers: Hypertension type: other secondary hypertension Qualified Code(s): I15.8 - Other secondary hypertension (4) Hyperlipidemia: Chronically on statin therapy Status: Chronic Qualifiers: Hyperlipidemia type: mixed hyperlipidemia Qualified Code(s): E78.2 - Mixed hyperlipidemia (5) CAD (coronary artery disease): Continue aspirin and Plavix Status: Acute Qualifiers: Coronary Disease-Associated Artery/Lesion type: [place] artery [place] vs. transplanted heart: [place] heart Associated angina: angina presence unspecified Qualified Code(s): I25.10 - Atherosclerotic heart disease of [place] coronary artery without angina pectoris (6) Hyperthyroidism: Low TSH noted on multiple occasions. Follow repeat Am thyroid function test. Free T3 and free T4 in the past has been normal. Status: Chronic (7) Macrocytic anemia: With gradual decline in hemoglobin, no reported bleeding Status: Acute (8) Sacral decubitus ulcer: Present on admission, stage II versus previous stage III healing Status: Acute Qualifiers: Pressure injury stage: stage 2 Qualified Code(s): L89.152 - Pressure ulcer of sacral region, stage 2 (9) Anxiety: Chronically on as needed Valium despite hypercapnia Status: Chronic (10) Chronic back pain: Normally on hydrocodone and Soma Status: Chronic Qualifiers: Back pain location: low back pain Back pain laterality: bilateral Sciatica presence: with sciatica Sciatica laterality: bilateral sciatica Qualified Code(s): M54.42 - Lumbago with sciatica, left side; M54.41 - Lumbago with sciatica, right side; G89.29 - Other chronic pain (11) Bacteremia: -Blood cultures show Streptococcus bovis, Staphylococcus auricularis, Enterococcus Durans -Streptococcus bovis is concerning for possible underlying GI malignancy, will require an outpatient colonoscopy -Other is likely contamination, will repeat blood cultures -Continue to monitor Status: Acute Additional A&P Information Urinary changes suggestive of prostatic hypertrophy Requires inpatient admission Steroids, both systemic and inhaled Scheduled and as needed breathing treatments Continue oxygen therapy weaning back to home amount as able BiPAP if needed Follow-up pending blood cultures Need to get home medications clarified but anticipate continuation of potentially a lower dose of metoprolol, spironolactone, aspirin, statin and Plavix Decreased TSH, normal free T3, normal free T4 Monitor H&H Continue home pain medications Flomax Lovenox for DVT prophylaxis PPI for GI prophylaxis Supportive care otherwise Currently anticipate disposition home on usual oxygen Plans were discussed with patient and he was given an opportunity to ask questions CODE STATUS was discussed with Mr. Sweet and he would want resuscitation, full CODE STATUS has been ordered Attestations Medical Necessity Statement*: Patient requires hospitalization for chest pain, COPD exacerbation Coding Level of Care Code Acute Director Of Slot Operations for [facility] Diagnoses Chest pain R07.9 Acute exacerbation of chronic obstructive pulmonary disease J44.1 HTN (hypertension) I15.8 Hypertension type: other secondary hypertension Hyperlipidemia E78.2 Hyperlipidemia type: mixed hyperlipidemia CAD (coronary artery disease) I25.10 Coronary Disease-Associated Artery/Lesion type: [place] artery [place] vs. transplanted heart: [place] heart Associated angina: angina presence unspecified Hyperthyroidism E05.90 Macrocytic anemia D53.9 Sacral decubitus ulcer L89.152 Pressure injury stage: stage 2 Anxiety F41.9 Chronic back pain M54.42; M54.41; G89.29 Back pain location: low back pain Back pain laterality: bilateral Sciatica presence: with sciatica Sciatica laterality: bilateral sciatica Bacteremia R78.81
--- NOTE | 2021-08-01 19:09 | PC.NURSE ---
1899: no changes in right groin site and d.p. pulse.
[2021-08-01] MEDS: atorvastatin 40 mg Tablet PO (20:00)
[2021-08-01] MEDS: trazodone 150 mg Tablet PO (20:00)
[2021-08-02] VITALS (9 sets, daily range): BP systolic 140–148; BP diastolic 73–88; PULSE 65–112; RESP 17–20; TEMP 36.7; O2SAT 91–97
[2021-08-02] MEDS: HYDROcodone-acetaminophen 10-325 mg Tablet PO ×5 (01:43→21:49)
[2021-08-02] MEDS: diazePAM 2 mg Tablet PO ×3 (02:21→19:50)
[2021-08-02] MEDS: sodium chloride 0.9% 1,000 ML 100 ML IV (02:22)
[2021-08-02] MEDS: enoxaparin 60 mg/0.6 mL Syringe 50 MG SUBCUT (05:16)
[2021-08-02 05:28] LABS: Basophils % 0.1 %; Hematocrit 31.4 % (42.0-52.0); Hemoglobin 9.6 g/dL (11.7-16.6); Lymphocytes # 0.6 10^3/uL (0.8-4.8); Lymphocytes % 5.4 %; Mean Corpuscular HGB Conc 30.6 g/dL (30.0-36.0); Mean Corpuscular Hemoglobin 30.4 pg (28.0-34.0); Mean Corpuscular Volume 99.4 fl (80-94); Mean Platelet Volume 10.3 fL (7.4-10.4); Monocytes # 0.6 10^3/uL (0.2-0.9); Monocytes % 5.3 %; Neutrophils # 9.65 10^3/uL (1.8-7.7); Neutrophils % 88.9 %; Nucleated Red Blood Cells % 0 %; Platelet Count 209 10^3/cmm (130-400); Red Blood Count 3.16 10^6/uL (4.1-5.3); Red Cell Distribution Width 13.2 % (12.1-15.1); White Blood Count 10.9 10^3/uL (4.0-10.0)
[2021-08-02 06:06] LABS: Procalcitonin 0.17 ng/mL (0-0.5)
[2021-08-02 06:21] LABS: Alanine Aminotransferase 52 U/L (0-41); Albumin Level 2.2 g/dL (3.5-5.2); Alkaline Phosphatase 74 IU/L (40-130); Anion Gap 6.8 (5-19); Aspartate Amino Transferase 46 U/L (0-40); Blood Urea Nitrogen 12 mg/dL (8-23); C Reactive Protein 156.8 mg/L (0.0-4.9); Carbon Dioxide 35 mmol/L (22-29); Chloride 98 mmol/L (98-107); Globulin 2.3 g/dL (1.3-4.6); Glomerular Filtration Rate 473.3 mL/min (90-130); Glucose 136 mg/dL (65-115); Magnesium 1.8 mg/dL (1.7-2.3); Osmolality Calculated 284 mOsm/kg (285-295); Phosphorus 2.5 mg/dL (2.5-4.5); Potassium 3.8 mmol/L (3.5-5.1); Sodium 136 mmol/L (136-145); Total Bilirubin 0.3 mg/dL (0.15-1.2); Total Protein 4.5 g/dL (6.6-8.7)
[2021-08-02 06:51] LABS: NT Pro B Type Natriuretic Pept 2286 pg/mL (0-125)
[2021-08-02] MEDS: spironolactone 25 mg Tablet PO (07:49)
[2021-08-02] MEDS: loratadine 10 mg Tablet PO (07:51)
[2021-08-02] MEDS: pantoprazole DR 40 mg Tablet PO (07:51)
[2021-08-02] MEDS: metoprolol tartrate 50 mg Tablet PO ×2 (07:51→16:57)
[2021-08-02] MEDS: docusate sodium 100 mg Capsule PO ×2 (07:51→16:58)
[2021-08-02] MEDS: clopidogrel 75 mg Tablet PO (07:51)
[2021-08-02] MEDS: aspirin 81 mg EC Tablet PO (07:52)
[2021-08-02] MEDS: tamsulosin 0.4 mg Capsule PO (07:52)
[2021-08-02] MEDS: fluticasone nasal spray 16gm Btl 2 SPRAY NASAL (07:53)
[2021-08-02] MEDS: budesonide 0.5 mg/2 mL Neb INHALATION ×2 (08:10→20:33)
[2021-08-02] MEDS: ipratropium-albuterol 3 mL Neb INHALATION ×4 (08:10→20:33)
--- NOTE | 2021-08-02 09:03 | PC.NURSE ---
Morning medications given early per patients request
--- NOTE | 2021-08-02 09:47 | PC.NURSE ---
Patient is able to move and turn self in bed. Education was provided to turn every 2 hours to prevent pressure injuries.
--- NOTE | 2021-08-02 11:39 | PC.SOCIAL ---
IMM update IMM updated with patient. Verbalized an understanding. Copy Pg 2 provided. Initialled, dated, timed, and placed in chart.
--- NOTE | 2021-08-02 12:40 | CTR_ITS ---
PROCEDURE INFORMATION: Exam: CT Abdomen And Pelvis Without Contrast Exam date and time: 08/02/2021 12:40 PM Age: 71 years old Clinical indication: Fever and nausea; Prior surgery; Surgery date: 6+ months; Surgery type: Back, appy, gb; Patient HX: ? Fluid morrisons pouch; Additional info: Fluid gomez pouch TECHNIQUE: Imaging protocol: Computed tomography of the abdomen and pelvis without contrast. Radiation optimization: All CT scans at this facility use at least one of these dose optimization techniques: automated exposure control; mA and/or kV adjustment per patient size (includes targeted exams where dose is matched to clinical indication); or iterative reconstruction. COMPARISON: 1. CT Abdomen/Pelvis [place] [id number] 05/01/2019 11:45 PM 2. US abdomen complete* [id number] 08/02/2021 6:56:[address] angio chest PE protcl [id number] 07/27/2021 1:01:55 AM RADIATION DOSE METRICS: Total DLP (mGy-cm): 654.74 FINDINGS: Limitations: Artifact related to spinal hardware. Lungs: Limited imaging through the lung bases reveals emphysema, dependent right lower lobe consolidation and bilateral small layering effusions. Liver: Normal. Gallbladder and bile ducts: Cholecystectomy. Pancreas: Normal. No ductal dilation. Spleen: Normal. No splenomegaly. Adrenal glands: Normal. No mass. Kidneys and ureters: Mild left hydronephrosis appears unchanged from May 01, 2019. There are scattered left renal calculi, largest measuring 4 mm at the lower pole, as well as vascular calcifications of the hilum. No definite ureteral calculi seen. Punctate right upper pole calcification. Stomach and bowel: There is a large amount of formed stool throughout the colon. No evidence of bowel obstruction. No focal inflammatory changes appreciated on noncontrast CT. Appendix: Appendectomy by history. Intraperitoneal space: There is a small amount of hypodense free fluid within the abdomen and pelvis. No free air. Vasculature: Extensive atherosclerotic calcification. No abdominal aortic aneurysm. Lymph nodes: Unremarkable. No enlarged lymph nodes. Urinary bladder: Decompressed bladder with Mcbride in place. Nonspecific wall thickening. Reproductive: Prostate slightly enlarged. Bones/joints: Tubes, catheters and devices: Posterior fusion hardware and disc spacer at L4/5. No evidence of acute or aggressive osseous lesion. Soft tissues: Mild anasarca. CT/CT abdomen pelvis wo con [id number] IMPRESSION: 1. Dependent right lower lobe consolidation, correlate for pneumonia. Bilateral small layering effusions. 2. Small volume ascites. No free air. Mild anasarca. 3. Large amount of stool throughout the colon. No evidence of bowel obstruction. 4. Bilateral nonobstructing renal calculi. There is chronic mild left hydronephrosis unchanged from 2019. No visualized ureteral calculi. 5. Decompressed bladder with Mcbride in place. Nonspecific wall thickening. Radiation Dose CTDIVOL = (mGy): DLP = 654.74 (mGy-cm)
--- NOTE | 2021-08-02 13:45 | PM.PN ---
Subjective Subjective: Interval history: Patient was seen this morning, he tells me that his chest pain has resolved, he continues to feel short of breath, he is currently on a clear liquid diet, would like to advance his diet, would like something more substantial to eat, overall he tells me that he is feeling better, denies any abdominal pain, no nausea, no vomiting, I advised him of his bacteremia, without a clear source, I am really suspecting that he has a contamination, but will do a CT scan of his abdomen pelvis, he tells me that is not ready to leave the hospital as he still feels short of breath Vitals/I&O/Wt Last Vital Signs Temp 98.2 F 08/01/21 08:00 Pulse 112 H 08/02/21 08:14 Resp 20 H 08/02/21 08:14 BP 147/73 08/01/21 15:30 Pulse Ox 96 08/02/21 08:14 08/01/21 08/02/21 08/02/21 22:59 06:59 14:59 Intake Total 580 / 780 100 / 880 460 / 460 Output Total 600 / 1150 650 / 1800 400 / 400 Balance -20 / -370 -550 / -920 60 / 60 Physical Exam Const: COMMON NORMALS: no acute distress and patient oriented x3 Resp: COMMON NORMALS: normal respiratory effort, No retractions and No use of accessory muscles AUSCULTATION: wheezes Cardio: COMMON NORMALS: regular rate, regular rhythm, S1 normal heart sound present and S2 normal heart sound present RATE: regular rate RHYTHM: regular rhythm HEART SOUNDS: S1 normal heart sound present and S2 normal heart sound present GI: COMMON NORMALS: Normal to inspection, nondistended, normoactive bowel sounds present, Soft to palpation and non-tender PALPATION: Yes Soft to palpation Extremity: COMMON NORMALS: no pedal edema Neuro: COMMON NORMALS: patient oriented x3 Psych: COMMON NORMALS: mental status grossly normal Urinary Catheter Management^: Mcbride: Cath Placed During This Visit: yes Reason for Continuing Indwelling Catheter: Accurate Measurement of Urinary Output in Critically Ill Patients Urinary Catheter Date of Insertion: 08/01/21 Urinary Catheter Time of Insertion: 13:20 Data : 08/02/21 03:49 08/02/21 03:49 Micro: Microbiology 07/30/21 15:15 Gram Stain - Final Sputum - Expectorated Sputum Sputum Culture - Final Pseudomonas aeruginosa 08/02/21 03:49 Blood Culture - Preliminary Blood SPECIMEN COLLECTED 08/02/21 03:51 Blood Culture - Preliminary Blood SPECIMEN COLLECTED 08/01/21 13:25 Bacterial Antigens - Final Urine,Clean Catch A&P Assessment and plan (1) Chest pain: -Has stent. Last cardiac catheterization in June 2018 showed left main, circumflex, and RCA with 0% stenosis. The proximal LAD had minimal luminal irregularities with JOHN-3 flow. He had 90% restenosis of the first obtuse marginal and underwent balloon angioplasty with restenting at that time. Last echocardiogram May 2019 with ejection fraction 55%, mild hypokinesia of the apical septal segment with grade 1/4 diastolic dysfunction noted -chest pain -baseline troponin 110, 120-minute, 144, delta of 34, 6-hour 159.3, delta 49.6 -EKG no acute ST-T wave changes -patient is taking aspirin, plavix, and atorvastatin and beta-dara -Coronary angiogram revealed subtotally occluded in-stent restenosis distal to the stent is atretic very thin blood vessel which has subtotal occlusion. Balloon angioplasty was performed it was highly calcified vessel somewhat it improved flow. It is not a big vessel therefore we excepted the result with reasonable improved flow, proximal to the stent highly calcified eccentric lesion which we try to balloon followed by placement of stent but not able to cross since this is a small caliber nondominant vessel and most likely causing his chest pain -We will switch to DVT prophylaxis Lovenox -Cardiology on consult -We will moved to general medical floors Status: Acute (2) Acute exacerbation of chronic obstructive pulmonary disease: Acute on chronic exacerbation of COPD. Switch to prednisone 60 mg daily Given sputum culture positive in the past for Pseudomonas, currently on Primaxin Sputum cultures on this admission show gram-negative rods Duo nebs Supplemental oxygen as needed Continue his home hydrocodone 10-325 1 to 2 tablets every 4 hours as needed, Soma 350 mg 4 times daily as needed, diazepam 2 mg tablet every 6 hours as needed Monitor respiratory status closely Status: Acute (3) HTN (hypertension): Blood pressure currently well controlled. Will resume home medication. Status: Chronic Qualifiers: Hypertension type: other secondary hypertension Qualified Code(s): I15.8 - Other secondary hypertension (4) Hyperlipidemia: Chronically on statin therapy Status: Chronic Qualifiers: Hyperlipidemia type: mixed hyperlipidemia Qualified Code(s): E78.2 - Mixed hyperlipidemia (5) CAD (coronary artery disease): Continue aspirin and Plavix Status: Acute Qualifiers: Coronary Disease-Associated Artery/Lesion type: [place] artery [place] vs. transplanted heart: [place] heart Associated angina: angina presence unspecified Qualified Code(s): I25.10 - Atherosclerotic heart disease of [place] coronary artery without angina pectoris (6) Hyperthyroidism: Low TSH noted on multiple occasions. Follow repeat Am thyroid function test. Free T3 and free T4 in the past has been normal. Status: Chronic (7) Macrocytic anemia: With gradual decline in hemoglobin, no reported bleeding Status: Acute (8) Sacral decubitus ulcer: Present on admission, stage II versus previous stage III healing Status: Acute Qualifiers: Pressure injury stage: stage 2 Qualified Code(s): L89.152 - Pressure ulcer of sacral region, stage 2 (9) Anxiety: Chronically on as needed Valium despite hypercapnia Status: Chronic (10) Chronic back pain: Normally on hydrocodone and Soma Status: Chronic Qualifiers: Back pain location: low back pain Back pain laterality: bilateral Sciatica presence: with sciatica Sciatica laterality: bilateral sciatica Qualified Code(s): M54.42 - Lumbago with sciatica, left side; M54.41 - Lumbago with sciatica, right side; G89.29 - Other chronic pain (11) Bacteremia: -Blood cultures show Streptococcus bovis, Staphylococcus auricularis, Enterococcus Durans -Streptococcus bovis is concerning for possible underlying GI malignancy, will require an outpatient colonoscopy -Other is likely contamination, will repeat blood cultures -Ultrasound of the abdomen pelvis shows: 1. Prior cholecystectomy. 2. Moderate right pleural effusion. Left pleural effusion. 3. Small amount of fluid in Bermudez's pouch. 4. Right kidney 11.4 cm. Tiny cyst inferiorly 5 mm. 5. Left kidney 10.7 cm. Mild hydronephrosis versus extrarenal pelvis.. -We will do CT scan abdomen pelvis Status: Acute Additional A&P Information Urinary changes suggestive of prostatic hypertrophy Requires inpatient admission Steroids, both systemic and inhaled Scheduled and as needed breathing treatments Continue oxygen therapy weaning back to home amount as able BiPAP if needed Follow-up pending blood cultures Need to get home medications clarified but anticipate continuation of potentially a lower dose of metoprolol, spironolactone, aspirin, statin and Plavix Decreased TSH, normal free T3, normal free T4 Monitor H&H Continue home pain medications Flomax Lovenox for DVT prophylaxis PPI for GI prophylaxis Supportive care otherwise Currently anticipate disposition home on usual oxygen Plans were discussed with patient and he was given an opportunity to ask questions CODE STATUS was discussed with Mr. Sweet and he would want resuscitation, full CODE STATUS has been ordered Attestations Medical Necessity Statement*: Patient requires hospitalization for NSTEMI, shortness of breath secondary COPD exacerbation, now with bacteremia with clearly Coding Level of Care Code Acute Telegraph And Teletype Operator for g Fwd Diagnoses Chest pain R07.9 Acute exacerbation of chronic obstructive pulmonary disease J44.1 HTN (hypertension) I15.8 Hypertension type: other secondary hypertension Hyperlipidemia E78.2 Hyperlipidemia type: mixed hyperlipidemia CAD (coronary artery disease) I25.10 Coronary Disease-Associated Artery/Lesion type: [place] artery [place] vs. transplanted heart: [place] heart Associated angina: angina presence unspecified Hyperthyroidism E05.90 Macrocytic anemia D53.9 Sacral decubitus ulcer L89.152 Pressure injury stage: stage 2 Anxiety F41.9 Chronic back pain M54.42; M54.41; G89.29 Back pain location: low back pain Back pain laterality: bilateral Sciatica presence: with sciatica Sciatica laterality: bilateral sciatica Bacteremia R78.81
--- NOTE | 2021-08-02 14:24 | PC.NURSE ---
Pt transferred from ICU to CT then to Med Surg rm 272 by wheelchair by this SPN and nurse. Pt tolerated transfer well. staff aware pt in rm @ 1415. All belongings placed in closet in pt room. Pt comfortable. O2 on 4L call light within reach. FEDE Davies.
--- NOTE | 2021-08-02 14:32 | P.PN_ITS ---
Subjective Subjective: Interval history: Appear to be stable post percutaneous intervention denies any more chest pain. Medications: Reviewed: Yes Vitals/I&O/Wt Last Vital Signs Temp 98.2 F 08/01/21 08:00 Pulse 112 H 08/02/21 08:14 Resp 20 H 08/02/21 08:14 BP 147/73 08/01/21 15:30 Pulse Ox 96 08/02/21 08:14 08/01/21 08/02/21 08/02/21 22:59 06:59 14:59 Intake Total 580 / 780 100 / 880 460 / 460 Output Total 600 / 1150 650 / 1800 400 / 400 Balance -20 / -370 -550 / -920 60 / 60 Physical Exam Narrative: EXAM NARRATIVE: GENERAL: Patient is alert, awake and oriented x3. Stable laying in the bed denies any complaint NECK: No jugular vein distension. HEENT: No cyanosis. No icterus. No pallor. HEART: Regular S1 and S2. No murmur, rub or gallop. LUNGS: Decreased breath sound bilaterally. ABDOMEN: Soft, nontender and nondistended. Positive bowel sounds. No guarding, rebound or tenderness. CENTRAL NERVOUS SYSTEM: Grossly nonfocal. EXTREMITIES: Lower extremities without edema bilaterally. Pulses are dopplerable. Both feet and legs of normal color for him as well as temperature. He is able to move legs and feet. He has underlying PAD though. Urinary Catheter Management^: Mcbride: Cath Placed During This Visit: yes Reason for Continuing Indwelling Catheter: Accurate Measurement of Urinary Output in Critically Ill Patients Urinary Catheter Date of Insertion: 08/01/21 Urinary Catheter Time of Insertion: 13:20 Data : 08/02/21 03:49 08/02/21 03:49 Micro: Microbiology 07/30/21 15:15 Gram Stain - Final Sputum - Expectorated Sputum Sputum Culture - Final Pseudomonas aeruginosa 08/02/21 03:49 Blood Culture - Preliminary Blood SPECIMEN COLLECTED 08/02/21 03:51 Blood Culture - Preliminary Blood SPECIMEN COLLECTED 08/01/21 13:25 Bacterial Antigens - Final Urine,Clean Catch A&P Assessment and plan (1) NSTEMI (non-ST elevated myocardial infarction): Appear to be stable post PCI percutaneous balloon angioplasty of obtuse marginal stent for in-stent restenosis and proximal circumflex were high calcified stenosis distal vessel is atretic not amenable to intervention. Overall doing fine since then denies any more complaint. Continue medical management. Continue clopidogrel for 1 year. Status: Acute (2) Anxiety: As per medicine. Status: Chronic (3) Acute exacerbation of chronic obstructive pulmonary disease: As per medicine. Status: Acute Attestations Medical Necessity Statement*: As per medicine. Coding Level of Care Code Established Pt Acute Medical Reception Specialist for Sanchez Fwdoris Patient Type Established History Detailed Exam Detailed Medical Decision Making Moderate Complexity Diagnoses NSTEMI (non-ST elevated myocardial infarction) I21.4 Anxiety F41.9 Acute exacerbation of chronic obstructive pulmonary disease J44.1
[2021-08-02] MEDS: FUROsemide 10 mg/mL SDV 4mL 40 MG IVP (15:42)
[2021-08-02] MEDS: magnesium citrate Btl 296 mL 150 ML PO (17:00)
[2021-08-02] MEDS: polyethylene glycol 3350 Pkt 17 gm PO (17:00)
--- NOTE | 2021-08-02 19:27 | USR_ITS ---
PROCEDURE INFORMATION: Exam: US Abdomen Complete Exam date and time: 08/02/2021 7:27 PM Age: 71 years old Clinical indication: Condition or disease; Other: Strep bovis bacteremia; Patient HX: S/P cholecystectomy (unsure when) TECHNIQUE: Imaging protocol: Real-time ultrasound of the abdomen with image documentation. COMPARISON: CT Abdomen/Pelvis [facility] [id number] 05/01/2019 11:45 PM FINDINGS: Pleural spaces: Moderate right pleural effusion. Left pleural effusion. Liver: Liver unremarkable. Liver 16 cm. Flow within the portal vein is towards the liver- hepatopedal Gallbladder: Prior cholecystectomy. Common bile duct: Common bile duct 5 mm Pancreas: Visualized portions of the pancreas appear unremarkable. Right kidney: Right kidney unremarkable. Right kidney 11.4 cm. Tiny cyst inferiorly 5 mm. Left kidney: Left kidney 10.7 cm. Mild hydronephrosis versus extrarenal pelvis.. Spleen: Spleen normal. Spleen 12 cm Aorta: Atheromatous disease within the abdominal aorta Inferior vena cava: Normal. Intraperitoneal space: Small amount of fluid in Bermudez's pouch. US/US abdomen complete* [id number] IMPRESSION: 1. Prior cholecystectomy. 2. Moderate right pleural effusion. Left pleural effusion. 3. Small amount of fluid in Bermudez's pouch. 4. Right kidney 11.4 cm. Tiny cyst inferiorly 5 mm. 5. Left kidney 10.7 cm. Mild hydronephrosis versus extrarenal pelvis.. Consider CT. Radiation Dose CTDIVOL = (mGy): DLP = (mGy-cm)
[2021-08-02] MEDS: bisacodyl 5 mg Tablet 10 MG PO (19:50)
[2021-08-02] MEDS: atorvastatin 40 mg Tablet PO (21:48)
[2021-08-02] MEDS: trazodone 150 mg Tablet PO (21:49)
[2021-08-03] VITALS (21 sets, daily range): BP systolic 110–159; BP diastolic 55–84; PULSE 74–102; RESP 16–28; TEMP 36.4–37.1; O2SAT 90–98
[2021-08-03] MEDS: ipratropium-albuterol 3 mL Neb INHALATION ×4 (02:08→21:37)
[2021-08-03 04:23] LABS: Basophils % 0.1 %; Hematocrit 31.4 % (42.0-52.0); Hemoglobin 9.9 g/dL (11.7-16.6); Lymphocytes # 0.4 10^3/uL (0.8-4.8); Lymphocytes % 2.8 %; Mean Corpuscular HGB Conc 31.5 g/dL (30.0-36.0); Mean Corpuscular Hemoglobin 30.3 pg (28.0-34.0); Mean Platelet Volume 10.1 fL (7.4-10.4); Monocytes # 0.7 10^3/uL (0.2-0.9); Monocytes % 5.8 %; Neutrophils # 11.59 10^3/uL (1.8-7.7); Neutrophils % 90.8 %; Nucleated Red Blood Cells % 0 %; Platelet Count 234 10^3/cmm (130-400); Red Blood Count 3.27 10^6/uL (4.1-5.3); Red Cell Distribution Width 12.9 % (12.1-15.1); White Blood Count 12.8 10^3/uL (4.0-10.0)
[2021-08-03 04:55] LABS: NT Pro B Type Natriuretic Pept 1527 pg/mL (0-125)
[2021-08-03 05:06] LABS: Alanine Aminotransferase 38 U/L (0-41); Albumin Level 2.5 g/dL (3.5-5.2); Alkaline Phosphatase 76 IU/L (40-130); Anion Gap 8.2 (5-19); Aspartate Amino Transferase 21 U/L (0-40); Blood Urea Nitrogen 17 mg/dL (8-23); Calcium 8.6 mg/dL (8.5-10.5); Carbon Dioxide 37 mmol/L (22-29); Chloride 97 mmol/L (98-107); Globulin 2.6 g/dL (1.3-4.6); Glomerular Filtration Rate 296.4 mL/min (90-130); Glucose 119 mg/dL (65-115); Osmolality Calculated 289 mOsm/kg (285-295); Phosphorus 2.7 mg/dL (2.5-4.5); Potassium 4.2 mmol/L (3.5-5.1); Sodium 138 mmol/L (136-145); Total Bilirubin 0.2 mg/dL (0.15-1.2); Total Protein 5.1 g/dL (6.6-8.7)
[2021-08-03] MEDS: enoxaparin 40 mg/0.4 mL Syringe SUBCUT (07:03)
[2021-08-03] MEDS: aspirin 81 mg EC Tablet PO (08:22)
[2021-08-03] MEDS: docusate sodium 100 mg Capsule PO ×2 (08:22→17:33)
[2021-08-03] MEDS: metoprolol tartrate 50 mg Tablet PO ×2 (08:23→17:33)
[2021-08-03] MEDS: polyethylene glycol 3350 Pkt 17 gm PO (08:23)
[2021-08-03] MEDS: loratadine 10 mg Tablet PO (08:23)
[2021-08-03] MEDS: spironolactone 25 mg Tablet PO (08:23)
[2021-08-03] MEDS: clopidogrel 75 mg Tablet PO (08:23)
[2021-08-03] MEDS: predniSONE 20 mg Tablet 60 MG PO (08:23)
[2021-08-03] MEDS: pantoprazole DR 40 mg Tablet PO (08:23)
[2021-08-03] MEDS: tamsulosin 0.4 mg Capsule PO (08:23)
[2021-08-03] MEDS: HYDROcodone-acetaminophen 10-325 mg Tablet PO ×3 (08:31→17:35)
[2021-08-03] MEDS: fluticasone nasal spray 16gm Btl 2 SPRAY NASAL ×2 (08:41→17:36)
[2021-08-03] MEDS: budesonide 0.5 mg/2 mL Neb INHALATION ×2 (09:03→21:38)
[2021-08-03] MEDS: FUROsemide 10 mg/mL SDV 4mL 40 MG IVP (10:37)
[2021-08-03] MEDS: diazePAM 2 mg Tablet PO ×2 (10:42→17:35)
--- NOTE | 2021-08-03 12:10 | PC.NURSE ---
patient requesting to have PT evaluate him
--- NOTE | 2021-08-03 13:28 | PC.NURSE ---
Per Dr Ruvalcaba, okay to order PT eval and treat. curriculum writer put order in.
--- NOTE | 2021-08-03 16:11 | P.PN_ITS ---
Subjective Subjective: Interval history: Patient was seen this morning, he tells me that he still feels short of breath, he did enjoy his breakfast, no nausea, no vomiting, no lightheadedness, dizziness, he still in pain, he tells me that his Soma and hydrocodone and Valium are not helping with his pain Vitals/I&O/Wt Last Vital Signs Temp 98.1 F 08/03/21 15:25 Pulse 102 H 08/03/21 15:25 Resp 17 08/03/21 15:25 BP 151/71 08/03/21 15:25 Pulse Ox 90 08/03/21 15:25 08/03/21 08/03/21 08/03/21 06:59 14:59 22:59 Intake Total 620 / 620 300 / 920 Output Total 1800 / 1800 Balance -1180 / -1180 300 / -880 Weight last 48 hrs Weight 48.081 kg Physical Exam Const: COMMON NORMALS: no acute distress and patient oriented x3 Neck/C-Spine: COMMON NORMALS: no JVD Resp: COMMON NORMALS: normal respiratory effort, No retractions and No use of accessory muscles AUSCULTATION: wheezes Cardio: COMMON NORMALS: no JVD, regular rate, regular rhythm, S1 normal heart sound present and S2 normal heart sound present RATE: regular rate RHYTHM: regular rhythm HEART SOUNDS: S1 normal heart sound present and S2 normal heart sound present GI: COMMON NORMALS: Normal to inspection, nondistended, normoactive bowel sounds present, Soft to palpation and non-tender PALPATION: Yes Soft to palpation Extremity: COMMON NORMALS: no pedal edema Neuro: COMMON NORMALS: patient oriented x3 Psych: COMMON NORMALS: mental status grossly normal Urinary Catheter Management^: Mcbride: Cath Placed During This Visit: yes Reason for Continuing Indwelling Catheter: Accurate Measurement of Urinary Output in Critically Ill Patients Urinary Catheter Date of Insertion: 08/01/21 Urinary Catheter Time of Insertion: 13:20 Data : 08/03/21 03:49 08/03/21 03:49 Micro: Microbiology 08/02/21 03:51 Blood Culture - Preliminary Blood NEGATIVE TO DATE 08/02/21 03:49 Blood Culture - Preliminary Blood NEGATIVE TO DATE A&P Assessment and plan (1) Chest pain: -Has stent. Last cardiac catheterization in June 2018 showed left main, circumflex, and RCA with 0% stenosis. The proximal LAD had minimal luminal irregularities with JOHN-3 flow. He had 90% restenosis of the first obtuse marginal and underwent balloon angioplasty with restenting at that time. Last echocardiogram May 2019 with ejection fraction 55%, mild hypokinesia of the apical septal segment with grade 1/4 diastolic dysfunction noted -chest pain -baseline troponin 110, 120-minute, 144, delta of 34, 6-hour 159.3, delta 49.6 -EKG no acute ST-T wave changes -patient is taking aspirin, plavix, and atorvastatin and beta-dara -Coronary angiogram status post percutaneous intervention of obtuse marginal stent for in-stent restenosis and proximal circumflex were high calcified stenosis distal vessel is atretic not amenable to intervention. -CT of the chest does show bilateral pleural effusions, status post 2 doses of Lasix -Lovenox for DVT prophylaxis -Cardiology on consult Status: Acute (2) Acute exacerbation of chronic obstructive pulmonary disease: Acute on chronic exacerbation of COPD. Switch to prednisone 60 mg daily Given sputum culture positive in the past for Pseudomonas, de-escalate to L evaquin 12 antibiotics for 14 days Sputum cultures on this admission show gram-negative rods Duo nebs Supplemental oxygen as needed Continue his home hydrocodone 10-325 1 to 2 tablets every 4 hours as needed, Soma 350 mg 4 times daily as needed, diazepam 2 mg tablet every 6 hours as needed Monitor respiratory status closely Status: Acute (3) HTN (hypertension): Blood pressure currently well controlled. Will resume home medication. Status: Chronic Qualifiers: Hypertension type: other secondary hypertension Qualified Code(s): I15.8 - Other secondary hypertension (4) Hyperlipidemia: Chronically on statin therapy Status: Chronic Qualifiers: Hyperlipidemia type: mixed hyperlipidemia Qualified Code(s): E78.2 - Mixed hyperlipidemia (5) CAD (coronary artery disease): Continue aspirin and Plavix Status: Acute Qualifiers: Coronary Disease-Associated Artery/Lesion type: [place] artery [place] vs. transplanted heart: [place] heart Associated angina: angina presence unspecified Qualified Code(s): I25.10 - Atherosclerotic heart disease of [place] coronary artery without angina pectoris (6) Hyperthyroidism: Low TSH noted on multiple occasions. Follow repeat Am thyroid function test. Free T3 and free T4 in the past has been normal. Status: Chronic (7) Macrocytic anemia: With gradual decline in hemoglobin, no reported bleeding Status: Acute (8) Sacral decubitus ulcer: Present on admission, stage II versus previous stage III healing Status: Acute Qualifiers: Pressure injury stage: stage 2 Qualified Code(s): L89.152 - Pressure ulcer of sacral region, stage 2 (9) Anxiety: Chronically on as needed Valium despite hypercapnia Status: Chronic (10) Chronic back pain: Normally on hydrocodone and Soma Status: Chronic Qualifiers: Back pain location: low back pain Back pain laterality: bilateral Sciatica presence: with sciatica Sciatica laterality: bilateral sciatica Qualified Code(s): M54.42 - Lumbago with sciatica, left side; M54.41 - Lumbago with sciatica, right side; G89.29 - Other chronic pain (11) Bacteremia: -Blood cultures show Streptococcus bovis, Staphylococcus auricularis, Enterococcus Durans -Streptococcus bovis is concerning for possible underlying GI malignancy, will require an outpatient colonoscopy -Other is likely contamination -Ultrasound of the abdomen pelvis shows: 1. Prior cholecystectomy. 2. Moderate right pleural effusion. Left pleural effusion. 3. Small amount of fluid in Bermudez's pouch. 4. Right kidney 11.4 cm. Tiny cyst inferiorly 5 mm. 5. Left kidney 10.7 cm. Mild hydronephrosis versus extrarenal pelvis.. -We will do CT scan abdomen pelvis 1. Dependent right lower lobe consolidation, correlate for pneumonia. Bilateral small layering effusions. 2. Small volume ascites. No free air. Mild anasarca. 3. Large amount of stool throughout the colon. No evidence of bowel obstruction. -Repeat blood cultures so far negative Status: Acute (12) Protein calorie malnutrition: Status: Acute (13) Physical deconditioning: Status: Acute Additional A&P Information Urinary changes suggestive of prostatic hypertrophy Constipation, start bowel regimen Decreased TSH, normal free T3, normal free T4 Monitor H&H Continue home pain medications Flomax Lovenox for DVT prophylaxis PPI for GI prophylaxis Supportive care otherwise Currently anticipate disposition home on usual oxygen Plans were discussed with patient and he was given an opportunity to ask questions CODE STATUS was discussed with Mr. Sweet and he would want resuscitation, full CODE STATUS has been ordered Attestations Medical Necessity Statement*: Patient requires hospitalization for COPD exacerbation, chest pain Coding Level of Care Code Acute Data Recovery Planner for Sanchez Rios Diagnoses Chest pain R07.9 Acute exacerbation of chronic obstructive pulmonary disease J44.1 HTN (hypertension) I15.8 Hypertension type: other secondary hypertension Hyperlipidemia E78.2 Hyperlipidemia type: mixed hyperlipidemia CAD (coronary artery disease) I25.10 Coronary Disease-Associated Artery/Lesion type: [place] artery [place] vs. transplanted heart: [place] heart Associated angina: angina presence unspecified Hyperthyroidism E05.90 Macrocytic anemia D53.9 Sacral decubitus ulcer L89.152 Pressure injury stage: stage 2 Anxiety F41.9 Chronic back pain M54.42; M54.41; G89.29 Back pain location: low back pain Back pain laterality: bilateral Sciatica presence: with sciatica Sciatica laterality: bilateral sciatica Bacteremia R78.81 Protein calorie malnutrition E46 Physical deconditioning R53.81
[2021-08-03] MEDS: bisacodyl 5 mg Tablet 10 MG PO (17:35)
--- NOTE | 2021-08-03 18:15 | ECG_ITS ---
[facility] Test Date: 2021-08-03 Pat Name: Onel Low Department: Room: 272 Gender: Male Personal Counselor: : 1950 Requested By: Tyrone Ruvalcaba Order Number: [id number] Zach MD: Star Pacheco M.D. Measurements Intervals [place] Rate: 125 P: 79 AL: 112 QRS: 42 QRSD: 98 T: 83 QT: 283 QTc: 408 Interpretive Statements SINUS TACHYCARDIA WITH SHORT AL INTERVAL WITH OCCASIONAL VENTRICULAR PREMATURE COMPLEXES POSSIBLE ANTERIOR MYOCARDIAL INFARCTION , OF INDETERMINATE AGE [30 ms Q WAVE IN V3/V4, OR R < 0.2 mV IN V4] Compared to ECG 08/01/2021 13:22:41 Ventricular premature complex(es) now present Short [place] interval now present Myocardial infarct finding now present Sinus rhythm no longer present Electronically Signed On 08-03-2021 21:54:00 GENERATOR TECHNICIAN by Star Pacheco M.D. [email or web address].[employer]/store/[id number]
--- NOTE | 2021-08-03 18:20 | PC.NURSE ---
Rcvd telephone order to give Soma IVP Metoprolol and EKG now.
[2021-08-03] MEDS: alum-mag-hydroxide-sime 30 mL UDC PO (18:28)
[2021-08-03] MEDS: metoprolol tartrate 1 mg/1 mL SDV 5 mL 5 MG IVP (18:29)
--- NOTE | 2021-08-03 18:38 | PC.NURSE ---
notified Dr Ruvalcaba that EKG is in chart
--- NOTE | 2021-08-03 18:42 | PC.NURSE ---
updated Dr Ruvalcaba on patient's EKG reading and after administration of 5mg IV Metoprolol patient's heart rate is 99-100.
[2021-08-03] MEDS: nitroglycerin 0.4 mg sublingual Tablet SUBLINGUAL (19:46)
--- NOTE | 2021-08-03 19:50 | ECG_ITS ---
[facility] Test Date: 2021-08-03 Pat Name: Onel Low Department: Room: 272 Gender: Male Infection Prevention Practitioner: : 1950 Requested By: Shay Mata Order Number: [id number] Zach MD: Star Pacheco M.D. Measurements Intervals [place] Rate: 82 P: 69 [place]: 134 QRS: 42 QRSD: 78 T: 68 QT: 363 QTc: 425 Interpretive Statements SINUS RHYTHM WITH OCCASIONAL VENTRICULAR PREMATURE COMPLEXES POSSIBLE ANTERIOR MYOCARDIAL INFARCTION , OF INDETERMINATE AGE [30 ms Q WAVE IN V3/V4, OR R < 0.2 mV IN V4] Compared to ECG 08/03/2021 18:29:09 Sinus tachycardia no longer present Short [place] interval no longer present Myocardial infarct finding still present Electronically Signed On 08-03-2021 21:53:46 HAND FILER BALANCE WHEEL by Star Pacheco M.D. [email or web address] de Plantã[facility].[employer]/store/[id number]
[2021-08-03] MEDS: trazodone 150 mg Tablet PO (20:18)
[2021-08-03] MEDS: atorvastatin 40 mg Tablet PO (20:18)
--- NOTE | 2021-08-03 20:43 | PC.NURSE ---
@1930, patient continue to c/o pain around chest and ribs, VS 97.6, 94, 24, 159/81, 95% with 02 set at 4Lpm, recent EKG showed possible anterior CO, patient requesting morphine, stated I don't need a lot just some , call placed to Hospitalist Dr. Pacheco, instruction received to use nitro and then let him know if it helped or not, patient given first dose of Nitro, rechecked after 5 minutes, patient responded I don't even know anymore when asked if nitro helped, BP 121/68, pulse 87 resp 20 and 02 sat 92% @ 4Lpm. orders noted for another EKG and troponin labs.
[2021-08-03 20:53] LABS: Troponin(5th) Baseline 144 ng/L (0-15)
--- NOTE | 2021-08-03 21:00 | PC.NURSE ---
Dr. Pacheco visited with patient, notified of first Troponin result, waiting for 2hour delta result and EKG result
[2021-08-03] MEDS: morphine 4 mg/mL SDV 1 mL 2 MG IVP (21:09)
--- NOTE | 2021-08-03 21:22 | PC.NURSE ---
EKG result called to hospitalist, patient requesting coffee from home be warmed up, patient agreed coffee is caffinated, nurse explained to patient that coffee from home is not conducive to his current condition, patient stated I didn't have chest pain, I don't know who said that, I just hurt on my ribs and back from coughing so hard , patient reminded that labs and EKG identified chest pain, patient continue to deny having had chest pain and patient insisted for home coffee not to be thrown away, patient assured it will not,
--- NOTE | 2021-08-03 21:50 | ECG_ITS ---
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 Measurements Intervals [place] Rate: 86 P: 84 [place]: 145 QRS: 74 QRSD: 82 T: 89 QT: 353 QTc: 424 Interpretive Statements SINUS RHYTHM MINIMAL ST DEPRESSION [0.025+ mV ST DEPRESSION] Compared to ECG 08/04/2021 02:48:05 ST (T wave) deviation now present Electronically Signed On 08-04-2021 16:49:01 PIG MACHINE CRANE OPERATOR by Star Pacheco M.D. [id number]
[2021-08-03 22:48] LABS: Troponin 5 2HR Delta 6.2 ABS# (0-10)
[2021-08-03 22:56] LABS: Troponin 5 2HR 150.2 ng/L (0-15)
--- NOTE | 2021-08-03 23:19 | PC.NURSE ---
hospitalist notified of 2 hour troponin 150.2, delta 6.2, no new order at this time
[2021-08-04] VITALS (16 sets, daily range): BP systolic 128–135; BP diastolic 66–78; PULSE 80–108; RESP 14–19; TEMP 36.4–37; O2SAT 91–99
[2021-08-04] MEDS: HYDROcodone-acetaminophen 10-325 mg Tablet PO ×4 (00:52→20:28)
--- NOTE | 2021-08-04 01:50 | ECG_ITS ---
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 Measurements Intervals [place] Rate: 81 P: 74 [place]: 149 QRS: 41 QRSD: 82 T: 81 QT: 373 QTc: 434 Interpretive Statements SINUS RHYTHM Compared to ECG 08/03/2021 21:06:02 Ventricular premature complex(es) no longer present Myocardial infarct finding no longer present Electronically Signed On 08-04-2021 16:49:10 ACADEMIC COUNSELOR by Star Pacheco M.D. [id number]
[2021-08-04] MEDS: ipratropium-albuterol 3 mL Neb INHALATION ×4 (02:29→20:52)
[2021-08-04] MEDS: diazePAM 2 mg Tablet PO ×2 (03:13→13:08)
[2021-08-04 04:01] LABS: Basophils % 0.1 %; Eosinophils % 0.1 %; Hematocrit 32.5 % (42.0-52.0); Hemoglobin 10.2 g/dL (11.7-16.6); Lymphocytes # 0.7 10^3/uL (0.8-4.8); Lymphocytes % 5.2 %; Mean Corpuscular HGB Conc 31.4 g/dL (30.0-36.0); Mean Corpuscular Hemoglobin 30.2 pg (28.0-34.0); Mean Corpuscular Volume 96.2 fl (80-94); Mean Platelet Volume 10.5 fL (7.4-10.4); Monocytes # 0.7 10^3/uL (0.2-0.9); Monocytes % 5.3 %; Neutrophils # 12.04 10^3/uL (1.8-7.7); Neutrophils % 88.9 %; Nucleated Red Blood Cells % 0 %; Platelet Count 237 10^3/cmm (130-400); Red Blood Count 3.38 10^6/uL (4.1-5.3); White Blood Count 13.5 10^3/uL (4.0-10.0)
[2021-08-04 04:26] LABS: Troponin 5 6HR 172.7 ng/L (0-15); Troponin 5 6HR Delta 28.7 ng/L (0-12)
[2021-08-04 04:40] LABS: NT Pro B Type Natriuretic Pept 918 pg/mL (0-125); Procalcitonin 0.07 ng/mL (0-0.5)
[2021-08-04 04:51] LABS: Alanine Aminotransferase 59 U/L (0-41); Albumin Level 2.6 g/dL (3.5-5.2); Alkaline Phosphatase 71 IU/L (40-130); Blood Urea Nitrogen 17 mg/dL (8-23); Calcium 8.3 mg/dL (8.5-10.5); Carbon Dioxide 34 mmol/L (22-29); Chloride 92 mmol/L (98-107); Globulin 2.4 g/dL (1.3-4.6); Glomerular Filtration Rate 296.4 mL/min (90-130); Glucose 77 mg/dL (65-115); Osmolality Calculated 278 mOsm/kg (285-295); Sodium 134 mmol/L (136-145); Total Bilirubin 0.3 mg/dL (0.15-1.2)
[2021-08-04 04:56] LABS: Anion Gap 12.4 (5-19); Aspartate Amino Transferase 45 U/L (0-40); Potassium 4.4 mmol/L (3.5-5.1)
[2021-08-04] MEDS: levoFLOXacin 750 mg Tablet PO (05:52)
[2021-08-04] MEDS: enoxaparin 40 mg/0.4 mL Syringe SUBCUT (06:30)
[2021-08-04] MEDS: metoprolol tartrate 50 mg Tablet PO ×2 (08:12→17:24)
[2021-08-04] MEDS: pantoprazole DR 40 mg Tablet PO (08:12)
[2021-08-04] MEDS: predniSONE 20 mg Tablet 60 MG PO (08:12)
[2021-08-04] MEDS: loratadine 10 mg Tablet PO (08:12)
[2021-08-04] MEDS: docusate sodium 100 mg Capsule PO ×2 (08:12→17:24)
[2021-08-04] MEDS: clopidogrel 75 mg Tablet PO (08:12)
[2021-08-04] MEDS: polyethylene glycol 3350 Pkt 17 gm PO ×2 (08:13→17:25)
[2021-08-04] MEDS: aspirin 81 mg EC Tablet PO (08:13)
[2021-08-04] MEDS: morphine 4 mg/mL SDV 1 mL 2 MG IVP (08:13)
[2021-08-04] MEDS: spironolactone 25 mg Tablet PO (08:13)
[2021-08-04] MEDS: tamsulosin 0.4 mg Capsule PO (08:13)
[2021-08-04] MEDS: fluticasone nasal spray 16gm Btl 2 SPRAY NASAL ×2 (08:18→17:24)
[2021-08-04] MEDS: budesonide 0.5 mg/2 mL Neb INHALATION ×2 (08:31→20:52)
--- NOTE | 2021-08-04 10:54 | PC.SOCIAL ---
IMM Updated Updated pt on IMM. No question voiced. Provided pt a copy. Initialed, dated, & timed copy in chart.
--- NOTE | 2021-08-04 11:58 | PC.NURSE ---
At 1100 rcvd order to discontinue salamanca catheter from Dr Centeno
--- NOTE | 2021-08-04 13:34 | P.PN_ITS ---
Subjective Subjective: Interval history: Reports had quite severe pain encircling the bottom of his chest overnight. Better currently, but has been coughing quite a bit. Pain was worse with deep inspiration, cough. He does not feel that he has improved sufficiently to be able to return home. Vitals/I&O/Wt Last Vital Signs Temp 98.4 F 08/04/21 11:32 Pulse 95 08/04/21 11:32 Resp 16 08/04/21 11:32 BP 135/78 08/04/21 11:32 Pulse Ox 95 08/04/21 11:32 08/03/21 08/04/21 08/04/21 22:59 06:59 14:59 Intake Total 300 / 920 320 / 1240 480 / 480 Output Total 350 / 2150 550 / 2700 600 / 600 Balance -50 / -1230 -230 / -1460 -120 / -120 Weight last 48 hrs Weight 49.895 kg Weight 42.638 kg Weight 48.081 kg Physical Exam Const: COMMON NORMALS: no acute distress and patient oriented x3 HENMT: COMMON NORMALS: oropharynx normal Neck/C-Spine: COMMON NORMALS: no JVD Chest: OTHER: Ribs tender on palpation right lower chest bilaterally. Resp: COMMON NORMALS: normal respiratory effort AUSCULTATION: wheezes and diminished lung sounds OTHER: Coughing on deep inspiration Cardio: COMMON NORMALS: no JVD, regular rhythm, S1 normal heart sound present, S2 normal heart sound present and No murmurs present (Cardio) RHYTHM: regular rhythm HEART SOUNDS: S1 normal heart sound present and S2 normal heart sound present GI: COMMON NORMALS: Normal to inspection, nondistended, normoactive bowel sounds present, Soft to palpation and non-tender PALPATION: Yes Soft to palpation Extremity: COMMON NORMALS: no joint enlargement and no pedal edema Neuro: COMMON NORMALS: patient oriented x3 and moves all extremities Skin: COMMON NORMALS: no rashes or lesions noted GENERAL SKIN EXAM: no rashes or lesions noted Urinary Catheter Management^: Mcbride: Cath Placed During This Visit: yes, but has since been removed by the nurse Reason for Continuing Indwelling Catheter: Decision to DC Catheter Urinary Catheter Date of Insertion: 08/01/21 Urinary Catheter Time of Insertion: 13:20 Date Urinary Catheter Removed: 08/04/21 Time Urinary Catheter Discontinued: 11:56 Data : 08/04/21 03:00 08/04/21 03:00 A&P Assessment and plan (1) Chest pain: Overnight was having chest pain which clinically sounds pleuritic, worse with inspiration, palpation of the rib cage, he is also quite wheezy, with diminished air entry bilaterally. Coughing. Does not like cough syrup. Discussed with him adding benzonatate p.o. 3 times daily scheduled, with availability of Robitussin as needed. Add lidocaine patch. At the same time troponin was a little bit higher today compared to prior. Noted to have 12 beats of VT. Nursing staff notified cardiology as well. We will continue to monitor telemetry. Reassess troponin in the morning. Nitroglycerin as needed. -Has stent. Last cardiac catheterization in June 2018 showed left main, circumflex, and RCA with 0% stenosis. The proximal LAD had minimal luminal irregularities with JOHN-3 flow. He had 90% restenosis of the first obtuse marginal and underwent balloon angioplasty with restenting at that time. Last echocardiogram May 2019 with ejection fraction 55%, mild hypokinesia of the apical septal segment with grade 1/4 diastolic dysfunction noted -chest pain -baseline troponin 110, 120-minute, 144, delta of 34, 6-hour 159.3, delta 49.6 -EKG no acute ST-T wave changes -patient is taking aspirin, plavix, and atorvastatin and beta-dara -Coronary angiogram status post percutaneous intervention of obtuse marginal stent for in-stent restenosis and proximal circumflex were high calcified stenosis distal vessel is atretic not amenable to intervention. -CT of the chest does show bilateral pleural effusions, status post 2 doses of Lasix -Lovenox for DVT prophylaxis -Cardiology on consult Status: Acute (2) Acute exacerbation of chronic obstructive pulmonary disease: Persistent COPD exacerbation with wheezing, cough, dyspnea, cough contributing to his chest pain as well. Diminished air entry. He does not feel like he has gotten better. Does not feel ready to return home. Discussed with him we will transition to IV steroids. Continue breathing treatments. Continue to biotic therapy for Pseudomonas. Flutter valve. Incentive spirometer. Acute on chronic exacerbation of COPD. Given sputum culture positive in the past for Pseudomonas Sputum cultures on this admission show gram-negative rods Continue his home hydrocodone 10-325 1 to 2 tablets every 4 hours as needed, Tomy a 350 mg 4 times daily as needed, diazepam 2 mg tablet every 6 hours as needed Add lidocaine patch Monitor respiratory status closely Status: Acute (3) HTN (hypertension): Blood pressure currently well controlled. Will resume home medication. Status: Chronic Qualifiers: Hypertension type: other secondary hypertension Qualified Code(s): I15. 8 - Other secondary hypertension (4) Hyperlipidemia: Chronically on statin therapy Status: Chronic Qualifiers: Hyperlipidemia type: mixed hyperlipidemia Qualified Code(s): E78.2 - Mixed hyperlipidemia (5) CAD (coronary artery disease): Continue aspirin and Plavix Status: Acute Qualifiers: Associated angina: angina presence unspecified Coronary Disease- Associated Artery/Lesion type: [place] artery [place] vs. transplanted heart: cata[place]ba heart Qualified Code(s): I25.10 - Atherosclerotic heart disease of [place] coronary artery without angina pectoris (6) Hyperthyroidism: Low TSH noted on multiple occasions. Normal free T3, free T4. Consider endocrinology follow up. Status: Chronic (7) Macrocytic anemia: With gradual decline in hemoglobin, no reported bleeding Status: Acute (8) Sacral decubitus ulcer: Present on admission, stage II versus previous stage III healing He has not been mobilizing well with physical therapy. Continue to encourage. Improve nutrition as below. Status: Acute Qualifiers: Pressure injury stage: stage 2 Qualified Code(s): L89.152 - Pressure ulcer of sacral region, stage 2 (9) Anxiety: Chronically on as needed Valium despite hypercapnia Status: Chronic (10) Chronic back pain: Normally on hydrocodone and Soma Status: Chronic Qualifiers: Back pain laterality: bilateral Back pain location: low back pain Sciatica laterality: bilateral sciatica Sciatica presence: with sciatica Qualified Code(s): M54.42 - Lumbago with sciatica, left side; M54.41 - Lumbago with sciatica, right side; G89.29 - Other chronic pain (11) Bacteremia: He understands will need additional assessment with colonoscopy to exclude malignancy as source of Streptococcus bovis bacteremia. Continue Levaquin. -Blood cultures show Streptococcus bovis, Staphylococcus auricularis, Entero coccus Durans -Streptococcus bovis is concerning for possible underlying GI malignancy, will require an outpatient colonoscopy -Other is likely contamination -Ultrasound of the abdomen pelvis shows: 1. Prior cholecystectomy. 2. Moderate right pleural effusion. Left pleural effusion. 3. Small amount of fluid in Bermudez's pouch. 4. Right kidney 11.4 cm. Tiny cyst inferiorly 5 mm. 5. Left kidney 10.7 cm. Mild hydronephrosis versus extrarenal pelvis.. -We will do CT scan abdomen pelvis 1. Dependent right lower lobe consolidation, correlate for pneumonia. Bilateral small layering effusions. 2. Small volume ascites. No free air. Mild anasarca. 3. Large amount of stool throughout the colon. No evidence of bowel obstruction. -Repeat blood cultures so far negative Status: Acute (12) Protein calorie malnutrition: Severe malnutrition. BMI 17.8, obvious muscle wasting, loss of subcutaneous fat. Chronic illness with COPD, chronic hypoxia. Age. Oral diet as tolerated. Ensure Plus. Power Barker Operator consult. Status: Acute (13) Physical deconditioning: Status: Acute Additional A&P Information Chest pain: Encircling lower chest overnight. Reports worse with deep inspiration, cough. He is wheezing, coughing especially with deep inspiration. Tenderness on palpation. Well-nourished. Add lidocaine patch to try to help reduce opiate requirement. Constipation: Continue bowel regimen. So far no bowel movement for 5 days as per report. He is taking opiates frequently. Will request for dose of Relistor. Stage I pressure sore: Noted on sacrum. OptiForm dressing daily. Given significant fatty tissue loss, reduced mobility, would benefit from air mattress due to elevated risk of progression of pressure ulcer. Urinary changes suggestive of prostatic hypertrophy: Flomax Lovenox for DVT prophylaxis PPI for GI prophylaxis Supportive care otherwise Currently anticipate disposition home on usual oxygen Attestations Medical Necessity Statement*: Continue admission for cyst management of recurrent episodes of chest pain, with recent NSTEMI, with stenting, with also concomitant COPD exacerbation, persistent cough, dyspnea. Coding Level of Care Code Acute [employer] School Guidance Counselor for [facility] Fwd Exam Comprehensive Diagnoses Chest pain R07.9 Acute exacerbation of chronic obstructive pulmonary disease J44.1 HTN (hypertension) I15.8 Hypertension type: other secondary hypertension Hyperlipidemia E78.2 Hyperlipidemia type: mixed hyperlipidemia CAD (coronary artery disease) I25.10 Associated angina: angina presence unspecified Coronary Disease-Associated Artery/Lesion type: [place] artery [place] vs. transplanted heart: c[place]ba heart Hyperthyroidism E05.90 Macrocytic anemia D53.9 Sacral decubitus ulcer L89.152 Pressure injury stage: stage 2 Anxiety F41.9 Chronic back pain M54.42; M54.41; G89.29 Back pain laterality: bilateral Back pain location: low back pain Sciatica laterality: bilateral sciatica Sciatica presence: with sciatica Bacteremia R78.81 Protein calorie malnutrition E46 Physical deconditioning R53.81
--- NOTE | 2021-08-04 14:07 | PC.NUTR ---
Nutrition consult for malnutrition received today. Assessment by RD completed on 07/30/21 and today 08/04/21. Please refer to these assessments for additional details. Appropriate interventions in place.
[2021-08-04] MEDS: benzonatate 100 mg Capsule PO ×2 (14:13→20:29)
[2021-08-04] MEDS: methylnaltrexone 12 /0.6 mL INJ 12 MG SUBCUT (14:13)
--- NOTE | 2021-08-04 14:20 | PC.NURSE ---
Rcvd telephone order to renew Soma and Valium.
--- NOTE | 2021-08-04 15:00 | PC.NURSE ---
Notified Dr Centeno that Maryjo has suggested an air mattress for the pressure area on sacrum. Brooke with [facility] said his insurance would cover if you document need and put in order if you want it.
--- NOTE | 2021-08-04 18:09 | PC.NURSE ---
Notified Dr Centeno that had a 12 beat run of Vta at [phone]
--- NOTE | 2021-08-04 18:27 | PC.NURSE ---
Notified Dr Simpson that had a 12 beat run of [facility] at [phone]
--- NOTE | 2021-08-04 18:28 | PC.NURSE ---
no new orders received from Dr Simpson
[2021-08-04] MEDS: trazodone 150 mg Tablet PO (20:28)
[2021-08-04] MEDS: atorvastatin 40 mg Tablet PO (20:29)
--- NOTE | 2021-08-04 21:03 | PM.PN ---
Subjective Subjective: Interval history: Short 12 beats runs of V. tach. Denies any complaint. Patient says after passing stool he is feeling much better. He denies chest pain Medications: Reviewed: Yes Vitals/I&O/Wt Last Vital Signs Temp 97.5 F L 08/04/21 19:50 Pulse 89 08/04/21 20:58 Resp 18 08/04/21 20:58 BP 128/66 08/04/21 19:50 Pulse Ox 99 08/04/21 20:58 08/04/21 08/04/21 08/04/21 06:59 14:59 22:59 Intake Total 320 / 1240 480 / 480 240 / 720 Output Total 550 / 2700 700 / 700 150 / 850 Balance -230 / -1460 -220 / -220 90 / -130 Weight last 48 hrs Weight 110 lb Weight 94 lb Weight 106 lb Physical Exam Narrative: EXAM NARRATIVE: GENERAL: Patient is alert, awake and oriented x3. Sitting in the chair comfortably. HEENT: No cyanosis. No icterus. No pallor. HEART: Regular S1 and S2. No murmur, rub or gallop. LUNGS: Decreased breath sound bilaterally. ABDOMEN: Soft, nontender and nondistended. Positive bowel sounds. No guarding, rebound or tenderness. CENTRAL NERVOUS SYSTEM: Grossly nonfocal. EXTREMITIES: Lower extremities without edema bilaterally. Pulses are dopplerable. Both feet and legs of normal color for him as well as temperature. He is able to move legs and feet. He has underlying PAD though. Urinary Catheter Management^: Mcbride: Cath Placed During This Visit: yes, but has since been removed by the nurse Reason for Continuing Indwelling Catheter: Decision to DC Catheter Urinary Catheter Date of Insertion: 08/01/21 Urinary Catheter Time of Insertion: 13:20 Date Urinary Catheter Removed: 08/04/21 Time Urinary Catheter Discontinued: 11:56 Data : 08/05/21 04:48 08/05/21 04:48 A&P Assessment and plan (1) NSTEMI (non-ST elevated myocardial infarction): Appear to be stable post PCI percutaneous balloon angioplasty of obtuse marginal stent for in-stent restenosis and proximal circumflex were high calcified stenosis distal vessel is atretic not amenable to intervention. Overall doing fine since then denies any more complaint. Continue medical management. Continue clopidogrel for 1 year. Continues to optimize medicine will increase beta-dara Appear to be stable from percutaneous balloon angioplasty of highly calcified distally atretic nondominant circumflex. We will continue to manage him medically overall he is doing fine. Shot 12 beat runs of V. tach he is stable electrolyte kruse he is on beta-dara continue current regimen. Use cautiously inhalers especially beta-2 agonist may consider switching to levalbuterol Status: Acute (2) Anxiety: As per medicine. Status: Chronic (3) Acute exacerbation of chronic obstructive pulmonary disease: As per medicine. Status: Acute Attestations Medical Necessity Statement*: As per medicine Coding Level of Care Code Established Pt Acute Seed Cleaning Machine Operator for Chg Fwd Patient Type Established History Detailed Exam Detailed Medical Decision Making Moderate Complexity Diagnoses NSTEMI (non-ST elevated myocardial infarction) I21.4 Anxiety F41.9 Acute exacerbation of chronic obstructive pulmonary disease J44.1
[2021-08-04] MEDS: lidocaine 5% Patch 1 PATCH TOPICAL (21:51)
[2021-08-05] VITALS (10 sets, daily range): BP systolic 119–163; BP diastolic 56–80; PULSE 72–98; RESP 16–18; TEMP 36.4–36.7; O2SAT 90–97
[2021-08-05] MEDS: ipratropium-albuterol 3 mL Neb INHALATION ×2 (02:37→08:28)
[2021-08-05] MEDS: levoFLOXacin 750 mg Tablet PO (05:33)
[2021-08-05 05:36] LABS: Basophils % 0.2 %; Hematocrit 33.4 % (42.0-52.0); Hemoglobin 10.6 g/dL (11.7-16.6); Lymphocytes # 0.3 10^3/uL (0.8-4.8); Lymphocytes % 2.4 %; Mean Corpuscular HGB Conc 31.7 g/dL (30.0-36.0); Mean Corpuscular Hemoglobin 30.5 pg (28.0-34.0); Monocytes # 0.2 10^3/uL (0.2-0.9); Monocytes % 1.4 %; Neutrophils # 11.09 10^3/uL (1.8-7.7); Neutrophils % 95.4 %; Nucleated Red Blood Cells % 0 %; Platelet Count 292 10^3/cmm (130-400); Red Blood Count 3.48 10^6/uL (4.1-5.3); Red Cell Distribution Width 13.1 % (12.1-15.1); White Blood Count 11.6 10^3/uL (4.0-10.0)
[2021-08-05 05:56] LABS: Alanine Aminotransferase 50 U/L (0-41); Albumin Level 2.5 g/dL (3.5-5.2); Alkaline Phosphatase 68 IU/L (40-130); Anion Gap 10.6 (5-19); Aspartate Amino Transferase 24 U/L (0-40); Blood Urea Nitrogen 13 mg/dL (8-23); Calcium 8.5 mg/dL (8.5-10.5); Carbon Dioxide 33 mmol/L (22-29); Chloride 93 mmol/L (98-107); Glomerular Filtration Rate 473.3 mL/min (90-130); Glucose 115 mg/dL (65-115); Osmolality Calculated 275 mOsm/kg (285-295); Potassium 4.6 mmol/L (3.5-5.1); Sodium 132 mmol/L (136-145); Total Bilirubin 0.3 mg/dL (0.15-1.2); Total Protein 5.5 g/dL (6.6-8.7)
[2021-08-05] MEDS: HYDROcodone-acetaminophen 10-325 mg Tablet PO ×3 (06:02→14:24)
[2021-08-05] MEDS: diazePAM 2 mg Tablet PO (06:03)
[2021-08-05] MEDS: enoxaparin 40 mg/0.4 mL Syringe SUBCUT (06:03)
[2021-08-05] MEDS: fluticasone nasal spray 16gm Btl 2 SPRAY NASAL (06:06)
[2021-08-05 06:10] LABS: Troponin T (5th) Once 136 ng/L (0-15)
[2021-08-05] MEDS: budesonide 0.5 mg/2 mL Neb INHALATION (08:28)
[2021-08-05] MEDS: polyethylene glycol 3350 Pkt 17 gm PO (09:23)
[2021-08-05] MEDS: clopidogrel 75 mg Tablet PO (09:24)
[2021-08-05] MEDS: spironolactone 25 mg Tablet PO (09:24)
[2021-08-05] MEDS: docusate sodium 100 mg Capsule PO (09:24)
[2021-08-05] MEDS: tamsulosin 0.4 mg Capsule PO (09:24)
[2021-08-05] MEDS: pantoprazole DR 40 mg Tablet PO (09:24)
[2021-08-05] MEDS: aspirin 81 mg EC Tablet PO (09:24)
[2021-08-05] MEDS: loratadine 10 mg Tablet PO (09:24)
[2021-08-05] MEDS: metoprolol tartrate 50 mg Tablet PO (09:24)
[2021-08-05] MEDS: benzonatate 100 mg Capsule PO (09:24)
[2021-08-05] MEDS: lidocaine 5% Patch 1 PATCH TOPICAL (09:39)
--- NOTE | 2021-08-05 13:27 | P.DS_ITS ---
Discharge Providers Date of Admission: 07/28/21 16:55 Date of Discharge: August 05, 2021 Attending Provider at Admission: Megan Varela MD Attending Provider at Discharge: Leif Centeno Primary Care Provider: Hiwot Yeung DO Diagnoses at Discharge Discharge Diagnosis (1) NSTEMI (non-ST elevated myocardial infarction): Status: Acute (2) Anxiety: Status: Chronic (3) Acute exacerbation of chronic obstructive pulmonary disease: Status: Acute Reason for Visit 2 Reason for Visit: sob/cp Hospital Course Hospital Course 71-year-old gentleman here in the hospital due to COPD exacerbation, less likely also pneumonia, CTA negative for PE, chronically on 3 L of oxygen, in the hospital requiring up to 5 L oxygen support, sputum cultures growing Pseudomonas, for which he is currently being treated with Levaquin. Initial antibiotic coverage did not cover for it on till started on Primaxin on 07/30. The plan has been for total 2 weeks of antibiotics, of which 1 week he has received here so far. Will complete additional week of antibiotic with Levaquin, overall breathing is improved, but still some residual wheezing. At discharge will be leaving with prednisone taper. He should subsequently resume his usual prednisone, and usual antibiotic suppression with azithromycin. Asked to follow-up with pulmonology. Levalbuterol requested due to 12 beat run of VT noted last night. He is feeling better today and request to return home. He is down to 3 L nasal cannula oxygen requirement. During hospitalization was seen by cardiology and underwent coronary angiography and angioplasty due to NSTEMI. Echocardiogram showed normal ejection fraction, grade 1 diastolic function, no significant change from prior echo. PCI with percutaneous balloon angioplasty of obtuse marginal artery was performed with stent for in-stent restenosis, as well as proximal nondominant circumflex with highly calcified stenosis. Distal vessel atretic, not amenable to intervention. Per discussion with cardiology request is for follow-up with cardiology office for reassessment. He continues on beta-dara, antiplatelet, statin. Additional intermittent chest pain episodes also at least in part related to chest wall pain reproducible on palpation following cough episode secondary to COPD exacerbation. Improved with lidocaine patch, cough medicine. During hospitalization antibiotic therapy also geared toward treatment of bacteremia with noted Enterococcus and Streptococcus bovis in blood. Repeat blood cultures so far negative. Please assist him in setting up additional endoscopic evaluation starting with colonoscopy once his respiratory condition is improved to assess for possible occult malignancy responsible for the Streptococcus bovis bacteremia. Significant constipation during hospitalization responded to bowel regimen and 1 dose of Relistor. He is instructed to try to minimize opioid medication use, and to continue bowel regimen, and avoid constipation. Noted severe malnutrition notable for which he was assessed by nutrition as well, started on nutritional supplements. He is instructed to continue at home. Please reassess in office. With decreased subcutaneous fatty tissue, decreased padding, noted stage I pressure ulcer on the sacrum. He reports that at home he sleeps on the couch. He is asked to continue Optifoam dressing changes, reposition frequently, improve nutrition as above. Please follow-up in the wound healing. He is referred to wound care clinic. Air mattress was offered, but he declined for now wanting to first consider his sleeping situation at home as he would have to get rid of the couch. He prefers to discuss further with his primary care provider. Please follow-up with regards to his anemia. Please reassess renal function, of note incidentally seen mild left hydronephrosis. Please follow-up. Physical Exam Const: COMMON NORMALS: no acute distress, patient oriented x3 and alert GENERAL APPEARANCE: cooperative and comfortable NUTRITIONAL APPEARANCE: thin ORIENTATION/CONSCIOUSNESS: Yes awake HENMT: COMMON NORMALS: oropharynx normal Neck/C-Spine: COMMON NORMALS: no JVD Chest: OTHER: Ribs tender on palpation right lower chest bilaterally. Resp: COMMON NORMALS: normal respiratory effort AUSCULTATION: wheezes (improved, mild wheeze stil present) and diminished lung sounds (better) Cardio: COMMON NORMALS: no JVD, regular rhythm, S1 normal heart sound present, S2 normal heart sound present and No murmurs present (Cardio) RHYTHM: regular rhythm HEART SOUNDS: S1 normal heart sound present and S2 normal heart sound present GI: COMMON NORMALS: Normal to inspection, nondistended, normoactive bowel sounds present, Soft to palpation and non-tender PALPATION: Yes Soft to palpation Extremity: COMMON NORMALS: no joint enlargement and no pedal edema Neuro: COMMON NORMALS: patient oriented x3 and moves all extremities SENSORIUM/ORIENTATION: Yes alert Skin: COMMON NORMALS: no rashes or lesions noted GENERAL SKIN EXAM: no rashes or lesions noted Urinary Catheter Management^: Mcbride: Cath Placed During This Visit: yes, but has since been removed by the nurse Reason for Continuing Indwelling Catheter: Decision to DC Catheter Urinary Catheter Date of Insertion: 08/01/21 Urinary Catheter Time of Insertion: 13:20 Date Urinary Catheter Removed: 08/04/21 Time Urinary Catheter Discontinued: 11:56 Discharge Data Data Completed and Pending: Completed Studies During Hospitalization Category Date Time Status CT abdomen pelvis wo con [id number] Stat Cat Scan 08/02/21 12:[address] angio chest PE protcl [id number] Urge nt Cat Scan 07/27/21 00:23 Completed XR chest 1V kasey ble [id number] Urgent Exams 07/26/21 22:04 Completed CV. 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 Routin e Exams 08/01/21 10:11 Taken Blood Culture Sta t Lab 08/02/21 03:49 Results Complete Blood Co unt w/Auto AM LABS Lab 08/06/21 04:00 Ordered Comprehensive Met abolic Panel AM LA BS Lab 08/06/21 04:00 Ordered Magnesium AM LABS Lab 08/06/21 04:00 Ordered Labs from last 24 hours 08/05/21 08/05/21 08/05/21 04:48 04:48 04:48 WBC 11.6 H RBC 3.48 L Hgb 10.6 L Hct 33.4 L MCV 96.0 H MCH 30.5 MCHC 31.7 RDW 13.1 Plt Count 292 MPV 10.0 Neut % (Auto) 95.4 Lymph % (Auto) 2.4 [place] % (Auto) 1.4 Eos % (Auto) 0.0 Baso % (Auto) 0.2 Neut # (Auto) 11.09 H Lymph # (Auto) 0.3 L [place] # (Auto) 0.2 Eos # (Auto) 0.0 Baso # (Auto) 0.0 Nucleated RBC % (a uto) 0 Nucleated RBCs # 0.0 Sodium 132 L Potassium 4.6 Chloride 93 L Carbon Dioxide 33 H Anion Gap 10.6 BUN 13 Creatinine 0.2 L GFR Calculation 473.3 H Glucose 115 Calculated Osmolal ity 275 L Calcium 8.5 Magnesium 2.0 Total Bilirubin 0.3 AST 24 ALT 50 H Alkaline Phosphata se 68 Troponin T Gen 5 n g/L 136 H* Total Protein 5.5 L Albumin 2.5 L Globulin 3.0 Vitals: Last Vital Signs Temp 97.9 F 08/05/21 12:00 Pulse 86 08/05/21 12:00 Resp 17 08/05/21 12:00 BP 145/77 08/05/21 12:00 Pulse Ox 97 08/05/21 12:00 Discharge Plan Discharge Patient Disposition: Home Health Service Condition: Stable Prescriptions: New levofloxacin 750 mg tablet 750 mg PO DAILY 7 Days Qty: 7 RF: 0 prednisone 20 mg tablet 20 mg PO DAILY Qty: 20 RF: 0 levalbuterol HCl 0.63 mg/3 mL solution for nebulization 0.63 mg inhalation Q6H PRN (Reason: shortness of breath or wheezing) Qty: 90 RF: 0 levalbuterol tartrate 45 mcg/actuation HFA aerosol inhaler 1 inh inhalation Q6H PRN (Reason: shortness of breath or wheezing) Qty: 15 RF: 0 lidocaine 5 % Adhesive Patch,Medicated 1 patch topical [id number] Qty: 14 RF: 0 polyethylene glycol 3350 17 gram Powder In Packet 17 g PO BID Qty: 60 RF: 0 dextromethorphan-guaifenesin 10-100 mg/5 mL Syrup 5 ml PO Q4H PRN (Reason: Cough) Qty: 237 RF: 0 benzonatate 100 mg Capsule 100 mg PO TID Qty: 30 RF: 3 Continued aspirin 81 mg tablet,delayed release (DR/EC) 81 mg PO DAILY RF: 0 Spiriva with HandiHaler 18 mcg capsule, w/inhalation device 1 cap inhalation DAILY Qty: 30 RF: 3 loratadine [Claritin] 10 mg tablet 10 mg PO DAILY RF: 0 diclofenac sodium [Voltaren] 1 % gel 1 gm TOPICAL TID Qty: 100 RF: 0 trazodone 150 mg tablet 150 mg PO BEDTIME Qty: 30 RF: 1 tamsulosin [Flomax] 0.4 mg capsule 0.4 mg PO DAILY Qty: 30 RF: 0 pantoprazole 40 mg tablet,delayed release (DR/EC) 40 mg PO DAILY Qty: 30 RF: 0 spironolactone 25 mg tablet 25 mg PO DAILY Qty: 30 RF: 0 metoprolol tartrate 50 mg tablet 50 mg PO BID Qty: 60 RF: 0 diazepam [Valium] 5 mg tablet 5 mg PO .every 12 hours PRN (Reason: anxiety) Qty: 90 RF: 0 nitroglycerin 0.4 mg tablet, sublingual 0.4 mg sublingual PRN RF: 0 atorvastatin 40 mg tablet 40 mg PO DAILY RF: 0 clopidogrel 75 mg tablet 75 mg PO DAILY RF: 0 Symbicort 160-4.5 mcg/actuation HFA aerosol inhaler 2 puff inhalation BID RF: 0 Daliresp 500 mcg tablet 500 mcg PO DAILY RF: 0 Combivent Respimat 20-100 mcg/actuation mist 1 puff inhalation Q6H PRN (Reason: Shortness Of Breath) RF: 0 carisoprodol [Soma] 350 mg Tablet 350 mg PO QID RF: 0 hydrocodone-acetaminophen 10-325 mg Tablet 1 - 2 tab PO Q4H PRN (Reason: Pain) RF: 0 Held azithromycin 500 mg tablet See Rx Instructions .ROUTE .COMPLEX Qty: 45 RF: 3 Hold Instructions: Resume on 08/12/21. prednisone 5 mg tablet 5 mg PO DAILY RF: 0 Hold Instructions: Resume on 08/16/21. Discontinued albuterol sulfate 2.5 mg /3 mL (0.083 %) solution for nebulization 2.5 mg INHALATION Q6H PRN (Reason: shortness of breath or wheezing) 30 Days Qty: 360 RF: 3 albuterol sulfate [ProAir HFA] 90 mcg/actuation HFA aerosol inhaler 2 inh inhalation Q2H PRN (Reason: shortness of breath or wheezing) Qty: 25.5 RF: 3 Discharge Orders: Discharge Order (Routine); Ordered 08/05/21 Ordered By: Leif Centeno Referrals: Pulmonary, rehabilitation [Other] - 1-3 days (FAXED REFERRAL TO REHAB [phone]) Wound Care [Provider Group] - 08/11/21 10:00 am (Sacral ulcer [phone]) Vignesh Saleh DO [Physician] - 08/13/21 9:00 am Yolie Cristobal FNP [Nurse Practitioner] - 08/13/21 1:15 pm Haider Singh MD [Physician] - 08/18/21 12:45 pm Discharge Diet: Cardiac Discharge Activity: Increase activity as tolerated and Oxygen as instructed Patient Instructions: Benzonatate (By mouth), Prednisone (By mouth), Dextromethorphan (By mouth), Levofloxacin (By mouth), Levalbuterol (By breathing), Polyethylene Glycol 3350 (By mouth), Lidocaine Patch (On the skin), Chest Pain (DC), Coronary Angioplasty (DC), Opioid Safety, Decubitus Ulcers Activity Restrictions/Additional Instructions: Please continue oxygen at home at 3 L/min nasal cannula, monitor your oxygen saturations, target oxygen saturation of 92%. In case saturation is falling below 88%, please increase oxygen flow. If oxygen saturation still low at rest and despite increasing oxygen flow please call 911. Please discuss with your primary doctor follow-up with endoscopic evaluation (starting with colonoscopy) 2) for possible identified malignancy which could be responsible for Streptococcus bovis bacteremia. Complete antibiotic course. Discussed with your primary doctor consideration of repeat blood culture after resolution. Please have your primary doctor follow-up your kidney function and follow-up on mild hydronephrosis incidentally seen in the left kidney. Please apply OPTi foam dressing on sacral wound daily. Please follow-up with wound care clinic. Please reposition frequently, every hour if you can to reduce the chance of progression of pressure ulcer on your sacrum. Please if possible avoid sleeping on the couch, arrange for a bed. Continue any please discuss with your primary doctor regarding arrangement for air mattress. Please complete prednisone taper, subsequently resume your usual prednisone dose. Please complete the Levaquin antibiotic for pseudomonal infection, subsequently resume azithromycin. Please resume follow-up with your pulmonology doctor. 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 Please continue your heart medications. Monitor heart rates at home. If you experience very fast heart rate, significant shortness of breath, chest pain, or other concerning symptoms, please call 911. Please have your primary doctor follow-up on your anemia. Recheck blood count level. Continue follow-up with your primary doctor with regards to chronic back pain. Follow-up with regards to rib cage pain as well. Use cough medication to reduce cough which may worsen your chest wall pain. Please avoid constipation, include fiber in your diet. Continue bowel regimen. Reduce the use of opioid medications. Please follow-up with your primary doctor with regards to malnutrition. Please include protein shakes with Ensure plus with your meals. Discharge Attestations Time Spent in Discharge Care*: greater than 30 min Status at Discharge: Cognitive status at discharge: cognitively intact , Behavioral status at discharge: cooperative , Quality Metrics Clinical Quality Measures During this hospital stay, did patient experience: None Coding Level of Care Code Acute [facility] [place] note Diagnoses NSTEMI (non-ST elevated myocardial infarction) I21.4 Anxiety F41.9 Acute exacerbation of chronic obstructive pulmonary disease J44.1
--- NOTE | 2021-08-05 14:44 | PC.NURSE ---
Patient given discharge paperwork and explanation of medications and appointment. Helped dress with shoes and pack belongings along with cell phone and Ipad. Patient verbalized understanding.
--- NOTE | 2021-08-05 15:14 | PC.NURSE ---
Patient wheeled to private vehicle in wheel chair with oxygen. had tank in vehicle, oxygen tubing switched to personal O2 tank. had stopped and pick patients medications up on way here per patient.
--- NOTE | 2021-08-07 09:49 | PC.SOCIAL ---
discharge follow up call made, spoke with pt. pt reports he can only go to appointments on wednesday afternoon's and can't go to any until after thanksgiving. 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
== END 2021-08-05 15:20 | disposition home or self-care (01) | DRG 981 ==
LOC: ER 07-27 02:57 → MEDSURG 07-27 04:46 → ICU 08-01 10:08 → MEDSURG 08-02 14:09
PROVIDERS: Emergency Medicine; Family Medicine; Internal Medicine; Internal Medicine Cardiovascular Disease; Admitting Provider Hospitalist; Emergency Provider Emergency Medicine; PCP Family Medicine; Visit Provider Internal Medicine
PROC: 02703ZZ Dilation of Coronary Artery, One Artery, Percutaneous Approach (ICD-10-PCS; principal; 2021-08-01 08:30)
PROC: 02703ZZ Dilation of Coronary Artery, One Artery, Percutaneous Approach (ICD-10-PCS; 2021-08-01 08:30)
DX: J43.2 Centrilobular emphysema (principal); E43 Unspecified severe protein-calorie malnutrition; I21.4 Non-ST elevation (NSTEMI) myocardial infarction; J96.12 Chronic respiratory failure with hypercapnia; J96.11 Chronic respiratory failure with hypoxia; T82.855A Stenosis of coronary artery stent, initial encounter; I47.2 Ventricular tachycardia; Z68.1 Body mass index [BMI] 19.9 or less, adult; F41.9 Anxiety disorder, unspecified; I25.10 Atherosclerotic heart disease of native coronary artery without angina pectoris; Z95.5 Presence of coronary angioplasty implant and graft; Y71.1 Therapeutic (nonsurgical) and rehabilitative cardiovascular devices associated with adverse incidents; G89.29 Other chronic pain; M54.42 Lumbago with sciatica, left side; M54.41 Lumbago with sciatica, right side; K21.9 Gastro-esophageal reflux disease without esophagitis; I15.9 Secondary hypertension, unspecified; E78.2 Mixed hyperlipidemia; I25.5 Ischemic cardiomyopathy; Z87.891 Personal history of nicotine dependence; Z99.81 Dependence on supplemental oxygen; B96.5 Pseudomonas (aeruginosa) (mallei) (pseudomallei) as the cause of diseases classified elsewhere; B95.8 Unspecified staphylococcus as the cause of diseases classified elsewhere; B95.4 Other streptococcus as the cause of diseases classified elsewhere; K59.00 Constipation, unspecified; N40.0 Benign prostatic hyperplasia without lower urinary tract symptoms; E03.9 Hypothyroidism, unspecified; L89.152 Pressure ulcer of sacral region, stage 2; D53.9 Nutritional anemia, unspecified
CPT/HCPCS: 36415; 36600; 51702; 71045; 71275; 74176; 76700; 80048; 80053; 82607; 82746; 82803; 82805; 83605; 83735; 83880; 84100; 84145; 84436; 84439; 84443; 84480; 84481; 84484; 85025; 85347; 85730; 86140; 86403; 87040; 87070; 87077; 87186; 87205; 90471; 90686; 90732; 92920; 93005; 93306; 93454; 94640; 94660; 94664; 96365; 96372; 96375; 96376; 97116; 97161; 97530; 99291; C1725; C1769; C1887; C1894; G0378; J0456; J0743; J1644; J1650; J1940; J2060; J2212; J2250; J2270; J2405; J2704; J2920; J2930; J3010; J3490; J7030; J7040; J7050; J7512; J7626; Q9967

== ENCOUNTER → 2021-10-20 12:04 | Outpatient (BNVA) | payer MEDICARE, MEDICAID, SELFPAY | PROVIDERS: PCP Family Medicine; Visit Provider Family Medicine | DX: D64.9 Anemia, unspecified (principal); E46 Unspecified protein-calorie malnutrition; J44.1 Chronic obstructive pulmonary disease with (acute) exacerbation; Z68.1 Body mass index [BMI] 19.9 or less, adult | CPT/HCPCS: 80048; 82378; 85025 ==

== ENCOUNTER → 2021-12-15 12:55 | Outpatient (BNVA) | payer MEDICARE, MEDICAID, SELFPAY | PROVIDERS: PCP Family Medicine; Visit Provider Internal Medicine Critical Care Medicine | DX: J44.9 Chronic obstructive pulmonary disease, unspecified (principal); J96.11 Chronic respiratory failure with hypoxia; J96.12 Chronic respiratory failure with hypercapnia; F41.9 Anxiety disorder, unspecified; F17.210 Nicotine dependence, cigarettes, uncomplicated; I10 Essential (primary) hypertension; E78.5 Hyperlipidemia, unspecified; K21.9 Gastro-esophageal reflux disease without esophagitis | CPT/HCPCS: 99214 ==

== ENCOUNTER → 2022-03-09 13:02 | Outpatient (BNVA) | payer MEDICARE, MEDICAID, SELFPAY | PROVIDERS: PCP Family Medicine; Visit Provider Internal Medicine Critical Care Medicine | DX: J44.9 Chronic obstructive pulmonary disease, unspecified (principal); J96.11 Chronic respiratory failure with hypoxia; J96.12 Chronic respiratory failure with hypercapnia; F41.9 Anxiety disorder, unspecified; F17.210 Nicotine dependence, cigarettes, uncomplicated; K21.9 Gastro-esophageal reflux disease without esophagitis | CPT/HCPCS: 99214 ==